=== PATIENT | female | born 1945 | race Caucasian/White ===

== ENCOUNTER 2017-02-08 13:35 | Inpatient (IN) | payer OTHER ==
--- NOTE | 2017-02-08 13:58 | PDOC ---
Attending Attestation - HPI HPI: 02/08/17 16:02 Patient is a 71 year old female with a significant past medical history of Hypothyroidism, Hyperlipidemia, Bipolar disorder, Anxiety disorder and seizure disorder with colostomy who presents to the ED s/p change in mental status that began yesterday. Patient is unable to provide Hx. Patient is able to project to nurses and physicians. Allergies: Chocolate Flavor Social history: No smoking. No alcohol. No illicit drugs. Surgical history PMD: Dr. Beltran - Physicial Exam PE: 02/08/17 16:02 GENERAL: +Pale. +was able to say get away Awake, alert. HEAD: No signs of trauma EYES: PERRLA, EOMI, sclera anicteric, conjunctiva clear ENT: +Dry Mucous membrane, cracked. +tongue dry. Auricles normal inspection, hearing grossly normal, nares patent, oropharynx clear without exudates. NECK: Normal ROM, supple, no lymphadenopathy, JVD, or masses LUNGS: Breath sounds equal, clear to auscultation bilaterally. No wheezes, and no crackles HEART: Regular rate and rhythm, normal S1 and S2, no murmurs, rubs or gallops ABDOMEN: +Colostomy bag with air, no stool . Soft, nontender, normoactive bowel sounds. No guarding, no rebound. No masses EXTREMITIES: Normal range of motion, no edema. No clubbing or cyanosis. No cords, erythema, or tenderness NEUROLOGICAL: Cranial nerves II through XII grossly intact. Normal speech, SKIN: Warm, Dry, normal turgor, no rashes or lesions noted. 02/08/17 16:02 <John Cheung - Last Filed: 02/08/17 16:02> - Resident Resident Name: Thong Street - ED Attending Attestation I have performed the following: I have examined & evaluated the patient, The case was reviewed & discussed with the resident, I agree w/resident's findings & plan, Exceptions are as noted - Medical Decision Making 02/08/17 13:57 I, Dr. Pao Zapien, DO, attest that this document has been prepared under my direction and personally reviewed by me in its entirety. I further attest, that it accurately reflects all work, treatment, procedures and medical decision -making performed by me. 02/08/17 14:49 a/p: 71yo female sent for eval of change in MS -pt very dry on exam with tenting skin -urine very dark and concentrated -labs -ua/cs -ivf hydration -straight cath -cxr -monitor -vbg 02/08/17 16:25 pt with UTI and change in MS, mild acidosis. will need admission for IV ABX 02/08/17 16:35 case discussed with IM who accepts pt to dr. serrano <Pao Zapien - Last Filed: 02/08/17 16:38> Discharge Disposition <John Cheung - Last Filed: 02/08/17 16:02> - Discharge Dispostion Admit: Yes <Pao Zapien - Last Filed: 02/08/17 16:38> - Diagnosis UTI (urinary tract infection), Change in mental status - Discharge Dispostion Condition at time of disposition: Guarded - Referrals Referrals: Sabas Beltran [Primary Care Provider] - Heart Score/ECG Review - ECG Intrepretation Comment:: 02/08/17 16:24 sinus at 98, nl axis, lafb, q waves septally that are age indeterminate, no acute st/t wave findings <Pao Zapien - Last Filed: 02/08/17 16:38> Critical Care Total Critical Care Time (in minutes): 30 Critical Care Statement: The care of this patient involved high complexity decision making to prevent further life threatening deterioration of the patient 's condition and/or to evaluate & treat vital organ system(s) failure or risk of failure. <Pao Zapien - Last Filed: 02/08/17 16:38>
[2017-02-08] MEDS ORDERED: SODIUM CHLORIDE 0.9% 1000 ML INFUS.BAG IV ONE ×2 (14:01→14:54)
--- NOTE | 2017-02-08 14:16 | PDOC ---
History of Present Illness - General Stated Complaint: ALTERED MENTAL STATUS Time Seen by Provider: 02/08/17 13:39 - History of Present Illness Initial Comments: 02/08/17 14:19 Ms. Raymundo is a 71 yo female with a significant past medical history of Hypothyroidism, Hyperlipidemia, Bipolar disorder, Anxiety disorder and seizure disorder with colostomy who presents to the emergency department from [facility] with altered mental status. Unclear duration, per EMS she is normally able to converse and oriented to self but has lately been AOx0. Allergies: chocolate flavor Past History - Past Medical History Allergies/Adverse Reactions: Allergies Allergy/AdvReac Type Severity Reaction Status Date / Time chocolate flavor Allergy Verified 02/08/17 14:47 Home Medications: Ambulatory Orders Amino Acids/Protein Hydrolys [Pro-Stat Awc Liquid] 30 ml PO BID 02/08/17 Cinacalcet HCl [Sensipar] 30 mg PO BID 02/08/17 Divalproex [Depakote -] 750 mg PO BID 02/08/17 Docusate Sodium [Dulcolax Stool Softener] 200 mg PO HS 02/08/17 Edetate Disodium/Peg [Eyescrub Cleansing Pads] 1 each OU DAILY 02/08/17 Flunisolide 1 sprays NS Q12H 02/08/17 Levothyroxine [Synthroid -] 225 mcg PO DAILY 02/08/17 [place] Carbonate [Eskalith -] 150 mg PO DAILY 02/08/17 [place] Carbonate [Eskalith -] 300 mg PO HS 02/08/17 Mag Hydrox/Al Hydrox/Simeth [Mylanta Oral Suspension -] 30 ml PO Q8H PRN Magnesium Hydrox 2400MG/30Ml [Milk of Magnesia -] 30 ml PO DAILY PRN 02/08/17 Multivitamin with Minerals [Icaps Plus] 1 each PO DAILY 02/08/17 Pantoprazole Sodium 40 mg PO DAILY 02/08/17 Polyethylene Glycol 3350 [Miralax (For Daily Use) -] 17 gm PO DAILY 02/08/17 Quetiapine Fumarate [Seroquel -] 300 mg PO BID 02/08/17 Topiramate [Topamax] 100 mg PO Q12H 02/08/17 Review of Systems - Review of Systems Comments:: Unable to perform *Physical Exam - Physical Exam Comments: 02/08/17 14:19 GENERAL: AOx0 HEAD: No signs of trauma, normocephalic, atraumatic EYES: PERRLA, EOMI, sclera anicteric, conjunctiva clear ENT: Auricles normal inspection, hearing grossly normal, nares patent, oropharynx clear without exudates. Moist mucosa NECK: Normal ROM, supple, no lymphadenopathy, JVD, or masses LUNGS: No distress, speaks full sentences, clear to auscultation bilaterally HEART: Regular rate and rhythm, normal S1 and S2, no murmurs, rubs or gallops, peripheral pulses normal and equal bilaterally. ABDOMEN: Soft, nontender, normoactive bowel sounds. No guarding, no rebound. No masses EXTREMITIES: +Abbrasion on right forearm at exam that per EMS was not their when they picked up patient. Patient flailing around; suspect self inflicted during transport. Normal range of motion, no edema. No clubbing or cyanosis. NEUROLOGICAL: Cranial nerves II through XII grossly intact. Normal speech, normal gait, no focal sensorimotor deficits SKIN: +Vaginal rash noted while assisting nursing changing patient. Warm, Dry, normal turgor, no lesions noted. ED Treatment Course - LABORATORY CBC & Chemistry Diagram: 02/08/17 14:30 02/08/17 16:39 Medical Decision Making - Medical Decision Making 02/08/17 16:44 Patient acutely altered with lactate, WBC's, and UA results as shown below. Admitting for UTI treatment with IV ABX. Laboratory Results - last 24 hr 02/08/17 02/08/17 02/08/17 13:58 14:30 14:30 WBC RBC Hgb Hct MCV MCH MCHC RDW Plt Count MPV Total Counted Neutrophils % Neutrophils % (Manual) Band Neuts % (Manual) Lymphocytes % Lymphocytes % (Manual) Monocytes % (Manual) Myelocytes % (Man) Platelet Estimate Platelet Comment Polychromasia Anisocytosis Macrocytosis PT with INR 23.40 H INR 2.10 H PTT (Actin FS) 43.2 H VBG pH POC VBG pCO2 POC VBG pO2 Mixed VBG HCO3 Sodium Cancelled Potassium Cancelled Chloride Cancelled Carbon Dioxide Cancelled Anion Gap Cancelled BUN Cancelled Creatinine Cancelled Creat Clearance w eGFR Cancelled Random Glucose Cancelled Lactic Acid Calcium Cancelled Magnesium Cancelled Total Bilirubin Cancelled AST Cancelled ALT Cancelled Alkaline Phosphatase Cancelled Creatine Kinase Cancelled Troponin I Cancelled B-Natriuretic Peptide Total Protein Cancelled Albumin Cancelled TSH Urine Color Michelle Urine Appearance Turbid Urine pH 5.0 Urine Protein 2+ H Urine Glucose (UA) Negative Urine Ketones Trace H Urine Blood 3+ H Urine Nitrite Positive Urine Bilirubin Negative Urine Urobilinogen Negative Urine RBC 101 Urine WBC 1047 Ur Epithelial Cells Rare Urine Bacteria Few Urine Mucus Few 02/08/17 02/08/17 02/08/17 14:30 14:30 14:30 WBC 18.9 H RBC 3.96 Hgb 14.8 Hct 46.7 H MCV 117.7 H MCH 37.2 H MCHC 31.6 L RDW 17.6 H Plt Count 101 L MPV 11.8 H Total Counted 100 Neutrophils % No Result Required. Neutrophils % (Manual) 57 Band Neuts % (Manual) 17 H Lymphocytes % No Result Required. Lymphocytes % (Manual) 15 Monocytes % (Manual) 10 Myelocytes % (Man) 1 Platelet Estimate Decreased Platelet Comment Few large plts Polychromasia F Anisocytosis 1+ Macrocytosis 2+ PT with INR INR PTT (Actin FS) VBG pH POC VBG pCO2 POC VBG pO2 Mixed VBG HCO3 Sodium Potassium Chloride Carbon Dioxide Anion Gap BUN Creatinine Creat Clearance w eGFR Random Glucose Lactic Acid 2.4 H* Calcium Magnesium Total Bilirubin AST ALT Alkaline Phosphatase Creatine Kinase Troponin I B-Natriuretic Peptide Cancelled Total Protein Albumin TSH Urine Color Urine Appearance Urine pH Urine Protein Urine Glucose (UA) Urine Ketones Urine Blood Urine Nitrite Urine Bilirubin Urine Urobilinogen Urine RBC Urine WBC Ur Epithelial Cells Urine Bacteria Urine Mucus 02/08/17 02/08/17 14:45 15:10 WBC RBC Hgb Hct MCV MCH MCHC RDW Plt Count MPV Total Counted Neutrophils % Neutrophils % (Manual) Band Neuts % (Manual) Lymphocytes % Lymphocytes % (Manual) Monocytes % (Manual) Myelocytes % (Man) Platelet Estimate Platelet Comment Polychromasia Anisocytosis Macrocytosis PT with INR INR PTT (Actin FS) VBG pH 7.32 POC VBG pCO2 56.3 H POC VBG pO2 30.2 Mixed VBG HCO3 28.3 H Sodium Potassium Chloride Carbon Dioxide Anion Gap BUN Creatinine Creat Clearance w eGFR Random Glucose Lactic Acid Calcium Magnesium Total Bilirubin AST ALT Alkaline Phosphatase Creatine Kinase Troponin I B-Natriuretic Peptide Total Protein Albumin TSH Cancelled Urine Color Urine Appearance Urine pH Urine Protein Urine Glucose (UA) Urine Ketones Urine Blood Urine Nitrite Urine Bilirubin Urine Urobilinogen Urine RBC Urine WBC Ur Epithelial Cells Urine Bacteria Urine Mucus 02/08/17 19:01 Patient admitted to hospitalist. Patient then realized to be from [facility], usually covered by Dr. Rose. Dr. Rose consulted and agreed to accept patient under service. *DC/Admit/Observation/Transfer Diagnosis at time of Disposition: UTI (urinary tract infection) Qualifiers: Urinary tract infection type: site unspecified Hematuria presence: with hematuria Qualified Code(s): N39.0 - Urinary tract infection, site not specified Change in mental status Qualifiers: Altered mental status type: delirium Qualified Code(s): R41.0 - Disorientation , unspecified - Discharge Dispostion Condition at time of disposition: Guarded - Referrals
[2017-02-08 14:46] LABS: MCH 37.2 pg (25.7-33.7); MCHC 31.6 g/dl (32.0-36.0); MEAN CELL VOLUME 117.7 fl (80-96); MEAN PLT VOLUME 11.8 fl (7.5-11.1); PLATELET COUNT 101 K/MM3 (134-434); RDW 17.6 % (11.6-15.6); WHITE BLOOD COUNT 18.9 K/mm3 (4.0-10.0)
[2017-02-08 14:47] LABS: URINE APPEARANCE TURBID; URINE BILIRUBIN NEGATIVE (NEGATIVE); URINE BLOOD 3+ (NEGATIVE); URINE COLOR AMBER; URINE GLUCOSE (UA) NEGATIVE (NEGATIVE); URINE KETONE TRACE (NEGATIVE); URINE NITRITE POSITIVE (NEGATIVE); URINE UROBILINOGEN NEGATIVE mg/dL (0.2-1.0)
[2017-02-08 14:50] LABS: URINE LEUK ESTERASE 3+ (NEGATIVE); URINE PROTEIN 2+ (NEGATIVE)
[2017-02-08 14:51] LABS: VENOUS BLOOD GAS HCO3 28.3 meq/L (19-25); VENOUS PH 7.32 (7.32-7.42)
[2017-02-08 14:58] LABS: INR 2.1 (0.82-1.09); PROTHROMBIN TIME (PATIENT) 23.4 SEC (9.98-11.88)
[2017-02-08 15:01] LABS: ACTIVATED PTT 43.2 SECONDS (26.9-34.4)
[2017-02-08 15:08] VITALS: BMI 45.1
[2017-02-08 15:33] LABS: MYELOCYTE 1 % (0-2); PLATELET COMMENT2 FEW LARGE PLTS; PLATELET ESTIMATE DECREASED (NORMAL); POLYCHROMASIA F; TOTAL CELLS COUNTED 100
[2017-02-08 15:34] LABS: ANISOCYTOSIS 1+; MACROCYTOSIS 2+
[2017-02-08 15:51] LABS: URINE BACTERIA FEW /hpf (NONE SEEN); URINE MUCUS FEW; URINE RBC 101 /hpf (0-3); URINE WBC 1047 /hpf (3-5)
[2017-02-08] MEDS ORDERED: cefTRIAXone 1 GM/50 ML BAG (PRE-DOCKED) IVPB ONE (16:00)
[2017-02-08] MEDS ORDERED: CEFTRIAXONE 50 ML ONE (16:53)
[2017-02-08 17:12] LABS: ALBUMIN 2.5 g/dl (3.4-5.0); ANION GAP 5 (8-16); BILIRUBIN,TOTAL 0.7 mg/dL (0.2-1.0); CO2 24 mmol/L (21-32); CREATININE 1.1 mg/dL (0.55-1.02); GLUCOSE,RANDOM 86 mg/dL (74-106); SGPT/ALT 23 U/L (12-78); TOT PROT 6.2 g/dl (6.4-8.2)
[2017-02-08 17:14] LABS: ALK PHOS 99 U/L (45-117)
[2017-02-08 17:16] LABS: MAGNESIUM 1.8 mg/dL (1.8-2.4); SGOT/AST 35 U/L (15-37)
--- NOTE | 2017-02-08 17:27 | PN ---
Teaching Attending Note ATTENDING PHYSICIAN STATEMENT I saw and evaluated the patient. I reviewed the resident's note and discussed the case with the resident. I agree with the resident's findings and plan as documented. SUBJECTIVE: OBJECTIVE: ASSESSMENT AND PLAN:
[2017-02-08] MEDS ORDERED: MAGNESIUM HYDROX 2400MG/30ML ORAL SUSPENSION 30 ML CUP PO PRN (19:37)
[2017-02-08] MEDS ORDERED: MAG HYDROX/AL HYDROX/SIMETH 30 ML UNIT-DOSE CUP PO PRN (19:37)
[2017-02-08] MEDS ORDERED: ACETAMINOPHEN 325 MG TABLET (FP) PO PRN (19:40)
[2017-02-08] MEDS ORDERED: FLUNISOLIDE NS SCH (19:45)
[2017-02-08] MEDS ORDERED: TOPIRAMATE 100 MG TABLET PO SCH (19:45)
--- NOTE | 2017-02-08 20:17 | EKG ---
Test Reason : Blood Pressure : / mmHG Vent. Rate : 098 BPM Atrial Rate : 098 BPM P-R Int : 166 ms QRS Dur : 092 ms QT Int : 362 ms P-R-T Axes : 063 -64 086 degrees QTc Int : 462 ms NORMAL SINUS RHYTHM LEFT ANTERIOR FASCICULAR BLOCK SEPTAL INFARCT , AGE UNDETERMINED NONSPECIFIC T WAVE ABNORMALITY ABNORMAL ECG NO PREVIOUS ECGS AVAILABLE Confirmed by WAGNER NICOLE MD ([id number]) on 02/08/2017 8:16:47 PM Referred By: Confirmed By:WAGNER NICOLE MD
[2017-02-08] MEDS: D5-1/2NS+20 MEQ KCL - 1,000 ML IV SCH (20:38)
[2017-02-08] MEDS: AMINO ACIDS/PROTEIN HYDROLYS 30 ML LIQUID.PKT PO SCH (21:57)
[2017-02-08] MEDS: DOCUSATE SODIUM 100 MG CAPSULE (FP) PO SCH (21:57)
[2017-02-08] MEDS: TOPIRAMATE 100 MG TABLET PO SCH (21:57)
[2017-02-08] MEDS ORDERED: DIVALPROEX SODIUM 125 MG TABLET E.C. (FP) PO SCH (22:00)
[2017-02-08] MEDS ORDERED: QUEtiapine FUMARATE 300 MG TABLET PO SCH (22:00)
[2017-02-08] MEDS: QUEtiapine FUMARATE 100 MG TABLET (FP) PO SCH (23:02)
[2017-02-08] MEDS: DIVALPROEX SODIUM 250 MG TABLET E.C. (FP) PO SCH (23:02)
[2017-02-08] MEDS: LITHIUM CARBONATE 300 MG CAPSULE (FP) PO SCH (23:02)
[2017-02-08] MEDS: CINACALCET HCL 30 MG TAB (FP) PO SCH (23:02)
[2017-02-09] MEDS ORDERED: LEVOTHYROXINE NA 25 MCG TABLET (FP) ONE (06:11)
[2017-02-09] MEDS ORDERED: LEVOTHYROXINE NA 100 MCG TABLET (FP) ONE (06:11)
[2017-02-09] MEDS: LEVOTHYROXINE 200 MCG, LEVOTHYROXINE 25 MCG PO SCH (06:17)
[2017-02-09] MEDS: D5-1/2NS+20 MEQ KCL - 1,000 ML IV SCH ×2 (06:51→23:12)
[2017-02-09 07:19] LABS: BASOPHIL 0.3 % (0-2.0); EOSINOPHIL 1.3 % (0-4.5); MCHC 31.9 g/dl (32.0-36.0); MEAN CELL VOLUME 119.1 fl (80-96); MEAN PLT VOLUME 10.7 fl (7.5-11.1); NEUTROPHILS 66.7 % (42.8-82.8); PLATELET COUNT 65 K/MM3 (134-434); RDW 17.4 % (11.6-15.6); WHITE BLOOD COUNT 10.8 K/mm3 (4.0-10.0)
[2017-02-09 07:32] LABS: INR 2.1 (0.82-1.09); PROTHROMBIN TIME (PATIENT) 23.5 SEC (9.98-11.88)
[2017-02-09 07:43] LABS: ALBUMIN 2.2 g/dl (3.4-5.0); ANION GAP 1 (8-16); BILIRUBIN,TOTAL 0.5 mg/dL (0.2-1.0); CALCIUM 10.6 mg/dL (8.5-10.1); CO2 30 mmol/L (21-32); GLUCOSE,RANDOM 105 mg/dL (74-106); SGOT/AST 21 U/L (15-37); SGPT/ALT 18 U/L (12-78); TOT PROT 5.7 g/dl (6.4-8.2)
[2017-02-09 07:44] LABS: ALK PHOS 90 U/L (45-117)
[2017-02-09] MEDS ORDERED: QUEtiapine FUMARATE 50 MG TABLET ONE (09:31)
[2017-02-09] MEDS ORDERED: cefTRIAXone SODIUM 1 GM VIAL ONE (09:31)
[2017-02-09] MEDS ORDERED: DEXTROSE 5%-WATER 100 ML IVPB ONE (09:32)
[2017-02-09] MEDS: QUEtiapine FUMARATE 100 MG TABLET (FP) PO SCH ×2 (09:35→23:05)
[2017-02-09] MEDS: PANTOPRAZOLE 40 MG TABLET (FP) PO SCH (09:35)
[2017-02-09] MEDS: CEFTRIAXONE 1 GM in DEXTROSE 5%-WATER 100 ML IVPB SCH (09:35)
[2017-02-09] MEDS: MULTIVITAMINS (DAILY MVI) TABLET (FP) PO SCH (09:35)
[2017-02-09] MEDS: AMINO ACIDS/PROTEIN HYDROLYS 30 ML LIQUID.PKT PO SCH ×2 (09:37→23:03)
[2017-02-09] MEDS ORDERED: LEVOTHYROXINE NA 200 MCG TABLET PO SCH (10:00)
[2017-02-09] MEDS ORDERED: [UNRECOGNIZED DRUG - MIXTURE] OU SCH (10:00)
[2017-02-09] MEDS: POLYETHYLENE GLYCOL 3350 119 GM BTL PO SCH (10:00)
--- NOTE | 2017-02-09 10:58 | HP ---
Admitting History and Physical - Primary Care Physician PCP: Alva Rose - Admission Chief Complaint: ams History of Present Illness: Patient is a 71 year old female with a significant past medical history of Hypothyroidism, Hyperlipidemia, Bipolar disorder, Anxiety disorder and seizure disorder with colostomy who presents to the ED s/p change in mental status that began yesterday. Patient is unable to provide Hx. Patient was able to project to nurses and physicians in er. PMD: Dr. Beltran. patient in the emergency room--noted to have dark colored urine/urosepsis Sodium was also evaluated given fluids And antibiotics Admitted to the floor Case was discussed with emergency room physician last night patient seen Today on the floor. Drowsy but arousable Patient is poor historian Patient has breakfast today As per nursing staff she is eating all right Afebrile History Source: Medical Record Limitations to Obtaining History: Clinical Condition, Poor Historian - Advance Directives Advance Directives: Yes: Health Care Proxy - Smoking History Smoking history: Never smoked Aproximately how many cigarettes per day: 0 - Alcohol/Substance Use Hx Alcohol Use: No Home Medications - Allergies Allergies/Adverse Reactions: Allergies Allergy/AdvReac Type Severity Reaction Status Date / Time chocolate flavor Allergy Verified 02/08/17 14:47 - Home Medications Home Medications: Ambulatory Orders Amino Acids/Protein Hydrolys [Pro-Stat Awc Liquid] 30 ml PO BID 02/08/17 Cinacalcet HCl [Sensipar] 30 mg PO BID 02/08/17 Divalproex [Depakote -] 750 mg PO BID 02/08/17 Docusate Sodium [Dulcolax Stool Softener] 200 mg PO HS 02/08/17 Edetate Disodium/Peg [Eyescrub Cleansing Pads] 1 each OU DAILY 02/08/17 Flunisolide 1 sprays NS Q12H 02/08/17 Levothyroxine [Synthroid -] 225 mcg PO DAILY 02/08/17 [place] Carbonate [Eskalith -] 150 mg PO DAILY 02/08/17 [place] Carbonate [Eskalith -] 300 mg PO HS 02/08/17 Mag Hydrox/Al Hydrox/Simeth [Mylanta Oral Suspension -] 30 ml PO Q8H PRN Magnesium Hydrox 2400MG/30Ml [Milk of Magnesia -] 30 ml PO DAILY PRN 02/08/17 Multivitamin with Minerals [Icaps Plus] 1 each PO DAILY 02/08/17 Pantoprazole Sodium 40 mg PO DAILY 02/08/17 Polyethylene Glycol 3350 [Miralax (For Daily Use) -] 17 gm PO DAILY 02/08/17 Quetiapine Fumarate [Seroquel -] 300 mg PO BID 02/08/17 Topiramate [Topamax] 100 mg PO Q12H 02/08/17 Review of Systems Unable to obtain ROS, reason: Clinical condition Physical Examination Vital Signs: Vital Signs Temperature 98 F 02/09/17 05:46 Pulse Rate 76 02/09/17 05:46 Respiratory Rate 18 02/09/17 05:46 Blood Pressure 120/74 02/09/17 05:46 O2 Sat by Pulse Oximetry (%) 100 02/09/17 09:00 Constitutional: Yes: No Distress, Calm, Obese Eyes: Yes: Conjunctiva Clear Neck: Yes: Supple Cardiovascular: Yes: Regular Rate and Rhythm Respiratory: Yes: CTA Bilaterally Gastrointestinal: Yes: Soft Edema: No Labs: CBC, BMP 02/09/17 07:10 02/09/17 07:10 Imaging - Results Chest X-ray: Report Reviewed Cat Scan: Report Reviewed EKG: Report Reviewed Problem List - Problems (1) Change in mental status Code(s): R41.82 - ALTERED MENTAL STATUS, UNSPECIFIED Qualifiers: Altered mental status type: delirium Qualified Code(s): R41.0 - Disorientation, unspecified; R41.0 - Disorientation, unspecified (2) UTI (urinary tract infection) Code(s): N39.0 - URINARY TRACT INFECTION, SITE NOT SPECIFIED Qualifiers: Urinary tract infection type: site unspecified Hematuria presence: with hematuria Qualified Code(s): N39.0 - Urinary tract infection, site not specified; N39.0 - Urinary tract infection, site not specified; R31.9 - Hematuria, unspecified; R31.9 - Hematuria, unspecified (3) Hypernatremia Code(s): E87.0 - HYPEROSMOLALITY AND HYPERNATREMIA Assessment/Plan monitor Check lithium and Depakote level May need to adjust psych medication Neuro exam is nonfocal Question of salivary duct stone--we will get ct neck check ionized calcium IV fluids We'll consult hematology for hypercalcemia Monitor sodium level Patient's INR is also elevated--- repeated and again elevated Patient is not on Coumadin--confirmed with skilled nursing I also spoke with the patient's private PMD Hematology already consulted Will follow. time spend 40 min in examining/ coordating and documenting care.
[2017-02-09] MEDS: DIVALPROEX SODIUM 250 MG TABLET E.C. (FP) PO SCH ×2 (13:48→23:02)
[2017-02-09] MEDS: LITHIUM CARBONATE 150 MG CAPSULE PO SCH (13:48)
[2017-02-09] MEDS: CINACALCET HCL 30 MG TAB (FP) PO SCH ×2 (13:49→23:02)
[2017-02-09] MEDS: TOPIRAMATE 100 MG TABLET PO SCH ×2 (13:49→23:02)
--- NOTE | 2017-02-09 22:18 | CONSULT ---
Consult - text type - Consultation Consultation Note: Ms. Raymundo is a 71 yo female with a significant past medical history of Hypothyroidism, Hyperlipidemia, Bipolar disorder, Anxiety disorder and seizure disorder with colostomy who presents to the emergency department from [facility] with altered mental status. Unclear duration, per EMS she is normally able to converse and oriented to self but has lately been worse. Head CT is negative for acute pathology Noted to have hyper natremia, hypercalcemia, ? UTI Allergies: chocolate flavor Past History - Past Medical History Hyperliidemia Hypothyroidism Seizure disorder Bipolar disorder Allergies/Adverse Reactions: Allergies Allergy/AdvReac Type Severity Reaction Status Date / Time chocolate flavor Allergy Verified 02/08/17 14:47 Home Medications: Ambulatory Orders Amino Acids/Protein Hydrolys [Pro-Stat Awc Liquid] 30 ml PO BID 02/08/17 Cinacalcet HCl [Sensipar] 30 mg PO BID 02/08/17 Divalproex [Depakote -] 750 mg PO BID 02/08/17 Docusate Sodium [Dulcolax Stool Softener] 200 mg PO HS 02/08/17 Edetate Disodium/Peg [Eyescrub Cleansing Pads] 1 each OU DAILY 02/08/17 Flunisolide 1 sprays NS Q12H 02/08/17 Levothyroxine [Synthroid -] 225 mcg PO DAILY 02/08/17 [place] Carbonate [Eskalith -] 150 mg PO DAILY 02/08/17 [place] Carbonate [Eskalith -] 300 mg PO HS 02/08/17 Mag Hydrox/Al Hydrox/Simeth [Mylanta Oral Suspension -] 30 ml PO Q8H PRN Magnesium Hydrox 2400MG/30Ml [Milk of Magnesia -] 30 ml PO DAILY PRN 02/08/17 Multivitamin with Minerals [Icaps Plus] 1 each PO DAILY 02/08/17 Pantoprazole Sodium 40 mg PO DAILY 02/08/17 Polyethylene Glycol 3350 [Miralax (For Daily Use) -] 17 gm PO DAILY 02/08/17 Quetiapine Fumarate [Seroquel -] 300 mg PO BID 02/08/17 Topiramate [Topamax] 100 mg PO Q12H 02/08/17 Active Medications Generic Name Dose Route Start Last Admin Trade Name Freq PRN Reason Stop Dose Admin Acetaminophen 650 mg 02/08/17 19:40 Tylenol - PO Q4H PRN FEVER OR PAIN Al Hydroxide/Mg Hydroxide 30 ml 02/08/17 19:37 Mylanta Oral Suspension - PO Q8H PRN DYSPEPSIA Amino Acids 30 ml 02/08/17 22:00 02/09/17 23:03 Prosource No Carb Liquid Pkt PO 30 ml BID ROLAN Administration Cinacalcet 30 mg 02/08/17 22:00 02/09/17 23:02 Sensipar - PO 30 mg BID ROLAN Administration Divalproex Sodium 750 mg 02/08/17 22:45 02/09/17 23:02 Depakote - PO 750 mg BID ROLAN Administration Docusate Sodium 200 mg 02/08/17 22:00 02/09/17 23:02 Colace - PO 200 mg HS ROLAN Administration Potassium Chloride/Dextrose/Sod Cl 1,000 mls @ 100 mls/hr 02/08/17 19:45 23:12 D5-1/2ns+20 Meq Kcl - IV 100 mls/hr ASDIR ROLAN Administration Ceftriaxone Sodium 1 gm/ 100 mls @ 200 mls/hr 02/09/17 10:00 02/09/17 09:35 Dextrose IVPB 200 mls/hr DAILY ROLAN Administration Levothyroxine Sodium 200 mcg/ 225 mcg 02/09/17 07:00 02/10/17 06:12 Levothyroxine Sodium 25 mcg PO 225 mcg DAILY@0700 ROLAN Administration [place] Carbonate 150 mg 02/09/17 10:00 02/09/17 13:48 Eskalith - PO Not Given DAILY ROLAN [place] Carbonate 300 mg 02/08/17 22:00 02/09/17 23:03 Eskalith - PO 300 mg HS ROLAN Administration Magnesium Hydroxide 30 ml 02/08/17 19:37 Milk Of Magnesia - PO DAILY PRN CONSTIPATION Multivitamins/Minerals/Vitamin C 1 tab 02/09/17 10:00 02/09/17 09:35 Tab-A-Vit - PO 1 tab DAILY ROLAN Administration Pantoprazole Sodium 40 mg 02/09/17 10:00 02/09/17 09:35 Protonix - PO 40 mg DAILY ROLAN Administration Phytonadione 5 mg 02/09/17 20:30 02/09/17 23:04 Aqua Mephyton Injection - SQ 02/12/17 20:29 5 mg DAILY ROLAN Administration Polyethylene Glycol 17 gm 02/09/17 10:00 02/09/17 10:00 Miralax (For Daily Use) - PO Not Given DAILY ROLAN Quetiapine Fumarate 300 mg 02/08/17 22:45 02/09/17 23:05 Seroquel - PO Not Given BID ROLAN Topiramate 100 mg 02/08/17 22:00 02/09/17 23:02 Topamax - PO 100 mg BID ROLAN Administration AFVSS Cor: RSR, No murmurs, No gallops Lungs: Clear to P&A Abd: Soft, Normal bowel sounds, No organomegaly Ext:No significant edema Skin: No rashes, Integument intact Abnormal Lab Results 02/09/17 02/09/17 02/09/17 07:10 07:10 07:10 WBC 10.8 H D RBC 3.11 L D MCV 119.1 H MCH 38.0 H MCHC 31.9 L RDW 17.4 H Plt Count 65 L D PT with INR 23.50 H INR 2.10 H Sodium 160 H Chloride 129 H Anion Gap 1 L BUN 22 H Calcium 10.6 H Total Protein 5.7 L Albumin 2.2 L 02/10/17 06:00 WBC RBC MCV MCH MCHC RDW Plt Count PT with INR 19.90 H INR 1.79 H Sodium Chloride Anion Gap BUN Calcium Total Protein Albumin A/P 71 y/o patient with hyperlipidemia, bipolar disorder,hypothyroid, seizure disorder, comes in with altered mental status Presumed UTI, hypernatremia, hypercalcemia, coagulopathy Coagulopathy due to low grade DIC? sepsis/? infection ? liver disease? occult vit. K deficiency Not on blood thinners per primary team trial of Vit. K continue antibiotics thrombocytopenia--? infection ? liver disease check U/S abdomen check B12/folate hypercalcemia--in ov fluids on densipar corrected ca --< 12--11.4 will get endocrine consult check PTH
[2017-02-09] MEDS ORDERED: PT OWN MED DRAWER 7, Y5N ONE (22:58)
[2017-02-09] MEDS: DOCUSATE SODIUM 100 MG CAPSULE (FP) PO SCH (23:02)
[2017-02-09] MEDS: LITHIUM CARBONATE 300 MG CAPSULE (FP) PO SCH (23:03)
[2017-02-09] MEDS: PHYTONADIONE 10 MG/1 ML AMP SQ SCH (23:04)
[2017-02-10] MEDS ORDERED: LEVOTHYROXINE NA 100 MCG TABLET (FP) ONE ×2 (06:01→06:03)
[2017-02-10] MEDS ORDERED: LEVOTHYROXINE NA 25 MCG TABLET (FP) ONE ×2 (06:01→06:03)
[2017-02-10] MEDS: LEVOTHYROXINE 200 MCG, LEVOTHYROXINE 25 MCG PO SCH (06:12)
[2017-02-10 06:28] LABS: INR 1.79 (0.82-1.09); PROTHROMBIN TIME (PATIENT) 19.9 SEC (9.98-11.88)
[2017-02-10 06:46] LABS: ACTIVATED PTT 34.6 SECONDS (26.9-34.4)
[2017-02-10 06:50] LABS: ALBUMIN 2.2 g/dl (3.4-5.0); ANION GAP 2 (8-16); CALCIUM 10.2 mg/dL (8.5-10.1); CO2 28 mmol/L (21-32); CREATININE 0.8 mg/dL (0.55-1.02); GLUCOSE,RANDOM 99 mg/dL (74-106); LDH 172 U/L (84-246); SGOT/AST 19 U/L (15-37); SGPT/ALT 17 U/L (12-78)
[2017-02-10 07:00] LABS: ALK PHOS 95 U/L (45-117); BILIRUBIN,TOTAL 0.5 mg/dL (0.2-1.0); THYROID STIMULATING HORMONE 0.04 uIU/ml (0.358-3.74); TOT PROT 5.6 g/dl (6.4-8.2)
[2017-02-10 07:50] LABS: MCHC 32.2 g/dl (32.0-36.0); MEAN CELL VOLUME 118.2 fl (80-96); MEAN PLT VOLUME 10.9 fl (7.5-11.1); PLATELET COUNT 66 K/MM3 (134-434); RDW 17.3 % (11.6-15.6); WHITE BLOOD COUNT 8.9 K/mm3 (4.0-10.0)
--- NOTE | 2017-02-10 08:39 | PN ---
Progress Note (short form) - Note Progress Note: Patient seen and examined More awake today Comfortable Poor historian Denies pain Hematology consult noted and appreciated Afebrile Vital Signs Temp 97.3 F L 02/10/17 02:53 Pulse 54 L 02/10/17 02:53 Resp 20 02/10/17 02:53 BP 114/50 02/10/17 02:53 Pulse Ox 95 02/09/17 19:48 Intake & Output 02/09/17 02/09/17 02/10/17 11:59 23:59 11:59 Intake Total 1220 1470 800 Balance 1220 1470 800 Intake: IV 1100 1300 800 D5-1/2Ns+20 Meq KCl - 1, 1100 1300 800 000 ml @ 100 mls/hr IV [facility] Rx#:[id number] IVPB 50 Oral 120 120 Other: Voiding Method Incontinent Incontinent # Unmeasured Voids Straight Cath 2 2 1 Active Medications Acetaminophen (Tylenol -) 650 mg PO Q4H PRN PRN Reason: FEVER OR PAIN Al Hydroxide/Mg Hydroxide (Mylanta Oral Suspension -) 30 ml PO Q8H PRN PRN Reason: DYSPEPSIA Amino Acids (Prosource No Carb Liquid Pkt) 30 ml PO BID [facility] Last Admin: 02/09/17 23:03 Dose: 30 ml Cinacalcet (Sensipar -) 30 mg PO BID [facility] Last Admin: 02/09/17 23:02 Dose: 30 mg Divalproex Sodium (Depakote -) 750 mg PO BID [facility] Last Admin: 02/09/17 23:02 Dose: 750 mg Docusate Sodium (Colace -) 200 mg PO HS [facility] Last Admin: 02/09/17 23:02 Dose: 200 mg Ceftriaxone Sodium 1 gm/ (Dextrose) 100 mls @ 200 mls/hr IVPB DAILY [facility] Last Admin: 02/09/17 09:35 Dose: 200 mls/hr Dextrose/Sodium Chloride (D5-1/3ns+20 Meq Kcl -) 1,000 mls @ 100 mls/hr IV [facility] Levothyroxine Sodium 200 mcg/ (Levothyroxine Sodium 25 mcg) 225 mcg PO DAILY@ 0700 [facility] Last Admin: 02/10/17 06:12 Dose: 225 mcg [place] Carbonate (Eskalith -) 150 mg PO DAILY [facility] Last Admin: 02/09/17 13:48 Dose: Not Given [place] Carbonate (Eskalith -) 300 mg PO HS [facility] Last Admin: 02/09/17 23:03 Dose: 300 mg Magnesium Hydroxide (Milk Of Magnesia -) 30 ml PO DAILY PRN PRN Reason: CONSTIPATION Multivitamins/Minerals/Vitamin C (Tab-A-Vit -) 1 tab PO DAILY [facility] Last Admin: 02/09/17 09:35 Dose: 1 tab Pantoprazole Sodium (Protonix -) 40 mg PO DAILY [facility] Last Admin: 02/09/17 09:35 Dose: 40 mg Phytonadione (Aqua Mephyton Injection -) 5 mg SQ DAILY [facility] Stop: 02/12/17 20:29 Last Admin: 02/09/17 23:04 Dose: 5 mg Polyethylene Glycol (Miralax (For Daily Use) -) 17 gm PO DAILY [facility] Last Admin: 02/09/17 10:00 Dose: Not Given Quetiapine Fumarate (Seroquel -) 300 mg PO BID [facility] Last Admin: 02/09/17 23:05 Dose: Not Given Topiramate (Topamax -) 100 mg PO BID [facility] Last Admin: 02/09/17 23:02 Dose: 100 mg CBC, BMP 02/10/17 06:00 02/10/17 06:00 Microbiology 02/08/17 14:30 Blood Culture - Preliminary Blood - Peripheral Venous NO GROWTH OBTAINED AFTER 24 HOURS, INCUBATION TO CONTINUE FOR 4 DAYS. 02/08/17 14:30 Blood Culture - Preliminary Blood - Peripheral Venous NO GROWTH OBTAINED AFTER 24 HOURS, INCUBATION TO CONTINUE FOR 4 DAYS. 02/08/17 14:30 Urine Culture - Final Urine - Urine - Catheterized Contaminated: Please Repeat Physical Examination Constitutional: Yes: No Distress, Calm, Obese Eyes: Yes: Conjunctiva Clear Neck: Yes: Supple Cardiovascular: Yes: Regular Rate and Rhythm Respiratory: Yes: CTA Bilaterally Gastrointestinal: Yes: Soft Edema: No Assessment and plan clinically better Sodium continue 2 rise change fluids renal consult Continue antibiotics Daily out of bed to chair Psych to follow Will follow Problem List - Problems (1) Change in mental status Code(s): R41.82 - ALTERED MENTAL STATUS, UNSPECIFIED Qualifiers: Altered mental status type: delirium Qualified Code(s): R41.0 - Disorientation, unspecified; R41.0 - Disorientation, unspecified (2) UTI (urinary tract infection) Code(s): N39.0 - URINARY TRACT INFECTION, SITE NOT SPECIFIED Qualifiers: Urinary tract infection type: site unspecified Hematuria presence: with hematuria Qualified Code(s): N39.0 - Urinary tract infection, site not specified; N39.0 - Urinary tract infection, site not specified; R31.9 - Hematuria, unspecified; R31.9 - Hematuria, unspecified (3) Hypernatremia Code(s): E87.0 - HYPEROSMOLALITY AND HYPERNATREMIA
[2017-02-10] MEDS ORDERED: QUEtiapine FUMARATE 50 MG TABLET ONE (08:55)
[2017-02-10] MEDS ORDERED: cefTRIAXone SODIUM 1 GM VIAL ONE (08:56)
[2017-02-10] MEDS ORDERED: DEXTROSE 5%-WATER 100 ML IVPB ONE (08:56)
[2017-02-10] MEDS: PANTOPRAZOLE 40 MG TABLET (FP) PO SCH (09:32)
[2017-02-10] MEDS: PHYTONADIONE 10 MG/1 ML AMP SQ SCH (09:32)
[2017-02-10] MEDS: AMINO ACIDS/PROTEIN HYDROLYS 30 ML LIQUID.PKT PO SCH ×2 (09:32→21:58)
[2017-02-10] MEDS: QUEtiapine FUMARATE 100 MG TABLET (FP) PO SCH (09:32)
[2017-02-10] MEDS: MULTIVITAMINS (DAILY MVI) TABLET (FP) PO SCH (09:32)
[2017-02-10] MEDS: CEFTRIAXONE 1 GM in DEXTROSE 5%-WATER 100 ML IVPB SCH (09:33)
[2017-02-10] MEDS: CINACALCET HCL 30 MG TAB (FP) PO SCH ×2 (09:36→21:58)
[2017-02-10] MEDS: DIVALPROEX SODIUM 250 MG TABLET E.C. (FP) PO SCH ×2 (09:36→21:56)
[2017-02-10] MEDS: POLYETHYLENE GLYCOL 3350 119 GM BTL PO SCH (09:37)
[2017-02-10] MEDS: LITHIUM CARBONATE 150 MG CAPSULE PO SCH (09:37)
[2017-02-10] MEDS: TOPIRAMATE 100 MG TABLET PO SCH ×2 (09:38→21:58)
[2017-02-10] MEDS: POTASSIUM CHLORIDE 10 MEQ in DEXTROSE 5%-1/3 NS - 500 ML IVPB SCH ×3 (09:38→13:30)
[2017-02-10] MEDS ORDERED: PHYTONADIONE 10 MG/1 ML AMP SQ SCH (10:00)
--- NOTE | 2017-02-10 10:33 | CONSULT ---
Consult - text type - Consultation Consultation Note: Neurology History of Present Illness 71 yo female with a significant past medical history of Hypothyroidism, Hyperlipidemia, Bipolar disorder, Anxiety disorder and seizure disorder with colostomy who presents to the emergency department from [facility] with altered mental status. Unclear duration, reportedly is able to converse and oriented to self but has lately been AOx0. Patient found to have hypernatremia and being treated for that, but also with UTI on labs. She did have CT head which did not show acute changes. No evidence of seizure and her medicaiton list includes depakote 750mg twice daily and Topamax 100mg twice daily. Past History - Past Medical History Allergies/Adverse Reactions: Allergies Allergy/AdvReac Type Severity Reaction Status Date / Time chocolate flavor Allergy Verified 02/08/17 14:47 Home Medications: Ambulatory Orders Amino Acids/Protein Hydrolys [Pro-Stat Awc Liquid] 30 ml PO BID 02/08/17 Cinacalcet HCl [Sensipar] 30 mg PO BID 02/08/17 Divalproex [Depakote -] 750 mg PO BID 02/08/17 Docusate Sodium [Dulcolax Stool Softener] 200 mg PO HS 02/08/17 Edetate Disodium/Peg [Eyescrub Cleansing Pads] 1 each OU DAILY 02/08/17 Flunisolide 1 sprays NS Q12H 02/08/17 Levothyroxine [Synthroid -] 225 mcg PO DAILY 02/08/17 [place] Carbonate [Eskalith -] 150 mg PO DAILY 02/08/17 [place] Carbonate [Eskalith -] 300 mg PO HS 02/08/17 Mag Hydrox/Al Hydrox/Simeth [Mylanta Oral Suspension -] 30 ml PO Q8H PRN Magnesium Hydrox 2400MG/30Ml [Milk of Magnesia -] 30 ml PO DAILY PRN 02/08/17 Multivitamin with Minerals [Icaps Plus] 1 each PO DAILY 02/08/17 Pantoprazole Sodium 40 mg PO DAILY 02/08/17 Polyethylene Glycol 3350 [Miralax (For Daily Use) -] 17 gm PO DAILY 02/08/17 Quetiapine Fumarate [Seroquel -] 300 mg PO BID 02/08/17 Topiramate [Topamax] 100 mg PO Q12H 02/08/17 Review of Systems - Review of Systems Comments:: Unable to perform *Physical Exam Vital Signs Temperature 97.3 F L 02/10/17 02:53 Pulse Rate 54 L 02/10/17 02:53 Respiratory Rate 20 02/10/17 02:53 Blood Pressure 114/50 02/10/17 02:53 O2 Sat by Pulse Oximetry (%) 95 02/09/17 19:48 GENERAL: AOx0, not conversing with examiner HEAD: No signs of trauma, normocephalic, atraumatic EYES: PERRLA, EOMI, sclera anicteric, conjunctiva clear ENT: Auricles normal inspection, hearing grossly normal, nares patent, oropharynx clear without exudates. Moist mucosa NECK: Normal ROM, supple, no lymphadenopathy, JVD, or masses LUNGS: No distress, speaks full sentences, clear to auscultation bilaterally HEART: Regular rate and rhythm, normal S1 and S2, no murmurs, rubs or gallops, peripheral pulses normal and equal bilaterally. ABDOMEN: Soft, nontender, normoactive bowel sounds. No guarding, no rebound. No masses EXTREMITIES: +Abbrasion on right forearm at exam that per EMS was not their when they picked up patient. Patient flailing around; suspect self inflicted during transport. Normal range of motion, no edema. No clubbing or cyanosis. NEUROLOGICAL: Cranial nerves II through XII grossly intact. Not following commands, not participating in confrontation testing, intact to tactile stimulation, gait deferred CBCD WBC 8.9 K/mm3 (4.0-10.0) 02/10/17 06:00 RBC 3.01 M/mm3 (3.60-5.2) L 02/10/17 06:00 Hgb 11.5 GM/dL (10.7-15.3) 02/10/17 06:00 Hct 35.6 % (32.4-45.2) 02/10/17 06:00 MCV 118.2 fl (80-96) H 02/10/17 06:00 MCHC 32.2 g/dl (32.0-36.0) 02/10/17 06:00 RDW 17.3 % (11.6-15.6) H 02/10/17 06:00 Plt Count 66 K/MM3 (134-434) L 02/10/17 06:00 MPV 10.9 fl (7.5-11.1) 02/10/17 06:00 CMP Sodium 162 mmol/L (136-145) H* 02/10/17 06:00 Potassium 4.3 mmol/L (3.5-5.1) 02/10/17 06:00 Chloride 132 mmol/L (98-107) H 02/10/17 06:00 Carbon Dioxide 28 mmol/L (21-32) 02/10/17 06:00 Anion Gap 2 (8-16) L 02/10/17 06:00 BUN 14 mg/dL (7-18) D 02/10/17 06:00 Creatinine 0.8 mg/dL (0.55-1.02) 02/10/17 06:00 Creat Clearance w eGFR > 60 (>60) 02/10/17 06:00 Calcium 10.2 mg/dL (8.5-10.1) H 02/10/17 06:00 Total Bilirubin 0.5 mg/dL (0.2-1.0) 02/10/17 06:00 AST 19 U/L (15-37) 02/10/17 06:00 ALT 17 U/L (12-78) 02/10/17 06:00 Alkaline Phosphatase 95 U/L (45-117) 02/10/17 06:00 Total Protein 5.6 g/dl (6.4-8.2) L 02/10/17 06:00 Albumin 2.2 g/dl (3.4-5.0) L 02/10/17 06:00 Plan: 71 yo female with a significant past medical history of Hypothyroidism, Hyperlipidemia, Bipolar disorder, Anxiety disorder and seizure disorder with colostomy who presents to the emergency department from [facility] with altered mental status. Unclear duration, reportedly is able to converse and oriented to self but has lately been AOx0. Patient found to have hypernatremia, continue metabolic optimization UTI on labs as well, continue infectious management, Abx She did have CT head which did not show acute changes. No evidence of seizure can continue depakote 750mg twice daily and Topamax 100mg twice daily. Will not need EEG at this time Also on Seroquel at this More generalized, not focal, but will continue to monitor
--- NOTE | 2017-02-10 10:55 | CON.ID ---
Consult Consult Specialty:: Infectious Disease Reason for Consultation:: Evaluation for urosepsis - History of Present Illness History of Present Illness: 71yo F with significant history of seizure disorder, HLD, and hypothyroidism who initially was BIBEMS from [facility] with AMS to the ED on 02/08/17. Per medical chart, pt converses and is oriented to self for a baseline. She is unable to provide history due to her clinical conditions. She is currently alert and responds to verbal stimulus. Speech is incomprehensible which is normal per chart. Currently WBC is downtrending from 18,900 to now 8,900. In ED she was found to have dark coloured urine with urine WBC of 1047 with nitrite positive. She has received 2 doses of Rocephin 1gm so far and blood cx's reveal no growth at 24hrs. PCP: Dr. 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 Cardio/Vascular: Yes: Hyperlipdemia Gastrointestinal: Yes: Other (Colostomy) Psych: Yes: Anxiety, Bipolar Endocrine: Yes: Hypothyroidism - Alcohol/Substance Use Hx Alcohol Use: No - Smoking History Smoking history: Never smoked Aproximately how many cigarettes per day: 0 - Social History Usual Living Arrangement: Half-Way Home Medications - Allergies Allergies/Adverse Reactions: Allergies Allergy/AdvReac Type Severity Reaction Status Date / Time chocolate flavor Allergy Verified 02/08/17 14:47 - Home Medications Home Medications: Ambulatory Orders Amino Acids/Protein Hydrolys [Pro-Stat Awc Liquid] 30 ml PO BID 02/08/17 Cinacalcet HCl [Sensipar] 30 mg PO BID 02/08/17 Divalproex [Depakote -] 750 mg PO BID 02/08/17 Docusate Sodium [Dulcolax Stool Softener] 200 mg PO HS 02/08/17 Edetate Disodium/Peg [Eyescrub Cleansing Pads] 1 each OU DAILY 02/08/17 Flunisolide 1 sprays NS Q12H 02/08/17 Levothyroxine [Synthroid -] 225 mcg PO DAILY 02/08/17 [place] Carbonate [Eskalith -] 150 mg PO DAILY 02/08/17 [place] Carbonate [Eskalith -] 300 mg PO HS 02/08/17 Mag Hydrox/Al Hydrox/Simeth [Mylanta Oral Suspension -] 30 ml PO Q8H PRN Magnesium Hydrox 2400MG/30Ml [Milk of Magnesia -] 30 ml PO DAILY PRN 02/08/17 Multivitamin with Minerals [Icaps Plus] 1 each PO DAILY 02/08/17 Pantoprazole Sodium 40 mg PO DAILY 02/08/17 Polyethylene Glycol 3350 [Miralax (For Daily Use) -] 17 gm PO DAILY 02/08/17 Quetiapine Fumarate [Seroquel -] 300 mg PO BID 02/08/17 Topiramate [Topamax] 100 mg PO Q12H 02/08/17 Review of Systems Unable to obtain ROS, reason: Clinical condition Physical Exam Vital Signs: Vital Signs Temperature 97.3 F L 02/10/17 02:53 Pulse Rate 54 L 02/10/17 02:53 Respiratory Rate 20 02/10/17 02:53 Blood Pressure 114/50 02/10/17 02:53 O2 Sat by Pulse Oximetry (%) 95 02/09/17 19:48 Constitutional: Yes: No Distress, Calm, Other (Alert to verbal stimulus) Eyes: Yes: Conjunctiva Clear, EOM Intact, PERRL Cardiovascular: Yes: Regular Rate and Rhythm. No: Murmur Respiratory: Yes: Regular, CTA Bilaterally. No: Rales, Rhonchi, Wheezes Gastrointestinal: Yes: Normal Bowel Sounds, Soft, Abdomen, Obese, Other ( Colostomy site LLQ intact). No: Tenderness Edema: No Integumentary: Yes: Other (No rashes, lacerations, or erythematous areas noted.) Neurological: Yes: Alert Psychiatric: Yes: Alert Labs: CBC, BMP 02/10/17 06:00 02/10/17 06:00 Imaging - Results Chest X-ray: Report Reviewed, Image Reviewed Assessment/Plan Lethargy; resolved Leukocytosis Hypernatremia Hypercalcemia Plan: Agree with antibiotic choice for previous days --Continue and switch to Keflex for 7 days PO afterwards Pt seems to be at baseline per chart currently Hypercalcemia and Hypernatremia being managed per primary team
[2017-02-10 12:02] LABS: BASOPHIL (MANUAL) 1 % (0-2.0); MYELOCYTE 1 % (0-2); PROMYELOCYTE 1 % (0-2); TOTAL CELLS COUNTED 100
[2017-02-10 12:04] LABS: ANISOCYTOSIS 1+; HYPOCHROMIA 2+; MACROCYTOSIS 2+; PLATELET ESTIMATE DECREASED (NORMAL)
--- NOTE | 2017-02-10 13:08 | CON.PSY ---
Psychiatry Consult Chief Complaint: Patient with a long history of Bi Polar Disoder admitted with acute AMS Symptoms: reports: Impaired Concentration, Memory Impairment - Previous Psychiatric Treatment Outpatient: Less than 6 mos ago Inpatient: Within the last 12 months - Previous Substance Abuse Treatment Outpatient: None Inpatient: None - Reason for Previous Treatment Reason for Previous Treatment: Biploar Illness - Current Medications Current Medications: Active Medications Acetaminophen (Tylenol -) 650 mg PO Q4H PRN PRN Reason: FEVER OR PAIN Al Hydroxide/Mg Hydroxide (Mylanta Oral Suspension -) 30 ml PO Q8H PRN PRN Reason: DYSPEPSIA Amino Acids (Prosource No Carb Liquid Pkt) 30 ml PO BID [facility] Last Admin: 02/10/17 09:32 Dose: 30 ml Cinacalcet (Sensipar -) 30 mg PO BID [facility] Last Admin: 02/10/17 09:36 Dose: 30 mg Divalproex Sodium (Depakote -) 750 mg PO BID [facility] Last Admin: 02/10/17 09:36 Dose: 750 mg Docusate Sodium (Colace -) 200 mg PO HS [facility] Last Admin: 02/09/17 23:02 Dose: 200 mg Ceftriaxone Sodium 1 gm/ (Dextrose) 100 mls @ 200 mls/hr IVPB DAILY [facility] Last Admin: 02/10/17 09:33 Dose: 200 mls/hr Potassium Chloride 10 meq/ (Dextrose/Sodium Chloride) 505 mls @ 100 mls/hr IVPB Q5H [facility] Last Admin: 02/10/17 12:36 Dose: 100 mls/hr Levothyroxine Sodium 200 mcg/ (Levothyroxine Sodium 25 mcg) 225 mcg PO DAILY@ 0700 [facility] Last Admin: 02/10/17 06:12 Dose: 225 mcg [place] Carbonate (Eskalith -) 150 mg PO DAILY [facility] Last Admin: 02/10/17 09:37 Dose: 150 mg [place] Carbonate (Eskalith -) 300 mg PO HS [facility] Last Admin: 02/09/17 23:03 Dose: 300 mg Magnesium Hydroxide (Milk Of Magnesia -) 30 ml PO DAILY PRN PRN Reason: CONSTIPATION Multivitamins/Minerals/Vitamin C (Tab-A-Vit -) 1 tab PO DAILY [facility] Last Admin: 02/10/17 09:32 Dose: 1 tab Pantoprazole Sodium (Protonix -) 40 mg PO DAILY [facility] Last Admin: 02/10/17 09:32 Dose: 40 mg Phytonadione (Aqua [place]phy[place] Injection -) 5 mg SQ DAILY [facility] Stop: 02/12/17 20:29 Last Admin: 02/10/17 09:32 Dose: 5 mg Polyethylene Glycol (Miralax (For Daily Use) -) 17 gm PO DAILY [facility] Last Admin: 02/10/17 09:37 Dose: Not Given Topiramate (Topamax -) 100 mg PO BID [facility] Last Admin: 02/10/17 09:38 Dose: 100 mg - Allergies Allergies: Allergies Allergy/AdvReac Type Severity Reaction Status Date / Time chocolate flavor Allergy Verified 02/08/17 14:47 - Current Living Status Usual Living Arrangement: Custodial - Current Mental Status Evaluation Appearance: Disheveled Attitude: Guarded - Affect Affect: Constrictive, Flat Appropriateness: Not Appropriate - Mood Mood: Irritable - Speech/Language Expressive: Delayed - Psychomotor Activity Psychomotor Activity: Slowed - Thought Process Thought Process: Circumstantial - Thought Content Hallucinations: Absent Delusions: Absent - Self Perception Self Perception: Depersonalization - Cognition Attention: Diminished Memory, Immediate Recall: Impaired Memory, Short Term: 1/3 Memory, Remote with Promptin/3 - Concentration Serial Sevens Intact: No Simple Calculations Intact: No - Abstraction Proverb Interpretation: Impaired Judgement: Minimally Impaired - Insight Insight: Impaired - Impulse Control Impulse Control: Minimally Impaired - Suicidal Ideation Suicidal Ideation: No - Homicidal Ideation Homicidal Ideation: No Assessment/Plan 1) d/c Seroquel 2) Obtain [place] Levels and Depakote levels.
--- NOTE | 2017-02-10 13:34 | PN ---
Teaching Attending Note Name of Resident: Garth Ferris ATTENDING PHYSICIAN STATEMENT I saw and evaluated the patient. I reviewed the resident's note and discussed the case with the resident. I agree with the resident's findings and plan as documented. SUBJECTIVE: alert and conversant perseverates OBJECTIVE: Vital Signs Period Temp Pulse Resp BP Sys/Messer Pulse Ox Last 24 Hr 97.3 F-97.7 F 54-79 20-20 112-115/43-80 95 cor-rrr lungs clear abd soft,nt ext no edema lacerations healing right forearm CBC, BMP 02/10/17 06:00 02/10/17 06:00 calcium 10.2 imaging reviewed-prior craniotomy! Microbiology 02/08/17 14:30 Blood - Peripheral Venous Blood Culture - Preliminary NO GROWTH OBTAINED AFTER 24 HOURS, INCUBATION TO CONTINUE FOR 4 DAYS. 02/08/17 14:30 Blood - Peripheral Venous Blood Culture - Preliminary NO GROWTH OBTAINED AFTER 24 HOURS, INCUBATION TO CONTINUE FOR 4 DAYS. 02/08/17 14:30 Urine - Urine - Catheterized Urine Culture - Final Contaminated: Please Repeat Current Medications Acetaminophen (Tylenol -) 650 mg PO Q4H PRN PRN Reason: FEVER OR PAIN Al Hydroxide/Mg Hydroxide (Mylanta Oral Suspension -) 30 ml PO Q8H PRN PRN Reason: DYSPEPSIA Amino Acids (Prosource No Carb Liquid Pkt) 30 ml PO BID [facility] Last Admin: 02/10/17 09:32 Dose: 30 ml Cinacalcet (Sensipar -) 30 mg PO BID [facility] Last Admin: 02/10/17 09:36 Dose: 30 mg Divalproex Sodium (Depakote -) 750 mg PO BID [facility] Last Admin: 02/10/17 09:36 Dose: 750 mg Docusate Sodium (Colace -) 200 mg PO HS [facility] Last Admin: 02/09/17 23:02 Dose: 200 mg Ceftriaxone Sodium 1 gm/ (Dextrose) 100 mls @ 200 mls/hr IVPB DAILY [facility] Last Admin: 02/10/17 09:33 Dose: 200 mls/hr Potassium Chloride 10 meq/ (Dextrose/Sodium Chloride) 505 mls @ 100 mls/hr IVPB Q5H [facility] Last Admin: 02/10/17 12:36 Dose: 100 mls/hr Levothyroxine Sodium 200 mcg/ (Levothyroxine Sodium 25 mcg) 225 mcg PO DAILY@ 0700 [facility] Last Admin: 02/10/17 06:12 Dose: 225 mcg [place] Carbonate (Eskalith -) 150 mg PO DAILY [facility] Last Admin: 02/10/17 09:37 Dose: 150 mg [place] Carbonate (Eskalith -) 300 mg PO HS [facility] Last Admin: 02/09/17 23:03 Dose: 300 mg Magnesium Hydroxide (Milk Of Magnesia -) 30 ml PO DAILY PRN PRN Reason: CONSTIPATION Multivitamins/Minerals/Vitamin C (Tab-A-Vit -) 1 tab PO DAILY [facility] Last Admin: 02/10/17 09:32 Dose: 1 tab Pantoprazole Sodium (Protonix -) 40 mg PO DAILY [facility] Last Admin: 02/10/17 09:32 Dose: 40 mg Phytonadione ([place] Injection -) 5 mg SQ DAILY [facility] Stop: 02/12/17 20:29 Last Admin: 02/10/17 09:32 Dose: 5 mg Polyethylene Glycol (Miralax (For Daily Use) -) 17 gm PO DAILY [facility] Last Admin: 02/10/17 09:37 Dose: Not Given Topiramate (Topamax -) 100 mg PO BID [facility] Last Admin: 02/10/17 09:38 Dose: 100 mg ASSESSMENT AND PLAN: lethargy, leukocytosis, hypernatremia, hypercalcemia, pyuria mental status improving suspect UTI although urine culture is contaminated WBC has normalized with IVF and iv rocephin would continue rocephin for now, switch to po keflex and finish 7 days for UTI w/u of hypercalcemia in progress please call back if needed Problem List - Problems (1) Change in mental status Code(s): R41.82 - ALTERED MENTAL STATUS, UNSPECIFIED Qualifiers: Altered mental status type: delirium Qualified Code(s): R41.0 - Disorientation, unspecified; R41.0 - Disorientation, unspecified (2) UTI (urinary tract infection) Code(s): N39.0 - URINARY TRACT INFECTION, SITE NOT SPECIFIED Qualifiers: Urinary tract infection type: site unspecified Hematuria presence: with hematuria Qualified Code(s): N39.0 - Urinary tract infection, site not specified; N39.0 - Urinary tract infection, site not specified; R31.9 - Hematuria, unspecified; R31.9 - Hematuria, unspecified (3) Hypernatremia Code(s): E87.0 - HYPEROSMOLALITY AND HYPERNATREMIA (4) Hypercalcemia Code(s): E83.52 - HYPERCALCEMIA
--- NOTE | 2017-02-10 16:08 | CONSULT ---
Consult Consult Specialty:: Nephrology Reason for Consultation:: hypernatremia - History of Present Illness Chief Complaint: change in mental status History of Present Illness: Pt is a 71 year old female who presents to the ER with a change in mental status. She is unable to give history. She is not responding to questions. She has history of chol, bipolar, anxiety, and hypothyroidism. She was found to be hypernatremic and I was called to evaluate her. She is on hypononic fluid however sodium is not improved. She is not polyuric. 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 Cardio/Vascular: Yes: Hyperlipdemia Gastrointestinal: Yes: Other (Colostomy) Psych: Yes: Anxiety, Bipolar Endocrine: Yes: Hypothyroidism - Alcohol/Substance Use Hx Alcohol Use: No - Smoking History Smoking history: Never smoked Aproximately how many cigarettes per day: 0 - Social History Usual Living Arrangement: Shelter Home Medications - Allergies Allergies/Adverse Reactions: Allergies Allergy/AdvReac Type Severity Reaction Status Date / Time chocolate flavor Allergy Verified 02/08/17 14:47 - Home Medications Home Medications: Ambulatory Orders Amino Acids/Protein Hydrolys [Pro-Stat Awc Liquid] 30 ml PO BID 02/08/17 Cinacalcet HCl [Sensipar] 30 mg PO BID 02/08/17 Divalproex [Depakote -] 750 mg PO BID 02/08/17 Docusate Sodium [Dulcolax Stool Softener] 200 mg PO HS 02/08/17 Edetate Disodium/Peg [Eyescrub Cleansing Pads] 1 each OU DAILY 02/08/17 Flunisolide 1 sprays NS Q12H 02/08/17 Levothyroxine [Synthroid -] 225 mcg PO DAILY 02/08/17 [place] Carbonate [Eskalith -] 150 mg PO DAILY 02/08/17 [place] Carbonate [Eskalith -] 300 mg PO HS 02/08/17 Mag Hydrox/Al Hydrox/Simeth [Mylanta Oral Suspension -] 30 ml PO Q8H PRN Magnesium Hydrox 2400MG/30Ml [Milk of Magnesia -] 30 ml PO DAILY PRN 02/08/17 Multivitamin with Minerals [Icaps Plus] 1 each PO DAILY 02/08/17 Pantoprazole Sodium 40 mg PO DAILY 10/01/17 Polyethylene Glycol 3350 [Miralax (For Daily Use) -] 17 gm PO DAILY 02/08/17 Quetiapine Fumarate [Seroquel -] 300 mg PO BID 02/08/17 Topiramate [Topamax] 100 mg PO Q12H 02/08/17 Family Disease History - Family Disease History Family History: Unable to Obtain Review of Systems Unable to obtain ROS, reason: pt lethargic Physical Exam Vital Signs: Vital Signs Temperature 97.5 F L 02/10/17 14:00 Pulse Rate 70 02/10/17 14:00 Respiratory Rate 20 02/10/17 02:53 Blood Pressure 122/50 02/10/17 14:00 O2 Sat by Pulse Oximetry (%) 95 02/09/17 19:48 Constitutional: Yes: Calm Eyes: Yes: Conjunctiva Clear HENT: Yes: Atraumatic Neck: Yes: Supple Cardiovascular: Yes: S1, S2 Respiratory: Yes: CTA Bilaterally Gastrointestinal: Yes: Soft, Abdomen, Obese, Other (colostomy) Renal/: Yes: Incontinence Musculoskeletal: Yes: Muscle Weakness Edema: Yes Edema: LLE: Trace, RLE: Trace Neurological: Yes: Lethargy Labs: CBC, BMP 02/10/17 06:00 02/10/17 06:00 Laboratory Tests 02/08/17 02/08/17 02/08/17 14:30 14:30 16:39 WBC 18.9 H Sodium 159 H Potassium Chloride Carbon Dioxide Anion Gap BUN Creatinine Urine Protein 2+ H Urine Glucose (UA) Negative Urine Ketones Trace H Urine Blood 3+ H 02/09/17 02/09/17 02/10/17 07:10 07:10 06:00 WBC 10.8 H D 8.9 Sodium 160 H Potassium Chloride Carbon Dioxide Anion Gap BUN Creatinine Urine Protein Urine Glucose (UA) Urine Ketones Urine Blood 02/10/17 06:00 WBC Sodium 162 H* Potassium 4.3 Chloride 132 H Carbon Dioxide 28 Anion Gap 2 L BUN 14 D Creatinine 0.8 Urine Protein Urine Glucose (UA) Urine Ketones Urine Blood Imaging - Results Chest X-ray: Report Reviewed Cat Scan: Report Reviewed Problem List - Problems (1) Change in mental status Code(s): R41.82 - ALTERED MENTAL STATUS, UNSPECIFIED Qualifiers: Altered mental status type: delirium Qualified Code(s): R41.0 - Disorientation, unspecified; R41.0 - Disorientation, unspecified (2) Hypernatremia Code(s): E87.0 - HYPEROSMOLALITY AND HYPERNATREMIA (3) UTI (urinary tract infection) Code(s): N39.0 - URINARY TRACT INFECTION, SITE NOT SPECIFIED Qualifiers: Urinary tract infection type: site unspecified Hematuria presence: with hematuria Qualified Code(s): N39.0 - Urinary tract infection, site not specified; N39.0 - Urinary tract infection, site not specified; R31.9 - Hematuria, unspecified; R31.9 - Hematuria, unspecified Assessment/Plan Current Medications Generic Name Dose Route Start Last Admin Trade Name Freq PRN Reason Stop Dose Admin Acetaminophen 650 mg 02/08/17 19:40 Tylenol - PO Q4H PRN FEVER OR PAIN Al Hydroxide/Mg Hydroxide 30 ml 02/08/17 19:37 Mylanta Oral Suspension - PO Q8H PRN DYSPEPSIA Amino Acids 30 ml 02/08/17 22:00 02/10/17 09:32 Prosource No Carb Liquid Pkt PO 30 ml BID ROLAN Administration Cinacalcet 30 mg 02/08/17 22:00 02/10/17 09:36 Sensipar - PO 30 mg BID ROLAN Administration Divalproex Sodium 750 mg 02/08/17 22:45 02/10/17 09:36 Depakote - PO 750 mg BID ROLAN Administration Docusate Sodium 200 mg 02/08/17 22:00 02/09/17 23:02 Colace - PO 200 mg HS ROLAN Administration Ceftriaxone Sodium 1 gm/ 100 mls @ 200 mls/hr 02/09/17 10:00 02/10/17 09:33 Dextrose IVPB 200 mls/hr DAILY ROLAN Administration Potassium Chloride 10 meq/ 505 mls @ 100 mls/hr 02/10/17 08:30 02/10/17 12:36 Dextrose/Sodium Chloride IVPB 100 mls/hr Q5H ROLAN Administration Levothyroxine Sodium 200 mcg/ 225 mcg 02/09/17 07:00 02/10/17 06:12 Levothyroxine Sodium 25 mcg PO 225 mcg DAILY@0700 ROLAN Administration [place] Carbonate 150 mg 02/09/17 10:00 02/10/17 09:37 Eskalith - PO 150 mg DAILY ROLAN Administration [place] Carbonate 300 mg 02/08/17 22:00 02/09/17 23:03 Eskalith - PO 300 mg HS ROLAN Administration Magnesium Hydroxide 30 ml 02/08/17 19:37 Milk Of Magnesia - PO DAILY PRN CONSTIPATION Multivitamins/Minerals/Vitamin C 1 tab 02/09/17 10:00 02/10/17 09:32 Tab-A-Vit - PO 1 tab DAILY ROLAN Administration Pantoprazole Sodium 40 mg 02/09/17 10:00 02/10/17 09:32 Protonix - PO 40 mg DAILY ROLAN Administration Phytonadione 5 mg 02/09/17 20:30 02/10/17 09:32 Aqua Mephyton Injection - SQ 02/12/17 20:29 5 mg DAILY ROLAN Administration Polyethylene Glycol 17 gm 02/09/17 10:00 02/10/17 09:37 Miralax (For Daily Use) - PO Not Given DAILY ROLAN Topiramate 100 mg 02/08/17 22:00 02/10/17 09:38 Topamax - PO 100 mg BID ROLAN Administration Laboratory Tests 02/08/17 02/09/17 02/10/17 16:39 07:10 06:00 Calcium 11.0 H 10.6 H 10.2 H Impression 1. hypernatremia 2. hypercalcemia 3. change in mental status 4. anxiety 5. bipolar 6. UTI 7. hypothyroid 8. hyperlipidemia Plan - pt has a total free water deficit of about 8.9 liters - she will need about 3.7 liters to get her to a sodium of 152 - change fluids to d5w - check lithium level - place gonzalez and monitor urine output to confirm that she does not have polyuria - check pth - monitor calcium - will follow Dr Martinez
[2017-02-10] MEDS ORDERED: DEXTROSE 5%-WATER - 1,000 ML IV SCH ×2 (16:15)
--- NOTE | 2017-02-10 19:01 | CONSULT ---
Consult Consult Specialty:: Endocrinology Referred by:: Dr Rose Reason for Consultation:: HYpercalcemia - History of Present Illness Chief Complaint: AMS History of Present Illness: This is a 71 y/o F with history of Hypothyroidism, Hyperlipidemia, Bipolar disorder on [place], Anxiety disorder and seizure disorder with colostomy who presented to the emergency department from [facility] with altered mental status. Pt reportedly is able to converse and oriented to self but has lately been AOx0. Patient found to have hypernatremia and UTI on labs. CT head did not show any acute changes. Pt also found to be hypercalcemic and currently on Sensipar. Pt currently awake. Says repeatedly " I want to go" but can't say where she wants to go. 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 Cardio/Vascular: Yes: Hyperlipdemia Gastrointestinal: Yes: Other (Colostomy) Psych: Yes: Anxiety, Bipolar Endocrine: Yes: Hypothyroidism - Alcohol/Substance Use Hx Alcohol Use: No - Smoking History Smoking history: Never smoked Aproximately how many cigarettes per day: 0 - Social History Usual Living Arrangement: Intermediate Home Medications - Allergies Allergies/Adverse Reactions: Allergies Allergy/AdvReac Type Severity Reaction Status Date / Time chocolate flavor Allergy Verified 02/08/17 14:47 - Home Medications Home Medications: Ambulatory Orders Amino Acids/Protein Hydrolys [Pro-Stat Awc Liquid] 30 ml PO BID 02/08/17 Cinacalcet HCl [Sensipar] 30 mg PO BID 02/08/17 Divalproex [Depakote -] 750 mg PO BID 02/08/17 Docusate Sodium [Dulcolax Stool Softener] 200 mg PO HS 02/08/17 Edetate Disodium/Peg [Eyescrub Cleansing Pads] 1 each OU DAILY 02/08/17 Flunisolide 1 sprays NS Q12H 02/08/17 Levothyroxine [Synthroid -] 225 mcg PO DAILY 02/08/17 [place] Carbonate [Eskalith -] 150 mg PO DAILY 02/08/17 [place] Carbonate [Eskalith -] 300 mg PO HS 02/08/17 Mag Hydrox/Al Hydrox/Simeth [Mylanta Oral Suspension -] 30 ml PO Q8H PRN Magnesium Hydrox 2400MG/30Ml [Milk of Magnesia -] 30 ml PO DAILY PRN 02/08/17 Multivitamin with Minerals [Icaps Plus] 1 each PO DAILY 02/08/17 Pantoprazole Sodium 40 mg PO DAILY 02/08/17 Polyethylene Glycol 3350 [Miralax (For Daily Use) -] 17 gm PO DAILY 02/08/17 Quetiapine Fumarate [Seroquel -] 300 mg PO BID 02/08/17 Topiramate [Topamax] 100 mg PO Q12H 02/08/17 Review of Systems Unable to obtain ROS, reason: unable to answer Physical Exam Vital Signs: Vital Signs Temperature 97.5 F L 02/10/17 14:00 Pulse Rate 70 02/10/17 14:00 Respiratory Rate 20 02/10/17 02:53 Blood Pressure 122/50 02/10/17 14:00 O2 Sat by Pulse Oximetry (%) 95 02/09/17 19:48 Constitutional: Yes: Anxious Eyes: Yes: WNL HENT: Yes: WNL Neck: Yes: WNL Cardiovascular: Yes: Regular Rate and Rhythm Respiratory: Yes: Regular, CTA Bilaterally Gastrointestinal: Yes: Normal Bowel Sounds, Soft Extremities: Yes: WNL Edema: No Neurological: Yes: Other (Awake, Moves both upper extremities) Labs: CBC, BMP 02/10/17 06:00 02/10/17 06:00 Problem List - Problems (1) Change in mental status Code(s): R41.82 - ALTERED MENTAL STATUS, UNSPECIFIED Qualifiers: Altered mental status type: delirium Qualified Code(s): R41.0 - Disorientation, unspecified; R41.0 - Disorientation, unspecified (2) Hypercalcemia Code(s): E83.52 - HYPERCALCEMIA (3) Hypernatremia Code(s): E87.0 - HYPEROSMOLALITY AND HYPERNATREMIA (4) UTI (urinary tract infection) Code(s): N39.0 - URINARY TRACT INFECTION, SITE NOT SPECIFIED Qualifiers: Urinary tract infection type: site unspecified Hematuria presence: with hematuria Qualified Code(s): N39.0 - Urinary tract infection, site not specified; N39.0 - Urinary tract infection, site not specified; R31.9 - Hematuria, unspecified; R31.9 - Hematuria, unspecified Assessment/Plan AP: AMS Hypothyrodism HYpercalcemia Bipolar disorder Hypernatremia Unclear if pt is non Sensipar for primary hyperparathyroidism. [place] could cause hypercalcemia with high PTH too. PTH Pending Will f/u
--- NOTE | 2017-02-10 21:23 | PN ---
Progress Note (short form) - Note Progress Note: Patient seen and examined. Not much hx provided GeneraL;Drowsy NCAT Abd: colostomy LE: No swelling Temp Pulse Resp BP Pulse Ox 97.6 F 76 18 144/80 95 02/10/17 20:40 02/10/17 20:40 02/10/17 20:40 02/10/17 20:40 02/10/17 20:40 CBC, BMP 02/10/17 06:00 02/10/17 06:00 Current Medications Generic Name Dose Route Start Last Admin Trade Name Freq PRN Reason Stop Dose Admin Acetaminophen 650 mg 02/08/17 19:40 Tylenol - PO Q4H PRN FEVER OR PAIN Al Hydroxide/Mg Hydroxide 30 ml 02/08/17 19:37 Mylanta Oral Suspension - PO Q8H PRN DYSPEPSIA Amino Acids 30 ml 02/08/17 22:00 02/10/17 09:32 Prosource No Carb Liquid Pkt PO 30 ml BID ROLAN Administration Cinacalcet 30 mg 02/08/17 22:00 02/10/17 09:36 Sensipar - PO 30 mg BID ROLAN Administration Divalproex Sodium 750 mg 02/08/17 22:45 02/10/17 09:36 Depakote - PO 750 mg BID ROLAN Administration Docusate Sodium 200 mg 02/08/17 22:00 02/09/17 23:02 Colace - PO 200 mg HS ROLAN Administration Ceftriaxone Sodium 1 gm/ 100 mls @ 200 mls/hr 02/09/17 10:00 02/10/17 09:33 Dextrose IVPB 200 mls/hr DAILY ROLAN Administration Dextrose 1,000 mls @ 110 mls/hr 02/10/17 16:15 02/10/17 17:22 D5w - IV 110 mls/hr .Q10H ROLAN Administration Levothyroxine Sodium 200 mcg/ 225 mcg 02/09/17 07:00 02/10/17 06:12 Levothyroxine Sodium 25 mcg PO 225 mcg DAILY@0700 ROLAN Administration [place] Carbonate 150 mg 02/09/17 10:00 02/10/17 09:37 Eskalith - PO 150 mg DAILY ROLAN Administration [place] Carbonate 300 mg 02/08/17 22:00 02/09/17 23:03 Eskalith - PO 300 mg HS ROLAN Administration Magnesium Hydroxide 30 ml 02/08/17 19:37 Milk Of Magnesia - PO DAILY PRN CONSTIPATION Multivitamins/Minerals/Vitamin C 1 tab 02/09/17 10:00 02/10/17 09:32 Tab-A-Vit - PO 1 tab DAILY ROLAN Administration Pantoprazole Sodium 40 mg 02/09/17 10:00 02/10/17 09:32 Protonix - PO 40 mg DAILY ROLAN Administration Phytonadione 5 mg 02/09/17 20:30 02/10/17 09:32 Aqua Mephy[place] Injection - SQ 02/12/17 20:29 5 mg DAILY ROLAN Administration Polyethylene Glycol 17 gm 02/09/17 10:00 02/10/17 09:37 Miralax (For Daily Use) - PO Not Given DAILY ROLAN Topiramate 100 mg 02/08/17 22:00 02/10/17 09:38 Topamax - PO 100 mg BID ROLAN Administration 71 y/o patient with hyperlipidemia, bipolar disorder,hypothyroid, seizure disorder, comes in with altered mental status Presumed UTI, hypernatremia, hypercalcemia, coagulopathy Coagulopathy due to low grade DIC? sepsis/? infection trial of Vit. K continue antibiotics per ID US reviewed: diffuse fatty liver. which could also play a role supportive care thrombocytopenia--? infection ? liver disease f/u b12 folate hypercalcemia--in ov fluids on sensipar ?lithium causing. TSH 0.04: f/u free T4. ?sick euthyroid vs lithium induced Endo f.u hyperNa as per renal.
[2017-02-10] MEDS: DOCUSATE SODIUM 100 MG CAPSULE (FP) PO SCH (21:56)
[2017-02-10] MEDS: LITHIUM CARBONATE 300 MG CAPSULE (FP) PO SCH (21:57)
[2017-02-11] MEDS ORDERED: LEVOTHYROXINE NA 25 MCG TABLET (FP) ONE (06:14)
[2017-02-11] MEDS ORDERED: LEVOTHYROXINE NA 100 MCG TABLET (FP) ONE (06:14)
[2017-02-11] MEDS: LEVOTHYROXINE 200 MCG, LEVOTHYROXINE 25 MCG PO SCH (06:19)
[2017-02-11 07:19] LABS: MCH 37.3 pg (25.7-33.7); MCHC 31.5 g/dl (32.0-36.0); MEAN CELL VOLUME 118.4 fl (80-96); MEAN PLT VOLUME 11.3 fl (7.5-11.1); PLATELET COUNT 68 K/MM3 (134-434); RDW 17.6 % (11.6-15.6); WHITE BLOOD COUNT 6.4 K/mm3 (4.0-10.0)
[2017-02-11 08:19] LABS: INR 1.11 (0.82-1.09); PROTHROMBIN TIME (PATIENT) 12.2 SEC (9.98-11.88)
[2017-02-11 08:22] LABS: ACTIVATED PTT 21.3 SECONDS (26.9-34.4)
[2017-02-11 08:30] LABS: ALBUMIN 2.4 g/dl (3.4-5.0); ANION GAP 4 (8-16); BILIRUBIN,TOTAL 0.5 mg/dL (0.2-1.0); CALCIUM 10.1 mg/dL (8.5-10.1); CO2 27 mmol/L (21-32); CREATININE 0.8 mg/dL (0.55-1.02); GLUCOSE,RANDOM 80 mg/dL (74-106); SGOT/AST 18 U/L (15-37); SGPT/ALT 20 U/L (12-78); TOT PROT 6.4 g/dl (6.4-8.2)
[2017-02-11 08:31] LABS: ALK PHOS 116 U/L (45-117); FREE T4 1.23 ng/dl (0.76-1.46)
[2017-02-11] MEDS ORDERED: DEXTROSE 5%-WATER 100 ML IVPB ONE (08:52)
[2017-02-11] MEDS ORDERED: cefTRIAXone SODIUM 1 GM VIAL ONE (08:52)
[2017-02-11 08:56] LABS: METAMYELOCYTE 2 % (0-2); NUCLEATED RED BLOOD CELL 3 % (0-0); PLATELET ESTIMATE DECREASED (NORMAL); TOTAL CELLS COUNTED 100
[2017-02-11] MEDS: AMINO ACIDS/PROTEIN HYDROLYS 30 ML LIQUID.PKT PO SCH ×2 (09:38→23:51)
[2017-02-11] MEDS: CINACALCET HCL 30 MG TAB (FP) PO SCH ×2 (09:38→23:51)
[2017-02-11] MEDS: MULTIVITAMINS (DAILY MVI) TABLET (FP) PO SCH (09:38)
[2017-02-11] MEDS: CEFTRIAXONE 1 GM in DEXTROSE 5%-WATER 100 ML IVPB SCH (09:38)
[2017-02-11] MEDS: PHYTONADIONE 10 MG/1 ML AMP SQ SCH (09:39)
[2017-02-11] MEDS: PANTOPRAZOLE 40 MG TABLET (FP) PO SCH (09:39)
[2017-02-11] MEDS: TOPIRAMATE 100 MG TABLET PO SCH ×2 (09:40→23:52)
[2017-02-11] MEDS: DIVALPROEX SODIUM 250 MG TABLET E.C. (FP) PO SCH (09:43)
[2017-02-11] MEDS: LITHIUM CARBONATE 150 MG CAPSULE PO SCH (09:43)
[2017-02-11] MEDS: POLYETHYLENE GLYCOL 3350 119 GM BTL PO SCH (09:44)
--- NOTE | 2017-02-11 10:27 | PN ---
Progress Note (short form) - Note Progress Note: Neurology History of Present Illness 71 yo female with a significant past medical history of Hypothyroidism, Hyperlipidemia, Bipolar disorder, Anxiety disorder and seizure disorder with colostomy who presented to the emergency department from [facility] with altered mental status. Unclear duration, reportedly she is able to converse and oriented to self but was not and therefore sent to hospital for further evaluation and management. Patient found to have hypernatremia and being treated for that, renal consulted, recommended D5W, monitoring Na levels closely. Of note, also with UTI on labs and being treated with Ceftriaxone. She did have CT head which did not show acute changes. No evidence of seizure and her medication list includes depakote 750mg twice daily and Topamax 100mg twice daily. Still minimally responsive and not following commands. Awake but not cooperative with examiner. Not verbally communicating. Active Medications Acetaminophen (Tylenol -) 650 mg PO Q4H PRN PRN Reason: FEVER OR PAIN Al Hydroxide/Mg Hydroxide (Mylanta Oral Suspension -) 30 ml PO Q8H PRN PRN Reason: DYSPEPSIA Amino Acids (Prosource No Carb Liquid Pkt) 30 ml PO BID [facility] Last Admin: 02/11/17 09:38 Dose: 30 ml Cinacalcet (Sensipar -) 30 mg PO BID [facility] Last Admin: 02/11/17 09:38 Dose: 30 mg Divalproex Sodium (Depakote -) 750 mg PO BID [facility] Last Admin: 02/11/17 09:43 Dose: 750 mg Docusate Sodium (Colace -) 200 mg PO HS [facility] Last Admin: 02/10/17 21:56 Dose: 200 mg Ceftriaxone Sodium 1 gm/ (Dextrose) 100 mls @ 200 mls/hr IVPB DAILY [facility] Last Admin: 02/11/17 09:38 Dose: 200 mls/hr Dextrose (D5w -) 1,000 mls @ 110 mls/hr IV .Q10H [facility] Last Admin: 02/10/17 17:22 Dose: 110 mls/hr Levothyroxine Sodium 200 mcg/ (Levothyroxine Sodium 25 mcg) 225 mcg PO DAILY@ 0700 [facility] Last Admin: 02/11/17 06:19 Dose: 225 mcg [place] Carbonate (Eskalith -) 150 mg PO DAILY [facility] Last Admin: 02/11/17 09:43 Dose: 150 mg [place] Carbonate (Eskalith -) 300 mg PO HS [facility] Last Admin: 02/10/17 21:57 Dose: 300 mg Magnesium Hydroxide (Milk Of Magnesia -) 30 ml PO DAILY PRN PRN Reason: CONSTIPATION Multivitamins/Minerals/Vitamin C (Tab-A-Vit -) 1 tab PO DAILY [facility] Last Admin: 02/11/17 09:38 Dose: 1 tab Pantoprazole Sodium (Protonix -) 40 mg PO DAILY [facility] Last Admin: 02/11/17 09:39 Dose: 40 mg Phytonadione ([place]phy[place] Injection -) 5 mg SQ DAILY [facility] Stop: 02/12/17 20:29 Last Admin: 02/11/17 09:39 Dose: 5 mg Polyethylene Glycol (Miralax (For Daily Use) -) 17 gm PO DAILY [facility] Last Admin: 02/11/17 09:44 Dose: Not Given Topiramate (Topamax -) 100 mg PO BID [facility] Last Admin: 02/11/17 09:40 Dose: 100 mg *Physical Exam Vital Signs Period Temp Pulse Resp BP Sys/Messer Pulse Ox Last 24 Hr 97.0 F-97.8 F 62-76 18-18 122-144/50-80 95 GENERAL: AOx0, not conversing with examiner HEAD: No signs of trauma, normocephalic, atraumatic EYES: PERRLA, EOMI, sclera anicteric, conjunctiva clear ENT: Auricles normal inspection, hearing grossly normal, nares patent, oropharynx clear without exudates. Moist mucosa NECK: Normal ROM, supple, no lymphadenopathy, JVD, or masses LUNGS: No distress, speaks full sentences, clear to auscultation bilaterally HEART: Regular rate and rhythm, normal S1 and S2, no murmurs, rubs or gallops, peripheral pulses normal and equal bilaterally. ABDOMEN: Soft, nontender, normoactive bowel sounds. No guarding, no rebound. No masses EXTREMITIES: +Abbrasion on right forearm at exam that per EMS was not their when they picked up patient. Patient flailing around; suspect self inflicted during transport. Normal range of motion, no edema. No clubbing or cyanosis. NEUROLOGICAL: Cranial nerves II through XII grossly intact. Not following commands, not participating in confrontation testing, intact to tactile stimulation, gait deferred CBCD WBC 6.4 K/mm3 (4.0-10.0) 02/11/17 05:10 RBC 3.59 M/mm3 (3.60-5.2) L 02/11/17 05:10 Hgb 13.4 GM/dL (10.7-15.3) D 02/11/17 05:10 Hct 42.5 % (32.4-45.2) D 02/11/17 05:10 MCV 118.4 fl (80-96) H 02/11/17 05:10 MCHC 31.5 g/dl (32.0-36.0) L 02/11/17 05:10 RDW 17.6 % (11.6-15.6) H 02/11/17 05:10 Plt Count 68 K/MM3 (134-434) L 02/11/17 05:10 MPV 11.3 fl (7.5-11.1) H 02/11/17 05:10 CMP Sodium 160 mmol/L (136-145) H 02/11/17 05:10 Potassium 4.4 mmol/L (3.5-5.1) 02/11/17 05:10 Chloride 129 mmol/L (98-107) H 02/11/17 05:10 Carbon Dioxide 27 mmol/L (21-32) 02/11/17 05:10 Anion Gap 4 (8-16) L 02/11/17 05:10 BUN 14 mg/dL (7-18) 02/11/17 05:10 Creatinine 0.8 mg/dL (0.55-1.02) 02/11/17 05:10 Creat Clearance w eGFR > 60 (>60) 02/11/17 05:10 Calcium 10.1 mg/dL (8.5-10.1) 02/11/17 05:10 Total Bilirubin 0.5 mg/dL (0.2-1.0) 02/11/17 05:10 AST 18 U/L (15-37) 02/11/17 05:10 ALT 20 U/L (12-78) 02/11/17 05:10 Alkaline Phosphatase 116 U/L (45-117) D 02/11/17 05:10 Total Protein 6.4 g/dl (6.4-8.2) 02/11/17 05:10 Albumin 2.4 g/dl (3.4-5.0) L 02/11/17 05:10 Plan: 71 yo female with a significant past medical history of Hypothyroidism, Hyperlipidemia, Bipolar disorder, Anxiety disorder and seizure disorder with colostomy who presents to the emergency department from [facility] with altered mental status. Unclear duration, reportedly is able to converse and oriented to self but has lately been AOx0. Patient found to have hypernatremia, continue metabolic optimization UTI on labs as well, continue infectious management, Abx She did have CT head which did not show acute changes. Will check MRI brain to rule out CVA No evidence of seizure can continue depakote 750mg twice daily and Topamax 100mg twice daily More generalized, not focal, but will continue to monitor
--- NOTE | 2017-02-11 10:44 | PN ---
Physical Exam: RENAL CONSULT FOR HYPERNATREMIA SUBJECTIVE: Patient seen and examined at bed side this morning. Poor historian. She noded to every questions asked so further history couldn't be obtained. As per RN, no acute overnight events. OBJECTIVE: Vital Signs Period Temp Pulse Resp BP Sys/Messer Pulse Ox Last 24 Hr 97.0 F-97.8 F 62-76 18-18 122-144/50-80 95 GENERAL: Elderly female, lying comfortably in bed, is awake, alert, in no acute distress. HEAD: Normal with no signs of trauma. EYES: EOM intact, no pallor or icterus. ENT: Ears normal, moist mucous membranes, drooling +. NECK: Trachea midline, full range of motion, supple. LUNGS: Breath sounds equal, clear to auscultation bilaterally, no wheezes, no crackles, no accessory muscle use. HEART: Regular rate and rhythm, S1, S2 with soft systolic murmur. ABDOMEN: colostomy bag in LLQ in place, Soft, nontender, nondistended, normoactive bowel sounds, no guarding, no rebound, no hepatosplenomegaly, no masses. EXTREMITIES: 2+ pulses, warm, well-perfused, no edema. NEUROLOGICAL: No facial droop, EOM intact, Speech unclear, gait not observed, rest of the neuro unable to perform. PSYCH: Uncooperative. SKIN: Warm, dry, normal turgor. Laboratory Results - last 24 hr 02/09/17 02/10/17 02/11/17 12:00 06:00 05:10 WBC 8.9 RBC 3.01 L Hgb 11.5 Hct 35.6 MCV 118.2 H MCH 38.0 H MCHC 32.2 RDW 17.3 H Plt Count 66 L MPV 10.9 Total Counted 100 Neutrophils % Neutrophils % (Manual) 56 Band Neuts % (Manual) 1 D Lymphocytes % Lymphocytes % (Manual) 29 D Monocytes % (Manual) 10 Eosinophils % (Manual) 1 Basophils % (Manual) 1 Myelocytes % (Man) 1 Promyelocytes % (Man) 1 Nucleated RBC % Hypochromia 2+ Platelet Estimate Decreased Anisocytosis 1+ Macrocytosis 2+ PT with INR INR PTT (Actin FS) Fibrinogen Sodium Potassium Chloride Carbon Dioxide Anion Gap BUN Creatinine Creat Clearance w eGFR Random Glucose Calcium Ionized Calcium 7.1 H Total Bilirubin AST ALT Alkaline Phosphatase Total Protein Albumin Vitamin B12 1751 H Free T4 02/11/17 02/11/17 02/11/17 05:10 05:10 05:10 WBC 6.4 RBC 3.59 L Hgb 13.4 D Hct 42.5 D MCV 118.4 H MCH 37.3 H MCHC 31.5 L RDW 17.6 H Plt Count 68 L MPV 11.3 H Total Counted 100 Neutrophils % No Result Required. Neutrophils % (Manual) 53 Band Neuts % (Manual) Lymphocytes % No Result Required. Lymphocytes % (Manual) 34 Monocytes % (Manual) 9 Eosinophils % (Manual) 2 D Basophils % (Manual) Myelocytes % (Man) Promyelocytes % (Man) Nucleated RBC % 3 H Hypochromia Platelet Estimate Decreased Anisocytosis Macrocytosis PT with INR 12.20 H INR 1.11 D PTT (Actin FS) 21.3 L D Fibrinogen 448.0 D Sodium 160 H Potassium 4.4 Chloride 129 H Carbon Dioxide 27 Anion Gap 4 L BUN 14 Creatinine 0.8 Creat Clearance w eGFR > 60 Random Glucose 80 Calcium 10.1 Ionized Calcium Total Bilirubin 0.5 AST 18 ALT 20 Alkaline Phosphatase 116 D Total Protein 6.4 Albumin 2.4 L Vitamin B12 Free T4 1.23 Active Medications Generic Name Dose Route Start Last Admin Trade Name Freq PRN Reason Stop Dose Admin Acetaminophen 650 mg 02/08/17 19:40 Tylenol - PO Q4H PRN FEVER OR PAIN Al Hydroxide/Mg Hydroxide 30 ml 02/08/17 19:37 Mylanta Oral Suspension - PO Q8H PRN DYSPEPSIA Amino Acids 30 ml 02/08/17 22:00 02/11/17 09:38 Prosource No Carb Liquid Pkt PO 30 ml BID ROLAN Administration Cinacalcet 30 mg 02/08/17 22:00 02/11/17 09:38 Sensipar - PO 30 mg BID ROLAN Administration Divalproex Sodium 750 mg 02/08/17 22:45 02/11/17 09:43 Depakote - PO 750 mg BID ROLAN Administration Docusate Sodium 200 mg 02/08/17 22:00 02/10/17 21:56 Colace - PO 200 mg HS ROLAN Administration Ceftriaxone Sodium 1 gm/ 100 mls @ 200 mls/hr 02/09/17 10:00 02/11/17 09:38 Dextrose IVPB 200 mls/hr DAILY ROLAN Administration Dextrose 1,000 mls @ 110 mls/hr 02/10/17 16:15 02/10/17 17:22 D5w - IV 110 mls/hr .Q10H ROLAN Administration Levothyroxine Sodium 200 mcg/ 225 mcg 02/09/17 07:00 02/11/17 06:19 Levothyroxine Sodium 25 mcg PO 225 mcg DAILY@0700 ROLAN Administration Celada Carbonate 150 mg 02/09/17 10:00 02/11/17 09:43 Eskalith - PO 150 mg DAILY ROLAN Administration Celada Carbonate 300 mg 02/08/17 22:00 02/10/17 21:57 Eskalith - PO 300 mg HS ROLAN Administration Magnesium Hydroxide 30 ml 02/08/17 19:37 Milk Of Magnesia - PO DAILY PRN CONSTIPATION Multivitamins/Minerals/Vitamin C 1 tab 02/09/17 10:00 02/11/17 09:38 Tab-A-Vit - PO 1 tab DAILY ROLAN Administration Pantoprazole Sodium 40 mg 02/09/17 10:00 02/11/17 09:39 Protonix - PO 40 mg DAILY ROLAN Administration Phytonadione 5 mg 02/09/17 20:30 02/11/17 09:39 Aqua Mephyton Injection - SQ 02/12/17 20:29 5 mg DAILY ROLAN Administration Polyethylene Glycol 17 gm 02/09/17 10:00 02/11/17 09:44 Miralax (For Daily Use) - PO Not Given DAILY ROLAN Topiramate 100 mg 02/08/17 22:00 02/11/17 09:40 Topamax - PO 100 mg BID ROLAN Administration Patient is a 71 year old female with a significant past medical history of Hypothyroidism, Hyperlipidemia, Bipolar disorder, Anxiety disorder, seizure disorder, has a colostomy done who was sent from [facility] with altered mental status. Assessment/Plan: 1. Altered mental status likely due to Urinary tract infection 2. Hypernatremia 3. Hypercalcemia 4. Thrombocytopenia 5. Coagulopathy 6. Hypothyroidism 7. Anxiety 8. Seizure Disorder 9. Bipolar Disorder Hypernatremia Sodium on presentation 159-->162 ---->160 today. Free water defecit is 8.2 L still. Was 8.9 L yesterday. Cause of hypernatremia could be dehydration, lithium intake however lithium level is normal Continue IV D5W @ 110 mls/hr Gonzalez catheter hasn't been placed yet as patient didn't allow. Try to place gonzalez today and monitor output. Repeat BMP tomorrow Hypercalcemia Calcium 11---->10.1 today Cause could be due to Dehydration, Celada use, Hyperparathyroidism Seems like patient was diagnosed to have Hyperparathyroidism as patient is already taking Cinacalcet 30mg PO BID at the [place] Continue IV Hydration Repeat Calcium Altered Mental Status likely due to UTI UA showed Positive nitrite, WBC 1047, RBC 101 Continue IV Hydration Continue IV Ceftriaxone, change per urine culture report, as per ID Rest as per primary. Case discussed with Dr. Martinez. Thank you for the consultative opportunity. Visit type - Emergency Visit Emergency Visit: Yes ED Registration Date: 02/08/17 Care time: The patient presented to the Emergency Department on the above date and was hospitalized for further evaluation of their emergent condition. - New Patient This patient is new to me today: Yes Date on this admission: 02/11/17 - Critical Care Critical Care patient: No - Discharge Referral Referred to [facility] Med P.C.: No
--- NOTE | 2017-02-11 11:01 | PN ---
Progress Note (short form) - Note Progress Note: Pt is awake but drowsy Vital Signs Period Temp Pulse Resp BP Sys/Messer Pulse Ox Last 24 Hr 97.0 F-97.8 F 62-76 18-18 129-144/66-80 95-96 PE: Awake, drowsy HEENT: EOMI Neck: supple Lungs: CTA Abd: Benign Ext: No edema Neuro: Unable to access CMP Sodium 160 mmol/L (136-145) H 02/11/17 05:10 Potassium 4.4 mmol/L (3.5-5.1) 02/11/17 05:10 Chloride 129 mmol/L (98-107) H 02/11/17 05:10 Carbon Dioxide 27 mmol/L (21-32) 02/11/17 05:10 Anion Gap 4 (8-16) L 02/11/17 05:10 BUN 14 mg/dL (7-18) 02/11/17 05:10 Creatinine 0.8 mg/dL (0.55-1.02) 02/11/17 05:10 Creat Clearance w eGFR > 60 (>60) 02/11/17 05:10 Random Glucose 80 mg/dL (74-106) 02/11/17 05:10 Lactic Acid 1.1 mmol/L (0.4-2.0) 02/09/17 12:40 Calcium 10.1 mg/dL (8.5-10.1) 02/11/17 05:10 Ionized Calcium 7.1 mg/dL (4.5-5.6) H 02/09/17 12:00 Magnesium 1.8 mg/dL (1.8-2.4) 02/08/17 16:39 Total Bilirubin 0.5 mg/dL (0.2-1.0) 02/11/17 05:10 AST 18 U/L (15-37) 02/11/17 05:10 ALT 20 U/L (12-78) 02/11/17 05:10 Alkaline Phosphatase 116 U/L (45-117) D 02/11/17 05:10 Ammonia 55.11 umol/L (11-32) H 02/10/17 06:00 LD Total 172 U/L (84-246) 02/10/17 06:00 Creatine Kinase Cancelled 02/08/17 14:30 Troponin I Cancelled 02/08/17 14:30 B-Natriuretic Peptide 507.31 pg/ml (5-125) H 02/08/17 16:39 Total Protein 6.4 g/dl (6.4-8.2) 02/11/17 05:10 Albumin 2.4 g/dl (3.4-5.0) L 02/11/17 05:10 Vitamin B12 1751 pg/ml (180-914) H 02/11/17 05:10 TSH 0.04 uIU/ml (0.358-3.74) L 02/10/17 06:00 Free T4 1.23 ng/dl (0.76-1.46) 02/11/17 05:10 PTH Intact 274 pg/mL (15-65) H 02/10/17 06:00 Current Medications Generic Name Dose Route Start Last Admin Trade Name Freq PRN Reason Stop Dose Admin Acetaminophen 650 mg 02/08/17 19:40 Tylenol - PO Q4H PRN FEVER OR PAIN Al Hydroxide/Mg Hydroxide 30 ml 02/08/17 19:37 Mylanta Oral Suspension - PO Q8H PRN DYSPEPSIA Amino Acids 30 ml 02/08/17 22:00 02/11/17 09:38 Prosource No Carb Liquid Pkt PO 30 ml BID ROLAN Administration Cinacalcet 30 mg 02/08/17 22:00 02/11/17 09:38 Sensipar - PO 30 mg BID ROLAN Administration Divalproex Sodium 750 mg 02/08/17 22:45 02/11/17 09:43 Depakote - PO 750 mg BID ROLAN Administration Docusate Sodium 200 mg 02/08/17 22:00 02/10/17 21:56 Colace - PO 200 mg HS ROLAN Administration Ceftriaxone Sodium 1 gm/ 100 mls @ 200 mls/hr 02/09/17 10:00 02/11/17 09:38 Dextrose IVPB 200 mls/hr DAILY ROLAN Administration Dextrose 1,000 mls @ 110 mls/hr 02/10/17 16:15 02/10/17 17:22 D5w - IV 110 mls/hr .Q10H ROLAN Administration Levothyroxine Sodium 200 mcg/ 225 mcg 02/09/17 07:00 02/11/17 06:19 Levothyroxine Sodium 25 mcg PO 225 mcg DAILY@0700 ROLAN Administration [place] Carbonate 150 mg 02/09/17 10:00 02/11/17 09:43 Eskalith - PO 150 mg DAILY ROLAN Administration [place] Carbonate 300 mg 02/08/17 22:00 02/10/17 21:57 Eskalith - PO 300 mg HS ROLAN Administration Magnesium Hydroxide 30 ml 02/08/17 19:37 Milk Of Magnesia - PO DAILY PRN CONSTIPATION Multivitamins/Minerals/Vitamin C 1 tab 02/09/17 10:00 02/11/17 09:38 Tab-A-Vit - PO 1 tab DAILY ROLAN Administration Pantoprazole Sodium 40 mg 02/09/17 10:00 02/11/17 09:39 Protonix - PO 40 mg DAILY ROLAN Administration Phytonadione 5 mg 02/09/17 20:30 02/11/17 09:39 Aqua Mephyton Injection - SQ 02/12/17 20:29 5 mg DAILY ROLAN Administration Polyethylene Glycol 17 gm 02/09/17 10:00 02/11/17 09:44 Miralax (For Daily Use) - PO Not Given DAILY ROLAN Topiramate 100 mg 02/08/17 22:00 02/11/17 09:40 Topamax - PO 100 mg BID ROLAN Administration AP: AMS Hypothyrodism HYpercalcemia Hyperparathyroidism: Primary vs [place] associated Hyperparathyroidism Bipolar disorder Hypernatremia . PTH 274 Continue Sensipar for control of hypercalcemia. Increase it to 60mg BID if calcium remains high. At this point not sure when it was started. Usually increase dose if inadequate response in 2 to 4 weeks. Will f/u Problem List - Problems (1) Change in mental status Code(s): R41.82 - ALTERED MENTAL STATUS, UNSPECIFIED Qualifiers: Altered mental status type: delirium Qualified Code(s): R41.0 - Disorientation, unspecified; R41.0 - Disorientation, unspecified (2) Hypercalcemia Code(s): E83.52 - HYPERCALCEMIA (3) Hypernatremia Code(s): E87.0 - HYPEROSMOLALITY AND HYPERNATREMIA (4) UTI (urinary tract infection) Code(s): N39.0 - URINARY TRACT INFECTION, SITE NOT SPECIFIED Qualifiers: Urinary tract infection type: site unspecified Hematuria presence: with hematuria Qualified Code(s): N39.0 - Urinary tract infection, site not specified; N39.0 - Urinary tract infection, site not specified; R31.9 - Hematuria, unspecified; R31.9 - Hematuria, unspecified
--- NOTE | 2017-02-11 11:56 | CONSULT ---
Admitting History and Physical - Primary Care Physician PCP: Chantell Saucedo - Admission History of Present Illness: Patient is a 71 year old female with a significant past medical history of Hypothyroidism, Hyperlipidemia, Bipolar disorder, Anxiety disorder, seizure disorder, colostomy, sent from [facility] with altered mental status. (+) UA. Nursing has observed difficulty swallowing. Intermittent lethargy, reported to be noted after am medication. Selected Entries 02/10/17 02/10/17 02/10/17 02:53 10:00 14:00 Breakfast Lunch 25% Supper Temperature 97.3 F L 98 F 97.5 F L 02/10/17 02/10/17 02/11/17 18:00 22:00 02:00 Breakfast Lunch 25% Supper 75% Temperature 97.8 F 97.6 F 97.0 F L 02/11/17 02/11/17 06:00 10:16 Breakfast 50% Lunch Supper Temperature 97.6 F Laboratory Tests 02/08/17 02/09/17 02/10/17 14:30 07:10 06:00 WBC 18.9 H 10.8 H D 8.9 02/11/17 05:10 WBC 6.4 Pt was on a reg diet/thin liquid at [place]. 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: Seizure Cardiovascular: Yes: Hyperlipdemia Gastrointestinal: Yes: Other (Colostomy) Psych: Yes: Anxiety, Bipolar Endocrine: Yes: Hypothyroidism - Advance Directives Advance Directives: Yes: Health Care Proxy - Smoking History Smoking history: Never smoked Aproximately how many cigarettes per day: 0 - Alcohol/Substance Use Hx Alcohol Use: No History - Admission Reason For Visit: UTI, CHANGE IN MENTAL STATUS - Diagnostics X-ray: Report Reviewed - General Mental Status: Awake and Alert, Confused Attention: Distractible, Moderate Impairment Ability to Follow Directions: Poor Head/Neck Control: Needs Assist - Hearing Hearing: Functional Speech Evaluation - Communication Primary Language: ALBAN[place] Communication: Yes: Aphasia (Language of confusion) - Speech Production Able to Make Needs Known: Yes: Severely Impaired Intelligibility: Yes: Moderately Impaired - Speech Characteristics Voice Loudness: Normal Voice Pitch: Yes: Normal Voice Phonatory-based Quality: Yes: Normal Speech Pattern: Impaired Speech Clarity: < 25% Nasal Resonance: Normal Articulation: Yes: Imprecise - Language/Auditory Comprehension Observation: Able to respond to yes/no queries: No, Comprehends Conversational Speech: No (does not appear to) - Language/Verbal Expression Able to Respond to Simple Queries: Yes: Severely Impaired Able to Communicate Wants and Needs: Yes: Severely Impaired Functional Communication Status: Yes: Severely Impaired - Memory/Perception brim stretcher Memory: Yes: Severely Impaired Short Term Memory: Yes: Severely Impaired - Swallow Evaluation/Bedside Assessment Current Nutritional Intake: Dysphagia Pureed, Honey Textured Liquids Oral Secretions: Yes: WFL Facial Symmetry at Rest: Symmetrical Laryngeal Movement: Able to Palpate, Labored,delay initiation Rate of Intake: Slow/Holding Bolus Size: Large Labial Seal: WFL Oral Prep Time: Increased A-P Transit: Impaired Timing of Swallow: Delayed Coughing/Throat Clear: Yes (thin liq) Recommendations - Speech Evaluation, Impression/Plan Impression: Aspiration on thin liquid. Verbal with perseverative responses eg your georgina. no, oh yea, yea. Imprecise artic. Does not follow commands. Can elevate both UE. Suspect sp/lang at baseline? Unable to tolerate [place] diet of reg/ thin liquid at this time. - Disposition [facility]charge to: [facility] - Dysphagia Impressions/Plan Swallowing Skills: Impaired Dysphagia Impressions: Mild Impairment, Moderate Impairment, Ongoing Evaluation , Suspect Aspiration Dysphagia Treatment Plan: Gregoryn Lex, Facilitative Feeding, 1/2 tsp. at a time, Elevate HOB during feed, Other (feed slowly, wait for reflex, alternate purtee with liquid.) Recommendations: Modified Barium Swallow (appropriate but pt is morbidly obese and will not fit into fluoro equip.) - Recommendations Diet Consistency: Dysphagia Pureed Medication Administration: Crushed with applesauce Liquids: [place] Thick
--- NOTE | 2017-02-11 13:57 | PN ---
Progress Note (short form) - Note Progress Note: Patient seen and examined. Not much hx provided GeneraL;Drowsy NCAT Abd: colostomy LE: No swelling Temp Pulse Resp BP Pulse Ox 97.6 F 76 18 144/80 95 02/10/17 20:40 02/10/17 20:40 02/10/17 20:40 02/10/17 20:40 02/10/17 20:40 CBC, BMP 02/10/17 06:00 02/10/17 06:00 Current Medications Generic Name Dose Route Start Last Admin Trade Name Freq PRN Reason Stop Dose Admin Acetaminophen 650 mg 02/08/17 19:40 Tylenol - PO Q4H PRN FEVER OR PAIN Al Hydroxide/Mg Hydroxide 30 ml 02/08/17 19:37 Mylanta Oral Suspension - PO Q8H PRN DYSPEPSIA Amino Acids 30 ml 02/08/17 22:00 02/10/17 09:32 Prosource No Carb Liquid Pkt PO 30 ml BID ROLAN Administration Cinacalcet 30 mg 02/08/17 22:00 02/10/17 09:36 Sensipar - PO 30 mg BID ROLAN Administration Divalproex Sodium 750 mg 02/08/17 22:45 02/10/17 09:36 Depakote - PO 750 mg BID ROLAN Administration Docusate Sodium 200 mg 02/08/17 22:00 02/09/17 23:02 Colace - PO 200 mg HS ROLAN Administration Ceftriaxone Sodium 1 gm/ 100 mls @ 200 mls/hr 02/09/17 10:00 02/10/17 09:33 Dextrose IVPB 200 mls/hr DAILY ROLAN Administration Dextrose 1,000 mls @ 110 mls/hr 02/10/17 16:15 02/10/17 17:22 D5w - IV 110 mls/hr .Q10H ROLAN Administration Levothyroxine Sodium 200 mcg/ 225 mcg 02/09/17 07:00 02/10/17 06:12 Levothyroxine Sodium 25 mcg PO 225 mcg DAILY@0700 ROLAN Administration Caroleen Carbonate 150 mg 02/09/17 10:00 02/10/17 09:37 Eskalith - PO 150 mg DAILY ROLAN Administration Caroleen Carbonate 300 mg 02/08/17 22:00 02/09/17 23:03 Eskalith - PO 300 mg HS ROLAN Administration Magnesium Hydroxide 30 ml 02/08/17 19:37 Milk Of Magnesia - PO DAILY PRN CONSTIPATION Multivitamins/Minerals/Vitamin C 1 tab 02/09/17 10:00 02/10/17 09:32 Tab-A-Vit - PO 1 tab DAILY ROLAN Administration Pantoprazole Sodium 40 mg 02/09/17 10:00 02/10/17 09:32 Protonix - PO 40 mg DAILY ROLAN Administration Phytonadione 5 mg 02/09/17 20:30 02/10/17 09:32 Aqua Mephyton Injection - SQ 02/12/17 20:29 5 mg DAILY ROLAN Administration Polyethylene Glycol 17 gm 02/09/17 10:00 02/10/17 09:37 Miralax (For Daily Use) - PO Not Given DAILY ROLAN Topiramate 100 mg 02/08/17 22:00 02/10/17 09:38 Topamax - PO 100 mg BID ROLAN Administration 71 y/o patient with hyperlipidemia, bipolar disorder,hypothyroid, seizure disorder, comes in with altered mental status Presumed UTI, hypernatremia, hypercalcemia, coagulopathy Resolving coagulaothy. slowly improving platelet counts, fatty liver , diffuse, may cause Low platelet counts , will send off flow today/FISH for MDS Her AMS remains, likely metabolic, a combination of medication/HyperNa./UTI , being seen by Neuro/ID/Endo/renal/Psych. will follow. d/w
--- NOTE | 2017-02-11 14:58 | PN ---
Progress Note, Physician Chief Complaint: Events noted pt very lethargic after administration of meds-- as per nurse, this AM, she was wide awake for breakfast but later woke up and was speaking to speech therapist while being evaluated by her.Slow and slurred speech - Current Medication List Current Medications: Active Medications Acetaminophen (Tylenol -) 650 mg PO Q4H PRN PRN Reason: FEVER OR PAIN Al Hydroxide/Mg Hydroxide (Mylanta Oral Suspension -) 30 ml PO Q8H PRN PRN Reason: DYSPEPSIA Amino Acids (Prosource No Carb Liquid Pkt) 30 ml PO BID [facility] Last Admin: 02/11/17 09:38 Dose: 30 ml Cinacalcet (Sensipar -) 30 mg PO BID [facility] Last Admin: 02/11/17 09:38 Dose: 30 mg Divalproex Sodium (Depakote -) 750 mg PO BID [facility] Last Admin: 02/11/17 09:43 Dose: 750 mg Docusate Sodium (Colace -) 200 mg PO HS [facility] Last Admin: 02/10/17 21:56 Dose: 200 mg Ceftriaxone Sodium 1 gm/ (Dextrose) 100 mls @ 200 mls/hr IVPB DAILY [facility] Last Admin: 02/11/17 09:38 Dose: 200 mls/hr Dextrose (D5w -) 1,000 mls @ 110 mls/hr IV .Q10H [facility] Last Admin: 02/10/17 17:22 Dose: 110 mls/hr Levothyroxine Sodium 200 mcg/ (Levothyroxine Sodium 25 mcg) 225 mcg PO DAILY@ 0700 [facility] Last Admin: 02/11/17 06:19 Dose: 225 mcg [place] Carbonate (Eskalith -) 150 mg PO DAILY [facility] Last Admin: 02/11/17 09:43 Dose: 150 mg [place] Carbonate (Eskalith -) 300 mg PO HS [facility] Last Admin: 02/10/17 21:57 Dose: 300 mg Magnesium Hydroxide (Milk Of Magnesia -) 30 ml PO DAILY PRN PRN Reason: CONSTIPATION Multivitamins/Minerals/Vitamin C (Tab-A-Vit -) 1 tab PO DAILY [facility] Last Admin: 02/11/17 09:38 Dose: 1 tab Pantoprazole Sodium (Protonix -) 40 mg PO DAILY [facility] Last Admin: 02/11/17 09:39 Dose: 40 mg Phytonadione (Aqua Mephyton Injection -) 5 mg SQ DAILY [facility] Stop: 02/12/17 20:29 Last Admin: 02/11/17 09:39 Dose: 5 mg Polyethylene Glycol (Miralax (For Daily Use) -) 17 gm PO DAILY [facility] Last Admin: 02/11/17 09:44 Dose: Not Given Topiramate (Topamax -) 100 mg PO BID [facility] Last Admin: 02/11/17 09:40 Dose: 100 mg - Objective Vital Signs: Vital Signs Temperature 97.6 F 02/11/17 06:00 Pulse Rate 62 02/11/17 06:00 Respiratory Rate 18 02/11/17 09:00 Blood Pressure 129/66 02/11/17 06:00 O2 Sat by Pulse Oximetry (%) 96 02/11/17 09:00 Constitutional: Yes: No Distress Cardiovascular: Yes: Regular Rate and Rhythm Respiratory: Yes: Diminished. No: Rales, Rhonchi Gastrointestinal: Yes: Normal Bowel Sounds, Soft, Abdomen, Obese. No: Distention, Tenderness Edema: Yes Edema: LLE: Trace, RLE: Trace Labs: CBC, BMP 02/11/17 05:10 02/11/17 05:10 INR, PTT INR 1.11 (0.82-1.09) D 02/11/17 05:10 Fibrinogen 448.0 mg/dL (238-498) D 02/11/17 05:10 Problem List - Problems (1) Change in mental status Code(s): R41.82 - ALTERED MENTAL STATUS, UNSPECIFIED Qualifiers: Altered mental status type: delirium Qualified Code(s): R41.0 - Disorientation, unspecified; R41.0 - Disorientation, unspecified (2) Hypercalcemia Code(s): E83.52 - HYPERCALCEMIA (3) Hypernatremia Code(s): E87.0 - HYPEROSMOLALITY AND HYPERNATREMIA (4) UTI (urinary tract infection) Code(s): N39.0 - URINARY TRACT INFECTION, SITE NOT SPECIFIED Qualifiers: Urinary tract infection type: site unspecified Hematuria presence: with hematuria Qualified Code(s): N39.0 - Urinary tract infection, site not specified; N39.0 - Urinary tract infection, site not specified; R31.9 - Hematuria, unspecified; R31.9 - Hematuria, unspecified (5) Sepsis Code(s): A41.9 - SEPSIS, UNSPECIFIED ORGANISM (6) Thrombocytopenia Code(s): D69.6 - THROMBOCYTOPENIA, UNSPECIFIED (7) Metabolic encephalopathy Code(s): G93.41 - METABOLIC ENCEPHALOPATHY Assessment/Plan PLAN spoke with both Hematology and Endocrinology pt on iv antibiotics for UTI iv fluids Na-slight improvement with iv fluids psych meds may be contributing to pt's altered mental state-- will call for Psych follow up Seroquel discontinued but pt still sleepy
--- NOTE | 2017-02-11 15:29 | PN ---
Teaching Attending Note Name of Resident: Alisa Hand (Nephrology) ATTENDING PHYSICIAN STATEMENT I saw and evaluated the patient. I reviewed the resident's note and discussed the case with the resident. I agree with the resident's findings and plan as documented. Renal Follow Up Pt seen and examined at bedside. She is more awake and alert today than she was yesterday. Current Medications Generic Name Dose Route Start Last Admin Trade Name Freq PRN Reason Stop Dose Admin Acetaminophen 650 mg 02/08/17 19:40 Tylenol - PO Q4H PRN FEVER OR PAIN Al Hydroxide/Mg Hydroxide 30 ml 02/08/17 19:37 Mylanta Oral Suspension - PO Q8H PRN DYSPEPSIA Amino Acids 30 ml 02/08/17 22:00 02/11/17 09:38 Prosource No Carb Liquid Pkt PO 30 ml BID ROLAN Administration Cinacalcet 30 mg 02/08/17 22:00 02/11/17 09:38 Sensipar - PO 30 mg BID ROLAN Administration Divalproex Sodium 750 mg 02/08/17 22:45 02/11/17 09:43 Depakote - PO 750 mg BID ROLAN Administration Docusate Sodium 200 mg 02/08/17 22:00 02/10/17 21:56 Colace - PO 200 mg HS ROLAN Administration Ceftriaxone Sodium 1 gm/ 100 mls @ 200 mls/hr 02/09/17 10:00 02/11/17 09:38 Dextrose IVPB 200 mls/hr DAILY ROLAN Administration Dextrose 1,000 mls @ 110 mls/hr 02/10/17 16:15 02/10/17 17:22 D5w - IV 110 mls/hr .Q10H ROLAN Administration Levothyroxine Sodium 200 mcg/ 225 mcg 02/09/17 07:00 02/11/17 06:19 Levothyroxine Sodium 25 mcg PO 225 mcg DAILY@0700 ROLAN Administration [place] Carbonate 150 mg 02/09/17 10:00 02/11/17 09:43 Eskalith - PO 150 mg DAILY ROLAN Administration [place] Carbonate 300 mg 02/08/17 22:00 02/10/17 21:57 Eskalith - PO 300 mg HS ROLAN Administration Magnesium Hydroxide 30 ml 02/08/17 19:37 Milk Of Magnesia - PO DAILY PRN CONSTIPATION Multivitamins/Minerals/Vitamin C 1 tab 02/09/17 10:00 02/11/17 09:38 Tab-A-Vit - PO 1 tab DAILY ROLAN Administration Pantoprazole Sodium 40 mg 02/09/17 10:00 02/11/17 09:39 Protonix - PO 40 mg DAILY ROLAN Administration Phytonadione 5 mg 02/09/17 20:30 02/11/17 09:39 Aqua Mephy[place] Injection - SQ 02/12/17 20:29 5 mg DAILY ROLAN Administration Polyethylene Glycol 17 gm 02/09/17 10:00 02/11/17 09:44 Miralax (For Daily Use) - PO Not Given DAILY ROLAN Topiramate 100 mg 02/08/17 22:00 02/11/17 09:40 Topamax - PO 100 mg BID ROLAN Administration Laboratory Tests 02/09/17 02/11/17 12:00 05:10 Sodium 160 H [place] 1.1 Last Vital Signs Temp Pulse Resp BP Pulse Ox 97.6 F 67 18 119/70 96 02/11/17 14:00 02/11/17 14:00 02/11/17 09:00 02/11/17 14:00 02/11/17 09:00 cardio s1s2 pulm clear, on nc o2 GI soft, colostomy incontinant ext neg edema neuro awake Impression 1. hypernatremia 2. hypercalcemia 3. change in mental status 4. anxiety 5. bipolar 6. UTI 7. hypothyroid 8. hyperlipidemia Plan - cont with d5w, sodium is starting to improve - encourage free water intake - send urine osm - place gonzalez cath - cont d5w - check pth - monitor calcium - will follow Problem List - Problems (1) Change in mental status Code(s): R41.82 - ALTERED MENTAL STATUS, UNSPECIFIED Qualifiers: Qualified Code(s): R41.0 - Disorientation, unspecified; R41.0 - Disorientation, unspecified (2) Hypernatremia Code(s): E87.0 - HYPEROSMOLALITY AND HYPERNATREMIA (3) UTI (urinary tract infection) Code(s): N39.0 - URINARY TRACT INFECTION, SITE NOT SPECIFIED Qualifiers: Qualified Code(s): N39.0 - Urinary tract infection, site not specified; N39.0 - Urinary tract infection, site not specified; R31.9 - Hematuria, unspecified; R31.9 - Hematuria, unspecified
--- NOTE | 2017-02-11 16:52 | PN ---
Progress Note (short form) - Note Progress Note: Patient appears very sedated, not responding to verbal stimulus. PLan: D/c DEpakote. lithium as well.
[2017-02-11] MEDS ORDERED: PT OWN MED DRAWER 7, Y5N ONE (23:50)
[2017-02-11] MEDS: DEXTROSE 5%-WATER - 1,000 ML IV SCH (23:52)
[2017-02-12 07:27] LABS: MCH 37.6 pg (25.7-33.7); MCHC 32.2 g/dl (32.0-36.0); MEAN CELL VOLUME 116.7 fl (80-96); MEAN PLT VOLUME 11.5 fl (7.5-11.1); PLATELET COUNT 71 K/MM3 (134-434); RDW 16.5 % (11.6-15.6); WHITE BLOOD COUNT 9.1 K/mm3 (4.0-10.0)
[2017-02-12 08:00] LABS: ANION GAP 7 (8-16); CALCIUM 10.6 mg/dL (8.5-10.1); CO2 24 mmol/L (21-32); GLUCOSE,RANDOM 79 mg/dL (74-106)
[2017-02-12 08:01] LABS: CREATININE 0.8 mg/dL (0.55-1.02)
--- NOTE | 2017-02-12 10:03 | PN ---
Progress Note (short form) - Note Progress Note: Neurology History of Present Illness 71 yo female with a significant past medical history of Hypothyroidism, Hyperlipidemia, Bipolar disorder, Anxiety disorder and seizure disorder with colostomy who presented to the emergency department from [facility] with altered mental status. Unclear duration, reportedly she is able to converse and oriented to self but was not and therefore sent to hospital for further evaluation and management. Patient found to have hypernatremia and being treated for that, renal consulted, recommended D5W, monitoring Na levels closely. Of note, also with UTI on labs and being treated with Ceftriaxone. She did have CT head which did not show acute changes. No evidence of seizure and her medication list includes depakote 750mg twice daily and Topamax 100mg twice daily. Patient was more awake and conversive with me this morning. Was not answering questions fully but seemed more cognitizant of enviornment. Active Medications Acetaminophen (Tylenol -) 650 mg PO Q4H PRN PRN Reason: FEVER OR PAIN Al Hydroxide/Mg Hydroxide (Mylanta Oral Suspension -) 30 ml PO Q8H PRN PRN Reason: DYSPEPSIA Amino Acids (Prosource No Carb Liquid Pkt) 30 ml PO BID [facility] Last Admin: 02/11/17 23:51 Dose: 30 ml Cinacalcet (Sensipar -) 30 mg PO BID [facility] Last Admin: 02/11/17 23:51 Dose: 30 mg Ceftriaxone Sodium 1 gm/ (Dextrose) 100 mls @ 200 mls/hr IVPB DAILY [facility] Last Admin: 02/11/17 09:38 Dose: 200 mls/hr Dextrose (D5w -) 1,000 mls @ 125 mls/hr IV ASDIR [facility] Last Admin: 02/11/17 23:52 Dose: 125 mls/hr Levothyroxine Sodium 200 mcg/ (Levothyroxine Sodium 25 mcg) 225 mcg PO DAILY@ 0700 [facility] Last Admin: 02/11/17 06:19 Dose: 225 mcg [place] Carbonate (Eskalith -) 150 mg PO DAILY [facility] Last Admin: 02/11/17 09:43 Dose: 150 mg Magnesium Hydroxide (Milk Of Magnesia -) 30 ml PO DAILY PRN PRN Reason: CONSTIPATION Multivitamins/Minerals/Vitamin C (Tab-A-Vit -) 1 tab PO DAILY [facility] Last Admin: 02/11/17 09:38 Dose: 1 tab Pantoprazole Sodium (Protonix -) 40 mg PO DAILY [facility] Last Admin: 02/11/17 09:39 Dose: 40 mg Phytonadione (Aqua [place]phy[place] Injection -) 5 mg SQ DAILY [facility] Stop: 02/12/17 20:29 Last Admin: 02/11/17 09:39 Dose: 5 mg Polyethylene Glycol (Miralax (For Daily Use) -) 17 gm PO DAILY [facility] Last Admin: 02/11/17 09:44 Dose: Not Given Topiramate (Topamax -) 100 mg PO BID [facility] Last Admin: 02/11/17 23:52 Dose: 100 mg *Physical Exam Vital Signs Temperature 96.8 F L 02/12/17 06:00 Pulse Rate 85 02/12/17 06:00 Respiratory Rate 20 02/12/17 06:00 Blood Pressure 132/55 02/12/17 06:00 O2 Sat by Pulse Oximetry (%) 93 L 02/11/17 22:00 GENERAL: Awake, alert, responsive to examiner but not verbal HEAD: No signs of trauma, normocephalic, atraumatic EYES: PERRLA, EOMI, sclera anicteric, conjunctiva clear ENT: Auricles normal inspection, hearing grossly normal, nares patent, oropharynx clear without exudates. Moist mucosa NECK: Normal ROM, supple, no lymphadenopathy, JVD, or masses LUNGS: No distress, speaks full sentences, clear to auscultation bilaterally HEART: Regular rate and rhythm, normal S1 and S2, no murmurs, rubs or gallops, peripheral pulses normal and equal bilaterally. ABDOMEN: Soft, nontender, normoactive bowel sounds. No guarding, no rebound. No masses EXTREMITIES: +Abbrasion on right forearm at exam that per EMS was not their when they picked up patient. Patient flailing around; suspect self inflicted during transport. Normal range of motion, no edema. No clubbing or cyanosis. NEUROLOGICAL: Cranial nerves II through XII grossly intact. Not following commands, not participating in confrontation testing, intact to tactile stimulation, gait deferred CBCD WBC 9.1 K/mm3 (4.0-10.0) D 02/12/17 05:15 RBC 3.68 M/mm3 (3.60-5.2) 02/12/17 05:15 Hgb 13.8 GM/dL (10.7-15.3) 02/12/17 05:15 Hct 43.0 % (32.4-45.2) 02/12/17 05:15 MCV 116.7 fl (80-96) H 02/12/17 05:15 MCHC 32.2 g/dl (32.0-36.0) 02/12/17 05:15 RDW 16.5 % (11.6-15.6) H 02/12/17 05:15 Plt Count 71 K/MM3 (134-434) L 02/12/17 05:15 MPV 11.5 fl (7.5-11.1) H 02/12/17 05:15 CMP Sodium 155 mmol/L (136-145) H 02/12/17 05:15 Potassium 4.1 mmol/L (3.5-5.1) 02/12/17 05:15 Chloride 124 mmol/L (98-107) H 02/12/17 05:15 Carbon Dioxide 24 mmol/L (21-32) 02/12/17 05:15 Anion Gap 7 (8-16) L 02/12/17 05:15 BUN 15 mg/dL (7-18) 02/12/17 05:15 Creatinine 0.8 mg/dL (0.55-1.02) 02/12/17 05:15 Creat Clearance w eGFR > 60 (>60) 02/11/17 05:10 Calcium 10.6 mg/dL (8.5-10.1) H 02/12/17 05:15 Total Bilirubin 0.5 mg/dL (0.2-1.0) 02/11/17 05:10 AST 18 U/L (15-37) 02/11/17 05:10 ALT 20 U/L (12-78) 02/11/17 05:10 Alkaline Phosphatase 116 U/L (45-117) D 02/11/17 05:10 Total Protein 6.4 g/dl (6.4-8.2) 02/11/17 05:10 Albumin 2.4 g/dl (3.4-5.0) L 02/11/17 05:10 Plan: 71 yo female with a significant past medical history of Hypothyroidism, Hyperlipidemia, Bipolar disorder, Anxiety disorder and seizure disorder with colostomy who presents to the emergency department from [facility] with altered mental status. Patient more awake and alert, slowly improving. Patient found to have hypernatremia, improving, Na decreased to 155 today UTI on labs as well, continue infectious management, Abx She did have CT head which did not show acute changes. Will check MRI brain to rule out CVA, ordered No evidence of seizure can continue depakote 750mg twice daily and Topamax 100mg twice daily More generalized, not focal, but will continue to monitor
--- NOTE | 2017-02-12 10:07 | PN ---
Physical Exam: RENAL CONSULT FOR HYPERNATREMIA SUBJECTIVE: Patient seen and examined at bed side this morning. Much alert and awake than yesterday. Today, she said "Yeah" to every questions asked. ROS couldn't be obtained. As per RN, no acute overnight events. This morning RN adjusted the gonzalez and noticed that she has bright red colored urine. Asked her to monitor it closely. OBJECTIVE: Vital Signs Period Temp Pulse Resp BP Sys/Messer Pulse Ox Last 24 Hr 96.8 F-98.0 F 67-98 20-20 98-134/54-80 93-97 GENERAL: Elderly female, lying comfortably in bed, is awake, alert, in no acute distress, gonzalez in place. HEAD: Normal with no signs of trauma. EYES: EOM intact, no pallor or icterus. ENT: Ears normal, moist mucous membranes. NECK: Trachea midline, full range of motion, supple. LUNGS: Breath sounds equal, clear to auscultation bilaterally, no wheezes, no crackles, no accessory muscle use. HEART: Regular rate and rhythm, S1, S2 with soft systolic murmur. ABDOMEN: colostomy bag in LLQ in place, Soft, nontender, nondistended, normoactive bowel sounds, no guarding, no rebound, no hepatosplenomegaly, no masses. EXTREMITIES: 2+ pulses, warm, well-perfused, no edema. NEUROLOGICAL: No facial droop, EOM intact, Speech unclear, gait not observed, rest of the neuro unable to perform. PSYCH: Uncooperative. SKIN: Warm, dry, normal turgor. Laboratory Results - last 24 hr 02/10/17 02/11/17 02/12/17 06:00 14:54 05:15 WBC RBC Hgb Hct MCV MCH MCHC RDW Plt Count MPV Neutrophils % Lymphocytes % Sodium 155 H Potassium 4.1 Chloride 124 H Carbon Dioxide 24 Anion Gap 7 L BUN 15 Creatinine 0.8 Random Glucose 79 Serum Osmolality Calcium 10.6 H PTH Intact 274 H Urine Osmolality 205 L 02/12/17 02/12/17 05:15 05:15 WBC 9.1 D RBC 3.68 Hgb 13.8 Hct 43.0 MCV 116.7 H MCH 37.6 H MCHC 32.2 RDW 16.5 H Plt Count 71 L MPV 11.5 H Neutrophils % No Result Required. Lymphocytes % No Result Required. Sodium Potassium Chloride Carbon Dioxide Anion Gap BUN Creatinine Random Glucose Serum Osmolality 322 H Calcium PTH Intact Urine Osmolality Active Medications Generic Name Dose Route Start Last Admin Trade Name Yobani PRN Reason Stop Dose Admin Acetaminophen 650 mg 02/08/17 19:40 Tylenol - PO Q4H PRN FEVER OR PAIN Al Hydroxide/Mg Hydroxide 30 ml 02/08/17 19:37 Mylanta Oral Suspension - PO Q8H PRN DYSPEPSIA Amino Acids 30 ml 02/08/17 22:00 02/11/17 23:51 Prosource No Carb Liquid Pkt PO 30 ml BID ROLAN Administration Cinacalcet 30 mg 02/08/17 22:00 02/11/17 23:51 Sensipar - PO 30 mg BID ROLAN Administration Dextrose 1,000 mls @ 125 mls/hr 02/11/17 15:30 02/11/17 23:52 D5w - IV 125 mls/hr ASDIR ROLAN Administration Levothyroxine Sodium 200 mcg/ 225 mcg 02/09/17 07:00 02/11/17 06:19 Levothyroxine Sodium 25 mcg PO 225 mcg DAILY@0700 ROLAN Administration [place] Carbonate 150 mg 02/09/17 10:00 02/11/17 09:43 Eskalith - PO 150 mg DAILY ROLAN Administration Magnesium Hydroxide 30 ml 02/08/17 19:37 Milk Of Magnesia - PO DAILY PRN CONSTIPATION Multivitamins/Minerals/Vitamin C 1 tab 02/09/17 10:00 02/11/17 09:38 Tab-A-Vit - PO 1 tab DAILY ROLAN Administration Pantoprazole Sodium 40 mg 02/09/17 10:00 02/11/17 09:39 Protonix - PO 40 mg DAILY ROLAN Administration Phytonadione 5 mg 02/09/17 20:30 02/11/17 09:39 Aqua Mephy[place] Injection - SQ 02/12/17 20:29 5 mg DAILY ROLAN Administration Polyethylene Glycol 17 gm 02/09/17 10:00 02/11/17 09:44 Miralax (For Daily Use) - PO Not Given DAILY ROLAN Topiramate 100 mg 02/08/17 22:00 02/11/17 23:52 Topamax - PO 100 mg BID ROLAN Administration ASSESSMENT/PLAN: Patient is a 71 year old female with a significant past medical history of Hypothyroidism, Hyperlipidemia, Bipolar disorder, Anxiety disorder, seizure disorder, has a colostomy done who was sent from [facility] with altered mental status. Assessment/Plan: 1. Altered mental status likely due to Urinary tract infection 2. Hypernatremia 3. Hypercalcemia 4. Thrombocytopenia 5. Coagulopathy 6. Hypothyroidism 7. Anxiety 8. Seizure Disorder 9. Bipolar Disorder Hypernatremia Sodium on presentation 159-->162 ---->160--->155 today. Free water defecit is 6.1 L. Was 8.2 L yesterday. Cause of hypernatremia could be dehydration, lithium intake however lithium level is normal Increased IV D5W to 125 mls/hr Gonzalez catheter placed, has hematuria today. Will closely monitor and evaluate. Hematuria could be due to trauma while playing gonzalez. Monitor output. Repeat BMP tomorrow urine Osm 205 and Serum osm 322 Hypercalcemia most likely could be due to Hyperparathyroidism PTH 274 Calcium 11---->10.1---> 10.6 today. To calculate corrected calcium, albumin pending. Other than hyperparathyroidism, Cause could be due to Dehydration, [place] use, Nephrogenic DI Seems like patient was diagnosed to have Hyperparathyroidism as patient is already taking Cinacalcet 30mg PO BID at the IN. Increased Cinacalcet to 60mg BID as per endocrinology. Continue IV Hydration Repeat Calcium Altered Mental Status likely due to UTI UA showed Positive nitrite, WBC 1047, RBC 101 Continue IV Hydration Continue IV Ceftriaxone, change per urine culture report, as per ID Rest as per primary. Case discussed with Dr. Martinez. Thank you for the consultative opportunity. Visit type - Emergency Visit Emergency Visit: Yes ED Registration Date: 02/08/17 Care time: The patient presented to the Emergency Department on the above date and was hospitalized for further evaluation of their emergent condition. - New Patient This patient is new to me today: No - Critical Care Critical Care patient: No - Discharge Referral Referred to [facility] Med P.C.: No
[2017-02-12] MEDS ORDERED: LEVOTHYROXINE NA 100 MCG TABLET (FP) ONE (10:27)
[2017-02-12] MEDS ORDERED: LEVOTHYROXINE NA 25 MCG TABLET (FP) ONE (10:27)
[2017-02-12] MEDS: PHYTONADIONE 10 MG/1 ML AMP SQ SCH (10:28)
[2017-02-12] MEDS: LEVOTHYROXINE 200 MCG, LEVOTHYROXINE 25 MCG PO SCH (10:28)
[2017-02-12] MEDS: PANTOPRAZOLE 40 MG TABLET (FP) PO SCH (10:29)
[2017-02-12] MEDS: MULTIVITAMINS (DAILY MVI) TABLET (FP) PO SCH (10:29)
[2017-02-12] MEDS: AMINO ACIDS/PROTEIN HYDROLYS 30 ML LIQUID.PKT PO SCH ×2 (10:29→22:24)
[2017-02-12] MEDS: TOPIRAMATE 100 MG TABLET PO SCH ×2 (10:30→22:25)
[2017-02-12] MEDS: CINACALCET HCL 30 MG TAB (FP) PO SCH ×2 (10:31→22:25)
[2017-02-12] MEDS: LITHIUM CARBONATE 150 MG CAPSULE PO SCH (10:31)
[2017-02-12] MEDS: POLYETHYLENE GLYCOL 3350 119 GM BTL PO SCH (10:34)
[2017-02-12 11:07] LABS: MACROCYTOSIS 3+; METAMYELOCYTE 3 % (0-2); MYELOCYTE 3 % (0-2); PLATELET ESTIMATE DECREASED (NORMAL); TOTAL CELLS COUNTED 100
--- NOTE | 2017-02-12 11:40 | PN ---
Progress Note, [employer] - Note Progress Note: Selected Entries 02/09/17 02/09/17 02/10/17 15:28 19:14 02:53 Breakfast Lunch 0 Supper 25% Temperature 97.3 F L 02/10/17 02/10/17 02/10/17 10:00 11:39 14:00 Breakfast NPO Lunch 25% Supper Temperature 98 F 97.5 F L 02/10/17 02/10/17 02/11/17 18:00 22:00 02:00 Breakfast Lunch 25% Supper 75% Temperature 97.8 F 97.6 F 97.0 F L 02/11/17 02/11/17 02/11/17 06:00 10:16 14:00 Breakfast 50% Lunch 25% Supper Temperature 97.6 F 97.6 F 02/11/17 02/11/17 02/12/17 18:00 22:00 03:30 Breakfast Lunch Supper 25% Temperature 98.0 F 96.8 F L 97.4 F L 02/12/17 06:00 Breakfast Lunch Supper Temperature 96.8 F L Laboratory Tests 02/08/17 02/09/17 02/10/17 14:30 07:10 06:00 WBC 18.9 H 10.8 H D 8.9 02/11/17 02/12/17 05:10 05:15 WBC 6.4 9.1 D Pt is on dys puree/honey thick liquid. Pt with limited PO acceptance for staff. Readily accepted small sips of honey thick liquid, with delayed but fairly brisk swallow. After the swallow she gagged, opened eyes wide, and then satarted coughing with gurgly vocal quality. Nursing reports she has been coughing and sounds congested. Suspect aspiration? Retrograde? Consider CXR, hold PO except for meds until pulm status improves.
--- NOTE | 2017-02-12 12:25 | PN ---
Progress Note, Physician Chief Complaint: pt awake congested coughing - Current Medication List Current Medications: Active Medications Acetaminophen (Tylenol -) 650 mg PO Q4H PRN PRN Reason: FEVER OR PAIN Al Hydroxide/Mg Hydroxide (Mylanta Oral Suspension -) 30 ml PO Q8H PRN PRN Reason: DYSPEPSIA Amino Acids (Prosource No Carb Liquid Pkt) 30 ml PO BID [facility] Last Admin: 02/12/17 10:29 Dose: 30 ml Cinacalcet (Sensipar -) 30 mg PO BID [facility] Last Admin: 02/12/17 10:31 Dose: 30 mg Dextrose (D5w -) 1,000 mls @ 125 mls/hr IV ASDIR [facility] Last Admin: 02/11/17 23:52 Dose: 125 mls/hr Levothyroxine Sodium 200 mcg/ (Levothyroxine Sodium 25 mcg) 225 mcg PO DAILY@ 0700 [facility] Last Admin: 02/12/17 10:28 Dose: 225 mcg [place] Carbonate (Eskalith -) 150 mg PO DAILY [facility] Last Admin: 02/12/17 10:31 Dose: 150 mg Magnesium Hydroxide (Milk Of Magnesia -) 30 ml PO DAILY PRN PRN Reason: CONSTIPATION Multivitamins/Minerals/Vitamin C (Tab-A-Vit -) 1 tab PO DAILY [facility] Last Admin: 02/12/17 10:29 Dose: 1 tab Pantoprazole Sodium (Protonix -) 40 mg PO DAILY [facility] Last Admin: 02/12/17 10:29 Dose: 40 mg Phytonadione (Aqua Mephyton Injection -) 5 mg SQ DAILY [facility] Stop: 02/12/17 20:29 Last Admin: 02/12/17 10:28 Dose: 5 mg Polyethylene Glycol (Miralax (For Daily Use) -) 17 gm PO DAILY [facility] Last Admin: 02/12/17 10:34 Dose: 17 gm Topiramate (Topamax -) 100 mg PO BID [facility] Last Admin: 02/12/17 10:30 Dose: 100 mg - Objective Vital Signs: Vital Signs Temperature 96.8 F L 02/12/17 06:00 Pulse Rate 85 02/12/17 06:00 Respiratory Rate 20 02/12/17 06:00 Blood Pressure 132/55 02/12/17 06:00 O2 Sat by Pulse Oximetry (%) 93 L 02/11/17 22:00 Constitutional: Yes: Calm Cardiovascular: Yes: Regular Rate and Rhythm Respiratory: Yes: Diminished, Rales Gastrointestinal: Yes: Normal Bowel Sounds, Soft, Abdomen, Obese. No: Distention, Tenderness Edema: Yes Edema: LLE: Trace, RLE: Trace Psychiatric: Yes: Alert Labs: CBC, BMP 02/12/17 05:15 02/12/17 05:15 INR, PTT INR 1.11 (0.82-1.09) D 02/11/17 05:10 Fibrinogen 448.0 mg/dL (238-498) D 02/11/17 05:10 Problem List - Problems (1) Change in mental status Code(s): R41.82 - ALTERED MENTAL STATUS, UNSPECIFIED Qualifiers: Altered mental status type: delirium Qualified Code(s): R41.0 - Disorientation, unspecified; R41.0 - Disorientation, unspecified (2) Hypercalcemia Code(s): E83.52 - HYPERCALCEMIA (3) Hypernatremia Code(s): E87.0 - HYPEROSMOLALITY AND HYPERNATREMIA (4) UTI (urinary tract infection) Code(s): N39.0 - URINARY TRACT INFECTION, SITE NOT SPECIFIED Qualifiers: Urinary tract infection type: site unspecified Hematuria presence: with hematuria Qualified Code(s): N39.0 - Urinary tract infection, site not specified; N39.0 - Urinary tract infection, site not specified; R31.9 - Hematuria, unspecified; R31.9 - Hematuria, unspecified (5) Sepsis Code(s): A41.9 - SEPSIS, UNSPECIFIED ORGANISM (6) Thrombocytopenia Code(s): D69.6 - THROMBOCYTOPENIA, UNSPECIFIED (7) Metabolic encephalopathy Code(s): G93.41 - METABOLIC ENCEPHALOPATHY Assessment/Plan PLAN keep NPO for now as she is possibly choking check CXR pt on iv antibiotics for UTI iv fluids Na-slight improvement with iv fluids Psych follow up-- dc [place] and Depakote will hold off MRI as pt will not be able to cooperate-- repeat CT head-- spoke with Neurology
[2017-02-12 12:31] LABS: ALBUMIN 2.6 g/dl (3.4-5.0)
--- NOTE | 2017-02-12 12:55 | PN ---
Progress Note (short form) - Note Progress Note: Pt is awake alert Vital Signs Period Temp Pulse Resp BP Sys/Messer Pulse Ox Last 24 Hr 96.8 F-98.0 F 67-98 20-20 98-134/54-80 93-97 PE: Awake, alert, confused HEENT: EOMI Neck: supple Lungs: CTA Abd: Benign Ext: No edema Neuro: Unable to access CMP Sodium 155 mmol/L (136-145) H 02/12/17 05:15 Potassium 4.1 mmol/L (3.5-5.1) 02/12/17 05:15 Chloride 124 mmol/L (98-107) H 02/12/17 05:15 Carbon Dioxide 24 mmol/L (21-32) 02/12/17 05:15 Anion Gap 7 (8-16) L 02/12/17 05:15 BUN 15 mg/dL (7-18) 02/12/17 05:15 Creatinine 0.8 mg/dL (0.55-1.02) 02/12/17 05:15 Creat Clearance w eGFR > 60 (>60) 02/11/17 05:10 Random Glucose 79 mg/dL (74-106) 02/12/17 05:15 Serum Osmolality 322 mosm/kg (278-305) H 02/12/17 05:15 Lactic Acid 1.1 mmol/L (0.4-2.0) 02/09/17 12:40 Calcium 10.6 mg/dL (8.5-10.1) H 02/12/17 05:15 Ionized Calcium 7.1 mg/dL (4.5-5.6) H 02/09/17 12:00 Magnesium 1.8 mg/dL (1.8-2.4) 02/08/17 16:39 Total Bilirubin 0.5 mg/dL (0.2-1.0) 02/11/17 05:10 AST 18 U/L (15-37) 02/11/17 05:10 ALT 20 U/L (12-78) 02/11/17 05:10 Alkaline Phosphatase 116 U/L (45-117) D 02/11/17 05:10 Ammonia 55.11 umol/L (11-32) H 02/10/17 06:00 LD Total 172 U/L (84-246) 02/10/17 06:00 Creatine Kinase Cancelled 02/08/17 14:30 Troponin I Cancelled 02/08/17 14:30 B-Natriuretic Peptide 507.31 pg/ml (5-125) H 02/08/17 16:39 Total Protein 6.4 g/dl (6.4-8.2) 02/11/17 05:10 Albumin 2.6 g/dl (3.4-5.0) L 02/12/17 05:15 Vitamin B12 1751 pg/ml (180-914) H 02/11/17 05:10 TSH 0.04 uIU/ml (0.358-3.74) L 02/10/17 06:00 Free T4 1.23 ng/dl (0.76-1.46) 02/11/17 05:10 PTH Intact 274 pg/mL (15-65) H 02/10/17 06:00 Current Medications Generic Name Dose Route Start Last Admin Trade Name Freq PRN Reason Stop Dose Admin Acetaminophen 650 mg 02/08/17 19:40 Tylenol - PO Q4H PRN FEVER OR PAIN Al Hydroxide/Mg Hydroxide 30 ml 02/08/17 19:37 Mylanta Oral Suspension - PO Q8H PRN DYSPEPSIA Amino Acids 30 ml 02/08/17 22:00 02/12/17 10:29 Prosource No Carb Liquid Pkt PO 30 ml BID ROLAN Administration Cinacalcet 30 mg 02/08/17 22:00 02/12/17 10:31 Sensipar - PO 30 mg BID ROLAN Administration Dextrose 1,000 mls @ 125 mls/hr 02/11/17 15:30 02/11/17 23:52 D5w - IV 125 mls/hr ASDIR ROLAN Administration Levothyroxine Sodium 200 mcg/ 225 mcg 02/09/17 07:00 02/12/17 10:28 Levothyroxine Sodium 25 mcg PO 225 mcg DAILY@0700 ROLAN Administration [place] Carbonate 150 mg 02/09/17 10:00 02/12/17 10:31 Eskalith - PO 150 mg DAILY ROLAN Administration Magnesium Hydroxide 30 ml 02/08/17 19:37 Milk Of Magnesia - PO DAILY PRN CONSTIPATION Multivitamins/Minerals/Vitamin C 1 tab 02/09/17 10:00 02/12/17 10:29 Tab-A-Vit - PO 1 tab DAILY ROLAN Administration Pantoprazole Sodium 40 mg 02/09/17 10:00 02/12/17 10:29 Protonix - PO 40 mg DAILY ORLAN Administration Phytonadione 5 mg 02/09/17 20:30 02/12/17 10:28 Aqua Mephyton Injection - SQ 02/12/17 20:29 5 mg DAILY ROLAN Administration Polyethylene Glycol 17 gm 02/09/17 10:00 02/12/17 10:34 Miralax (For Daily Use) - PO 17 gm DAILY ROLAN Administration Topiramate 100 mg 02/08/17 22:00 02/12/17 10:30 Topamax - PO 100 mg BID ROLAN Administration AP: AMS Hypothyrodism HYpercalcemia Hyperparathyroidism: Primary vs [place] associated Hyperparathyroidism Bipolar disorder Hypernatremia: Improving . PTH 274 Increase Sensipar to 60 mg BID for control of hypercalcemia. Review of correction chart shows she has been on it at least from 5.3.17. Monitor calcium and adjust dose as necessary depending on the calcium level Will f/u Problem List - Problems (1) Change in mental status Code(s): R41.82 - ALTERED MENTAL STATUS, UNSPECIFIED Qualifiers: Altered mental status type: delirium Qualified Code(s): R41.0 - Disorientation, unspecified; R41.0 - Disorientation, unspecified (2) Hypercalcemia Code(s): E83.52 - HYPERCALCEMIA (3) Hypernatremia Code(s): E87.0 - HYPEROSMOLALITY AND HYPERNATREMIA (4) UTI (urinary tract infection) Code(s): N39.0 - URINARY TRACT INFECTION, SITE NOT SPECIFIED Qualifiers: Urinary tract infection type: site unspecified Hematuria presence: with hematuria Qualified Code(s): N39.0 - Urinary tract infection, site not specified; N39.0 - Urinary tract infection, site not specified; R31.9 - Hematuria, unspecified; R31.9 - Hematuria, unspecified
[2017-02-12] MEDS ORDERED: cefTRIAXone SODIUM 1 GM VIAL ONE (13:30)
[2017-02-12] MEDS ORDERED: DEXTROSE 5%-WATER - 50 ML IVPB ONE (13:30)
[2017-02-12] MEDS: CEFTRIAXONE 1 GM in DEXTROSE 5%-WATER - 50 ML IVPB SCH (13:38)
--- NOTE | 2017-02-12 16:28 | PN ---
Teaching Attending Note Name of Resident: Alisa Hand (Nephrology) ATTENDING PHYSICIAN STATEMENT I saw and evaluated the patient. I reviewed the resident's note and discussed the case with the resident. I agree with the resident's findings and plan as documented. Renal Follow Up Pt seen and examined at bedside. She remains confused. Current Medications Generic Name Dose Route Start Last Admin Trade Name Freq PRN Reason Stop Dose Admin Acetaminophen 650 mg 02/08/17 19:40 Tylenol - PO Q4H PRN FEVER OR PAIN Al Hydroxide/Mg Hydroxide 30 ml 02/08/17 19:37 Mylanta Oral Suspension - PO Q8H PRN DYSPEPSIA Amino Acids 30 ml 02/08/17 22:00 02/12/17 10:29 Prosource No Carb Liquid Pkt PO 30 ml BID ROLAN Administration Cinacalcet 60 mg 02/12/17 22:00 Sensipar - PO BID ROLAN Dextrose 1,000 mls @ 125 mls/hr 02/11/17 15:30 02/11/17 23:52 D5w - IV 125 mls/hr ASDIR ROLAN Administration Ceftriaxone Sodium 1 gm/ 50 mls @ 100 mls/hr 02/12/17 13:30 02/12/17 13:38 Dextrose IVPB 100 mls/hr DAILY ROLAN Administration Levothyroxine Sodium 200 mcg/ 225 mcg 02/09/17 07:00 02/12/17 10:28 Levothyroxine Sodium 25 mcg PO 225 mcg DAILY@0700 ROLAN Administration Magnesium Hydroxide 30 ml 02/08/17 19:37 Milk Of Magnesia - PO DAILY PRN CONSTIPATION Multivitamins/Minerals/Vitamin C 1 tab 02/09/17 10:00 02/12/17 10:29 Tab-A-Vit - PO 1 tab DAILY ROLAN Administration Pantoprazole Sodium 40 mg 02/09/17 10:00 02/12/17 10:29 Protonix - PO 40 mg DAILY ROLAN Administration Phytonadione 5 mg 02/09/17 20:30 02/12/17 10:28 Aqua Mephyton Injection - SQ 02/12/17 20:29 5 mg DAILY ROLAN Administration Polyethylene Glycol 17 gm 02/09/17 10:00 02/12/17 10:34 Miralax (For Daily Use) - PO 17 gm DAILY ROLAN Administration Topiramate 100 mg 02/08/17 22:00 02/12/17 10:30 Topamax - PO 100 mg BID ROLAN Administration Last Vital Signs Temp Pulse Resp BP Pulse Ox 97.8 F 68 20 116/64 96 02/12/17 09:00 02/12/17 09:00 02/12/17 09:00 02/12/17 09:00 02/12/17 09:00 cardio s1s2 pulm clear, on nc o2 GI soft, colostomy incontinant ext neg edema neuro awake Impression 1. hypernatremia 2. hypercalcemia 3. change in mental status 4. anxiety 5. bipolar 6. UTI 7. hypothyroid 8. hyperlipidemia Plan - sodium is improving - monitor urine output - gonzalez is in place - endocrine input appreicated - sensipar dose increased - monitor calcium - will follow Problem List - Problems (1) Change in mental status Code(s): R41.82 - ALTERED MENTAL STATUS, UNSPECIFIED Qualifiers: Altered mental status type: delirium Qualified Code(s): R41.0 - Disorientation, unspecified; R41.0 - Disorientation, unspecified (2) Hypernatremia Code(s): E87.0 - HYPEROSMOLALITY AND HYPERNATREMIA (3) UTI (urinary tract infection) Code(s): N39.0 - URINARY TRACT INFECTION, SITE NOT SPECIFIED Qualifiers: Urinary tract infection type: site unspecified Hematuria presence: with hematuria Qualified Code(s): N39.0 - Urinary tract infection, site not specified; N39.0 - Urinary tract infection, site not specified; R31.9 - Hematuria, unspecified; R31.9 - Hematuria, unspecified
[2017-02-12] MEDS: CEFTRIAXONE 1 GM in DEXTROSE 5%-WATER 100 ML IVPB SCH (18:17)
[2017-02-12] MEDS ORDERED: MAGNESIUM HYDROX 2400MG/30ML ORAL SUSPENSION 30 ML CUP PO PRN (19:25)
[2017-02-12] MEDS ORDERED: DEXTROSE 5%-WATER - 1,000 ML IV SCH (19:25)
[2017-02-12] MEDS ORDERED: MAG HYDROX/AL HYDROX/SIMETH 30 ML UNIT-DOSE CUP PO PRN (19:25)
[2017-02-12] MEDS ORDERED: ACETAMINOPHEN 325 MG TABLET (FP) PO PRN (19:25)
--- NOTE | 2017-02-12 21:10 | PN ---
Progress Note (short form) - Note Progress Note: Patient seen and examined feels better Last Vital Signs Temp Pulse Resp BP Pulse Ox 97.3 F L 70 20 114/48 96 02/12/17 16:30 02/12/17 16:30 02/12/17 16:30 02/12/17 16:30 02/12/17 09:00 Cor: RSR, No murmurs, No gallops Lungs: Clear to P&A Abd: Soft, Normal bowel sounds, No organomegaly Ext:No significant edema Skin: No rashes, Integument intact Abnormal Lab Results 02/12/17 02/12/17 02/12/17 05:15 05:15 05:15 MCV 116.7 H MCH 37.6 H RDW 16.5 H Plt Count 71 L MPV 11.5 H Neutrophils % (Manual) 38 L D Lymphocytes % (Manual) 41 H D Myelocytes % (Man) 3 H D Sodium 155 H Chloride 124 H Anion Gap 7 L Serum Osmolality 322 H Calcium 10.6 H Albumin 2.6 L Active Medications Acetaminophen (Tylenol -) 650 mg PO Q4H PRN PRN Reason: FEVER OR PAIN Al Hydroxide/Mg Hydroxide (Mylanta Oral Suspension -) 30 ml PO Q8H PRN PRN Reason: DYSPEPSIA Amino Acids (Prosource No Carb Liquid Pkt) 30 ml PO BID [facility] Cinacalcet (Sensipar -) 60 mg PO BID [facility] Ceftriaxone Sodium 1 gm/ (Dextrose) 50 mls @ 100 mls/hr IVPB DAILY [facility] Last Admin: 02/12/17 13:38 Dose: 100 mls/hr Dextrose (D5w -) 1,000 mls @ 125 mls/hr IV ASDIR ROLAN Levothyroxine Sodium 200 mcg/ (Levothyroxine Sodium 25 mcg) 225 mcg PO DAILY@ 0700 ROLAN Magnesium Hydroxide (Milk Of Magnesia -) 30 ml PO DAILY PRN PRN Reason: CONSTIPATION Multivitamins/Minerals/Vitamin C (Tab-A-Vit -) 1 tab PO DAILY [facility] Pantoprazole Sodium (Protonix -) 40 mg PO DAILY [facility] Phytonadione (Aqua Mephyton Injection -) 5 mg SQ DAILY [facility] Stop: 02/16/17 09:59 Polyethylene Glycol (Miralax (For Daily Use) -) 17 gm PO DAILY ROLAN Topiramate (Topamax -) 100 mg PO BID ROLAN a/p 71 y/o patient with hyperlipidemia, bipolar disorder,hypothyroid, seizure disorder, comes in with altered mental status Presumed UTI, hypernatremia, hypercalcemia, coagulopathy coagulopathy improved with vit. K/antibiotics thrombocytopenia---improving fatty liver hypercalcemia due to hyperparathyroidism
[2017-02-13 06:08] LABS: HEMATOCRIT 40.6 % (34.0-46.6)
[2017-02-13] MEDS ORDERED: LEVOTHYROXINE NA 100 MCG TABLET (FP) ONE ×2 (06:23→06:33)
[2017-02-13] MEDS ORDERED: LEVOTHYROXINE NA 125 MCG TABLET (FP) ONE (06:34)
[2017-02-13] MEDS: LEVOTHYROXINE 100 MCG, LEVOTHYROXINE 125 MCG PO SCH (06:38)
[2017-02-13] MEDS ORDERED: LEVOTHYROXINE 200 MCG, LEVOTHYROXINE 25 MCG PO SCH (07:00)
[2017-02-13 07:33] LABS: MCH 37.7 pg (25.7-33.7); MCHC 32.7 g/dl (32.0-36.0); MEAN CELL VOLUME 115.2 fl (80-96); MEAN PLT VOLUME 10.9 fl (7.5-11.1); PLATELET COUNT 65 K/MM3 (134-434); RDW 16.5 % (11.6-15.6)
[2017-02-13] MEDS: DEXTROSE 5%-WATER - 1,000 ML IV SCH ×3 (07:34→17:20)
[2017-02-13 08:03] LABS: ALBUMIN 2.2 g/dl (3.4-5.0); ALK PHOS 115 U/L (45-117); ANION GAP 9 (8-16); BILIRUBIN,TOTAL 0.6 mg/dL (0.2-1.0); CALCIUM 9.3 mg/dL (8.5-10.1); CO2 22 mmol/L (21-32); CREATININE 0.8 mg/dL (0.55-1.02); GLUCOSE,RANDOM 115 mg/dL (74-106); SGOT/AST 21 U/L (15-37); SGPT/ALT 19 U/L (12-78); TOT PROT 5.6 g/dl (6.4-8.2)
--- NOTE | 2017-02-13 09:29 | PN ---
Progress Note (short form) - Note Progress Note: Neurology History of Present Illness 71 yo female with a significant past medical history of Hypothyroidism, Hyperlipidemia, Bipolar disorder, Anxiety disorder and seizure disorder with colostomy who presented to the emergency department from [facility] with altered mental status. Unclear duration, reportedly she is able to converse and oriented to self but was not and therefore sent to hospital for further evaluation and management. Patient found to have hypernatremia and being treated for that, renal consulted, recommended D5W, monitoring Na levels closely. Of note, also with UTI on labs and being treated with Ceftriaxone. She did have CT head which did not show acute changes. No evidence of seizure and her medication list includes depakote 750mg twice daily and Topamax 100mg twice daily. Today again, patient was more awake and conversive. Only seems to say "Yea" but was arosuable and maintains alertness. CT head completed and reviewed and did not show acute changes. Active Medications Acetaminophen (Tylenol -) 650 mg PO Q4H PRN PRN Reason: FEVER OR PAIN Al Hydroxide/Mg Hydroxide (Mylanta Oral Suspension -) 30 ml PO Q8H PRN PRN Reason: DYSPEPSIA Amino Acids (Prosource No Carb Liquid Pkt) 30 ml PO BID [facility] Last Admin: 02/12/17 22:24 Dose: Not Given Cinacalcet (Sensipar -) 60 mg PO BID [facility] Last Admin: 02/12/17 22:25 Dose: Not Given Ceftriaxone Sodium 1 gm/ (Dextrose) 50 mls @ 100 mls/hr IVPB DAILY [facility] Last Admin: 02/12/17 13:38 Dose: 100 mls/hr Dextrose (D5w -) 1,000 mls @ 125 mls/hr IV ASDIR [facility] Last Admin: 02/12/17 22:24 Dose: Not Given Levothyroxine Sodium 100 mcg/ (Levothyroxine Sodium 125 mcg) 225 mcg PO DAILY@ 0700 [facility] Last Admin: 02/13/17 06:38 Dose: Not Given Magnesium Hydroxide (Milk Of Magnesia -) 30 ml PO DAILY PRN PRN Reason: CONSTIPATION Multivitamins/Minerals/Vitamin C (Tab-A-Vit -) 1 tab PO DAILY [facility] Pantoprazole Sodium (Protonix -) 40 mg PO DAILY [facility] Polyethylene Glycol (Miralax (For Daily Use) -) 17 gm PO DAILY [facility] Topiramate (Topamax -) 100 mg PO BID ROLAN Last Admin: 02/12/17 22:25 Dose: Not Given *Physical Exam Vital Signs Temperature 98.1 F 02/13/17 06:52 Pulse Rate 95 H 02/13/17 06:52 Respiratory Rate 20 02/13/17 06:52 Blood Pressure 113/75 02/13/17 06:52 O2 Sat by Pulse Oximetry (%) 95 02/12/17 21:00 GENERAL: Awake, alert, responsive to examiner but not verbal HEAD: No signs of trauma, normocephalic, atraumatic EYES: PERRLA, EOMI, sclera anicteric, conjunctiva clear ENT: Auricles normal inspection, hearing grossly normal, nares patent, oropharynx clear without exudates. Moist mucosa NECK: Normal ROM, supple, no lymphadenopathy, JVD, or masses LUNGS: No distress, speaks full sentences, clear to auscultation bilaterally HEART: Regular rate and rhythm, normal S1 and S2, no murmurs, rubs or gallops, peripheral pulses normal and equal bilaterally. ABDOMEN: Soft, nontender, normoactive bowel sounds. No guarding, no rebound. No masses EXTREMITIES: +Abbrasion on right forearm at exam that per EMS was not their when they picked up patient. Patient flailing around; suspect self inflicted during transport. Normal range of motion, no edema. No clubbing or cyanosis. NEUROLOGICAL: Cranial nerves II through XII grossly intact. Not following commands, not participating in confrontation testing, intact to tactile stimulation, gait deferred CBCD WBC 9.0 K/mm3 (4.0-10.0) 02/13/17 07:00 RBC 3.10 M/mm3 (3.60-5.2) L 02/13/17 07:00 Hgb 11.7 GM/dL (10.7-15.3) D 02/13/17 07:00 Hct 35.7 % (32.4-45.2) D 02/13/17 07:00 MCV 115.2 fl (80-96) H 02/13/17 07:00 MCHC 32.7 g/dl (32.0-36.0) 02/13/17 07:00 RDW 16.5 % (11.6-15.6) H 02/13/17 07:00 Plt Count 65 K/MM3 (134-434) L 02/13/17 07:00 MPV 10.9 fl (7.5-11.1) 02/13/17 07:00 CMP Sodium 147 mmol/L (136-145) H 02/13/17 07:00 Potassium 3.6 mmol/L (3.5-5.1) 02/13/17 07:00 Chloride 116 mmol/L (98-107) H 02/13/17 07:00 Carbon Dioxide 22 mmol/L (21-32) 02/13/17 07:00 Anion Gap 9 (8-16) 02/13/17 07:00 BUN 13 mg/dL (7-18) 02/13/17 07:00 Creatinine 0.8 mg/dL (0.55-1.02) 02/13/17 07:00 Creat Clearance w eGFR > 60 (>60) 02/13/17 07:00 Calcium 9.3 mg/dL (8.5-10.1) 02/13/17 07:00 Total Bilirubin 0.6 mg/dL (0.2-1.0) 02/13/17 07:00 AST 21 U/L (15-37) 02/13/17 07:00 ALT 19 U/L (12-78) 02/13/17 07:00 Alkaline Phosphatase 115 U/L (45-117) 02/13/17 07:00 Total Protein 5.6 g/dl (6.4-8.2) L 02/13/17 07:00 Albumin 2.2 g/dl (3.4-5.0) L 02/13/17 07:00 CT head repeated: motion artifact, no acute changes Plan: 71 yo female with a significant past medical history of Hypothyroidism, Hyperlipidemia, Bipolar disorder, Anxiety disorder and seizure disorder with colostomy who presents to the emergency department from [facility] with altered mental status. Patient more awake and alert, slowly improving. Patient found to have hypernatremia, improving, Na decreased to 147 today UTI on labs as well, continue infectious management, Abx She did have CT head which did not show acute changes. MRI ordered but would not be able to tolerate therefore repeat CT completed No acute changes, limited by motion artifact Clinically improving No evidence of seizure can continue depakote 750mg twice daily and Topamax 100mg twice daily Neurologically stable at this time
[2017-02-13] MEDS ORDERED: PHYTONADIONE 10 MG/1 ML AMP SQ SCH (10:00)
[2017-02-13] MEDS ORDERED: DEXTROSE 5%-WATER - 50 ML IVPB ONE (10:08)
[2017-02-13] MEDS ORDERED: cefTRIAXone SODIUM 1 GM VIAL ONE (10:08)
[2017-02-13] MEDS ORDERED: PT OWN MED DRAWER 7, Y5N ONE ×2 (10:08→22:45)
[2017-02-13] MEDS: PANTOPRAZOLE 40 MG TABLET (FP) PO SCH ×2 (10:19→10:45)
[2017-02-13] MEDS: POLYETHYLENE GLYCOL 3350 119 GM BTL PO SCH ×2 (10:19→10:45)
[2017-02-13] MEDS: TOPIRAMATE 100 MG TABLET PO SCH ×3 (10:19→22:51)
[2017-02-13] MEDS: CEFTRIAXONE 1 GM in DEXTROSE 5%-WATER - 50 ML IVPB SCH (10:19)
[2017-02-13] MEDS: MULTIVITAMINS (DAILY MVI) TABLET (FP) PO SCH ×2 (10:19→10:45)
[2017-02-13] MEDS: AMINO ACIDS/PROTEIN HYDROLYS 30 ML LIQUID.PKT PO SCH ×3 (10:19→22:49)
[2017-02-13] MEDS: CINACALCET HCL 30 MG TAB (FP) PO SCH ×3 (10:20→22:50)
--- NOTE | 2017-02-13 11:47 | PN ---
Progress Note, Physician Chief Complaint: awake, not able to give history-- confused at baseline - Current Medication List Current Medications: Active Medications Acetaminophen (Tylenol -) 650 mg PO Q4H PRN PRN Reason: FEVER OR PAIN Al Hydroxide/Mg Hydroxide (Mylanta Oral Suspension -) 30 ml PO Q8H PRN PRN Reason: DYSPEPSIA Amino Acids (Prosource No Carb Liquid Pkt) 30 ml PO BID [facility] Last Admin: 02/13/17 10:45 Dose: Not Given Cinacalcet (Sensipar -) 60 mg PO BID [facility] Last Admin: 02/13/17 10:45 Dose: Not Given Ceftriaxone Sodium 1 gm/ (Dextrose) 50 mls @ 100 mls/hr IVPB DAILY [facility] Last Admin: 02/13/17 10:19 Dose: 100 mls/hr Dextrose (D5w -) 1,000 mls @ 125 mls/hr IV ASDIR [facility] Last Admin: 02/12/17 22:24 Dose: Not Given Levothyroxine Sodium 100 mcg/ (Levothyroxine Sodium 125 mcg) 225 mcg PO DAILY@ 0700 [facility] Last Admin: 02/13/17 06:38 Dose: Not Given Magnesium Hydroxide (Milk Of Magnesia -) 30 ml PO DAILY PRN PRN Reason: CONSTIPATION Multivitamins/Minerals/Vitamin C (Tab-A-Vit -) 1 tab PO DAILY [facility] Last Admin: 02/13/17 10:45 Dose: Not Given Pantoprazole Sodium (Protonix -) 40 mg PO DAILY [facility] Last Admin: 02/13/17 10:45 Dose: Not Given Polyethylene Glycol (Miralax (For Daily Use) -) 17 gm PO DAILY [facility] Last Admin: 02/13/17 10:45 Dose: Not Given Topiramate (Topamax -) 100 mg PO BID [facility] Last Admin: 02/13/17 10:46 Dose: Not Given - Objective Vital Signs: Vital Signs Temperature 98.1 F 02/13/17 06:52 Pulse Rate 95 H 02/13/17 06:52 Respiratory Rate 20 02/13/17 06:52 Blood Pressure 113/75 02/13/17 06:52 O2 Sat by Pulse Oximetry (%) 95 02/12/17 21:00 Constitutional: Yes: No Distress, Calm Cardiovascular: Yes: Regular Rate and Rhythm Respiratory: Yes: Diminished Gastrointestinal: Yes: Normal Bowel Sounds, Soft, Abdomen, Obese. No: Distention, Tenderness Edema: No Labs: CBC, BMP 02/13/17 07:00 02/13/17 07:00 INR, PTT INR 1.11 (0.82-1.09) D 02/11/17 05:10 Fibrinogen 448.0 mg/dL (238-498) D 02/11/17 05:10 Problem List - Problems (1) Change in mental status Code(s): R41.82 - ALTERED MENTAL STATUS, UNSPECIFIED Qualifiers: Altered mental status type: delirium Qualified Code(s): R41.0 - Disorientation, unspecified; R41.0 - Disorientation, unspecified (2) Hypercalcemia Code(s): E83.52 - HYPERCALCEMIA (3) Hypernatremia Code(s): E87.0 - HYPEROSMOLALITY AND HYPERNATREMIA (4) UTI (urinary tract infection) Code(s): N39.0 - URINARY TRACT INFECTION, SITE NOT SPECIFIED Qualifiers: Urinary tract infection type: site unspecified Hematuria presence: with hematuria Qualified Code(s): N39.0 - Urinary tract infection, site not specified; N39.0 - Urinary tract infection, site not specified; R31.9 - Hematuria, unspecified; R31.9 - Hematuria, unspecified (5) Sepsis Code(s): A41.9 - SEPSIS, UNSPECIFIED ORGANISM (6) Thrombocytopenia Code(s): D69.6 - THROMBOCYTOPENIA, UNSPECIFIED (7) Metabolic encephalopathy Code(s): G93.41 - METABOLIC ENCEPHALOPATHY Assessment/Plan PLAN CXR noted-- no congestion puree diet-- aspiration precautions pt fully awake and alert-- feed only when she is awake pt on iv antibiotics for UTI iv fluids-- decrease Na- improvement with iv fluids mental status has improved Psych follow up-- dc Tanaina and Depakote repeat CT head-- negative calcium better
[2017-02-13 12:21] LABS: METAMYELOCYTE 1 % (0-2); MYELOCYTE 5 % (0-2); PLATELET ESTIMATE DECREASED (NORMAL); REACTIVE LYMPHOCYTES 1 % (0-80); TOTAL CELLS COUNTED 100
[2017-02-13 12:22] LABS: MACROCYTOSIS 3+
--- NOTE | 2017-02-13 13:32 | PATH ---
Surgical Pathology Report Patient Name: JEANIE BOLTON [facility]. Rec. #: [id number] /Age/Gender: 1945 (Age: 71) / F Account: [id number] Location: [facility] MED/SURG Taken: 02/12/2017 Received: 02/12/2017 Reported: 02/13/2017 Physicians: Shahrzad Nolasco M.D. Specimen(s) Received PERIPHERAL BLOOD Clinical History New thrombocytopenia, macrocytic anemia Final Diagnosis PERIPHERAL BLOOD: FLOW CYTOMETRY performed and interpreted at [facility], [place], [place] ([id number]) shows the following: INTERPRETATION: LOW LEVEL LIGHT CHAIN-RESTRICTED B0CELL POPULATION (SEE COMMENT) Comment: The presence of a low-level light-chain restricted B-cell population may represent indolent monoclonal B-cell lymphocytosis or possibly minimal involvement by a systemic B-cell lymphoproliferative disorder. Correlate with clinical history and other laboratory testing for further evaluation. Phenotype: A minor population of CD20+ (dim) B cells detected that coexpress dim lambda light chain, partial CD5, and CD23, and is negative for CD10, comprising 21% of lymphocytes and 5% of all analyzed white blood cells. Other lymphocytes include polyclonal B cells, NK cells and immunophenotypically normal T cells with an increased CD4:CD8. Granulocytes are immunophenotypically mature. This case was discussed with Dr. Nolasco on 02/13/2017. FISH tests for MDS are pending, and a report will follow. Electronically Signed Luke Monson M.D. Addendum Reported: 02/16/2017 Addendum Diagnosis Hematologic FISH Report performed and interpreted at [facility] in [place], [place] ([id number]) shows the following. INTERPRETATION: Deletion 13q14 is present. No evidence of deletion 5q or monosomy 5 is present. No evidence of deletion 7q or monosomy 7 is present. No evidence of trisomy 8 (+8) is present. No evidence of a rearrangement of 11q23. No evidence of a deletion of the p53 (17p13) locus. No evidence of deletion 20q12 is present. Comments: The chromosome 13q deletion is relatively common finding in chronic myeloproliferative disorders and lymphoid neoplasias, including B-cell chronic lymphocytic leukemia (CLL), non-Hodgkin's lymphoma (NHL) and multiple myeloma (MM). See [facility] report for additional details. Luke Monson M.D. Gross Description Received are 2 green top tubes and 2 lavender top tubes of peripheral blood which are sent to [facility]. 02/12/201702/12/2017
--- NOTE | 2017-02-13 14:32 | PN ---
Progress Note, Physician History of Present Illness: Pt seen and examined at bedside. She is awake. She is unable to give history. - Current Medication List Current Medications: Active Medications Acetaminophen (Tylenol -) 650 mg PO Q4H PRN PRN Reason: FEVER OR PAIN Al Hydroxide/Mg Hydroxide (Mylanta Oral Suspension -) 30 ml PO Q8H PRN PRN Reason: DYSPEPSIA Amino Acids (Prosource No Carb Liquid Pkt) 30 ml PO BID [facility] Last Admin: 02/13/17 10:45 Dose: Not Given Cinacalcet (Sensipar -) 60 mg PO BID [facility] Last Admin: 02/13/17 10:45 Dose: Not Given Ceftriaxone Sodium 1 gm/ (Dextrose) 50 mls @ 100 mls/hr IVPB DAILY [facility] Last Admin: 02/13/17 10:19 Dose: 100 mls/hr Dextrose (D5w -) 1,000 mls @ 125 mls/hr IV ASDIR [facility] Last Admin: 02/12/17 22:24 Dose: Not Given Levothyroxine Sodium 100 mcg/ (Levothyroxine Sodium 125 mcg) 225 mcg PO DAILY@ 0700 [facility] Last Admin: 02/13/17 06:38 Dose: Not Given Magnesium Hydroxide (Milk Of Magnesia -) 30 ml PO DAILY PRN PRN Reason: CONSTIPATION Multivitamins/Minerals/Vitamin C (Tab-A-Vit -) 1 tab PO DAILY [facility] Last Admin: 02/13/17 10:45 Dose: Not Given Pantoprazole Sodium (Protonix -) 40 mg PO DAILY [facility] Last Admin: 02/13/17 10:45 Dose: Not Given Polyethylene Glycol (Miralax (For Daily Use) -) 17 gm PO DAILY [facility] Last Admin: 02/13/17 10:45 Dose: Not Given Topiramate (Topamax -) 100 mg PO BID [facility] Last Admin: 02/13/17 10:46 Dose: Not Given - Objective Vital Signs: Vital Signs Temperature 98.1 F 02/13/17 06:52 Pulse Rate 95 H 02/13/17 06:52 Respiratory Rate 20 02/13/17 06:52 Blood Pressure 113/75 02/13/17 06:52 O2 Sat by Pulse Oximetry (%) 95 02/12/17 21:00 Constitutional: Yes: Calm Eyes: Yes: Conjunctiva Clear HENT: Yes: Atraumatic Neck: Yes: Supple Cardiovascular: Yes: S1, S2 Respiratory: Yes: On Nasal O2 Gastrointestinal: Yes: Soft, Abdomen, Obese Genitourinary: Yes: Ge[place] Present Musculoskeletal: Yes: WNL Edema: No Neurological: Yes: Pre-Existing Deficit Labs: CBC, BMP 02/13/17 07:00 02/13/17 07:00 INR, PTT INR 1.11 (0.82-1.09) D 02/11/17 05:10 Fibrinogen 448.0 mg/dL (238-498) D 02/11/17 05:10 - ....Imaging Cat Scan: Report Reviewed Problem List - Problems (1) Change in mental status Code(s): R41.82 - ALTERED MENTAL STATUS, UNSPECIFIED Qualifiers: Altered mental status type: delirium Qualified Code(s): R41.0 - Disorientation, unspecified; R41.0 - Disorientation, unspecified (2) Hypernatremia Code(s): E87.0 - HYPEROSMOLALITY AND HYPERNATREMIA (3) UTI (urinary tract infection) Code(s): N39.0 - URINARY TRACT INFECTION, SITE NOT SPECIFIED Qualifiers: Urinary tract infection type: site unspecified Hematuria presence: with hematuria Qualified Code(s): N39.0 - Urinary tract infection, site not specified; N39.0 - Urinary tract infection, site not specified; R31.9 - Hematuria, unspecified; R31.9 - Hematuria, unspecified Assessment/Plan Current Medications Generic Name Dose Route Start Last Admin Trade Name Freq PRN Reason Stop Dose Admin Acetaminophen 650 mg 02/12/17 19:25 Tylenol - PO Q4H PRN FEVER OR PAIN Al Hydroxide/Mg Hydroxide 30 ml 02/12/17 19:25 Mylanta Oral Suspension - PO Q8H PRN DYSPEPSIA Amino Acids 30 ml 02/12/17 22:00 02/13/17 10:45 Prosource No Carb Liquid Pkt PO Not Given BID [facility] Cinacalcet 60 mg 02/12/17 22:00 02/13/17 10:45 Sensipar - PO Not Given BID [facility] Ceftriaxone Sodium 1 gm/ 50 mls @ 100 mls/hr 02/12/17 13:30 02/13/17 10:19 Dextrose IVPB 100 mls/hr DAILY [facility] Administration Dextrose 1,000 mls @ 125 mls/hr 02/12/17 19:25 02/12/17 22:24 D5w - IV Not Given ASDIR [facility] Levothyroxine Sodium 100 mcg/ 225 mcg 02/13/17 07:00 02/13/17 06:38 Levothyroxine Sodium 125 mcg PO Not Given DAILY@0700 [facility] Magnesium Hydroxide 30 ml 02/12/17 19:25 Milk Of Magnesia - PO DAILY PRN CONSTIPATION Multivitamins/Minerals/Vitamin C 1 tab 02/13/17 10:00 02/13/17 10:45 Tab-A-Vit - PO Not Given DAILY [facility] Pantoprazole Sodium 40 mg 02/13/17 10:00 02/13/17 10:45 Protonix - PO Not Given DAILY [facility] Polyethylene Glycol 17 gm 02/13/17 10:00 02/13/17 10:45 Miralax (For Daily Use) - PO Not Given DAILY [facility] Topiramate 100 mg 02/12/17 22:00 02/13/17 10:46 Topamax - PO Not Given BID [facility] Impression 1. hypernatremia 2. hypercalcemia 3. change in mental status 4. anxiety 5. bipolar 6. UTI 7. hypothyroid 8. hyperlipidemia Plan - sodium continues to improve - will decrease rate of fluids - repeat labs in am - monitor urine ouput - endocrine input appreicated - monitor calcium - will follow
--- NOTE | 2017-02-13 16:11 | PN ---
Progress Note (short form) - Note Progress Note: Pt is awake alert unable give history Didn't take Sensipar Vital Signs Period Temp Pulse Resp BP Sys/Messer Pulse Ox Last 24 Hr 97 F-98.2 F 66-95 18-20 113-138/48-85 95-96 PE: Awake, alert, confused HEENT: EOMI Neck: supple Lungs: CTA Abd: Benign Ext: No edema Neuro: Unable to access CMP Sodium 147 mmol/L (136-145) H 02/13/17 07:00 Potassium 3.6 mmol/L (3.5-5.1) 02/13/17 07:00 Chloride 116 mmol/L (98-107) H 02/13/17 07:00 Carbon Dioxide 22 mmol/L (21-32) 02/13/17 07:00 Anion Gap 9 (8-16) 02/13/17 07:00 BUN 13 mg/dL (7-18) 02/13/17 07:00 Creatinine 0.8 mg/dL (0.55-1.02) 02/13/17 07:00 Creat Clearance w eGFR > 60 (>60) 02/13/17 07:00 Random Glucose 115 mg/dL (74-106) H D 02/13/17 07:00 Serum Osmolality 322 mosm/kg (278-305) H 02/12/17 05:15 Lactic Acid 1.1 mmol/L (0.4-2.0) 02/09/17 12:40 Calcium 9.3 mg/dL (8.5-10.1) 02/13/17 07:00 Ionized Calcium 7.1 mg/dL (4.5-5.6) H 02/09/17 12:00 Magnesium 1.8 mg/dL (1.8-2.4) 02/08/17 16:39 Total Bilirubin 0.6 mg/dL (0.2-1.0) 02/13/17 07:00 AST 21 U/L (15-37) 02/13/17 07:00 ALT 19 U/L (12-78) 02/13/17 07:00 Alkaline Phosphatase 115 U/L (45-117) 02/13/17 07:00 Ammonia 55.11 umol/L (11-32) H 02/10/17 06:00 LD Total 172 U/L (84-246) 02/10/17 06:00 Creatine Kinase Cancelled 02/08/17 14:30 Troponin I Cancelled 02/08/17 14:30 B-Natriuretic Peptide 507.31 pg/ml (5-125) H 02/08/17 16:39 Total Protein 5.6 g/dl (6.4-8.2) L 02/13/17 07:00 Albumin 2.2 g/dl (3.4-5.0) L 02/13/17 07:00 Aldosterone 2.6 NG/DL (0.0-30.0) 02/10/17 06:00 Vitamin B12 1751 pg/ml (180-914) H 02/11/17 05:10 Folate 1074 ng/mL (>498) 02/11/17 05:10 Folate Hemolysate 435.9 ng/mL (Not Estab.) 02/11/17 05:10 TSH 0.04 uIU/ml (0.358-3.74) L 02/10/17 06:00 Free T4 1.23 ng/dl (0.76-1.46) 02/11/17 05:10 PTH Intact 274 pg/mL (15-65) H 02/10/17 06:00 Current Medications Generic Name Dose Route Start Last Admin Trade Name Yobani PRN Reason Stop Dose Admin Acetaminophen 650 mg 02/12/17 19:25 Tylenol - PO Q4H PRN FEVER OR PAIN Al Hydroxide/Mg Hydroxide 30 ml 02/12/17 19:25 Mylanta Oral Suspension - PO Q8H PRN DYSPEPSIA Amino Acids 30 ml 02/12/17 22:00 02/13/17 10:45 Prosource No Carb Liquid Pkt PO Not Given BID [facility] Cinacalcet 60 mg 02/12/17 22:00 02/13/17 10:45 Sensipar - PO Not Given BID [facility] Ceftriaxone Sodium 1 gm/ 50 mls @ 100 mls/hr 02/12/17 13:30 02/13/17 10:19 Dextrose IVPB 100 mls/hr DAILY [facility] Administration Dextrose 1,000 mls @ 75 mls/hr 02/13/17 14:34 02/13/17 15:00 D5w - IV 75 mls/hr ASDIR [facility] Administration Levothyroxine Sodium 100 mcg/ 225 mcg 02/13/17 07:00 02/13/17 06:38 Levothyroxine Sodium 125 mcg PO Not Given DAILY@0700 [facility] Magnesium Hydroxide 30 ml 02/12/17 19:25 Milk Of Magnesia - PO DAILY PRN CONSTIPATION Multivitamins/Minerals/Vitamin C 1 tab 02/13/17 10:00 02/13/17 10:45 Tab-A-Vit - PO Not Given DAILY [facility] Pantoprazole Sodium 40 mg 02/13/17 10:00 02/13/17 10:45 Protonix - PO Not Given DAILY [facility] Polyethylene Glycol 17 gm 02/13/17 10:00 02/13/17 10:45 Miralax (For Daily Use) - PO Not Given DAILY [facility] Topiramate 100 mg 02/12/17 22:00 02/13/17 10:46 Topamax - PO Not Given BID [facility] AP: AMS Hypothyrodism HYpercalcemia Hyperparathyroidism: Primary vs [place] associated Hyperparathyroidism Bipolar disorder Hypernatremia: Improving . PTH 274 Sensipar to 60 mg BID for control of hypercalcemia. Review of [facility] chart shows she has been on it at least from 5.3.. Monitor calcium and adjust dose as necessary depending on the calcium level Didn't take last two doses of Sensipar. Will need to convince pt to take it as far as possible. Will f/u Problem List - Problems (1) Change in mental status Code(s): R41.82 - ALTERED MENTAL STATUS, UNSPECIFIED Qualifiers: Altered mental status type: delirium Qualified Code(s): R41.0 - Disorientation, unspecified; R41.0 - Disorientation, unspecified (2) Hypercalcemia Code(s): E83.52 - HYPERCALCEMIA (3) Hypernatremia Code(s): E87.0 - HYPEROSMOLALITY AND HYPERNATREMIA (4) UTI (urinary tract infection) Code(s): N39.0 - URINARY TRACT INFECTION, SITE NOT SPECIFIED Qualifiers: Urinary tract infection type: site unspecified Hematuria presence: with hematuria Qualified Code(s): N39.0 - Urinary tract infection, site not specified; N39.0 - Urinary tract infection, site not specified; R31.9 - Hematuria, unspecified; R31.9 - Hematuria, unspecified
[2017-02-13] MEDS ORDERED: LORazepam 2 MG/ML SDV VIAL IVPUSH ONE (21:30)
[2017-02-13] MEDS ORDERED: QUEtiapine FUMARATE 100 MG TABLET (FP) PO SCH (22:00)
[2017-02-13] MEDS: QUEtiapine FUMARATE 100 MG TABLET (FP) PO SCH (22:50)
--- NOTE | 2017-02-13 23:42 | PN ---
Progress Note (short form) - Note Progress Note: Patient seen and examined feels better AFVSS Cor: RSR, No murmurs, No gallops Lungs: Clear to P&A Abd: Soft, Normal bowel sounds, No organomegaly Ext:No significant edema Skin: No rashes, Integument intact Labs/Meds reviewed a/p 71 y/o patient with hyperlipidemia, bipolar disorder,hypothyroid, seizure disorder, comes in with altered mental status Presumed UTI, hypernatremia, hypercalcemia, coagulopathy coagulopathy improved with vit. K/antibiotics thrombocytopenia---stable fatty liver low level monoclonal B lymphocytosis hypercalcemia due to hyperparathyroidism
[2017-02-14] MEDS ORDERED: LEVOTHYROXINE NA 100 MCG TABLET (FP) ONE (05:45)
[2017-02-14] MEDS ORDERED: LEVOTHYROXINE NA 125 MCG TABLET (FP) ONE (05:45)
[2017-02-14] MEDS: LEVOTHYROXINE 100 MCG, LEVOTHYROXINE 125 MCG PO SCH (06:07)
[2017-02-14 08:40] LABS: ANION GAP 9 (8-16); CALCIUM 8.8 mg/dL (8.5-10.1); CO2 22 mmol/L (21-32); CREATININE 0.7 mg/dL (0.55-1.02); GLUCOSE,RANDOM 107 mg/dL (74-106)
[2017-02-14 09:29] LABS: MCH 37.7 pg (25.7-33.7); MCHC 32.7 g/dl (32.0-36.0); MEAN CELL VOLUME 115.3 fl (80-96); MEAN PLT VOLUME 11.1 fl (7.5-11.1); PLATELET COUNT 71 K/MM3 (134-434); RDW 15.7 % (11.6-15.6); WHITE BLOOD COUNT 7.6 K/mm3 (4.0-10.0)
[2017-02-14] MEDS: DEXTROSE 5%-WATER - 1,000 ML IV SCH ×2 (10:24→19:38)
[2017-02-14] MEDS ORDERED: cefTRIAXone SODIUM 1 GM VIAL ONE (11:07)
[2017-02-14] MEDS ORDERED: DEXTROSE 5%-WATER - 50 ML IVPB ONE (11:08)
[2017-02-14] MEDS: QUEtiapine FUMARATE 100 MG TABLET (FP) PO SCH ×2 (11:10→21:54)
[2017-02-14] MEDS: PANTOPRAZOLE 40 MG TABLET (FP) PO SCH (11:10)
[2017-02-14] MEDS: MULTIVITAMINS (DAILY MVI) TABLET (FP) PO SCH (11:10)
[2017-02-14] MEDS: CINACALCET HCL 30 MG TAB (FP) PO SCH ×2 (11:11→21:54)
[2017-02-14] MEDS: CEFTRIAXONE 1 GM in DEXTROSE 5%-WATER - 50 ML IVPB SCH (11:12)
[2017-02-14] MEDS: TOPIRAMATE 100 MG TABLET PO SCH ×2 (11:12→21:55)
[2017-02-14] MEDS: AMINO ACIDS/PROTEIN HYDROLYS 30 ML LIQUID.PKT PO SCH ×2 (11:13→21:54)
[2017-02-14] MEDS: POLYETHYLENE GLYCOL 3350 119 GM BTL PO SCH (11:23)
--- NOTE | 2017-02-14 12:52 | DS ---
Physical Examination Vital Signs: Vital Signs Temperature 98.6 F 02/14/17 10:00 Pulse Rate 68 02/14/17 10:00 Respiratory Rate 20 02/14/17 10:00 Blood Pressure 124/57 02/14/17 10:00 O2 Sat by Pulse Oximetry (%) 95 02/13/17 21:00 Constitutional: Yes: No Distress, Calm Cardiovascular: Yes: Regular Rate and Rhythm Respiratory: Yes: Diminished Gastrointestinal: Yes: Normal Bowel Sounds, Soft, Abdomen, Obese, Other ( colostomy- functioning). No: Tenderness Edema: No Psychiatric: Yes: Alert, Other (talking today) Labs: CBC, BMP 02/14/17 06:00 02/14/17 06:00 Discharge Summary Reason For Visit: UTI, CHANGE IN MENTAL STATUS Current Active Problems Change in mental status (Acute) Hypercalcemia (Acute) Hypernatremia (Acute) Metabolic encephalopathy (Acute) Sepsis (Acute) Thrombocytopenia (Acute) UTI (urinary tract infection) (Acute) Hospital Course: Admitted for severe hypernatremia, hypercalcemia, UTI, toxic metabolic encephalopathy . Very sedated--Evaluated by Neurology and Psychiatry her psych meds were initially discontinued.Seen by ID-- on Ceftriaxone and advsied to complete 7 days of antibiotics Not febrile Her mental status improved as her sodium improved on fluids. Restarted her back on Topamax and Seroquel-- today she is more awake and talkative, eating food and taking her meds. Sodium normal now Seen also by hematology for thrombocytopenia-- due to sepssi from UTI and depakote She remains off Depakote and [place] She was also evaluated by Endocrinology for hypercalcemia-- thought to be due to primary vs [place] induced-- advised to continue Sensipar 60mg BID. Pt at baseline CT head x 2-- negative for any acute changes Stable for dc to [place] Encourage fluids, pt will need to be followed by Psych, avoid overly sedating drugs -- check BMP often Condition: Improved - Instructions Referrals: Sabas Beltran [Primary Care Provider] - Disposition: INTERMEDIATE FACILITY - Home Medications Comprehensive Discharge Medication List: Ambulatory Orders Amino Acids/Protein Hydrolys [Pro-Stat Awc Liquid] 30 ml PO BID 02/08/17 Docusate Sodium [Dulcolax Stool Softener] 200 mg PO HS 02/08/17 Levothyroxine [Synthroid -] 225 mcg PO DAILY 02/08/17 Mag Hydrox/Al Hydrox/Simeth [Mylanta Oral Suspension -] 30 ml PO Q8H PRN Magnesium Hydrox 2400MG/30Ml [Milk of Magnesia -] 30 ml PO DAILY PRN 02/08/17 Multivitamin with Minerals [Icaps Plus] 1 each PO DAILY 02/08/17 Pantoprazole Sodium 40 mg PO DAILY 02/08/17 Polyethylene Glycol 3350 [Miralax 119 gm Btl -] 17 gm PO DAILY 02/08/17 Quetiapine Fumarate [Seroquel -] 300 mg PO BID 02/08/17 Topiramate [Topamax] 100 mg PO Q12H 02/08/17 Cephalexin Monohydrate [Keflex -] 500 mg PO Q8H #9 capsule 02/14/17 Cinacalcet HCl [Sensipar -] 60 mg PO BID #60 tab 02/14/17
[2017-02-14] MEDS: NYSTATIN/TRIAMCINOLONE TOPICAL CREAM 15 GM TUBE TP SCH ×2 (14:26→21:55)
--- NOTE | 2017-02-14 17:18 | PN ---
Progress Note (short form) - Note Progress Note: Pt is awake alert In NAD Unable to give history Got Sensipar today after missing 3 doses Vital Signs Period Temp Pulse Resp BP Sys/Messer Pulse Ox Last 24 Hr 97.4 F-98.6 F 68-93 18-20 122-157/57-110 95-96 PE: Awake, alert, confused HEENT: EOMI Neck: supple Lungs: CTA Abd: Benign Ext: No edema Neuro: Unable to access CMP Sodium 145 mmol/L (136-145) 02/14/17 06:00 Potassium 3.6 mmol/L (3.5-5.1) 02/14/17 06:00 Chloride 114 mmol/L (98-107) H 02/14/17 06:00 Carbon Dioxide 22 mmol/L (21-32) 02/14/17 06:00 Anion Gap 9 (8-16) 02/14/17 06:00 BUN 10 mg/dL (7-18) D 02/14/17 06:00 Creatinine 0.7 mg/dL (0.55-1.02) 02/14/17 06:00 Creat Clearance w eGFR > 60 (>60) 02/13/17 07:00 Random Glucose 107 mg/dL (74-106) H 02/14/17 06:00 Serum Osmolality 322 mosm/kg (278-305) H 02/12/17 05:15 Lactic Acid 1.1 mmol/L (0.4-2.0) 02/09/17 12:40 Calcium 8.8 mg/dL (8.5-10.1) 02/14/17 06:00 Ionized Calcium 7.1 mg/dL (4.5-5.6) H 02/09/17 12:00 Magnesium 1.8 mg/dL (1.8-2.4) 02/08/17 16:39 Total Bilirubin 0.6 mg/dL (0.2-1.0) 02/13/17 07:00 AST 21 U/L (15-37) 02/13/17 07:00 ALT 19 U/L (12-78) 02/13/17 07:00 Alkaline Phosphatase 115 U/L (45-117) 02/13/17 07:00 Ammonia 55.11 umol/L (11-32) H 02/10/17 06:00 LD Total 172 U/L (84-246) 02/10/17 06:00 Creatine Kinase Cancelled 02/08/17 14:30 Troponin I Cancelled 02/08/17 14:30 B-Natriuretic Peptide 507.31 pg/ml (5-125) H 02/08/17 16:39 Total Protein 5.6 g/dl (6.4-8.2) L 02/13/17 07:00 Albumin 2.2 g/dl (3.4-5.0) L 02/13/17 07:00 Aldosterone 2.6 NG/DL (0.0-30.0) 02/10/17 06:00 Vitamin B12 1751 pg/ml (180-914) H 02/11/17 05:10 Folate 1074 ng/mL (>498) 02/11/17 05:10 Folate Hemolysate 435.9 ng/mL (Not Estab.) 02/11/17 05:10 TSH 0.04 uIU/ml (0.358-3.74) L 02/10/17 06:00 Free T4 1.23 ng/dl (0.76-1.46) 02/11/17 05:10 PTH Intact 274 pg/mL (15-65) H 02/10/17 06:00 Current Medications Generic Name Dose Route Start Last Admin Trade Name Freq PRN Reason Stop Dose Admin Acetaminophen 650 mg 02/12/17 19:25 Tylenol - PO Q4H PRN FEVER OR PAIN Al Hydroxide/Mg Hydroxide 30 ml 02/12/17 19:25 Mylanta Oral Suspension - PO Q8H PRN DYSPEPSIA Amino Acids 30 ml 02/12/17 22:00 02/14/17 11:13 Prosource No Carb Liquid Pkt PO 30 ml BID [facility] Administration Cinacalcet 60 mg 02/12/17 22:00 02/14/17 11:11 Sensipar - PO 60 mg BID [facility] Administration Ceftriaxone Sodium 1 gm/ 50 mls @ 100 mls/hr 02/12/17 13:30 02/14/17 11:12 Dextrose IVPB 100 mls/hr DAILY [facility] Administration Dextrose 1,000 mls @ 75 mls/hr 02/13/17 14:34 02/14/17 10:24 D5w - IV 75 mls/hr ASDIR [facility] Administration Levothyroxine Sodium 100 mcg/ 225 mcg 02/13/17 07:00 02/14/17 06:07 Levothyroxine Sodium 125 mcg PO Not Given DAILY@0700 [facility] Magnesium Hydroxide 30 ml 02/12/17 19:25 Milk Of Magnesia - PO DAILY PRN CONSTIPATION Multivitamins/Minerals/Vitamin C 1 tab 02/13/17 10:00 02/14/17 11:10 Tab-A-Vit - PO 1 tab DAILY [facility] Administration Nystatin/Triamcinolone Acetonide 1 applic 02/14/17 13:30 02/14/17 14:26 Mycolog Ii Cream - TP 1 appful BID [facility] Administration Pantoprazole Sodium 40 mg 02/13/17 10:00 02/14/17 11:10 Protonix - PO 40 mg DAILY [facility] Administration Polyethylene Glycol 17 gm 02/13/17 10:00 02/14/17 11:23 Miralax (For Daily Use) - PO Not Given DAILY [facility] Quetiapine Fumarate 300 mg 02/13/17 22:00 02/14/17 11:10 Seroquel - PO 300 mg BID [facility] Administration Topiramate 100 mg 02/12/17 22:00 02/14/17 11:12 Topamax - PO 100 mg BID [facility] Administration AP: AMS Hypothyrodism: TSH 0.04 withFT4 of 1.27. Pt has been refusing to take levothyroxine. Will need to check TFT once pt is on it continuously for at least 4 weeks and adjust dose as necessary. Continue LT$ 225 for now HYpercalcemia Hyperparathyroidism: Primary vs [place] associated Hyperparathyroidism Bipolar disorder Hypernatremia: Improving . PTH 274 Calcium 8.8 today, corrected around 10.3 Decrease Sensipar to 30 mg BID as calcium level trending down even though she refused to take 3 doses out last 4. Improving calcium probably secondary to improving hydration with Sodium level now down to 145 from 160. Dose maybe adjusted in the [place] as necessary Will f/u Problem List - Problems (1) Change in mental status Code(s): R41.82 - ALTERED MENTAL STATUS, UNSPECIFIED Qualifiers: Altered mental status type: delirium Qualified Code(s): R41.0 - Disorientation, unspecified; R41.0 - Disorientation, unspecified (2) Hypercalcemia Code(s): E83.52 - HYPERCALCEMIA (3) Hypernatremia Code(s): E87.0 - HYPEROSMOLALITY AND HYPERNATREMIA (4) UTI (urinary tract infection) Code(s): N39.0 - URINARY TRACT INFECTION, SITE NOT SPECIFIED Qualifiers: Urinary tract infection type: site unspecified Hematuria presence: with hematuria Qualified Code(s): N39.0 - Urinary tract infection, site not specified; N39.0 - Urinary tract infection, site not specified; R31.9 - Hematuria, unspecified; R31.9 - Hematuria, unspecified
--- NOTE | 2017-02-14 20:59 | PN ---
Progress Note (short form) - Note Progress Note: Current Medications Acetaminophen (Tylenol -) 650 mg PO Q4H PRN PRN Reason: FEVER OR PAIN Al Hydroxide/Mg Hydroxide (Mylanta Oral Suspension -) 30 ml PO Q8H PRN PRN Reason: DYSPEPSIA Amino Acids (Prosource No Carb Liquid Pkt) 30 ml PO BID [facility] Last Admin: 02/14/17 11:13 Dose: 30 ml Cinacalcet (Sensipar -) 30 mg PO BID [facility] Ceftriaxone Sodium 1 gm/ (Dextrose) 50 mls @ 100 mls/hr IVPB DAILY [facility] Last Admin: 02/14/17 11:12 Dose: 100 mls/hr Dextrose (D5w -) 1,000 mls @ 75 mls/hr IV ASDIR [facility] Last Admin: 02/14/17 19:38 Dose: Not Given Levothyroxine Sodium 100 mcg/ (Levothyroxine Sodium 125 mcg) 225 mcg PO DAILY@ 0700 [facility] Last Admin: 02/14/17 06:07 Dose: Not Given Magnesium Hydroxide (Milk Of Magnesia -) 30 ml PO DAILY PRN PRN Reason: CONSTIPATION Multivitamins/Minerals/Vitamin C (Tab-A-Vit -) 1 tab PO DAILY [facility] Last Admin: 02/14/17 11:10 Dose: 1 tab Nystatin/Triamcinolone Acetonide (Mycolog Ii Cream -) 1 applic TP BID [facility] Last Admin: 02/14/17 14:26 Dose: 1 appful Pantoprazole Sodium (Protonix -) 40 mg PO DAILY [facility] Last Admin: 02/14/17 11:10 Dose: 40 mg Polyethylene Glycol (Miralax (For Daily Use) -) 17 gm PO DAILY [facility] Last Admin: 02/14/17 11:23 Dose: Not Given Quetiapine Fumarate (Seroquel -) 300 mg PO BID [facility] Last Admin: 02/14/17 11:10 Dose: 300 mg Topiramate (Topamax -) 100 mg PO BID [facility] Last Admin: 02/14/17 11:12 Dose: 100 mg Last Vital Signs Temp Pulse Resp BP Pulse Ox 98.0 F 89 20 109/68 96 02/14/17 18:00 02/14/17 18:00 02/14/17 18:00 02/14/17 18:00 02/14/17 09:00 alert in nad lungs clear heart reg abd soft nontender ext no edema CBC, BMP 02/14/17 06:00 02/14/17 06:00 IMP- Hypernatremia dementia Plan- continue IVF one more day f/u cmp in am
[2017-02-14] MEDS ORDERED: PT OWN MED DRAWER 7, Y5N ONE (21:48)
[2017-02-15] MEDS ORDERED: LEVOTHYROXINE NA 125 MCG TABLET (FP) ONE (05:52)
[2017-02-15] MEDS ORDERED: LEVOTHYROXINE NA 100 MCG TABLET (FP) ONE (05:52)
[2017-02-15] MEDS: LEVOTHYROXINE 100 MCG, LEVOTHYROXINE 125 MCG PO SCH ×2 (06:32→07:20)
[2017-02-15] MEDS: DEXTROSE 5%-WATER - 1,000 ML IV SCH ×2 (08:38→15:42)
[2017-02-15 08:47] LABS: MCH 37.3 pg (25.7-33.7); MCHC 32.9 g/dl (32.0-36.0); MEAN CELL VOLUME 113.6 fl (80-96); MEAN PLT VOLUME 11.1 fl (7.5-11.1); PLATELET COUNT 77 K/MM3 (134-434); RDW 15.5 % (11.6-15.6); WHITE BLOOD COUNT 7.3 K/mm3 (4.0-10.0)
--- NOTE | 2017-02-15 08:51 | PN ---
Progress Note (short form) - Note Progress Note: was not discharged yesterday as authorization not done Vital Signs - 24 hr 02/14/17 02/15/17 02/15/17 21:00 06:00 08:43 Temperature 98.1 F 98.8 F Pulse Rate 70 88 Respiratory 20 20 20 Rate Blood Pressure 124/62 114/56 O2 Sat by Pulse 96 Oximetry (%) 02/15/17 02/15/17 09:00 15:53 Temperature 98.2 F Pulse Rate 83 Respiratory 20 Rate Blood Pressure 142/97 O2 Sat by Pulse 94 L Oximetry (%) Current Medications Generic Name Dose Route Start Last Admin Trade Name Freq PRN Reason Stop Dose Admin Acetaminophen 650 mg 02/12/17 19:25 Tylenol - PO Q4H PRN FEVER OR PAIN Al Hydroxide/Mg Hydroxide 30 ml 02/12/17 19:25 Mylanta Oral Suspension - PO Q8H PRN DYSPEPSIA Amino Acids 30 ml 02/12/17 22:00 02/15/17 09:54 Prosource No Carb Liquid Pkt PO 30 ml BID [facility] Administration Cinacalcet 30 mg 02/14/17 22:00 02/15/17 09:55 Sensipar - PO 30 mg BID [facility] Administration Ceftriaxone Sodium 1 gm/ 50 mls @ 100 mls/hr 02/12/17 13:30 02/15/17 09:54 Dextrose IVPB 100 mls/hr DAILY [facility] Administration Dextrose 1,000 mls @ 75 mls/hr 02/13/17 14:34 02/15/17 15:42 D5w - IV Not Given ASDIR [facility] Levothyroxine Sodium 100 mcg/ 225 mcg 02/13/17 07:00 02/15/17 07:20 Levothyroxine Sodium 125 mcg PO 225 mcg DAILY@0700 [facility] Administration Magnesium Hydroxide 30 ml 02/12/17 19:25 Milk Of Magnesia - PO DAILY PRN CONSTIPATION Multivitamins/Minerals/Vitamin C 1 tab 02/13/17 10:00 02/15/17 09:56 Tab-A-Vit - PO 1 tab DAILY [facility] Administration Nystatin/Triamcinolone Acetonide 1 applic 02/14/17 13:30 02/15/17 09:53 Mycolog Ii Cream - TP 1 appful BID [facility] Administration Pantoprazole Sodium 40 mg 02/13/17 10:00 02/15/17 09:54 Protonix - PO 40 mg DAILY [facility] Administration Polyethylene Glycol 17 gm 02/13/17 10:00 02/15/17 09:48 Miralax (For Daily Use) - PO Not Given DAILY [facility] Quetiapine Fumarate 300 mg 02/13/17 22:00 02/15/17 09:56 Seroquel - PO 300 mg BID [facility] Administration Topiramate 100 mg 02/12/17 22:00 02/15/17 09:57 Topamax - PO 100 mg BID [facility] Administration Laboratory Results - last 24 hr 02/15/17 02/15/17 06:45 06:45 WBC 7.3 RBC 2.92 L Hgb 10.9 D Hct 33.1 MCV 113.6 H MCH 37.3 H MCHC 32.9 RDW 15.5 Plt Count 77 L MPV 11.1 Sodium 144 Potassium 3.3 L Chloride 112 H Carbon Dioxide 21 Anion Gap 11 BUN 8 Creatinine 0.7 Creat Clearance w eGFR > 60 Random Glucose 105 Calcium 7.8 L Total Bilirubin 0.8 D AST 22 ALT 18 Alkaline Phosphatase 120 H Total Protein 5.4 L Albumin 2.2 L S1 S2 RRR Lungs clear Abd- soft,NT No edema PLAN -- awaiting authorization from [facility] -- replace potassium -- antibiotics Problem List - Problems (1) Change in mental status Code(s): R41.82 - ALTERED MENTAL STATUS, UNSPECIFIED Qualifiers: Altered mental status type: delirium Qualified Code(s): R41.0 - Disorientation, unspecified; R41.0 - Disorientation, unspecified (2) Hypercalcemia Code(s): E83.52 - HYPERCALCEMIA (3) Hypernatremia Code(s): E87.0 - HYPEROSMOLALITY AND HYPERNATREMIA (4) UTI (urinary tract infection) Code(s): N39.0 - URINARY TRACT INFECTION, SITE NOT SPECIFIED Qualifiers: Urinary tract infection type: site unspecified Hematuria presence: with hematuria Qualified Code(s): N39.0 - Urinary tract infection, site not specified; N39.0 - Urinary tract infection, site not specified; R31.9 - Hematuria, unspecified; R31.9 - Hematuria, unspecified (5) Sepsis Code(s): A41.9 - SEPSIS, UNSPECIFIED ORGANISM (6) Thrombocytopenia Code(s): D69.6 - THROMBOCYTOPENIA, UNSPECIFIED (7) Metabolic encephalopathy Code(s): G93.41 - METABOLIC ENCEPHALOPATHY
[2017-02-15 09:03] LABS: ALBUMIN 2.2 g/dl (3.4-5.0); ANION GAP 11 (8-16); CALCIUM 7.8 mg/dL (8.5-10.1); CO2 21 mmol/L (21-32); CREATININE 0.7 mg/dL (0.55-1.02); GLUCOSE,RANDOM 105 mg/dL (74-106); SGOT/AST 22 U/L (15-37); SGPT/ALT 18 U/L (12-78)
[2017-02-15 09:05] LABS: ALK PHOS 120 U/L (45-117); BILIRUBIN,TOTAL 0.8 mg/dL (0.2-1.0); TOT PROT 5.4 g/dl (6.4-8.2)
[2017-02-15] MEDS ORDERED: POTASSIUM CHLORIDE ORAL LIQUID 20 MEQ/15 ML PO ONE (09:45)
[2017-02-15] MEDS: POLYETHYLENE GLYCOL 3350 119 GM BTL PO SCH (09:48)
[2017-02-15] MEDS ORDERED: cefTRIAXone SODIUM 1 GM VIAL ONE (09:50)
[2017-02-15] MEDS ORDERED: DEXTROSE 5%-WATER - 50 ML IVPB ONE (09:51)
[2017-02-15] MEDS: NYSTATIN/TRIAMCINOLONE TOPICAL CREAM 15 GM TUBE TP SCH ×2 (09:53→22:42)
[2017-02-15] MEDS: CEFTRIAXONE 1 GM in DEXTROSE 5%-WATER - 50 ML IVPB SCH (09:54)
[2017-02-15] MEDS: PANTOPRAZOLE 40 MG TABLET (FP) PO SCH (09:54)
[2017-02-15] MEDS: AMINO ACIDS/PROTEIN HYDROLYS 30 ML LIQUID.PKT PO SCH ×2 (09:54→22:42)
[2017-02-15] MEDS: CINACALCET HCL 30 MG TAB (FP) PO SCH ×2 (09:55→22:42)
[2017-02-15] MEDS: QUEtiapine FUMARATE 100 MG TABLET (FP) PO SCH ×2 (09:56→22:42)
[2017-02-15] MEDS: MULTIVITAMINS (DAILY MVI) TABLET (FP) PO SCH (09:56)
[2017-02-15] MEDS: TOPIRAMATE 100 MG TABLET PO SCH ×2 (09:57→22:42)
--- NOTE | 2017-02-15 16:55 | PN ---
Progress Note (short form) - Note Progress Note: Pt is awake alert In NAD Unable to give history Dropping Calcium ? because Hartline was stopped Vital Signs Period Temp Pulse Resp BP Sys/Messer Pulse Ox Last 24 Hr 98.0 F-98.8 F 70-89 20-20 109-142/56-97 94-96 PE: Awake, alert, confused HEENT: EOMI Neck: supple Lungs: CTA Abd: Benign Ext: No edema Neuro: Unable to access CMP Sodium 144 mmol/L (136-145) 02/15/17 06:45 Potassium 3.3 mmol/L (3.5-5.1) L 02/15/17 06:45 Chloride 112 mmol/L (98-107) H 02/15/17 06:45 Carbon Dioxide 21 mmol/L (21-32) 02/15/17 06:45 Anion Gap 11 (8-16) 02/15/17 06:45 BUN 8 mg/dL (7-18) 02/15/17 06:45 Creatinine 0.7 mg/dL (0.55-1.02) 02/15/17 06:45 Creat Clearance w eGFR > 60 (>60) 02/15/17 06:45 Random Glucose 105 mg/dL (74-106) 02/15/17 06:45 Serum Osmolality 322 mosm/kg (278-305) H 02/12/17 05:15 Lactic Acid 1.1 mmol/L (0.4-2.0) 02/09/17 12:40 Calcium 7.8 mg/dL (8.5-10.1) L 02/15/17 06:45 Ionized Calcium 7.1 mg/dL (4.5-5.6) H 02/09/17 12:00 Magnesium 1.8 mg/dL (1.8-2.4) 02/08/17 16:39 Total Bilirubin 0.8 mg/dL (0.2-1.0) D 02/15/17 06:45 AST 22 U/L (15-37) 02/15/17 06:45 ALT 18 U/L (12-78) 02/15/17 06:45 Alkaline Phosphatase 120 U/L (45-117) H 02/15/17 06:45 Ammonia 55.11 umol/L (11-32) H 02/10/17 06:00 LD Total 172 U/L (84-246) 02/10/17 06:00 Creatine Kinase Cancelled 02/08/17 14:30 Troponin I Cancelled 02/08/17 14:30 B-Natriuretic Peptide 507.31 pg/ml (5-125) H 02/08/17 16:39 Total Protein 5.4 g/dl (6.4-8.2) L 02/15/17 06:45 Albumin 2.2 g/dl (3.4-5.0) L 02/15/17 06:45 Aldosterone 2.6 NG/DL (0.0-30.0) 02/10/17 06:00 Vitamin B12 1751 pg/ml (180-914) H 02/11/17 05:10 Folate 1074 ng/mL (>498) 02/11/17 05:10 Folate Hemolysate 435.9 ng/mL (Not Estab.) 02/11/17 05:10 TSH 0.04 uIU/ml (0.358-3.74) L 02/10/17 06:00 Free T4 1.23 ng/dl (0.76-1.46) 02/11/17 05:10 PTH Intact 274 pg/mL (15-65) H 02/10/17 06:00 Current Medications Generic Name Dose Route Start Last Admin Trade Name Freq PRN Reason Stop Dose Admin Acetaminophen 650 mg 02/12/17 19:25 Tylenol - PO Q4H PRN FEVER OR PAIN Al Hydroxide/Mg Hydroxide 30 ml 02/12/17 19:25 Mylanta Oral Suspension - PO Q8H PRN DYSPEPSIA Amino Acids 30 ml 02/12/17 22:00 02/15/17 09:54 Prosource No Carb Liquid Pkt PO 30 ml BID ROLAN Administration Cinacalcet 30 mg 02/14/17 22:00 02/15/17 09:55 Sensipar - PO 30 mg BID ROLAN Administration Ceftriaxone Sodium 1 gm/ 50 mls @ 100 mls/hr 02/12/17 13:30 02/15/17 09:54 Dextrose IVPB 100 mls/hr DAILY ROLAN Administration Dextrose 1,000 mls @ 75 mls/hr 02/13/17 14:34 02/15/17 15:42 D5w - IV Not Given ASDIR ROLAN Levothyroxine Sodium 100 mcg/ 225 mcg 02/13/17 07:00 02/15/17 07:20 Levothyroxine Sodium 125 mcg PO 225 mcg DAILY@0700 ROLAN Administration Magnesium Hydroxide 30 ml 02/12/17 19:25 Milk Of Magnesia - PO DAILY PRN CONSTIPATION Multivitamins/Minerals/Vitamin C 1 tab 02/13/17 10:00 02/15/17 09:56 Tab-A-Vit - PO 1 tab DAILY ROLAN Administration Nystatin/Triamcinolone Acetonide 1 applic 02/14/17 13:30 02/15/17 09:53 Mycolog Ii Cream - TP 1 appful BID ROLAN Administration Pantoprazole Sodium 40 mg 02/13/17 10:00 02/15/17 09:54 Protonix - PO 40 mg DAILY ROLAN Administration Polyethylene Glycol 17 gm 02/13/17 10:00 02/15/17 09:48 Miralax (For Daily Use) - PO Not Given DAILY ROLAN Quetiapine Fumarate 300 mg 02/13/17 22:00 02/15/17 09:56 Seroquel - PO 300 mg BID ROLAN Administration Topiramate 100 mg 02/12/17 22:00 02/15/17 09:57 Topamax - PO 100 mg BID ROLAN Administration AP: AMS Hypothyrodism: TSH 0.04 withFT4 of 1.27. Pt has been refusing to take levothyroxine. Will need to check TFT once pt is on it continuously for at least 4 weeks and adjust dose as necessary. Continue LT$ 225 for now Hypercalcemia Hyperparathyroidism: Primary vs Hartline associated Hyperparathyroidism Bipolar disorder Hypernatremia: resolved . PTH 274 Calcium 7.8 today, corrected around 9.3 On Sensipar to 30 mg BID as calcium level trending down even though she refused to take 3 doses in last 3 days. Improving calcium probably secondary to improving hydration with Sodium level now down to 144 from 160 and because Hartline was stopped. Calcium level continues to drop tomorrow, will discontinue Sensipar Will f/u Problem List - Problems (1) Change in mental status Code(s): R41.82 - ALTERED MENTAL STATUS, UNSPECIFIED Qualifiers: Altered mental status type: delirium Qualified Code(s): R41.0 - Disorientation, unspecified; R41.0 - Disorientation, unspecified (2) Hypercalcemia Code(s): E83.52 - HYPERCALCEMIA (3) Hypernatremia Code(s): E87.0 - HYPEROSMOLALITY AND HYPERNATREMIA (4) UTI (urinary tract infection) Code(s): N39.0 - URINARY TRACT INFECTION, SITE NOT SPECIFIED Qualifiers: Urinary tract infection type: site unspecified Hematuria presence: with hematuria Qualified Code(s): N39.0 - Urinary tract infection, site not specified; N39.0 - Urinary tract infection, site not specified; R31.9 - Hematuria, unspecified; R31.9 - Hematuria, unspecified
--- NOTE | 2017-02-15 20:33 | PN ---
Progress Note (short form) - Note Progress Note: s/p hypernatremia prerenal azotemia Current Medications Acetaminophen (Tylenol -) 650 mg PO Q4H PRN PRN Reason: FEVER OR PAIN Al Hydroxide/Mg Hydroxide (Mylanta Oral Suspension -) 30 ml PO Q8H PRN PRN Reason: DYSPEPSIA Amino Acids (Prosource No Carb Liquid Pkt) 30 ml PO BID [facility] Last Admin: 02/15/17 09:54 Dose: 30 ml Cinacalcet (Sensipar -) 30 mg PO BID [facility] Last Admin: 02/15/17 09:55 Dose: 30 mg Ceftriaxone Sodium 1 gm/ (Dextrose) 50 mls @ 100 mls/hr IVPB DAILY [facility] Last Admin: 02/15/17 09:54 Dose: 100 mls/hr Dextrose (D5w -) 1,000 mls @ 75 mls/hr IV ASDIR [facility] Last Admin: 02/15/17 15:42 Dose: Not Given Levothyroxine Sodium 100 mcg/ (Levothyroxine Sodium 125 mcg) 225 mcg PO DAILY@ 0700 [facility] Last Admin: 02/15/17 07:20 Dose: 225 mcg Magnesium Hydroxide (Milk Of Magnesia -) 30 ml PO DAILY PRN PRN Reason: CONSTIPATION Multivitamins/Minerals/Vitamin C (Tab-A-Vit -) 1 tab PO DAILY [facility] Last Admin: 02/15/17 09:56 Dose: 1 tab Nystatin/Triamcinolone Acetonide (Mycolog Ii Cream -) 1 applic TP BID [facility] Last Admin: 02/15/17 09:53 Dose: 1 appful Pantoprazole Sodium (Protonix -) 40 mg PO DAILY [facility] Last Admin: 02/15/17 09:54 Dose: 40 mg Polyethylene Glycol (Miralax (For Daily Use) -) 17 gm PO DAILY [facility] Last Admin: 02/15/17 09:48 Dose: Not Given Quetiapine Fumarate (Seroquel -) 300 mg PO BID [facility] Last Admin: 02/15/17 09:56 Dose: 300 mg Topiramate (Topamax -) 100 mg PO BID [facility] Last Admin: 02/15/17 09:57 Dose: 100 mg Last Vital Signs Temp Pulse Resp BP Pulse Ox 98.2 F 92 H 20 111/72 94 L 02/15/17 18:00 02/15/17 18:00 02/15/17 18:00 02/15/17 18:00 02/15/17 09:00 alert in nad lungs clear heart reg abd soft nontender ext no edema CBC, BMP 02/15/17 06:45 02/15/17 06:45 IMP- Hypernatremia resolved Hypokalemia dementia Plan- september d/c IVF if oral intake is adequate f/u cmp in am
[2017-02-15] MEDS ORDERED: PT OWN MED DRAWER 7, Y5N ONE (20:55)
[2017-02-16] MEDS: DEXTROSE 5%-WATER - 1,000 ML IV SCH (00:43)
[2017-02-16] MEDS ORDERED: LEVOTHYROXINE NA 125 MCG TABLET (FP) ONE (06:04)
[2017-02-16] MEDS ORDERED: LEVOTHYROXINE NA 100 MCG TABLET (FP) ONE (06:04)
[2017-02-16] MEDS: LEVOTHYROXINE 100 MCG, LEVOTHYROXINE 125 MCG PO SCH (06:30)
--- NOTE | 2017-02-16 10:08 | PN ---
Progress Note, Physician History of Present Illness: Pt seen and examined at bedside. She is awake and appears comfortable. She denies shortness of breath. - Current Medication List Current Medications: Active Medications Acetaminophen (Tylenol -) 650 mg PO Q4H PRN PRN Reason: FEVER OR PAIN Al Hydroxide/Mg Hydroxide (Mylanta Oral Suspension -) 30 ml PO Q8H PRN PRN Reason: DYSPEPSIA Amino Acids (Prosource No Carb Liquid Pkt) 30 ml PO BID [facility] Last Admin: 02/15/17 22:42 Dose: 30 ml Cinacalcet (Sensipar -) 30 mg PO BID [facility] Last Admin: 02/15/17 22:42 Dose: 30 mg Ceftriaxone Sodium 1 gm/ (Dextrose) 50 mls @ 100 mls/hr IVPB DAILY [facility] Last Admin: 02/15/17 09:54 Dose: 100 mls/hr Dextrose (D5w -) 1,000 mls @ 75 mls/hr IV ASDIR [facility] Last Admin: 02/16/17 00:43 Dose: 75 mls/hr Levothyroxine Sodium 100 mcg/ (Levothyroxine Sodium 125 mcg) 225 mcg PO DAILY@ 0700 [facility] Last Admin: 02/16/17 06:30 Dose: 225 mcg Magnesium Hydroxide (Milk Of Magnesia -) 30 ml PO DAILY PRN PRN Reason: CONSTIPATION Multivitamins/Minerals/Vitamin C (Tab-A-Vit -) 1 tab PO DAILY [facility] Last Admin: 02/15/17 09:56 Dose: 1 tab Nystatin/Triamcinolone Acetonide (Mycolog Ii Cream -) 1 applic TP BID [facility] Last Admin: 02/15/17 22:42 Dose: 1 appful Pantoprazole Sodium (Protonix -) 40 mg PO DAILY [facility] Last Admin: 02/15/17 09:54 Dose: 40 mg Polyethylene Glycol (Miralax (For Daily Use) -) 17 gm PO DAILY [facility] Last Admin: 02/15/17 09:48 Dose: Not Given Quetiapine Fumarate (Seroquel -) 300 mg PO BID [facility] Last Admin: 02/15/17 22:42 Dose: 300 mg Topiramate (Topamax -) 100 mg PO BID [facility] Last Admin: 02/15/17 22:42 Dose: 100 mg - Objective Vital Signs: Vital Signs Temperature 97.9 F 02/16/17 06:00 Pulse Rate 86 02/16/17 06:00 Respiratory Rate 20 02/16/17 06:00 Blood Pressure 127/69 02/16/17 06:00 O2 Sat by Pulse Oximetry (%) 94 L 02/15/17 21:00 Constitutional: Yes: Calm Eyes: Yes: Conjunctiva Clear HENT: Yes: Atraumatic Neck: Yes: Supple Cardiovascular: Yes: S1, S2 Respiratory: Yes: CTA Bilaterally Gastrointestinal: Yes: Soft, Other (colostomy) Genitourinary: Yes: Gonzalez Present Musculoskeletal: Yes: WNL Edema: No Neurological: Yes: Confusion Labs: CBC, BMP 02/15/17 06:45 02/15/17 06:45 INR, PTT INR 1.11 (0.82-1.09) D 02/11/17 05:10 Fibrinogen 448.0 mg/dL (238-498) D 02/11/17 05:10 Problem List - Problems (1) Change in mental status Code(s): R41.82 - ALTERED MENTAL STATUS, UNSPECIFIED Qualifiers: Altered mental status type: delirium Qualified Code(s): R41.0 - Disorientation, unspecified; R41.0 - Disorientation, unspecified (2) Hypernatremia Code(s): E87.0 - HYPEROSMOLALITY AND HYPERNATREMIA (3) UTI (urinary tract infection) Code(s): N39.0 - URINARY TRACT INFECTION, SITE NOT SPECIFIED Qualifiers: Urinary tract infection type: site unspecified Hematuria presence: with hematuria Qualified Code(s): N39.0 - Urinary tract infection, site not specified; N39.0 - Urinary tract infection, site not specified; R31.9 - Hematuria, unspecified; R31.9 - Hematuria, unspecified Assessment/Plan Current Medications Generic Name Dose Route Start Last Admin Trade Name Freq PRN Reason Stop Dose Admin Acetaminophen 650 mg 02/12/17 19:25 Tylenol - PO Q4H PRN FEVER OR PAIN Al Hydroxide/Mg Hydroxide 30 ml 02/12/17 19:25 Mylanta Oral Suspension - PO Q8H PRN DYSPEPSIA Amino Acids 30 ml 02/12/17 22:00 02/15/17 22:42 Prosource No Carb Liquid Pkt PO 30 ml BID ROLAN Administration Cinacalcet 30 mg 02/14/17 22:00 02/15/17 22:42 Sensipar - PO 30 mg BID ROLAN Administration Ceftriaxone Sodium 1 gm/ 50 mls @ 100 mls/hr 02/12/17 13:30 02/15/17 09:54 Dextrose IVPB 100 mls/hr DAILY ROLAN Administration Dextrose 1,000 mls @ 75 mls/hr 02/13/17 14:34 02/16/17 00:43 D5w - IV 75 mls/hr ASDIR ROLAN Administration Levothyroxine Sodium 100 mcg/ 225 mcg 02/13/17 07:00 02/16/17 06:30 Levothyroxine Sodium 125 mcg PO 225 mcg DAILY@0700 ROLAN Administration Magnesium Hydroxide 30 ml 02/12/17 19:25 Milk Of Magnesia - PO DAILY PRN CONSTIPATION Multivitamins/Minerals/Vitamin C 1 tab 02/13/17 10:00 02/15/17 09:56 Tab-A-Vit - PO 1 tab DAILY ROLAN Administration Nystatin/Triamcinolone Acetonide 1 applic 02/14/17 13:30 02/15/17 22:42 Mycolog Ii Cream - TP 1 appful BID ROLAN Administration Pantoprazole Sodium 40 mg 02/13/17 10:00 02/15/17 09:54 Protonix - PO 40 mg DAILY ROLAN Administration Polyethylene Glycol 17 gm 02/13/17 10:00 02/15/17 09:48 Miralax (For Daily Use) - PO Not Given DAILY ROLAN Quetiapine Fumarate 300 mg 02/13/17 22:00 02/15/17 22:42 Seroquel - PO 300 mg BID ROLAN Administration Topiramate 100 mg 02/12/17 22:00 02/15/17 22:42 Topamax - PO 100 mg BID ROLAN Administration Impression 1. hypernatremia 2. hypercalcemia 3. change in mental status 4. anxiety 5. bipolar 6. UTI 7. hypothyroid 8. hyperlipidemia 9. hypokalemia Plan - sodium stable - pt does not have polyuria - can d/c gonzalez - replace potassium - can stop fluids - will need outpt follow up after discharge - will follow
--- NOTE | 2017-02-16 10:14 | PN ---
Progress Note (short form) - Note Progress Note: Neurology History of Present Illness 71 yo female with a significant past medical history of Hypothyroidism, Hyperlipidemia, Bipolar disorder, Anxiety disorder and seizure disorder with colostomy who presented to the emergency department from [facility] with altered mental status. Unclear duration, reportedly she is able to converse and oriented to self but was not and therefore sent to hospital for further evaluation and management. Patient found to have hypernatremia and being treated for that, renal consulted, recommended D5W, monitoring Na levels closely. Of note, also with UTI on labs and being treated with Ceftriaxone. She did have CT head which did not show acute changes. No evidence of seizure and her medication list includes depakote 750mg twice daily and Topamax 100mg twice daily. Patient more awake and reponsive today. Was able to say hospital when asked location which is more than my prior visits. Is able to say her name when asked. Still also says "yea" frequently, like this is her baseline. Active Medications Acetaminophen (Tylenol -) 650 mg PO Q4H PRN PRN Reason: FEVER OR PAIN Al Hydroxide/Mg Hydroxide (Mylanta Oral Suspension -) 30 ml PO Q8H PRN PRN Reason: DYSPEPSIA Amino Acids (Prosource No Carb Liquid Pkt) 30 ml PO BID [facility] Last Admin: 02/12/17 22:24 Dose: Not Given Cinacalcet (Sensipar -) 60 mg PO BID [facility] Last Admin: 02/12/17 22:25 Dose: Not Given Ceftriaxone Sodium 1 gm/ (Dextrose) 50 mls @ 100 mls/hr IVPB DAILY [facility] Last Admin: 02/12/17 13:38 Dose: 100 mls/hr Dextrose (D5w -) 1,000 mls @ 125 mls/hr IV ASDIR [facility] Last Admin: 02/12/17 22:24 Dose: Not Given Levothyroxine Sodium 100 mcg/ (Levothyroxine Sodium 125 mcg) 225 mcg PO DAILY@ 0700 [facility] Last Admin: 02/13/17 06:38 Dose: Not Given Magnesium Hydroxide (Milk Of Magnesia -) 30 ml PO DAILY PRN PRN Reason: CONSTIPATION Multivitamins/Minerals/Vitamin C (Tab-A-Vit -) 1 tab PO DAILY [facility] Pantoprazole Sodium (Protonix -) 40 mg PO DAILY [facility] Polyethylene Glycol (Miralax (For Daily Use) -) 17 gm PO DAILY [facility]OLAN Topiramate (Topamax -) 100 mg PO BID [facility] Last Admin: 02/12/17 22:25 Dose: Not Given *Physical Exam Vital Signs 02/16/17 06:00 Temperature 97.9 F Pulse Rate 86 Respiratory 20 Rate Blood Pressure 127/69 GENERAL: Awake, alert, responsive to examiner but not verbal HEAD: No signs of trauma, normocephalic, atraumatic EYES: PERRLA, EOMI, sclera anicteric, conjunctiva clear ENT: Auricles normal inspection, hearing grossly normal, nares patent, oropharynx clear without exudates. Moist mucosa NECK: Normal ROM, supple, no lymphadenopathy, JVD, or masses LUNGS: No distress, speaks full sentences, clear to auscultation bilaterally HEART: Regular rate and rhythm, normal S1 and S2, no murmurs, rubs or gallops, peripheral pulses normal and equal bilaterally. ABDOMEN: Soft, nontender, normoactive bowel sounds. No guarding, no rebound. No masses EXTREMITIES: +Abbrasion on right forearm at exam that per EMS was not their when they picked up patient. Patient flailing around; suspect self inflicted during transport. Normal range of motion, no edema. No clubbing or cyanosis. NEUROLOGICAL: Cranial nerves II through XII grossly intact. Not following commands, not participating in confrontation testing, intact to tactile stimulation, gait deferred CBCD WBC 7.3 K/mm3 (4.0-10.0) 02/15/17 06:45 RBC 2.92 M/mm3 (3.60-5.2) L 02/15/17 06:45 Hgb 10.9 GM/dL (10.7-15.3) D 02/15/17 06:45 Hct 33.1 % (32.4-45.2) 02/15/17 06:45 MCV 113.6 fl (80-96) H 02/15/17 06:45 MCHC 32.9 g/dl (32.0-36.0) 02/15/17 06:45 RDW 15.5 % (11.6-15.6) 02/15/17 06:45 Plt Count 77 K/MM3 (134-434) L 02/15/17 06:45 MPV 11.1 fl (7.5-11.1) 02/15/17 06:45 CMP Sodium 144 mmol/L (136-145) 02/15/17 06:45 Potassium 3.3 mmol/L (3.5-5.1) L 02/15/17 06:45 Chloride 112 mmol/L (98-107) H 02/15/17 06:45 Carbon Dioxide 21 mmol/L (21-32) 02/15/17 06:45 Anion Gap 11 (8-16) 02/15/17 06:45 BUN 8 mg/dL (7-18) 02/15/17 06:45 Creatinine 0.7 mg/dL (0.55-1.02) 02/15/17 06:45 Creat Clearance w eGFR > 60 (>60) 02/15/17 06:45 Calcium 7.8 mg/dL (8.5-10.1) L 02/15/17 06:45 Total Bilirubin 0.8 mg/dL (0.2-1.0) D 02/15/17 06:45 AST 22 U/L (15-37) 02/15/17 06:45 ALT 18 U/L (12-78) 02/15/17 06:45 Alkaline Phosphatase 120 U/L (45-117) H 02/15/17 06:45 Total Protein 5.4 g/dl (6.4-8.2) L 02/15/17 06:45 Albumin 2.2 g/dl (3.4-5.0) L 02/15/17 06:45 CT head repeated: motion artifact, no acute changes Plan: 71 yo female with a significant past medical history of Hypothyroidism, Hyperlipidemia, Bipolar disorder, Anxiety disorder and seizure disorder with colostomy who presents to the emergency department from [facility] with altered mental status. Patient more awake and alert, slowly improving. Patient found to have hypernatremia, improving, Na decreased to 147 today UTI on labs as well, continue infectious management, Abx She did have CT head X2 which did not show acute changes No acute changes, limited by motion artifact Clinically improved No evidence of seizure can continue depakote 750mg twice daily and Topamax 100mg twice daily Neurologically stable at this time
[2017-02-16] MEDS ORDERED: PT OWN MED DRAWER 7, Y5N ONE (10:18)
[2017-02-16] MEDS ORDERED: cefTRIAXone SODIUM 1 GM VIAL ONE (10:18)
[2017-02-16] MEDS ORDERED: DEXTROSE 5%-WATER - 50 ML IVPB ONE (10:18)
[2017-02-16] MEDS ORDERED: POTASSIUM CHLORIDE TABS 20 MEQ TABLET.ER (FP) PO ONE (10:30)
[2017-02-16] MEDS: QUEtiapine FUMARATE 100 MG TABLET (FP) PO SCH (10:42)
[2017-02-16] MEDS: AMINO ACIDS/PROTEIN HYDROLYS 30 ML LIQUID.PKT PO SCH (10:42)
[2017-02-16] MEDS: CEFTRIAXONE 1 GM in DEXTROSE 5%-WATER - 50 ML IVPB SCH (10:42)
[2017-02-16] MEDS: CINACALCET HCL 30 MG TAB (FP) PO SCH (10:43)
[2017-02-16] MEDS: MULTIVITAMINS (DAILY MVI) TABLET (FP) PO SCH (10:43)
[2017-02-16] MEDS: TOPIRAMATE 100 MG TABLET PO SCH (10:43)
[2017-02-16] MEDS: PANTOPRAZOLE 40 MG TABLET (FP) PO SCH (10:43)
[2017-02-16] MEDS: POLYETHYLENE GLYCOL 3350 119 GM BTL PO SCH (10:44)
[2017-02-16] MEDS: NYSTATIN/TRIAMCINOLONE TOPICAL CREAM 15 GM TUBE TP SCH (10:44)
--- NOTE | 2017-02-16 13:44 | PN ---
Progress Note (short form) - Note Progress Note: Pt is awake alert In NAD Unable to give history Vital Signs Period Temp Pulse Resp BP Sys/Messer Pulse Ox Last 24 Hr 97.7 F-99.0 F 71-92 20-20 107-142/61-97 94 PE: Awake, alert, confused HEENT: EOMI Neck: supple Lungs: CTA Abd: Benign Ext: No edema Neuro: Unable to access CMP Sodium 144 mmol/L (136-145) 02/15/17 06:45 Potassium 3.3 mmol/L (3.5-5.1) L 02/15/17 06:45 Chloride 112 mmol/L (98-107) H 02/15/17 06:45 Carbon Dioxide 21 mmol/L (21-32) 02/15/17 06:45 Anion Gap 11 (8-16) 02/15/17 06:45 BUN 8 mg/dL (7-18) 02/15/17 06:45 Creatinine 0.7 mg/dL (0.55-1.02) 02/15/17 06:45 Creat Clearance w eGFR > 60 (>60) 02/15/17 06:45 Random Glucose 105 mg/dL (74-106) 02/15/17 06:45 Serum Osmolality 322 mosm/kg (278-305) H 02/12/17 05:15 Lactic Acid 1.1 mmol/L (0.4-2.0) 02/09/17 12:40 Calcium 7.8 mg/dL (8.5-10.1) L 02/15/17 06:45 Ionized Calcium 7.1 mg/dL (4.5-5.6) H 02/09/17 12:00 Magnesium 1.8 mg/dL (1.8-2.4) 02/08/17 16:39 Total Bilirubin 0.8 mg/dL (0.2-1.0) D 02/15/17 06:45 AST 22 U/L (15-37) 02/15/17 06:45 ALT 18 U/L (12-78) 02/15/17 06:45 Alkaline Phosphatase 120 U/L (45-117) H 02/15/17 06:45 Ammonia 55.11 umol/L (11-32) H 02/10/17 06:00 LD Total 172 U/L (84-246) 02/10/17 06:00 Creatine Kinase Cancelled 02/08/17 14:30 Troponin I Cancelled 02/08/17 14:30 B-Natriuretic Peptide 507.31 pg/ml (5-125) H 02/08/17 16:39 Total Protein 5.4 g/dl (6.4-8.2) L 02/15/17 06:45 Albumin 2.2 g/dl (3.4-5.0) L 02/15/17 06:45 Aldosterone 2.6 NG/DL (0.0-30.0) 02/10/17 06:00 Vitamin B12 1751 pg/ml (180-914) H 02/11/17 05:10 Folate 1074 ng/mL (>498) 02/11/17 05:10 Folate Hemolysate 435.9 ng/mL (Not Estab.) 02/11/17 05:10 TSH 0.04 uIU/ml (0.358-3.74) L 02/10/17 06:00 Free T4 1.23 ng/dl (0.76-1.46) 02/11/17 05:10 PTH Intact 274 pg/mL (15-65) H 02/10/17 06:00 Current Medications Generic Name Dose Route Start Last Admin Trade Name Freq PRN Reason Stop Dose Admin Acetaminophen 650 mg 02/12/17 19:25 Tylenol - PO Q4H PRN FEVER OR PAIN Al Hydroxide/Mg Hydroxide 30 ml 02/12/17 19:25 Mylanta Oral Suspension - PO Q8H PRN DYSPEPSIA Amino Acids 30 ml 02/12/17 22:00 02/16/17 10:42 Prosource No Carb Liquid Pkt PO 30 ml BID ROLAN Administration Cinacalcet 30 mg 02/14/17 22:00 02/16/17 10:43 Sensipar - PO 30 mg BID ROLAN Administration Ceftriaxone Sodium 1 gm/ 50 mls @ 100 mls/hr 02/12/17 13:30 02/16/17 10:42 Dextrose IVPB 100 mls/hr DAILY ROLAN Administration Levothyroxine Sodium 100 mcg/ 225 mcg 02/13/17 07:00 02/16/17 06:30 Levothyroxine Sodium 125 mcg PO 225 mcg DAILY@0700 ROLAN Administration Magnesium Hydroxide 30 ml 02/12/17 19:25 Milk Of Magnesia - PO DAILY PRN CONSTIPATION Multivitamins/Minerals/Vitamin C 1 tab 02/13/17 10:00 02/16/17 10:43 Tab-A-Vit - PO 1 tab DAILY ROLAN Administration Nystatin/Triamcinolone Acetonide 1 applic 02/14/17 13:30 02/16/17 10:44 Mycolog Ii Cream - TP 1 applic BID ROLAN Administration Pantoprazole Sodium 40 mg 02/13/17 10:00 02/16/17 10:43 Protonix - PO 40 mg DAILY ROLAN Administration Polyethylene Glycol 17 gm 02/13/17 10:00 02/16/17 10:44 Miralax (For Daily Use) - PO Not Given DAILY ROLAN Quetiapine Fumarate 300 mg 02/13/17 22:00 02/16/17 10:42 Seroquel - PO 300 mg BID ROLAN Administration Topiramate 100 mg 02/12/17 22:00 02/16/17 10:43 Topamax - PO 100 mg BID ROLAN Administration AP: AMS Hypothyrodism: TSH 0.04 withFT4 of 1.27. Pt has been refusing to take levothyroxine. Will need to check TFT once pt is on it continuously for at least 4 weeks and adjust dose as necessary. Continue LT$ 225 for now Hypercalcemia Hyperparathyroidism: Primary vs Ixonia associated Hyperparathyroidism Bipolar disorder Hypernatremia: resolved . PTH 274 Calcium 7.8 yesterday, corrected around 9.3 On Sensipar to 30 mg BID as calcium level trending down even though she refused to take 3 doses in last 3 days. Improving calcium probably secondary to improving hydration with Sodium level now down to 144 from 160 and because Ixonia was stopped. D/C Sensipar for now Repeat Calcium in the [place] in the next few days. . If Ixonia is restarted, she will need to be restarted on Sensipar. If she it not, monitor Calcium in a few days and restart Sensipar if the calcium starts rising Will f/u Problem List - Problems (1) Change in mental status Code(s): R41.82 - ALTERED MENTAL STATUS, UNSPECIFIED Qualifiers: Altered mental status type: delirium Qualified Code(s): R41.0 - Disorientation, unspecified; R41.0 - Disorientation, unspecified (2) Hypercalcemia Code(s): E83.52 - HYPERCALCEMIA (3) Hypernatremia Code(s): E87.0 - HYPEROSMOLALITY AND HYPERNATREMIA (4) UTI (urinary tract infection) Code(s): N39.0 - URINARY TRACT INFECTION, SITE NOT SPECIFIED Qualifiers: Urinary tract infection type: site unspecified Hematuria presence: with hematuria Qualified Code(s): N39.0 - Urinary tract infection, site not specified; N39.0 - Urinary tract infection, site not specified; R31.9 - Hematuria, unspecified; R31.9 - Hematuria, unspecified
--- NOTE | 2017-02-16 13:46 | PN ---
Progress Note (short form) - Note Progress Note: Awaiting discharge Spoke with Endocrinology Vital Signs - 24 hr 02/15/17 02/15/17 02/15/17 15:53 18:00 21:00 Temperature 98.2 F 98.2 F Pulse Rate 83 92 H Respiratory 20 20 Rate Blood Pressure 142/97 111/72 O2 Sat by Pulse 94 L Oximetry (%) 02/15/17 02/16/17 02/16/17 22:00 02:00 06:00 Temperature 99.0 F 97.7 F 97.9 F Pulse Rate 71 87 86 Respiratory 20 20 20 Rate Blood Pressure 107/61 129/66 127/69 O2 Sat by Pulse Oximetry (%) Current Medications Generic Name Dose Route Start Last Admin Trade Name Freq PRN Reason Stop Dose Admin Acetaminophen 650 mg 02/12/17 19:25 Tylenol - PO Q4H PRN FEVER OR PAIN Al Hydroxide/Mg Hydroxide 30 ml 02/12/17 19:25 Mylanta Oral Suspension - PO Q8H PRN DYSPEPSIA Amino Acids 30 ml 02/12/17 22:00 02/16/17 10:42 Prosource No Carb Liquid Pkt PO 30 ml BID ROLAN Administration Cinacalcet 30 mg 02/14/17 22:00 02/16/17 10:43 Sensipar - PO 30 mg BID ROLAN Administration Ceftriaxone Sodium 1 gm/ 50 mls @ 100 mls/hr 02/12/17 13:30 02/16/17 10:42 Dextrose IVPB 100 mls/hr DAILY ROLAN Administration Levothyroxine Sodium 100 mcg/ 225 mcg 02/13/17 07:00 02/16/17 06:30 Levothyroxine Sodium 125 mcg PO 225 mcg DAILY@0700 ROLAN Administration Magnesium Hydroxide 30 ml 02/12/17 19:25 Milk Of Magnesia - PO DAILY PRN CONSTIPATION Multivitamins/Minerals/Vitamin C 1 tab 02/13/17 10:00 02/16/17 10:43 Tab-A-Vit - PO 1 tab DAILY ROLAN Administration Nystatin/Triamcinolone Acetonide 1 applic 02/14/17 13:30 02/16/17 10:44 Mycolog Ii Cream - TP 1 applic BID ROLAN Administration Pantoprazole Sodium 40 mg 02/13/17 10:00 02/16/17 10:43 Protonix - PO 40 mg DAILY ROLAN Administration Polyethylene Glycol 17 gm 02/13/17 10:00 02/16/17 10:44 Miralax (For Daily Use) - PO Not Given DAILY ROLAN Quetiapine Fumarate 300 mg 02/13/17 22:00 02/16/17 10:42 Seroquel - PO 300 mg BID ROLAN Administration Topiramate 100 mg 02/12/17 22:00 02/16/17 10:43 Topamax - PO 100 mg BID ROLAN Administration S1 S2 RRR Lungs decreased Abd- soft, obese No edema PLAN DC Sensipar as calcium levels have decreased-- likely elevated due to [place] Since [place] is discontinued-- pt more awake and alert Calcium levels better Sodium better DC to NH when bed available Problem List - Problems (1) Change in mental status Code(s): R41.82 - ALTERED MENTAL STATUS, UNSPECIFIED Qualifiers: Altered mental status type: delirium Qualified Code(s): R41.0 - Disorientation, unspecified; R41.0 - Disorientation, unspecified (2) Hypercalcemia Code(s): E83.52 - HYPERCALCEMIA (3) Hypernatremia Code(s): E87.0 - HYPEROSMOLALITY AND HYPERNATREMIA (4) UTI (urinary tract infection) Code(s): N39.0 - URINARY TRACT INFECTION, SITE NOT SPECIFIED Qualifiers: Urinary tract infection type: site unspecified Hematuria presence: with hematuria Qualified Code(s): N39.0 - Urinary tract infection, site not specified; N39.0 - Urinary tract infection, site not specified; R31.9 - Hematuria, unspecified; R31.9 - Hematuria, unspecified (5) Sepsis Code(s): A41.9 - SEPSIS, UNSPECIFIED ORGANISM (6) Thrombocytopenia Code(s): D69.6 - THROMBOCYTOPENIA, UNSPECIFIED (7) Metabolic encephalopathy Code(s): G93.41 - METABOLIC ENCEPHALOPATHY
[2017-02-16 15:15] VITALS: BP 103/58; PULSE 66; TEMP 98.2
== END 2017-02-16 13:45 | DRG 640 ==
LOC: JER 13:35 → JERBED 16:49 → J4W 18:32 → J8W 02-12 15:31
PROVIDERS: ADMIT Internal Medicine; ATTEND Internal Medicine
DX: E87.0 Hyperosmolality and hypernatremia (principal); G92 Toxic encephalopathy; N39.0 Urinary tract infection, site not specified; D68.9 Coagulation defect, unspecified; R41.82 Altered mental status, unspecified; E83.52 Hypercalcemia; D69.6 Thrombocytopenia, unspecified; E03.9 Hypothyroidism, unspecified; F31.9 Bipolar disorder, unspecified; E87.6 Hypokalemia; K76.0 Fatty (change of) liver, not elsewhere classified; E78.5 Hyperlipidemia, unspecified; F41.9 Anxiety disorder, unspecified; D72.829 Elevated white blood cell count, unspecified
CPT/HCPCS: 36415; 70450-TC; 71010-TC; 76700-TC; 80048; 80053; 80164; 80178; 81003; 81015; 82040; 82088; 82140; 82330; 82607; 82747; 82803; 83605; 83615; 83735; 83880; 83930; 83935; 83970; 84439; 84443; 85014; 85025; 85027; 85384; 85610; 85730; 87040; 87086; 88300-TC; 93005; 93010; 97161-GP; 99285-25

== ENCOUNTER 2017-04-28 13:32 | Inpatient (IN) | payer OTHER ==
[2017-04-28] MEDS ORDERED: ACETAMINOPHEN INJECTION 100 ML IVPB ONE (13:48)
[2017-04-28 14:10] LABS: HEMATOCRIT 35.5 % (32.4-45.2); HEMOGLOBIN 11.2 GM/dL (10.7-15.3); MCH 37.5 pg (25.7-33.7); MCHC 31.4 g/dl (32.0-36.0); MEAN CELL VOLUME 119.4 fl (80-96); RBC 2.97 M/mm3 (3.60-5.2); RDW 15.1 % (11.6-15.6); WHITE BLOOD COUNT 21.6 K/mm3 (4.0-10.0)
[2017-04-28 14:31] LABS: URINE APPEARANCE CLOUDY; URINE BILIRUBIN NEGATIVE (NEGATIVE); URINE BLOOD 1+ (NEGATIVE); URINE COLOR AMBER; URINE GLUCOSE (UA) NEGATIVE (NEGATIVE); URINE KETONE NEGATIVE (NEGATIVE); URINE NITRITE NEGATIVE (NEGATIVE); URINE UROBILINOGEN NEGATIVE mg/dL (0.2-1.0)
[2017-04-28 14:35] LABS: URINE LEUK ESTERASE 3+ (NEGATIVE); URINE PROTEIN 2+ (NEGATIVE)
[2017-04-28 14:45] LABS: VENOUS PH 7.4 (7.32-7.42)
[2017-04-28 14:46] LABS: ALBUMIN 2.1 g/dl (3.4-5.0); ANION GAP 18 (8-16); BLOOD UREA NITROGEN 29 mg/dL (7-18); CALCIUM 8.3 mg/dL (8.5-10.1); CHLORIDE 112 mmol/L (98-107); CO2 15 mmol/L (21-32); CREATININE 2.5 mg/dL (0.55-1.02); GLUCOSE,RANDOM 75 mg/dL (74-106); SGOT/AST 60 U/L (15-37); SGPT/ALT 23 U/L (12-78); SODIUM 145 mmol/L (136-145)
[2017-04-28 14:46] LABS: CALCIUM OXALATE CRYSTALS RARE /hpf (NONE SEEN); EPI CELLS RARE /HPF (FEW); URINE BACTERIA MODERATE /hpf (NONE SEEN); URINE MUCUS RARE
[2017-04-28 14:48] LABS: ALK PHOS 109 U/L (45-117); BILIRUBIN,TOTAL 0.4 mg/dL (0.2-1.0); TOT PROT 5.8 g/dl (6.4-8.2)
[2017-04-28] MEDS ORDERED: SODIUM CHLORIDE 3,000 ML IV STA (15:33)
--- NOTE | 2017-04-28 15:33 | PDOC ---
Attending Attestation - Resident Resident Name: Darren Baeza - ED Attending Attestation I have performed the following: I have examined & evaluated the patient, The case was reviewed & discussed with the resident, I agree w/resident's findings & plan, Exceptions are as noted - HPI HPI: 71 yo F history hypothyroid, hyperlipidemia, bipolar, anxiety, seizure disorders presents with AMS. As per EMS, [facility] She complained of difficulty breathing earlier in the day, otherwise unable to obtain any further history due to AMS. - Physicial Exam PE: GENERAL: Lethargic, limited verbal responses. Responds to noxious stimuli. HEAD: No signs of trauma EYES: PERRLA, EOMI, sclera anicteric, conjunctiva clear ENT: Auricles normal inspection, hearing grossly normal, nares patent, oropharynx clear without exudates. Dry mucosa. +Gag reflex. NECK: Normal ROM, supple, no lymphadenopathy, JVD, or masses LUNGS: Breath sounds equal, clear to auscultation bilaterally. No wheezes, and no crackles HEART: Regular rate and rhythm, normal S1 and S2, no murmurs, rubs or gallops ABDOMEN: Soft, nontender, normoactive bowel sounds. No guarding, no rebound. No masses EXTREMITIES: Normal range of motion, no edema. No clubbing or cyanosis. No cords, erythema, or tenderness NEUROLOGICAL: Limited by altered mental status. Moving all extremities. SKIN: Warm, Dry, normal turgor, no rashes or lesions noted. - Medical Decision Making Pt presents altered, lethargic. Found to have fever, hypotension, lactic acidosis, and UTI. Will admit to ICU for sepsis.
[2017-04-28] MEDS ORDERED: PIPERACILLIN/TAZOB 3.375 GM 50 ML IVPB ONE (15:34)
[2017-04-28] MEDS ORDERED: VANCOMYCIN 1 GRAM (PRE-DOCKED) 1,000 MG/250 ML BAG IVPB ONE (15:38)
[2017-04-28] MEDS ORDERED: PIPERACILLIN/TAZOB 3.375 GM 3.375 GM/50 ML BAG IVPB ONE (15:38)
--- NOTE | 2017-04-28 16:10 | PDOC ---
History of Present Illness - General History Source: EMS, Retirement Records Exam Limitations: Clinical Condition - History of Present Illness Initial Comments: 04/28/17 16:16 The patient is a 71F with a PMH of hypothyroidism, hyperlipidemia, bipolar disorder, anxiety disorder and seizure disorder with colostomy who presented to the ED via EMS after being found unresponsive at her nursing facility. The history is provided by EMS and her longterm records. Around 1225 today she was having difficulty breathing at her longterm while eating. They took her to her room and gave her O2 therapy and called EMS. When EMS arrived, she was unresponsive and brought to our ED. <Darren Baeza - Last Filed: 04/28/17 17:05> <Brigette Kaiser - Last Filed: 05/04/17 12:22> - General Chief Complaint: SIRS, Suspected/Possible Stated Complaint: UNRESPONSIVE Time Seen by Provider: 04/28/17 13:40 Past History - Past Medical History COPD: No Psychiatric Problems: Yes (bipolar anxiety) Seizures: Yes Thyroid Disease: Yes (HYPOTHYRODISM,) - Surgical History Abdominal Surgery: Yes (COLOSTOMY) GI Surgery: (colostomy) Neurologic Surgery: Yes - Immunization History Immunization Up to Date: No - Suicide/Smoking/Psychosocial Hx Smoking History: Never smoked Number of Cigarettes Smoked Daily: 0 Hx Alcohol Use: No Drug/Substance Use Hx: No Substance Use Type: None <Darren Baeza - Last Filed: 04/28/17 17:05> <Brigette Kaiser - Last Filed: 05/04/17 12:22> - Past Medical History Allergies/Adverse Reactions: Allergies Allergy/AdvReac Type Severity Reaction Status Date / Time chocolate flavor Allergy Verified 02/08/17 14:47 Home Medications: Ambulatory Orders Amino Acids/Protein Hydrolys [Pro-Stat Awc Liquid] 30 ml PO BID 02/08/17 Docusate Sodium [Dulcolax Stool Softener] 200 mg PO HS 02/08/17 Levothyroxine [Synthroid -] 225 mcg PO DAILY 02/08/17 Mag Hydrox/Al Hydrox/Simeth [Mylanta Oral Suspension -] 30 ml PO Q8H PRN Magnesium Hydrox 2400MG/30Ml [Milk of Magnesia -] 30 ml PO DAILY PRN 02/08/17 Multivitamin with Minerals [Icaps Plus] 1 each PO DAILY 02/08/17 Pantoprazole Sodium 40 mg PO DAILY 02/08/17 Polyethylene Glycol 3350 [Miralax 119 gm Btl -] 17 gm PO DAILY 02/08/17 Quetiapine Fumarate [Seroquel -] 300 mg PO BID 02/08/17 Topiramate [Topamax] 100 mg PO Q12H 02/08/17 Nystatin/Triamcinolone Top Cr [Mycolog II Cream -] 1 applic TP BID #0 applic 11/24 Cinacalcet HCl [Sensipar] 30 mg PO BID 04/28/17 Divalproex Sprinkle [Depakote Sprinkle Caps -] 125 mg PO BID 04/28/17 Leonidas Carbonate [Eskalith -] 300 mg PO HS 04/28/17 Bisacodyl Suppository [Dulcolax Suppository -] 1 supp WA DAILY PRN 04/29/17 Mupirocin Cream [Bactroban 2% Cream -] 1 applic TP HS 04/29/17 Review of Systems - Review of Systems Able to Perform ROS?: No (Clinical condition) <Darren Baeza - Last Filed: 04/28/17 17:05> *Physical Exam - Vital Signs Last Vital Signs Temp Pulse Resp BP Pulse Ox 103.1 F H 111 H 38 H 80/54 99 04/28/17 13:40 04/28/17 15:00 04/28/17 15:00 04/28/17 15:00 04/28/17 15:00 - Physical Exam Comments: 04/28/17 16:52 GENERAL: Obese, lethargic. Mildly responsive. HEENT: Normocephalic, atraumatic. Hearing grossly normal. NECK: Supple. Full ROM. No JVD. CARDIOVASCULAR: Regular rate and rhythm. No murmurs, rubs, or gallops. Distal pulses are 2+ and symmetric. PULMONARY: B/l rhonchi in all lung boyce. ABDOMINAL: Soft. Non-tender. Non-distended. No rebound or guarding. Colostomy pouch present. MUSCULOSKELETAL: Normal range of motion at all joints. No bony deformities or tenderness. EXTREMITIES: No cyanosis. No clubbing. No edema. No calf tenderness. SKIN: Warm and dry. Normal capillary refill. No rashes. No jaundice. NEUROLOGICAL: Lethargic, mildly responsive, moving all 4 extremities equally. PSYCHIATRIC: Not cooperative. <MigelalbertoRossy caseyDarren - Last Filed: 04/28/17 17:05> - Vital Signs Last Vital Signs Temp Pulse Resp BP Pulse Ox 97.4 F L 84 20 122/71 98 05/04/17 10:00 05/04/17 10:50 05/04/17 10:00 05/04/17 10:00 05/04/17 10:50 <Brigette Kaiser - Last Filed: 05/04/17 12:22> Procedures - Central Line Central Line Lumen: triple Central Line Position: internal jugular (L) Anesthesia: 1% Lidocaine Complications: none Post Central Line Insertion: sutured, good blood return, position confirmed w/ CXR <Darren Baeza - Last Filed: 04/28/17 17:05> Heart Score/ECG Review #1 ECG reviewed & interpreted by me at: 16:55 General ECG Interpretation: Sinus Rhythm, Normal Rate, Normal Intervals, No acute ischemic changes Compared to previous ECG there are: No significant change <Darren Baeza - Last Filed: 04/28/17 17:05> ED Treatment Course - LABORATORY CBC & Chemistry Diagram: 04/28/17 13:55 04/28/17 13:55 - ADDITIONAL ORDERS Additional order review: Laboratory Results 04/28/17 04/28/17 04/28/17 15:11 14:35 14:13 PT with INR INR PTT (Actin FS) VBG pH 7.40 POC VBG pCO2 25.0 L D POC VBG pO2 133.0 H D Mixed VBG HCO3 15.1 L Sodium Potassium Chloride Carbon Dioxide Anion Gap BUN Creatinine Creat Clearance w eGFR Random Glucose Lactic Acid Calcium Total Bilirubin AST ALT Alkaline Phosphatase Creatine Kinase Creatine Kinase Index CK-MB (CK-2) Troponin I Total Protein Albumin Urine Color Michelle Urine Appearance Cloudy Urine pH 5.0 Ur Specific Eckley 1.014 Urine Protein 2+ H Urine Glucose (UA) Negative Urine Ketones Negative Urine Blood 1+ H Urine Nitrite Negative Urine Bilirubin Negative Urine Urobilinogen Negative Urine WBC (Auto) 241 Urine RBC (Auto) 4 Ur Epithelial Cells Rare Calcium Oxalate Crystal Rare Urine Bacteria Moderate Urine Mucus Rare Blood Type O POSITIVE Antibody Screen Negative 04/28/17 04/28/17 04/28/17 13:55 13:55 13:55 PT with INR Cancelled INR Cancelled PTT (Actin FS) Cancelled VBG pH POC VBG pCO2 POC VBG pO2 Mixed VBG HCO3 Sodium 145 Potassium 4.0 D Chloride 112 H Carbon Dioxide 15 L D Anion Gap 18 H BUN 29 H D Creatinine 2.5 H D Creat Clearance w eGFR 18.93 Random Glucose 75 D Lactic Acid 7.2 H* Calcium 8.3 L Total Bilirubin 0.4 D AST 60 H D ALT 23 D Alkaline Phosphatase 109 Creatine Kinase 1206 H Creatine Kinase Index 1.0 CK-MB (CK-2) 13.257 H Troponin I 0.04 Total Protein 5.8 L Albumin 2.1 L Urine Color Urine Appearance Urine pH Ur Specific Eckley Urine Protein Urine Glucose (UA) Urine Ketones Urine Blood Urine Nitrite Urine Bilirubin Urine Urobilinogen Urine WBC (Auto) Urine RBC (Auto) Ur Epithelial Cells Calcium Oxalate Crystal Urine Bacteria Urine Mucus Blood Type Antibody Screen 04/28/17 13:55 RBC 2.97 L MCV 119.4 H MCHC 31.4 L RDW 15.1 MPV 10.0 Neutrophils % No Result Required. Lymphocytes % No Result Required. <Darren Baeza - Last Filed: 04/28/17 17:05> - LABORATORY CBC & Chemistry Diagram: 05/04/17 10:31 05/04/17 10:31 - ADDITIONAL ORDERS Additional order review: 04/28/17 15:11 Urine Culture - Final Urine - Urine Geiger Escherichia Coli Vr Ec Faecalis 04/28/17 13:41 Blood Culture - Final Blood - Peripheral Venous Escherichia Coli 04/28/17 13:41 Blood Culture - Final Blood - Peripheral Venous Escherichia Coli 04/28/17 13:55 RBC 2.97 L MCV 119.4 H MCHC 31.4 L RDW 15.1 MPV 10.0 Neutrophils % No Result Required. Lymphocytes % No Result Required. - Medications Given in the ED: ED Medications Discontinued Medications Generic Name Dose Route Start Last Admin Trade Name Freq PRN Reason Stop Dose Admin Amino Acids 30 ml 04/29/17 17:30 05/02/17 18:45 Prosource No Carb Liquid Pkt PO 30 ml BIDWM ROLAN Administration Chlorhexidine Gluconate 1 applic 04/28/17 22:00 12/23/17 21:59 Hibiclens For Decolonization - TP Not Given HS ROLAN Cinacalcet 30 mg 04/29/17 22:00 05/02/17 21:54 Sensipar - PO 30 mg BID ROLAN Administration Divalproex Sodium 125 mg 04/29/17 22:00 05/02/17 21:32 Depakote Sprinkle Caps - PO 125 mg BID ROLAN Administration Docusate Sodium 200 mg 04/29/17 22:00 04/29/17 22:32 Colace - PO 200 mg HS ROLAN Administration Docusate Sodium 200 mg 04/29/17 22:45 05/02/17 21:54 Colace Liquid - PO 200 mg HS ROLAN Administration Heparin Sodium (Porcine) 5,000 unit 04/28/17 22:00 04/30/17 05:59 Heparin - SQ 5,000 unit TID ROLAN Administration Hydrocortisone Sodium Succinate 50 mg 04/29/17 03:00 04/30/17 09:23 Solu-Cortef - IVPB 50 mg Q6H-IV ROLAN Administration Hydrocortisone Sodium Succinate 50 mg 04/30/17 22:00 05/01/17 21:37 Solu-Cortef - IVPB 50 mg BID ROLAN Administration Hydrocortisone Sodium Succinate 25 mg 05/02/17 11:00 05/02/17 23:00 Solu-Cortef - IVPB 05/03/17 22:01 25 mg BID ROLAN Administration Hydrocortisone Sodium Succinate 25 mg 05/03/17 10:00 05/03/17 22:03 Solu-Cortef - IVPUSH 05/03/17 22:01 25 mg BID ROLAN Administration Sodium Chloride 3,000 mls @ 1,000 mls/hr 04/28/17 15:33 04/28/17 13:50 Normal Saline - IV 04/28/17 18:32 1,000 mls/hr ASDIR STA Administration Piperacillin/Tazobactam/Dextrose 50 mls @ 100 mls/hr 04/28/17 15:34 04/28/17 15:40 Zosyn 3.375gm Ivpb (Premix) IVPB 04/28/17 16:03 100 mls/hr ONCE ONE Administration Protocol Vancomycin HCl 1,000 mg/ 250 mls @ 250 mls/hr 04/28/17 16:23 04/28/17 16:47 Dextrose IVPB 250 mls/hr BID ROLAN Administration Protocol Norepinephrine Bitartrate 8, 500 mls @ 18.75 mls/hr 04/28/17 17:15 05/01/17 21:35 000 mcg/ Dextrose IV Not Given TITR ROLAN Protocol 5 MCG/MIN Sodium Chloride 1,000 mls @ 100 mls/hr 04/28/17 17:45 04/30/17 18:14 Normal Saline - IV 100 mls/hr ASDIR ROLAN Administration Vancomycin HCl 1,500 mg/ 500 mls @ 250 mls/hr 04/29/17 16:30 04/29/17 17:25 Dextrose IVPB 04/29/17 18:29 250 mls/hr ONCE ONE Administration Protocol Piperacillin/Tazobactam/Dextrose 2.25 gm in 50 mls @ 100 mls/hr 04/28/17 20: 00 04/29/17 06:50 Zosyn 2.25gm Ivpb (Premix) IVPB 04/29/17 04:29 100 mls/hr Q8H ROLAN Administration Vasopressin 50 units/ Sodium 100 mls @ 4.8 mls/hr 04/28/17 23:30 05/02/17 03: 43 Chloride IVPB Not Given ASDIR ROLAN Protocol 2.4 UNITS/HR Piperacillin Sod/Tazobactam 100 mls @ 200 mls/hr 04/29/17 12:15 05/01/17 10: 29 Sod 3.375 gm/ Dextrose IVPB 200 mls/hr Q8H-IV ROLAN Administration Protocol Potassium Chloride 30 meq/ 300 mls @ 100 mls/hr 04/30/17 09:00 04/30/17 08:49 Sodium Chloride IVPB 04/30/17 11:59 100 mls/hr ONCE ONE Administration Potassium Chloride 10 meq in 100 mls @ 100 mls/hr 05/01/17 10:15 05/01/17 11: 35 Potassium Chloride 10 Meq Premix Ivpb - IVPB 05/01/17 13:14 100 mls/hr Q60M ROLAN Administration Ceftriaxone Sodium 2 gm/ 100 mls @ 200 mls/hr 05/01/17 14:15 05/02/17 10:50 Dextrose IVPB 200 mls/hr DAILY ROLAN Administration Vancomycin HCl 1,500 mg/ 500 mls @ 250 mls/hr 05/02/17 09:10 05/02/17 10:35 Dextrose IVPB 05/02/17 11:09 250 mls/hr ONCE ONE Administration Protocol Dextrose 1,000 mls @ 100 mls/hr 05/02/17 11:34 05/03/17 12:30 D5w - IV Not Given ASDIR ROLAN Dextrose 1,000 mls @ 75 mls/hr 05/03/17 11:57 05/03/17 16:40 D5w - IV 75 mls/hr ASDIR ROLAN Administration Levothyroxine Sodium 225 mcg 04/29/17 10:00 05/02/17 10:49 Synthroid - PO 225 mcg DAILY ROLAN Administration Leonidas Carbonate 300 mg 04/29/17 22:00 04/30/17 22:38 Eskalith - PO 300 mg HS ROLAN Administration Magnesium Sulfate 2 gm 04/29/17 15:45 04/29/17 15:49 Magnesium Sulfate IVPB 04/29/17 15:46 2 gm ONCE ONE Administration Magnesium Sulfate 2 gm 05/01/17 10:01 05/01/17 11:21 Magnesium Sulfate IVPB 05/01/17 10:02 2 gm ONCE ONE Administration Mupirocin 1 applic 04/28/17 22:00 05/02/17 21:59 Bactroban Ointment (For Decolonization) - NS 05/03/17 21:59 Not Given BID ROLAN Pantoprazole Sodium 40 mg 04/30/17 10:00 05/02/17 10:49 Protonix - PO 40 mg DAILY ROLAN Administration Polyethylene Glycol 17 gm 04/30/17 10:00 05/02/17 11:04 Miralax (For Daily Use) - PO 17 gm DAILY ROLAN Administration Potassium Chloride 40 meq 05/01/17 10:00 05/01/17 10:57 K-Dur - PO 05/01/17 10:01 40 meq ONCE ONE Administration Quetiapine Fumarate 300 mg 04/29/17 22:00 04/29/17 23:06 Seroquel - PO 300 mg BID ROLAN Administration Topiramate 100 mg 04/29/17 22:00 05/02/17 10:50 Topamax - PO 100 mg BID ROLAN Administration <Brigette Kaiser - Last Filed: 05/04/17 12:22> Medical Decision Making - Medical Decision Making 04/28/17 16:42 The patient is a 71F with an extensive PMH who presented unresponsive and lethargic with a systolic BP in the 60's. She was resuscitated and found to have a temp of 103. Sepsis protocol is being followed. I placed a central line in her L IJ and CXR confirmed placement. 3 L's of fluid have been given. 3 more have been ordered. UA significant for UTI. Will start pressors if 3 more liters do not improve BP and AMS. 04/28/17 16:44 WBC 21.6 Lactate of 7.2. Hospitalist microblogged. 04/28/17 16:55 Hospitalist has seen patient, agrees with ICU admission. ICU attending microblogged. 04/28/17 17:[address] Zamora who accepts admission. Dr. Anderson is hospitalist who accepts admission. Orders for ICU placed. Patient not responding to 4-5th liters. Will place order for levophed. <Darren Baeza - Last Filed: 04/28/17 17:05> - Critical Care Time Total Critical Care Time (minutes): 45 Critical Care Statement: The care of this patient involved high complexity decision making to prevent further life threatening deterioration of the patient 's condition and/or to evaluate & treat vital organ system(s) failure or risk of failure. <Brigette Kaiser - Last Filed: 05/04/17 12:22> *DC/Admit/Observation/Transfer - Discharge Dispostion Admit: Yes <Darren Baeza - Last Filed: 04/28/17 17:05> <Brigette Kaiser - Last Filed: 05/04/17 12:22> Diagnosis at time of Disposition: Septic shock - Discharge Dispostion Condition at time of disposition: Stable
[2017-04-28] MEDS ORDERED: VANCOMYCIN 1,000 MG in DEXTROSE 5%-WATER - 250 ML IVPB SCH ×2 (16:23→22:00)
[2017-04-28] MEDS: NOREPINEPHRINE BITARTRATE 8,000 MCG in DEXTROSE 5%-WATER - 492 ML IV SCH (17:23)
--- NOTE | 2017-04-28 17:40 | HP ---
CHIEF COMPLAINT: Unresponsive PCP: Dr. Beltran HISTORY OF PRESENT ILLNESS: Unable to obtain information from patient due to medical condition. All information obtained from ED staff and Records. Patient is a 71 year old female from [facility] with a PMHx of Hypothyroidism, seizure disorder, Bipolar disorder, anxiety, Frequent UTI's and colostomy bag placement who was BIBEMS after being found unresponsive at the nursing facility. According to EMS around 12:25 this afternoon patient was having difficulty breathing while trying to eat her lunch. They took her into the bedroom, gave her oxygen and called EMS. Upon arrival, EMS found patient lethargic and unresponsive, however she was still able to maintain her respiratory drive. ER course was notable for: (1) Patient found to have septic shock with elevated leukocytosis, tachy, fevers , hypotension and lactic acidosis (2) IJ placed for possible pressors anf fluid resuscitation (3) Chest X-ray revealing possible consolidation Recent Travel: Unable to obtain due to patients medical condition PAST MEDICAL HISTORY: Unable to obtain due to patients medical condition PAST SURGICAL HISTORY:Unable to obtain due to patients medical condition Social History: Unable to obtain due to patients medical condition Family History: Unable to obtain due to patients medical condition Allergies: chocolate flavor Allergy (Verified 02/08/17 14:47) HOME MEDICATIONS: Home Medications Medication Instructions Recorded Amino Acids/Protein Hydrolys 30 ml PO BID 02/08/17 [Pro-Stat Awc Liquid] Docusate Sodium [Dulcolax Stool 200 mg PO HS 02/08/17 Softener] Levothyroxine [Synthroid -] 225 mcg PO DAILY 02/08/17 Mag Hydrox/Al Hydrox/Simeth 30 ml PO Q8H PRN 02/08/17 [Mylanta Oral Suspension -] Magnesium Hydrox 2400MG/30Ml [Milk 30 ml PO DAILY PRN 02/08/17 of Magnesia -] Multivitamin with Minerals [Icaps 1 each PO DAILY 02/08/17 Plus] Pantoprazole Sodium 40 mg PO DAILY 02/08/17 Polyethylene Glycol 3350 [Miralax 17 gm PO DAILY 02/08/17 119 gm Btl -] Quetiapine Fumarate [Seroquel -] 300 mg PO BID 02/08/17 Topiramate [Topamax] 100 mg PO Q12H 02/08/17 Cephalexin Monohydrate [Keflex -] 500 mg PO Q8H #9 capsule 02/14/17 Nystatin/Triamcinolone Top Cr 1 applic TP BID #0 applic 02/14/17 [Mycolog II Cream -] REVIEW OF SYSTEMS Unable to obtain due to patients medical condition PHYSICAL EXAMINATION Vital Signs - 24 hr 04/28/17 04/28/17 04/28/17 13:40 13:50 14:05 Temperature 103.1 F H Pulse Rate 119 H Pulse Rate [ 112 H 109 H Apical] Respiratory 40 H 38 H 44 H Rate Blood Pressure 71/56 Blood Pressure 85/57 83/58 [Left Arm] Blood Pressure [Right Calf] O2 Sat by Pulse 88 L 97 94 L Oximetry (%) 04/28/17 04/28/17 04/28/17 14:15 14:30 15:00 Temperature Pulse Rate Pulse Rate [ 106 H 106 H 111 H Apical] Respiratory 38 H 34 H 38 H Rate Blood Pressure Blood Pressure 71/57 70/50 [Left Arm] Blood Pressure 80/54 [Right Calf] O2 Sat by Pulse 98 99 99 Oximetry (%) 04/28/17 04/28/17 04/28/17 15:35 15:45 16:00 Temperature Pulse Rate Pulse Rate [ 102 H 93 H 94 H Apical] Respiratory 26 H 24 22 Rate Blood Pressure Blood Pressure 65/34 [Left Arm] Blood Pressure 92/47 58/48 [Right Calf] O2 Sat by Pulse 95 94 L 93 L Oximetry (%) 04/28/17 04/28/17 04/28/17 16:10 16:20 17:23 Temperature Pulse Rate 90 Pulse Rate [ 91 H 96 H Apical] Respiratory 20 24 Rate Blood Pressure 75/39 Blood Pressure 67/44 71/37 [Left Arm] Blood Pressure [Right Calf] O2 Sat by Pulse 97 96 Oximetry (%) GENERAL: Lethargic, responsive to painful stimuli from sternal rub HEAD: Normal with no signs of trauma. EYES: Pupils equal, round and reactive to light, extraocular movements intact, sclera anicteric, conjunctiva clear. No lid lag. EARS, NOSE, THROAT: Moist mucous membranes. NECK: (-) JVD LUNGS: Decreased breath sounds and bilateral rhochi's throughout lung bases bilaterally. Coughing throughout physical examination. On HEART: Tachycardic with regular rhythm, normal S1 and S2 without murmur, rub or gallop. ABDOMEN: Soft, Obese, nontender, not distended, normoactive bowel sounds, colostomy bag in place with no erythema surrounding the area and no guarding, no rebound, no masses. MUSCULOSKELETAL: No CVA tenderness. UPPER EXTREMITIES: No peripheral edema. LOWER EXTREMITIES: No peripheral edema. NEUROLOGICAL: Unable to assess due to patient being lethargic. 2+ dp and radial pulses bilaterally. 2+ knee reflexes bilaterally PSYCHIATRIC: lethargic and unresponsive . SKIN: Warm, dry, normal turgor, no rashes or lesions noted, normal capillary refill. Laboratory Results - last 24 hr 04/28/17 04/28/17 04/28/17 13:55 13:55 13:55 WBC 21.6 H D RBC 2.97 L Hgb 11.2 Hct 35.5 MCV 119.4 H MCH 37.5 H MCHC 31.4 L RDW 15.1 MPV 10.0 Neutrophils % No Result Required. Lymphocytes % No Result Required. PT with INR Cancelled INR Cancelled PTT (Actin FS) Cancelled VBG pH POC VBG pCO2 POC VBG pO2 Mixed VBG HCO3 Sodium 145 Potassium 4.0 D Chloride 112 H Carbon Dioxide 15 L D Anion Gap 18 H BUN 29 H D Creatinine 2.5 H D Creat Clearance w eGFR 18.93 Random Glucose 75 D Lactic Acid Calcium 8.3 L Total Bilirubin 0.4 D AST 60 H D ALT 23 D Alkaline Phosphatase 109 Creatine Kinase 1206 H Creatine Kinase Index 1.0 CK-MB (CK-2) 13.257 H Troponin I 0.04 Total Protein 5.8 L Albumin 2.1 L Urine Color Urine Appearance Urine pH Ur Specific [place] Urine Protein Urine Glucose (UA) Urine Ketones Urine Blood Urine Nitrite Urine Bilirubin Urine Urobilinogen Urine WBC (Auto) Urine RBC (Auto) Ur Epithelial Cells Calcium Oxalate Crystal Urine Bacteria Urine Mucus Blood Type Antibody Screen 04/28/17 04/28/17 04/28/17 13:55 14:13 14:35 WBC RBC Hgb Hct MCV MCH MCHC RDW MPV Neutrophils % Lymphocytes % PT with INR INR PTT (Actin FS) VBG pH 7.40 POC VBG pCO2 25.0 L D POC VBG pO2 133.0 H D Mixed VBG HCO3 15.1 L Sodium Potassium Chloride Carbon Dioxide Anion Gap BUN Creatinine Creat Clearance w eGFR Random Glucose Lactic Acid 7.2 H* Calcium Total Bilirubin AST ALT Alkaline Phosphatase Creatine Kinase Creatine Kinase Index CK-MB (CK-2) Troponin I Total Protein Albumin Urine Color Michelle Urine Appearance Cloudy Urine pH 5.0 Ur Specific [place] 1.014 Urine Protein 2+ H Urine Glucose (UA) Negative Urine Ketones Negative Urine Blood 1+ H Urine Nitrite Negative Urine Bilirubin Negative Urine Urobilinogen Negative Urine WBC (Auto) 241 Urine RBC (Auto) 4 Ur Epithelial Cells Rare Calcium Oxalate Crystal Rare Urine Bacteria Moderate Urine Mucus Rare Blood Type Antibody Screen 04/28/17 04/28/17 15:11 16:25 WBC RBC Hgb Hct MCV MCH MCHC RDW MPV Neutrophils % Lymphocytes % PT with INR Cancelled INR Cancelled PTT (Actin FS) VBG pH POC VBG pCO2 POC VBG pO2 Mixed VBG HCO3 Sodium Potassium Chloride Carbon Dioxide Anion Gap BUN Creatinine Creat Clearance w eGFR Random Glucose Lactic Acid Calcium Total Bilirubin AST ALT Alkaline Phosphatase Creatine Kinase Creatine Kinase Index CK-MB (CK-2) Troponin I Total Protein Albumin Urine Color Urine Appearance Urine pH Ur Specific [place] Urine Protein Urine Glucose (UA) Urine Ketones Urine Blood Urine Nitrite Urine Bilirubin Urine Urobilinogen Urine WBC (Auto) Urine RBC (Auto) Ur Epithelial Cells Calcium Oxalate Crystal Urine Bacteria Urine Mucus Blood Type O POSITIVE Antibody Screen Negative IMAGES Chest X-Ray (04/28/17): Small pleural effusions & Bibasilar atelectasis or consolidation. ASSESSMENT/PLAN: Patient is a 71 year old female who was BIBEMS after being found unresponsive. Patient was found to have Septic Shock and admitted for further monitoring and management. Septic Shock Secondary to UTI -Rule out Aspiration PNA/HCAP -Patient found to have Tachycardia >90, Rectal temperature of >103, Leukocytosis >20, Lactic acidosis >7, Hypotension unresponsive to fluid resuscitation of 4 liters. U/A revealed moderate bacteria and WBC >200 and 3+ leukocyte esterase -Renally dosed IV Antibiotics with Zosyn 2.25mg Q8H and Vancomycin 1500mg Q24H with random vanco in the morning. Patient was admitted within 90 day period and lives in senior care. Abx coverage for UTI/PNA includes anaerobic and staph coverage -IV NS @100mls/hr -Urine legionella, mycoplasma pneumonia IgM, and sputum cultures ordered -HOB -ABG ordered -Repeat Lactic ordered -Blood and urine cultures pending -Levophed started due to patient remaining hypotensive after fluid resuscitation -Repeat CXR in the AM -Monitor in ICU Elevated Anion Gap -Likely secondary to Lactic acidosis -Continue IV fluids with NS @100mls/hr -Continue to monitor ORAL -Likely secondary to hypoperfusion/hypovolemia from Sepsis -Creatinine 2.5. Last creatinine 0.7 on 02/2017 -Urine electrolytes ordered -Kidney U/S ordered -Continue to trend -Avoid nephrotoxic medications and renally dose medications Hypothyroidism -TSH ordered -Continue Synthroid 225mcg every morning Seizure Disorder -Continue Topomax 100mcg Q12H Bipolar Disorder/Anxiety -Will hold medications due to patient being unresponsive F/E/N -IV NS @100mls/hr -Elevtrolytes wnl -NPO Prophylaxis -Heparin 5000 units SQ Q8H -No GI required Disposition -Full code -Admit to ICU. Will remain inpatient Visit type - Emergency Visit Emergency Visit: Yes ED Registration Date: 04/28/17 Care time: The patient presented to the Emergency Department on the above date and was hospitalized for further evaluation of their emergent condition. - New Patient This patient is new to me today: Yes Date on this admission: 04/28/17 - Critical Care Critical Care patient: Yes Total Critical Care Time (in minutes): 45 Critical Care Statement: The care of this patient involved high complexity decision making to prevent further life threatening deterioration of the patient 's condition and/or to evaluate & treat vital organ system(s) failure or risk of failure.
[2017-04-28] MEDS: SODIUM CHLORIDE 1,000 ML IV SCH (17:49)
[2017-04-28] MEDS ORDERED: PIPERACILLIN/TAZOB 2.25 GM/50 ML PREMIX BAG IVPB SCH ×2 (18:00→20:00)
[2017-04-28 19:57] LABS: ANISOCYTOSIS 1+; MACROCYTOSIS 3+; PLATELET ESTIMATE SLT DECREASE
--- NOTE | 2017-04-28 20:54 | EKG ---
Test Reason : Blood Pressure : / mmHG Vent. Rate : 112 BPM Atrial Rate : 112 BPM P-R Int : 146 ms QRS Dur : 078 ms QT Int : 328 ms P-R-T Axes : 047 -51 070 degrees QTc Int : 447 ms SINUS TACHYCARDIA LEFT ANTERIOR FASCICULAR BLOCK ABNORMAL ECG WHEN COMPARED WITH ECG OF 08-FEB-2017 14:53, CRITERIA FOR SEPTAL INFARCT ARE NO LONGER PRESENT Confirmed by MD JERO, DOMONIQUE ([id number]) on 04/28/2017 8:54:16 PM Referred By: Confirmed By:DOMONIQUE NOGUEIRA MD
[2017-04-28 21:14] LABS: INR 1.29 (0.82-1.09); PROTHROMBIN TIME (PATIENT) 14.6 SEC (9.98-11.88)
[2017-04-28] MEDS: PIPERACILLIN/TAZOB 2.25 GM 2.25 GM/50 ML BAG IVPB SCH (21:30)
--- NOTE | 2017-04-28 22:33 | CONSULT ---
Consult Consult Specialty:: Pulm/CCM Reason for Consultation:: Septic Shock - History of Present Illness History of Present Illness: 71 helen [facility] resident with PMHx of Hypothyroidism, seizure disorder, Bipolar disorder, anxiety,regular UTI's, bowel obstruction s/p colostomy placement who was BIBEMS after being found unresponsive. According to EMS around 12:25 called for SOB during po intake. EMS found patient lethargic and unresponsive, however she was still able to maintain her respiratory drive. In ED T 103.1, HR 119, RR 40, BP 71/56, O2 sat 88%. Labs notable WBC 21.6, 50% neuts 21% Bands, lact 7.2, BUN/Creat 29/2.5. CK 1206, Trop 0.04. 6L Fluid bolus given. Lt IJ TLC placed, Levo drip started to 15mcg/min. Chest X-ray notable for possible BLL consolidation. Urine WBC 241. Started on Zosyn and vanco and transferred to ICU for further management. - History Source History Provided By: Medical Record Limitations to Obtaining History: Unresponsive - Past Medical History ORDER SELECTOR: Yes: Seizure Cardio/Vascular: Yes: Hyperlipdemia Gastrointestinal: Yes: Other (Colostomy) Psych: Yes: Anxiety, Bipolar Endocrine: Yes: Hypothyroidism - Alcohol/Substance Use Hx Alcohol Use: No - Smoking History Smoking history: Never smoked Aproximately how many cigarettes per day: 0 - Social History Usual Living Arrangement: Care Home Home Medications - Allergies Allergies/Adverse Reactions: Allergies Allergy/AdvReac Type Severity Reaction Status Date / Time chocolate flavor Allergy Verified 02/08/17 14:47 - Home Medications Home Medications: Ambulatory Orders Amino Acids/Protein Hydrolys [Pro-Stat Awc Liquid] 30 ml PO BID 02/08/17 Docusate Sodium [Dulcolax Stool Softener] 200 mg PO HS 02/08/17 Levothyroxine [Synthroid -] 225 mcg PO DAILY 02/08/17 Mag Hydrox/Al Hydrox/Simeth [Mylanta Oral Suspension -] 30 ml PO Q8H PRN Magnesium Hydrox 2400MG/30Ml [Milk of Magnesia -] 30 ml PO DAILY PRN 02/08/17 Multivitamin with Minerals [Icaps Plus] 1 each PO DAILY 02/08/17 Pantoprazole Sodium 40 mg PO DAILY 02/08/17 Polyethylene Glycol 3350 [Miralax 119 gm Btl -] 17 gm PO DAILY 02/08/17 Quetiapine Fumarate [Seroquel -] 300 mg PO BID 02/08/17 Topiramate [Topamax] 100 mg PO Q12H 02/08/17 Nystatin/Triamcinolone Top Cr [Mycolog II Cream -] 1 applic TP BID #0 applic 11/24 Cinacalcet HCl [Sensipar] 30 mg PO BID 04/28/17 Divalproex Sprinkle [Depakote Sprinkle Caps -] 125 mg PO BID 04/28/17 [place] Carbonate [Eskalith -] 300 mg PO HS 04/28/17 Family Disease History - Family Disease History Family History: Unable to Obtain Review of Systems Unable to obtain ROS, reason: Unresponsive Physical Exam Vital Signs: Vital Signs Temperature 99.2 F 04/28/17 21:15 Pulse Rate 102 H 04/28/17 21:15 Respiratory Rate 20 04/28/17 21:15 Blood Pressure 104/43 04/28/17 21:15 O2 Sat by Pulse Oximetry (%) 98 04/28/17 21:15 Constitutional: Yes: No Distress, Obese Eyes: Yes: Conjunctiva Clear HENT: Yes: Atraumatic, Normocephalic Neck: Yes: Trachea Midline Cardiovascular: Yes: Regular Rate and Rhythm, S1, S2 Respiratory: Yes: Diminished (Diminished BLL) Gastrointestinal: Yes: Soft, Abdomen, Obese Renal/: Yes: Geiger Present Extremities: Yes: WNL Edema: No Peripheral Pulses WNL: Yes Integumentary: Yes: WNL, Other (incontinence dermatitis) Neurological: Yes: Unresponsive (Opens eyes to voice, not following commands) Labs: CBC, BMP 04/28/17 13:55 04/28/17 13:55 CBC,CMP WBC 21.6 K/mm3 (4.0-10.0) H D 04/28/17 13:55 RBC 2.97 M/mm3 (3.60-5.2) L 04/28/17 13:55 Hgb 11.2 GM/dL (10.7-15.3) 04/28/17 13:55 Hct 35.5 % (32.4-45.2) 04/28/17 13:55 MCV 119.4 fl (80-96) H 04/28/17 13:55 MCH 37.5 pg (25.7-33.7) H 04/28/17 13:55 MCHC 31.4 g/dl (32.0-36.0) L 04/28/17 13:55 RDW 15.1 % (11.6-15.6) 04/28/17 13:55 Plt Count No Result Required. 04/28/17 13:55 MPV 10.0 fl (7.5-11.1) 04/28/17 13:55 Total Counted 100 04/28/17 13:55 Neutrophils % No Result Required. 04/28/17 13:55 Neutrophils % (Manual) 50.0 % (42.8-82.8) 04/28/17 13:55 Band Neutrophils % 21.0 % 04/28/17 13:55 Lymphocytes % No Result Required. 04/28/17 13:55 Lymphocytes % (Manual) 5.0 % (8-40) L D 04/28/17 13:55 Monocytes % (Manual) 11 % (3.8-10.2) H 04/28/17 13:55 Myelocytes % (Man) 9 % (0-2) H D 04/28/17 13:55 Nucleated RBC % 1 % (0-0) H 04/28/17 13:55 Metamyelocytes 4 % (0-2) H D 04/28/17 13:55 Differential Comment Man diff performed 04/28/17 13:55 Platelet Estimate Slt decrease 04/28/17 13:55 Platelet Comment 04/28/17 13:55 Polychromasia 1+ 04/28/17 13:55 Anisocytosis 1+ 04/28/17 13:55 Macrocytosis 3+ 04/28/17 13:55 Sodium 145 mmol/L (136-145) 04/28/17 13:55 Potassium 4.0 mmol/L (3.5-5.1) D 04/28/17 13:55 Chloride 112 mmol/L (98-107) H 04/28/17 13:55 Carbon Dioxide 15 mmol/L (21-32) L D 04/28/17 13:55 Anion Gap 18 (8-16) H 04/28/17 13:55 BUN 29 mg/dL (7-18) H D 04/28/17 13:55 Creatinine 2.5 mg/dL (0.55-1.02) H D 04/28/17 13:55 Creat Clearance w eGFR 18.93 (>60) 04/28/17 13:55 Random Glucose 75 mg/dL (74-106) D 04/28/17 13:55 Lactic Acid 2.0 mmol/L (0.4-2.0) 04/28/17 19:15 Calcium 8.3 mg/dL (8.5-10.1) L 04/28/17 13:55 Total Bilirubin 0.4 mg/dL (0.2-1.0) D 04/28/17 13:55 AST 60 U/L (15-37) H D 04/28/17 13:55 ALT 23 U/L (12-78) D 04/28/17 13:55 Alkaline Phosphatase 109 U/L (45-117) 04/28/17 13:55 Creatine Kinase 1206 IU/L (26-192) H 04/28/17 13:55 Creatine Kinase Index 1.0 % (0.0-5.0) 04/28/17 13:55 CK-MB (CK-2) 13.257 ng/mL (0.5-3.6) H 04/28/17 13:55 Troponin I 0.04 ng/ml (0.00-0.05) 04/28/17 13:55 Total Protein 5.8 g/dl (6.4-8.2) L 04/28/17 13:55 Albumin 2.1 g/dl (3.4-5.0) L 04/28/17 13:55 TSH 0.07 uIU/ml (0.358-3.74) L D 04/28/17 19:15 Free T4 0.81 ng/dl (0.76-1.46) D 04/28/17 19:15 Current Medications Chlorhexidine Gluconate (Hibiclens For Decolonization -) 1 applic TP HS ROLAN Heparin Sodium (Porcine) (Heparin -) 5,000 unit SQ TID ROLAN Norepinephrine Bitartrate 8, (000 mcg/ Dextrose) 500 mls @ 18.75 mls/hr IV TITR ROLAN; 5 MCG/MIN PRN Reason: Protocol Last Titration: 04/28/17 20:09 Dose: 15 mcg/min, 56.25 mls/hr Sodium Chloride (Normal Saline -) 1,000 mls @ 100 mls/hr IV ASDIR ROLAN Last Admin: 04/28/17 17:49 Dose: 100 mls/hr Vancomycin HCl 1,500 mg/ (Dextrose) 500 mls @ 250 mls/hr IVPB ONCE ONE PRN Reason: Protocol Stop: 04/29/17 18:29 Piperacillin/Tazobactam/Dextrose (Zosyn 2.25gm Ivpb (Premix)) 2.25 gm in 50 mls @ 100 mls/hr IVPB Q8H ROLAN Stop: 04/29/17 04:29 Vancomycin HCl 1,000 mg/ (Dextrose) 250 mls @ 250 mls/hr IVPB BID ROLAN PRN Reason: Protocol Mupirocin (Bactroban Ointment (For Decolonization) -) 1 applic NS BID ROLAN Stop: 05/03/17 21:59 Piperacillin/Tazobactam/Dextrose (Zosyn 2.25gm Ivpb (Premix)) 2.25 gm IVPB Q8H- IV ROLAN INR, PTT INR 1.29 (0.82-1.09) H 04/28/17 19:15 Vital Signs Period Temp Pulse Resp BP Sys/Messer Pulse Ox Last 24 Hr 98.5 F-103.1 F 81-119 17-44 58-106/34-58 88-100 Imaging - Results Chest X-ray: Report Reviewed (Bilat effusions; BL atelectasisvs consolidation) Problem List - Problems (1) Septic shock Code(s): A41.9 - SEPSIS, UNSPECIFIED ORGANISM; R65.21 - SEVERE SEPSIS WITH SEPTIC SHOCK (2) Change in mental status Code(s): R41.82 - ALTERED MENTAL STATUS, UNSPECIFIED Qualifiers: Altered mental status type: delirium Qualified Code(s): R41.0 - Disorientation, unspecified (3) Hypercalcemia Code(s): E83.52 - HYPERCALCEMIA (4) Metabolic encephalopathy Code(s): G93.41 - METABOLIC ENCEPHALOPATHY (5) Sepsis Code(s): A41.9 - SEPSIS, UNSPECIFIED ORGANISM (6) UTI (urinary tract infection) Code(s): N39.0 - URINARY TRACT INFECTION, SITE NOT SPECIFIED Qualifiers: Urinary tract infection type: site unspecified Hematuria presence: with hematuria Qualified Code(s): N39.0 - Urinary tract infection, site not specified Assessment/Plan 71 helen PMHx of HLD, hypothyroidism, seizure disorder, Bipolar disorder, anxiety ,regular UTI's, bowel obstruction s/p colostomy who was BIBEMS after being found unresponsive. IN ED pt hypotensive and hypoxic rec'd 6L fluid bolus, started on vasopressors and placed on HiFlo NC O2. Transferred to ICU with septic shock 2/2 UTI +/- aspiration+/- aspiration PNA Plan: Resp:Hypoxic respiratory dysfunction requiring HiFlo 60%, 56L; ? fluid overload with fluid bouses -HiFlo NCo2 for O2 sat >92% -ABG -Pulm toilet -Aspiration precautions CV: Septic shock -Cont Levophed -Add Vasopressin 2.4 u/h -Sepsis dose steroids hydrocort 50 q6 -IVF -Trend Lactate -Hold antihypertensives -TTE ID:sepsis 2/2 UTI +/- HCAP vs aspiration PNA -trend WBC and temps -F/u cxls -ID consult -Con empiric Zosyn and vanco Renal:ORAL in setting of sepsis -Monitor BMP and UOP -Adequate hydration -Renal dose meds proph: Hep SQ PPI Silvestre Hayden, ACNP CC Time 35mins
[2017-04-28 23:20] VITALS: BMI 34.9
[2017-04-28] MEDS ORDERED: HYDROCORTISONE SOD SUCCINATE 2 ML ONE (23:27)
[2017-04-28] MEDS ORDERED: VASOPRESSIN 20 UNITS/ML VIAL IV ONE (23:27)
[2017-04-28] MEDS ORDERED: HYDROCORTISONE SOD SUCCINATE 100 MG/2 ML VIAL IVPB SCH (23:30)
[2017-04-28] MEDS: MUPIROCIN 2% TOPICAL OINTMENT FOR DECOLONIZATION NS SCH (23:37)
[2017-04-28] MEDS: HEPARIN NA (PORCINE) 5,000 UNITS/ML 1ML VIAL SQ SCH (23:37)
[2017-04-28] MEDS: CHLORHEXIDINE GLUCONATE 4% CLEANSER FOR DECOLONIZATION TP SCH (23:38)
[2017-04-28] MEDS: VASOPRESSIN 50 UNITS in SODIUM CHLORIDE 97.5 ML IVPB SCH (23:38)
[2017-04-28] MEDS: HYDROCORTISONE SOD SUCCINATE 100 MG/2 ML VIAL IVPB SCH (23:39)
[2017-04-29] MEDS ORDERED: NOREPINEPHRINE BITARTRATE 4 MG/4 ML ML IV ONE ×2 (03:00→14:23)
[2017-04-29 06:35] LABS: HEMOGLOBIN 9.8 GM/dL (10.7-15.3); MCH 38.4 pg (25.7-33.7); MCHC 31.5 g/dl (32.0-36.0); MEAN CELL VOLUME 121.6 fl (80-96); MEAN PLT VOLUME 10.2 fl (7.5-11.1); PLATELET COUNT 81 K/MM3 (134-434); RBC 2.55 M/mm3 (3.60-5.2); RDW 15.6 % (11.6-15.6); WHITE BLOOD COUNT 20.2 K/mm3 (4.0-10.0)
[2017-04-29 06:42] LABS: ADD RBC MORPHOLOGY YES
[2017-04-29 06:50] LABS: INR 1.38 (0.82-1.09); PROTHROMBIN TIME (PATIENT) 15.6 SEC (9.98-11.88)
[2017-04-29] MEDS: PIPERACILLIN/TAZOB 2.25 GM 2.25 GM/50 ML BAG IVPB SCH (06:50)
[2017-04-29] MEDS: HEPARIN NA (PORCINE) 5,000 UNITS/ML 1ML VIAL SQ SCH ×3 (06:52→22:32)
[2017-04-29] MEDS: HYDROCORTISONE SOD SUCCINATE 100 MG/2 ML VIAL IVPB SCH ×4 (06:52→22:31)
[2017-04-29 06:53] LABS: ACTIVATED PTT 28.3 SECONDS (26.9-34.4)
[2017-04-29 07:03] LABS: ALBUMIN 1.7 g/dl (3.4-5.0); ANION GAP 14 (8-16); BLOOD UREA NITROGEN 31 mg/dL (7-18); CALCIUM 7.4 mg/dL (8.5-10.1); CHLORIDE 115 mmol/L (98-107); CO2 16 mmol/L (21-32); GLUCOSE,RANDOM 155 mg/dL (74-106); MAGNESIUM 1.2 mg/dL (1.8-2.4); SODIUM 145 mmol/L (136-145)
[2017-04-29 07:06] LABS: ALK PHOS 83 U/L (45-117); BILIRUBIN,TOTAL 0.3 mg/dL (0.2-1.0); PHOSPHOROUS 4.6 mg/dL (2.5-4.9); SGOT/AST 119 U/L (15-37); SGPT/ALT 42 U/L (12-78)
[2017-04-29 07:30] LABS: ARTERIAL BLD GAS O2 SATURATION 98.1 % (90-98.9); ARTERIAL BLOOD GAS BASE EXCESS -9.8 meq/l (-2-2); ARTERIAL BLOOD GAS PCO2 33.6 mmHg (35-45); ARTERIAL BLOOD GAS pH 7.29 (7.35-7.45)
[2017-04-29 07:36] LABS: ALLENS TEST POSITIVE
[2017-04-29] MEDS: MUPIROCIN 2% TOPICAL OINTMENT FOR DECOLONIZATION NS SCH ×2 (09:09→22:32)
[2017-04-29] MEDS: LEVOTHYROXINE NA 75 MCG TABLET (FP) PO SCH (10:36)
--- NOTE | 2017-04-29 11:32 | PN ---
Physical Exam: SUBJECTIVE: Patient seen and examined, slightly more arouseable than yesterday as per nurse. No fever over night. wbc count still in 20s; sating 100%on NC. OBJECTIVE: Vital Signs Period Temp Pulse Resp BP Sys/Messer Pulse Ox Last 24 Hr 97.2 F-103.1 F 74-119 15-44 58-140/34-81 88-100 GENERAL: The patient is lethargic LUNGS: decreased Breath sounds equal, clear to auscultation bilaterally, no wheezes, no crackles, no accessory muscle use. HEART: Regular rate and rhythm, S1, S2 without murmur, rub or gallop. ABDOMEN: Soft, nontender, nondistended, normoactive bowel sounds, no guarding, no rebound, no hepatosplenomegaly, no masses. EXTREMITIES: 2+ pulses, warm, well-perfused, no edema. Laboratory Results - last 24 hr 04/28/17 04/28/17 04/28/17 13:55 13:55 13:55 WBC 21.6 H D RBC 2.97 L Hgb 11.2 Hct 35.5 MCV 119.4 H MCH 37.5 H MCHC 31.4 L RDW 15.1 Plt Count No Result Required. MPV 10.0 Total Counted 100 Neutrophils % No Result Required. Neutrophils % (Manual) 50.0 Band Neutrophils % 21.0 Lymphocytes % No Result Required. Lymphocytes % (Manual) 5.0 L D Monocytes % (Manual) 11 H Myelocytes % (Man) 9 H D Nucleated RBC % 1 H Metamyelocytes 4 H D Differential Comment Man diff performed Platelet Estimate Slt decrease Platelet Comment Polychromasia 1+ Anisocytosis 1+ Macrocytosis 3+ PT with INR Cancelled INR Cancelled PTT (Actin FS) Cancelled Anticoagulation Therapy Puncture Site Patient Temperature ABG pH ABG pCO2 at Pt Temp ABG pO2 at Pt Temp ABG HCO3 ABG O2 Sat (Measured) ABG O2 Content ABG Base Excess Gilberto Test VBG pH POC VBG pCO2 POC VBG pO2 Mixed VBG HCO3 O2 Delivery Device Oxygen Flow Rate Vent Mode Vent Rate Mechanical Rate Pressure Support Vent Sodium 145 Potassium 4.0 D Chloride 112 H Carbon Dioxide 15 L D Anion Gap 18 H BUN 29 H D Creatinine 2.5 H D Creat Clearance w eGFR 18.93 Random Glucose 75 D Lactic Acid Calcium 8.3 L Phosphorus Magnesium Total Bilirubin 0.4 D AST 60 H D ALT 23 D Alkaline Phosphatase 109 Creatine Kinase 1206 H Creatine Kinase Index 1.0 CK-MB (CK-2) 13.257 H Troponin I 0.04 Total Protein 5.8 L Albumin 2.1 L TSH Free T4 Urine Color Urine Appearance Urine pH Ur Specific Francis Urine Protein Urine Glucose (UA) Urine Ketones Urine Blood Urine Nitrite Urine Bilirubin Urine Urobilinogen Ur Leukocyte Esterase Urine WBC (Auto) Urine RBC (Auto) Ur Epithelial Cells Calcium Oxalate Crystal Urine Bacteria Urine Mucus Random Vancomycin Blood Type Antibody Screen 04/28/17 04/28/17 04/28/17 13:55 14:13 14:35 WBC RBC Hgb Hct MCV MCH MCHC RDW Plt Count MPV Total Counted Neutrophils % Neutrophils % (Manual) Band Neutrophils % Lymphocytes % Lymphocytes % (Manual) Monocytes % (Manual) Myelocytes % (Man) Nucleated RBC % Metamyelocytes Differential Comment Platelet Estimate Platelet Comment Polychromasia Anisocytosis Macrocytosis PT with INR INR PTT (Actin FS) Anticoagulation Therapy Puncture Site Patient Temperature ABG pH ABG pCO2 at Pt Temp ABG pO2 at Pt Temp ABG HCO3 ABG O2 Sat (Measured) ABG O2 Content ABG Base Excess Gilberto Test VBG pH 7.40 POC VBG pCO2 25.0 L D POC VBG pO2 133.0 H D Mixed VBG HCO3 15.1 L O2 Delivery Device Oxygen Flow Rate Vent Mode Vent Rate Mechanical Rate Pressure Support Vent Sodium Potassium Chloride Carbon Dioxide Anion Gap BUN Creatinine Creat Clearance w eGFR Random Glucose Lactic Acid 7.2 H* Calcium Phosphorus Magnesium Total Bilirubin AST ALT Alkaline Phosphatase Creatine Kinase Creatine Kinase Index CK-MB (CK-2) Troponin I Total Protein Albumin TSH Free T4 Urine Color Michelle Urine Appearance Cloudy Urine pH 5.0 Ur Specific Francis 1.014 Urine Protein 2+ H Urine Glucose (UA) Negative Urine Ketones Negative Urine Blood 1+ H Urine Nitrite Negative Urine Bilirubin Negative Urine Urobilinogen Negative Ur Leukocyte Esterase 3+ H Urine WBC (Auto) 241 Urine RBC (Auto) 4 Ur Epithelial Cells Rare Calcium Oxalate Crystal Rare Urine Bacteria Moderate Urine Mucus Rare Random Vancomycin Blood Type Antibody Screen 04/28/17 04/28/17 04/28/17 15:11 16:25 16:30 WBC RBC Hgb Hct MCV MCH MCHC RDW Plt Count MPV Total Counted Neutrophils % Neutrophils % (Manual) Band Neutrophils % Lymphocytes % Lymphocytes % (Manual) Monocytes % (Manual) Myelocytes % (Man) Nucleated RBC % Metamyelocytes Differential Comment Platelet Estimate Platelet Comment Polychromasia Anisocytosis Macrocytosis PT with INR Cancelled INR Cancelled PTT (Actin FS) Anticoagulation Therapy Puncture Site Patient Temperature ABG pH ABG pCO2 at Pt Temp ABG pO2 at Pt Temp ABG HCO3 ABG O2 Sat (Measured) ABG O2 Content ABG Base Excess Gilberto Test VBG pH POC VBG pCO2 POC VBG pO2 Mixed VBG HCO3 O2 Delivery Device Oxygen Flow Rate Vent Mode Vent Rate Mechanical Rate Pressure Support Vent Sodium Potassium Chloride Carbon Dioxide Anion Gap BUN Creatinine Creat Clearance w eGFR Random Glucose Lactic Acid 2.9 H* Calcium Phosphorus Magnesium Total Bilirubin AST ALT Alkaline Phosphatase Creatine Kinase Creatine Kinase Index CK-MB (CK-2) Troponin I Total Protein Albumin TSH Free T4 Urine Color Urine Appearance Urine pH Ur Specific Francis Urine Protein Urine Glucose (UA) Urine Ketones Urine Blood Urine Nitrite Urine Bilirubin Urine Urobilinogen Ur Leukocyte Esterase Urine WBC (Auto) Urine RBC (Auto) Ur Epithelial Cells Calcium Oxalate Crystal Urine Bacteria Urine Mucus Random Vancomycin Blood Type O POSITIVE Antibody Screen Negative 04/28/17 04/28/17 04/28/17 19:15 19:15 19:15 WBC RBC Hgb Hct MCV MCH MCHC RDW Plt Count MPV Total Counted Neutrophils % Neutrophils % (Manual) Band Neutrophils % Lymphocytes % Lymphocytes % (Manual) Monocytes % (Manual) Myelocytes % (Man) Nucleated RBC % Metamyelocytes Differential Comment Platelet Estimate Platelet Comment Polychromasia Anisocytosis Macrocytosis PT with INR 14.60 H INR 1.29 H PTT (Actin FS) Anticoagulation Therapy Puncture Site Patient Temperature ABG pH ABG pCO2 at Pt Temp ABG pO2 at Pt Temp ABG HCO3 ABG O2 Sat (Measured) ABG O2 Content ABG Base Excess Gilberto Test VBG pH POC VBG pCO2 POC VBG pO2 Mixed VBG HCO3 O2 Delivery Device Oxygen Flow Rate Vent Mode Vent Rate Mechanical Rate Pressure Support Vent Sodium Potassium Chloride Carbon Dioxide Anion Gap BUN Creatinine Creat Clearance w eGFR Random Glucose Lactic Acid 2.0 Calcium Phosphorus Magnesium Total Bilirubin AST ALT Alkaline Phosphatase Creatine Kinase Creatine Kinase Index CK-MB (CK-2) Troponin I Total Protein Albumin TSH 0.07 L D Free T4 0.81 D Urine Color Urine Appearance Urine pH Ur Specific Francis Urine Protein Urine Glucose (UA) Urine Ketones Urine Blood Urine Nitrite Urine Bilirubin Urine Urobilinogen Ur Leukocyte Esterase Urine WBC (Auto) Urine RBC (Auto) Ur Epithelial Cells Calcium Oxalate Crystal Urine Bacteria Urine Mucus Random Vancomycin Blood Type Antibody Screen 04/29/17 04/29/17 04/29/17 06:20 06:20 06:20 WBC 20.2 H RBC 2.55 L Hgb 9.8 L D Hct 31.0 L MCV 121.6 H MCH 38.4 H MCHC 31.5 L RDW 15.6 Plt Count 81 L MPV 10.2 Total Counted Neutrophils % No Result Required. Neutrophils % (Manual) Band Neutrophils % Lymphocytes % No Result Required. Lymphocytes % (Manual) Monocytes % (Manual) Myelocytes % (Man) Nucleated RBC % Metamyelocytes Differential Comment Platelet Estimate Platelet Comment Polychromasia Anisocytosis Macrocytosis PT with INR 15.60 H INR 1.38 H PTT (Actin FS) 28.3 D Anticoagulation Therapy Puncture Site Patient Temperature ABG pH ABG pCO2 at Pt Temp ABG pO2 at Pt Temp ABG HCO3 ABG O2 Sat (Measured) ABG O2 Content ABG Base Excess Gilberto Test VBG pH POC VBG pCO2 POC VBG pO2 Mixed VBG HCO3 O2 Delivery Device Oxygen Flow Rate Vent Mode Vent Rate Mechanical Rate Pressure Support Vent Sodium Potassium Chloride Carbon Dioxide Anion Gap BUN Creatinine Creat Clearance w eGFR Random Glucose Lactic Acid Calcium Phosphorus Magnesium Total Bilirubin AST ALT Alkaline Phosphatase Creatine Kinase Creatine Kinase Index CK-MB (CK-2) Troponin I Total Protein Albumin TSH Free T4 Urine Color Urine Appearance Urine pH Ur Specific Francis Urine Protein Urine Glucose (UA) Urine Ketones Urine Blood Urine Nitrite Urine Bilirubin Urine Urobilinogen Ur Leukocyte Esterase Urine WBC (Auto) Urine RBC (Auto) Ur Epithelial Cells Calcium Oxalate Crystal Urine Bacteria Urine Mucus Random Vancomycin 12.049 Blood Type Antibody Screen 04/29/17 04/29/17 06:20 07:19 WBC RBC Hgb Hct MCV MCH MCHC RDW Plt Count MPV Total Counted Neutrophils % Neutrophils % (Manual) Band Neutrophils % Lymphocytes % Lymphocytes % (Manual) Monocytes % (Manual) Myelocytes % (Man) Nucleated RBC % Metamyelocytes Differential Comment Platelet Estimate Platelet Comment Polychromasia Anisocytosis Macrocytosis PT with INR INR PTT (Actin FS) Anticoagulation Therapy Y Puncture Site Right radial Patient Temperature 37 ABG pH 7.29 L ABG pCO2 at Pt Temp 33.6 L ABG pO2 at Pt Temp 112.0 H ABG HCO3 15.5 L ABG O2 Sat (Measured) 98.1 ABG O2 Content 13.7 L ABG Base Excess -9.8 L Gilberto Test Positive VBG pH POC VBG pCO2 POC VBG pO2 Mixed VBG HCO3 O2 Delivery Device High flow 60 Oxygen Flow Rate 53% Vent Mode Y Vent Rate Y Mechanical Rate Y Pressure Support Vent Y Sodium 145 Potassium 4.0 Chloride 115 H Carbon Dioxide 16 L Anion Gap 14 BUN 31 H Creatinine 2.0 H Creat Clearance w eGFR 24.49 Random Glucose 155 H D Lactic Acid Calcium 7.4 L Phosphorus 4.6 Magnesium 1.2 L D Total Bilirubin 0.3 D AST 119 H D ALT 42 D Alkaline Phosphatase 83 D Creatine Kinase Creatine Kinase Index CK-MB (CK-2) Troponin I Total Protein 5.0 L Albumin 1.7 L TSH Free T4 Urine Color Urine Appearance Urine pH Ur Specific Francis Urine Protein Urine Glucose (UA) Urine Ketones Urine Blood Urine Nitrite Urine Bilirubin Urine Urobilinogen Ur Leukocyte Esterase Urine WBC (Auto) Urine RBC (Auto) Ur Epithelial Cells Calcium Oxalate Crystal Urine Bacteria Urine Mucus Random Vancomycin Blood Type Antibody Screen Active Medications Generic Name Dose Route Start Last Admin Trade Name Freq PRN Reason Stop Dose Admin Chlorhexidine Gluconate 1 applic 04/28/17 22:00 04/28/17 23:38 Hibiclens For Decolonization - TP 1 applic HS ROLAN Administration Heparin Sodium (Porcine) 5,000 unit 04/28/17 22:00 04/29/17 06:52 Heparin - SQ 5,000 unit TID ROLAN Administration Hydrocortisone Sodium Succinate 50 mg 04/29/17 03:00 04/29/17 09:03 Solu-Cortef - IVPB 50 mg Q6H-IV ROLAN Administration Norepinephrine Bitartrate 8, 500 mls @ 18.75 mls/hr 04/28/17 17:15 04/28/17 20:09 000 mcg/ Dextrose IV 15 mcg/min TITR ROLAN 56.25 mls/hr Protocol Titration 5 MCG/MIN Sodium Chloride 1,000 mls @ 100 mls/hr 04/28/17 17:45 04/28/17 17:49 Normal Saline - IV 100 mls/hr ASDIR ROLAN Administration Vancomycin HCl 1,500 mg/ 500 mls @ 250 mls/hr 04/29/17 16:30 Dextrose IVPB 04/29/17 18:29 ONCE ONE Protocol Vancomycin HCl 1,000 mg/ 250 mls @ 250 mls/hr 04/28/17 22:00 Dextrose IVPB BID ROLAN Protocol Vasopressin 50 units/ Sodium 100 mls @ 4.8 mls/hr 04/28/17 23:30 04/28/17 23: 38 Chloride IVPB 2.4 units/hr ASDIR ROLAN 4.8 mls/hr Protocol Administration 2.4 UNITS/HR Levothyroxine Sodium 225 mcg 04/29/17 10:00 04/29/17 10:36 Synthroid - PO 225 mcg DAILY ROLAN Administration Mupirocin 1 applic 04/28/17 22:00 04/29/17 09:09 Bactroban Ointment (For Decolonization) - NS 05/03/17 21:59 1 applic BID ROLAN Administration Piperacillin/Tazobactam/Dextrose 2.25 gm 04/28/17 20:00 Zosyn 2.25gm Ivpb (Premix) IVPB Q8H-IV ROLAN ASSESSMENT/PLAN: This is a 71 year old female with a history of hypothyroid, bipolar, seizure, who was found unresponsive at snf. Admitted for septic shock requiring pressers and stress steroids. #septic shock secondary gram negative bacteremia: -trend cbc, vitals, I/Os -CXR -f/u blood and urine cultures -cab d/v vanco due to gram neg source -keep zosyn until final culture -cont pressers maintain MAP >65 -IVF keep CV 10-12 -cont stress steroids # ORAL -most likely secondary to sepsis; improving -i/o, cr # hypothyroidism -continue Synthroid # seizure -continue Sensipar, Depakote, Topamax # bipolar -continue [place] and Seroquel # hypomagnesemia -repleted with Mg Sulfate IVPB 2g # FEN - Fluids: NS @ 100 ml/hr -npo DVT : heparin sub q Disposition: cont ICU monitoring Problem List - Problems (1) Bacteremia Code(s): R78.81 - BACTEREMIA (2) Septic shock Code(s): A41.9 - SEPSIS, UNSPECIFIED ORGANISM; R65.21 - SEVERE SEPSIS WITH SEPTIC SHOCK (3) Change in mental status Code(s): R41.82 - ALTERED MENTAL STATUS, UNSPECIFIED Qualifiers: Altered mental status type: delirium Qualified Code(s): R41.0 - Disorientation, unspecified (4) Metabolic encephalopathy Code(s): G93.41 - METABOLIC ENCEPHALOPATHY (5) Sepsis Code(s): A41.9 - SEPSIS, UNSPECIFIED ORGANISM (6) UTI (urinary tract infection) Code(s): N39.0 - URINARY TRACT INFECTION, SITE NOT SPECIFIED Qualifiers: Urinary tract infection type: site unspecified Hematuria presence: with hematuria Qualified Code(s): N39.0 - Urinary tract infection, site not specified Visit type - Emergency Visit Emergency Visit: Yes ED Registration Date: 04/28/17 Care time: The patient presented to the Emergency Department on the above date and was hospitalized for further evaluation of their emergent condition. - New Patient This patient is new to me today: Yes Date on this admission: 04/29/17 - Critical Care Critical Care patient: Yes Total Critical Care Time (in minutes): 35 Critical Care Statement: The care of this patient involved high complexity decision making to prevent further life threatening deterioration of the patient 's condition and/or to evaluate & treat vital organ system(s) failure or risk of failure.
--- NOTE | 2017-04-29 11:37 | PN ---
Teaching Attending Note Name of Resident: Zulma Peace ATTENDING PHYSICIAN STATEMENT I saw and evaluated the patient. I reviewed the resident's note and discussed the case with the resident. I agree with the resident's findings and plan as documented. SUBJECTIVE: Pt seen and examined in the ICU. Remains on levophed, vasopressin gtts. On high flow O2 with 60L/min and 50% FiO2. No further fevers from admission. Blood cultures growing gram negative bacilli. OBJECTIVE: Last Vital Signs Temp Pulse Resp BP Pulse Ox 98.5 F 74 18 108/55 98 04/29/17 10:00 04/29/17 10:00 04/29/17 10:00 04/29/17 10:00 04/29/17 07:35 Intake & Output 04/26/17 04/27/17 04/28/17 04/29/17 23:59 23:59 23:59 23:59 Intake Total 153 1196 Output Total 20 300 Balance 133 896 Weight 222 lb 10.67 oz 225 lb 1.6 oz Gen: lethargic but arousable Heart: RRR Lung: decreased breath sounds at the bases Abd: softly distended, nontender Ext: + edema CBC, BMP 04/29/17 06:20 04/29/17 06:20 Active Medications Chlorhexidine Gluconate (Hibiclens For Decolonization -) 1 applic TP HS ROLAN Last Admin: 04/28/17 23:38 Dose: 1 applic Heparin Sodium (Porcine) (Heparin -) 5,000 unit SQ TID ROLAN Last Admin: 04/29/17 06:52 Dose: 5,000 unit Hydrocortisone Sodium Succinate (Solu-Cortef -) 50 mg IVPB Q6H-IV ROLAN Last Admin: 04/29/17 09:03 Dose: 50 mg Norepinephrine Bitartrate 8, (000 mcg/ Dextrose) 500 mls @ 18.75 mls/hr IV TITR ROLAN; 5 MCG/MIN PRN Reason: Protocol Last Titration: 04/28/17 20:09 Dose: 15 mcg/min, 56.25 mls/hr Sodium Chloride (Normal Saline -) 1,000 mls @ 100 mls/hr IV ASDIR ROLAN Last Admin: 04/28/17 17:49 Dose: 100 mls/hr Vancomycin HCl 1,500 mg/ (Dextrose) 500 mls @ 250 mls/hr IVPB ONCE ONE PRN Reason: Protocol Stop: 04/29/17 18:29 Vancomycin HCl 1,000 mg/ (Dextrose) 250 mls @ 250 mls/hr IVPB BID ROLAN PRN Reason: Protocol Vasopressin 50 units/ Sodium (Chloride) 100 mls @ 4.8 mls/hr IVPB ASDIR ROLAN; 2.4 UNITS/HR PRN Reason: Protocol Last Admin: 04/28/17 23:38 Dose: 2.4 units/hr, 4.8 mls/hr Levothyroxine Sodium (Synthroid -) 225 mcg PO DAILY ROLAN Last Admin: 04/29/17 10:36 Dose: 225 mcg Mupirocin (Bactroban Ointment (For Decolonization) -) 1 applic NS BID ROLAN Stop: 05/03/17 21:59 Last Admin: 04/29/17 09:09 Dose: 1 applic Piperacillin/Tazobactam/Dextrose (Zosyn 2.25gm Ivpb (Premix)) 2.25 gm IVPB Q8H- IV ROLAN ASSESSMENT AND PLAN: Acute Hypoxic Respiratory Failure UTI Gram Negative Bacteremia Septic Shock Acute Kidney Injury Lactic Acidosis resolving Seizure Disorder Hypothyroidism Hyperlipidemia s/p colostomy - continue antibiotics - f/u cultures - titrate pressors to maintain MAP >65 - IVF to keep CVP 8-12 - continue stress dose steroids - monitor urine output, creatinine - taper flow rate, FiO2 to keep SpO2 >90% - aspiration precautions - trend cardiac enzymes - DVT prophylaxis - continue ICU monitoring critical care time spent in reviewing chart, evaluating patient and formulating plan 35 min
--- NOTE | 2017-04-29 12:09 | PN ---
Progress Note (short form) - Note Progress Note: ID Consult dictated Gram negative bacteremia/ sepsis/ Septic shock UTI/ Sepsis secondary to UTI Renal failure Thrombocytopenia Pending c/s empiric zosyn Hemodynamic support ICU monitoring
[2017-04-29 12:29] LABS: ANISOCYTOSIS 2+; MACROCYTOSIS 1+; PLATELET ESTIMATE DECREASED
[2017-04-29] MEDS: PIPERACILLIN/TAZOB 3.375 GM 3.375 GM in DEXTROSE 5%-WATER - 100 ML IVPB SCH ×2 (13:18→17:31)
[2017-04-29] MEDS ORDERED: VASOPRESSIN 20 UNITS/ML VIAL IV ONE ×2 (14:24→14:25)
[2017-04-29] MEDS ORDERED: BISACODYL 10 MG SUPP.RECT RC PRN (15:19)
[2017-04-29] MEDS ORDERED: MAG HYDROX/AL HYDROX/SIMETH 30 ML UNIT-DOSE CUP PO PRN (15:19)
[2017-04-29] MEDS ORDERED: MAGNESIUM HYDROX 2400MG/30ML ORAL SUSPENSION 30 ML CUP PO PRN (15:19)
[2017-04-29] MEDS ORDERED: MAGNESIUM SULF 50% (8.12 MEQ/2 ML-1 GM VIAL) IVPB ONE (15:45)
[2017-04-29] MEDS ORDERED: VANCOMYCIN 1,500 MG in DEXTROSE 5%-WATER - 500 ML IVPB ONE (16:30)
[2017-04-29] MEDS: NOREPINEPHRINE BITARTRATE 8,000 MCG in DEXTROSE 5%-WATER - 492 ML IV SCH (17:25)
[2017-04-29] MEDS: SODIUM CHLORIDE 1,000 ML IV SCH (17:26)
[2017-04-29] MEDS: AMINO ACIDS/PROTEIN HYDROLYS 30 ML LIQUID.PKT PO SCH (17:26)
--- NOTE | 2017-04-29 19:29 | PN ---
Teaching Attending Note Name of Resident: Gifty Healy ATTENDING PHYSICIAN STATEMENT Time of evaluation: 9:10 AM I saw and evaluated the patient. I reviewed the resident's note and discussed the case with the resident. I agree with the resident's findings and plan as documented. SUBJECTIVE: Patient seen and examined, responds to name, agitated, denies any pain, unable to assess further ROS. OBJECTIVE: Vital Signs Period Temp Pulse Resp BP Sys/Messer Pulse Ox Last 24 Hr 97.2 F-99.9 F 64-102 15-26 86-140/43-81 96-99 Intake & Output 04/26/17 04/27/17 04/28/17 04/29/17 23:59 23:59 23:59 23:59 Intake Total 153 2650 Output Total 20 500 Balance 133 2150 Weight 222 lb 10.67 oz 225 lb 1.6 oz General: agitated, awake but unco=operative in bed CVs:S1S2 regular Chest: limited exam, unable to appreciate rales or wheezing anteriorly Abdomen: soft, NT, colostomy, no voluntary or involuntary guarding or rigidity Extremities: no edema Home Medication List Medication Instructions Recorded Confirmed Type Amino Acids/Protein Hydrolys 30 ml PO BID 02/08/17 04/28/17 History [Pro-Stat Awc Liquid] Docusate Sodium [Dulcolax Stool 200 mg PO HS 02/08/17 04/28/17 History Softener] Levothyroxine [Synthroid -] 225 mcg PO DAILY 02/08/17 04/28/17 History Mag Hydrox/Al Hydrox/Simeth 30 ml PO Q8H PRN 02/08/17 04/28/17 History [Mylanta Oral Suspension -] Magnesium Hydrox 2400MG/30Ml [Milk 30 ml PO DAILY PRN 02/08/17 04/28/17 History of Magnesia -] Multivitamin with Minerals [Icaps 1 each PO DAILY 02/08/17 04/28/17 History Plus] Pantoprazole Sodium 40 mg PO DAILY 02/08/17 04/28/17 History Polyethylene Glycol 3350 [Miralax 17 gm PO DAILY 02/08/17 04/28/17 History 119 gm Btl -] Quetiapine Fumarate [Seroquel -] 300 mg PO BID 02/08/17 04/28/17 History Topiramate [Topamax] 100 mg PO Q12H 02/08/17 04/28/17 History Cinacalcet HCl [Sensipar] 30 mg PO BID 04/28/17 04/28/17 History Divalproex Sprinkle [Depakote 125 mg PO BID 04/28/17 04/28/17 History Sprinkle Caps -] [place] Carbonate [Eskalith -] 300 mg PO HS 04/28/17 04/28/17 History Bisacodyl Suppository [Dulcolax 1 supp ND DAILY PRN 04/29/17 04/29/17 History Suppository -] Mupirocin Cream [Bactroban 2% 1 applic TP HS 04/29/17 04/29/17 History Cream -] Active Medications Generic Name Dose Route Start Last Admin Trade Name Freq PRN Reason Stop Dose Admin Al Hydroxide/Mg Hydroxide 30 ml 04/29/17 15:19 Mylanta Oral Suspension - PO Q8H PRN DYSPEPSIA Amino Acids 30 ml 04/29/17 17:30 04/29/17 17:26 Prosource No Carb Liquid Pkt PO Not Given BIDWM ROLAN Bisacodyl 10 mg 04/29/17 15:19 Dulcolax Suppository - RC DAILY PRN CONSTIPATION Chlorhexidine Gluconate 1 applic 04/28/17 22:00 04/28/17 23:38 Hibiclens For Decolonization - TP 1 applic HS ROLNA Administration Cinacalcet 30 mg 04/29/17 22:00 Sensipar - PO BID ROLAN Divalproex Sodium 125 mg 04/29/17 22:00 Depakote Sprinkle Caps - PO BID ROLAN Docusate Sodium 200 mg 04/29/17 22:00 Colace - PO HS ROLAN Heparin Sodium (Porcine) 5,000 unit 04/28/17 22:00 04/29/17 15:50 Heparin - SQ 5,000 unit TID ROLAN Administration Hydrocortisone Sodium Succinate 50 mg 04/29/17 03:00 04/29/17 15:50 Solu-Cortef - IVPB 50 mg Q6H-IV ROLAN Administration Norepinephrine Bitartrate 8, 500 mls @ 18.75 mls/hr 04/28/17 17:15 04/29/17 17:25 000 mcg/ Dextrose IV 3.01 mcg/min TITR ROLAN 11.3 mls/hr Protocol Administration 5 MCG/MIN Sodium Chloride 1,000 mls @ 100 mls/hr 04/28/17 17:45 04/29/17 17:26 Normal Saline - IV 100 mls/hr ASDIR ROALN Administration Vasopressin 50 units/ Sodium 100 mls @ 4.8 mls/hr 04/28/17 23:30 04/28/17 23: 38 Chloride IVPB 2.4 units/hr ASDIR ROLAN 4.8 mls/hr Protocol Administration 2.4 UNITS/HR Piperacillin Sod/Tazobactam 100 mls @ 200 mls/hr 04/29/17 12:15 04/29/17 17: 31 Sod 3.375 gm/ Dextrose IVPB 200 mls/hr Q8H-IV ROLAN Administration Protocol Levothyroxine Sodium 225 mcg 04/29/17 10:00 04/29/17 10:36 Synthroid - PO 225 mcg DAILY ROLAN Administration [place] Carbonate 300 mg 04/29/17 22:00 Eskalith - PO HS ROLAN Mupirocin 1 applic 04/28/17 22:00 04/29/17 09:09 Bactroban Ointment (For Decolonization) - NS 05/03/17 21:59 1 applic BID ROLAN Administration Pantoprazole Sodium 40 mg 04/30/17 10:00 Protonix - PO DAILY ROLAN Polyethylene Glycol 17 gm 04/30/17 10:00 Miralax (For Daily Use) - PO DAILY ROLAN Quetiapine Fumarate 300 mg 04/29/17 22:00 Seroquel - PO BID ROLAN Topiramate 100 mg 04/29/17 22:00 Topamax - PO BID ROLAN Laboratory Results - last 24 hr 04/28/17 04/28/17 04/28/17 13:55 14:13 19:15 WBC RBC Hgb Hct MCV MCH MCHC RDW Plt Count No Result Required. MPV Total Counted 100 Neutrophils % Neutrophils % (Manual) 50.0 Band Neutrophils % 21.0 Lymphocytes % Lymphocytes % (Manual) 5.0 L D Monocytes % (Manual) 11 H Eosinophils % (Manual) Basophils % (Manual) Myelocytes % (Man) 9 H D Nucleated RBC % 1 H Metamyelocytes 4 H D Differential Comment Man diff performed Hypochromia Platelet Estimate Slt decrease Platelet Comment Polychromasia 1+ Poikilocytosis Anisocytosis 1+ Microcytosis Macrocytosis 3+ PT with INR INR PTT (Actin FS) Anticoagulation Therapy Puncture Site Patient Temperature ABG pH ABG pCO2 at Pt Temp ABG pO2 at Pt Temp ABG HCO3 ABG O2 Sat (Measured) ABG O2 Content ABG Base Excess Gilberto Test O2 Delivery Device Oxygen Flow Rate Vent Mode Vent Rate Mechanical Rate Pressure Support Vent Sodium Potassium Chloride Carbon Dioxide Anion Gap BUN Creatinine Creat Clearance w eGFR Random Glucose Lactic Acid Calcium Phosphorus Magnesium Total Bilirubin AST ALT Alkaline Phosphatase Creatine Kinase Creatine Kinase Index CK-MB (CK-2) Troponin I Total Protein Albumin TSH 0.07 L D Free T4 0.81 D Ur Leukocyte Esterase 3+ H Random Vancomycin 04/28/17 04/28/17 04/29/17 19:15 19:15 06:20 WBC RBC Hgb Hct MCV MCH MCHC RDW Plt Count MPV Total Counted Neutrophils % Neutrophils % (Manual) Band Neutrophils % Lymphocytes % Lymphocytes % (Manual) Monocytes % (Manual) Eosinophils % (Manual) Basophils % (Manual) Myelocytes % (Man) Nucleated RBC % Metamyelocytes Differential Comment Hypochromia Platelet Estimate Platelet Comment Polychromasia Poikilocytosis Anisocytosis Microcytosis Macrocytosis PT with INR 14.60 H INR 1.29 H PTT (Actin FS) Anticoagulation Therapy Puncture Site Patient Temperature ABG pH ABG pCO2 at Pt Temp ABG pO2 at Pt Temp ABG HCO3 ABG O2 Sat (Measured) ABG O2 Content ABG Base Excess Gilberto Test O2 Delivery Device Oxygen Flow Rate Vent Mode Vent Rate Mechanical Rate Pressure Support Vent Sodium Potassium Chloride Carbon Dioxide Anion Gap BUN Creatinine Creat Clearance w eGFR Random Glucose Lactic Acid 2.0 Calcium Phosphorus Magnesium Total Bilirubin AST ALT Alkaline Phosphatase Creatine Kinase Creatine Kinase Index CK-MB (CK-2) Troponin I Total Protein Albumin TSH Free T4 Ur Leukocyte Esterase Random Vancomycin 12.049 04/29/17 04/29/17 04/29/17 06:20 06:20 06:20 WBC 20.2 H RBC 2.55 L Hgb 9.8 L D Hct 31.0 L MCV 121.6 H MCH 38.4 H MCHC 31.5 L RDW 15.6 Plt Count 81 L MPV 10.2 Total Counted Neutrophils % No Result Required. Neutrophils % (Manual) 49.5 Band Neutrophils % 17.2 Lymphocytes % No Result Required. Lymphocytes % (Manual) 4.0 L Monocytes % (Manual) 7 Eosinophils % (Manual) 0.0 D Basophils % (Manual) 0.0 Myelocytes % (Man) 2 D Nucleated RBC % Metamyelocytes 20 H D Differential Comment Hypochromia 0 Platelet Estimate Decreased Platelet Comment Polychromasia 0 Poikilocytosis 0 Anisocytosis 2+ Microcytosis 0 Macrocytosis 1+ PT with INR 15.60 H INR 1.38 H PTT (Actin FS) 28.3 D Anticoagulation Therapy Puncture Site Patient Temperature ABG pH ABG pCO2 at Pt Temp ABG pO2 at Pt Temp ABG HCO3 ABG O2 Sat (Measured) ABG O2 Content ABG Base Excess Gilberto Test O2 Delivery Device Oxygen Flow Rate Vent Mode Vent Rate Mechanical Rate Pressure Support Vent Sodium 145 Potassium 4.0 Chloride 115 H Carbon Dioxide 16 L Anion Gap 14 BUN 31 H Creatinine 2.0 H Creat Clearance w eGFR 24.49 Random Glucose 155 H D Lactic Acid Calcium 7.4 L Phosphorus 4.6 Magnesium 1.2 L D Total Bilirubin 0.3 D AST 119 H D ALT 42 D Alkaline Phosphatase 83 D Creatine Kinase Creatine Kinase Index CK-MB (CK-2) Troponin I Total Protein 5.0 L Albumin 1.7 L TSH Free T4 Ur Leukocyte Esterase Random Vancomycin 04/29/17 04/29/17 06:20 07:19 WBC RBC Hgb Hct MCV MCH MCHC RDW Plt Count MPV Total Counted Neutrophils % Neutrophils % (Manual) Band Neutrophils % Lymphocytes % Lymphocytes % (Manual) Monocytes % (Manual) Eosinophils % (Manual) Basophils % (Manual) Myelocytes % (Man) Nucleated RBC % Metamyelocytes Differential Comment Hypochromia Platelet Estimate Platelet Comment Polychromasia Poikilocytosis Anisocytosis Microcytosis Macrocytosis PT with INR INR PTT (Actin FS) Anticoagulation Therapy Y Puncture Site Right radial Patient Temperature 37 ABG pH 7.29 L ABG pCO2 at Pt Temp 33.6 L ABG pO2 at Pt Temp 112.0 H ABG HCO3 15.5 L ABG O2 Sat (Measured) 98.1 ABG O2 Content 13.7 L ABG Base Excess -9.8 L Gilberto Test Positive O2 Delivery Device High flow 60 Oxygen Flow Rate 53% Vent Mode Y Vent Rate Y Mechanical Rate Y Pressure Support Vent Y Sodium Potassium Chloride Carbon Dioxide Anion Gap BUN Creatinine Creat Clearance w eGFR Random Glucose Lactic Acid Calcium Phosphorus Magnesium Total Bilirubin AST ALT Alkaline Phosphatase Creatine Kinase 3288 H Creatine Kinase Index 2.3 CK-MB (CK-2) 76.459 H Troponin I 0.20 H Total Protein Albumin TSH Free T4 Ur Leukocyte Esterase Random Vancomycin Microbiology 04/28/17 13:41 Blood - Peripheral Venous Blood Culture - Preliminary Pending Organism 04/28/17 13:41 Blood - Peripheral Venous Blood Culture - Preliminary Pending Organism ASSESSMENT AND PLAN: Acute Hypoxic Respiratory Failure UTI Gram Negative Bacteremia Septic Shock Acute Kidney Injury Lactic Acidosis resolving elevated troponin, ?[place]and type 2 NSTEMI from septic shock Seizure Disorder Hypothyroidism Hyperlipidemia s/p colostomy - continue antibiotics - f/u cultures - titrate pressors to maintain MAP >65 - IVF to keep CVP 8-12 - continue stress dose steroids - monitor urine output, creatinine - taper flow rate, FiO2 to keep SpO2 >90% - aspiration precautions - trend cardiac enzymes, check 2D echo - DVT prophylaxis - continue ICU monitoring -Critical care provided in ICU 35 min.
--- NOTE | 2017-04-29 20:32 | PN ---
Physical Exam: SUBJECTIVE: Patient seen and examined. Pt does not answer questions, but is arousable. No fever, chills. No events overnight. OBJECTIVE: Vital Signs Period Temp Pulse Resp BP Sys/Messer Pulse Ox Last 24 Hr 97.2 F-99.9 F 64-102 15-26 86-140/43-81 96-99 GENERAL: The patient is awake but uncooperative, in no acute distress. LUNGS: Breath sounds equal, clear to anterior auscultation bilaterally, no wheezes, no crackles, no accessory muscle use. HEART: Regular rate and rhythm, S1, S2 without murmur, rub or gallop. ABDOMEN: Soft, nontender, nondistended, hypoactive bowel sounds, no guarding. EXTREMITIES: 2+ pulses patricia, warm, well-perfused, 1+ pitting edema patricia. SKIN: Warm, dry, normal turgor, no rashes or lesions noted Laboratory Results - last 24 hr 04/28/17 04/28/17 04/28/17 13:55 14:13 19:15 WBC RBC Hgb Hct MCV MCH MCHC RDW Plt Count No Result Required. MPV Total Counted 100 Neutrophils % Neutrophils % (Manual) 50.0 Band Neutrophils % 21.0 Lymphocytes % Lymphocytes % (Manual) 5.0 L D Monocytes % (Manual) 11 H Eosinophils % (Manual) Basophils % (Manual) Myelocytes % (Man) 9 H D Nucleated RBC % 1 H Metamyelocytes 4 H D Differential Comment Man diff performed Hypochromia Platelet Estimate Slt decrease Platelet Comment Polychromasia 1+ Poikilocytosis Anisocytosis 1+ Microcytosis Macrocytosis 3+ PT with INR INR PTT (Actin FS) Anticoagulation Therapy Puncture Site Patient Temperature ABG pH ABG pCO2 at Pt Temp ABG pO2 at Pt Temp ABG HCO3 ABG O2 Sat (Measured) ABG O2 Content ABG Base Excess Gilberto Test O2 Delivery Device Oxygen Flow Rate Vent Mode Vent Rate Mechanical Rate Pressure Support Vent Sodium Potassium Chloride Carbon Dioxide Anion Gap BUN Creatinine Creat Clearance w eGFR Random Glucose Lactic Acid Calcium Phosphorus Magnesium Total Bilirubin AST ALT Alkaline Phosphatase Creatine Kinase Creatine Kinase Index CK-MB (CK-2) Troponin I Total Protein Albumin TSH 0.07 L D Free T4 0.81 D Ur Leukocyte Esterase 3+ H Random Vancomycin 04/28/17 04/28/17 04/29/17 19:15 19:15 06:20 WBC RBC Hgb Hct MCV MCH MCHC RDW Plt Count MPV Total Counted Neutrophils % Neutrophils % (Manual) Band Neutrophils % Lymphocytes % Lymphocytes % (Manual) Monocytes % (Manual) Eosinophils % (Manual) Basophils % (Manual) Myelocytes % (Man) Nucleated RBC % Metamyelocytes Differential Comment Hypochromia Platelet Estimate Platelet Comment Polychromasia Poikilocytosis Anisocytosis Microcytosis Macrocytosis PT with INR 14.60 H INR 1.29 H PTT (Actin FS) Anticoagulation Therapy Puncture Site Patient Temperature ABG pH ABG pCO2 at Pt Temp ABG pO2 at Pt Temp ABG HCO3 ABG O2 Sat (Measured) ABG O2 Content ABG Base Excess Gilberto Test O2 Delivery Device Oxygen Flow Rate Vent Mode Vent Rate Mechanical Rate Pressure Support Vent Sodium Potassium Chloride Carbon Dioxide Anion Gap BUN Creatinine Creat Clearance w eGFR Random Glucose Lactic Acid 2.0 Calcium Phosphorus Magnesium Total Bilirubin AST ALT Alkaline Phosphatase Creatine Kinase Creatine Kinase Index CK-MB (CK-2) Troponin I Total Protein Albumin TSH Free T4 Ur Leukocyte Esterase Random Vancomycin 12.049 04/29/17 04/29/17 04/29/17 06:20 06:20 06:20 WBC 20.2 H RBC 2.55 L Hgb 9.8 L D Hct 31.0 L MCV 121.6 H MCH 38.4 H MCHC 31.5 L RDW 15.6 Plt Count 81 L MPV 10.2 Total Counted Neutrophils % No Result Required. Neutrophils % (Manual) 49.5 Band Neutrophils % 17.2 Lymphocytes % No Result Required. Lymphocytes % (Manual) 4.0 L Monocytes % (Manual) 7 Eosinophils % (Manual) 0.0 D Basophils % (Manual) 0.0 Myelocytes % (Man) 2 D Nucleated RBC % Metamyelocytes 20 H D Differential Comment Hypochromia 0 Platelet Estimate Decreased Platelet Comment Polychromasia 0 Poikilocytosis 0 Anisocytosis 2+ Microcytosis 0 Macrocytosis 1+ PT with INR 15.60 H INR 1.38 H PTT (Actin FS) 28.3 D Anticoagulation Therapy Puncture Site Patient Temperature ABG pH ABG pCO2 at Pt Temp ABG pO2 at Pt Temp ABG HCO3 ABG O2 Sat (Measured) ABG O2 Content ABG Base Excess Gilberto Test O2 Delivery Device Oxygen Flow Rate Vent Mode Vent Rate Mechanical Rate Pressure Support Vent Sodium 145 Potassium 4.0 Chloride 115 H Carbon Dioxide 16 L Anion Gap 14 BUN 31 H Creatinine 2.0 H Creat Clearance w eGFR 24.49 Random Glucose 155 H D Lactic Acid Calcium 7.4 L Phosphorus 4.6 Magnesium 1.2 L D Total Bilirubin 0.3 D AST 119 H D ALT 42 D Alkaline Phosphatase 83 D Creatine Kinase Creatine Kinase Index CK-MB (CK-2) Troponin I Total Protein 5.0 L Albumin 1.7 L TSH Free T4 Ur Leukocyte Esterase Random Vancomycin 04/29/17 04/29/17 06:20 07:19 WBC RBC Hgb Hct MCV MCH MCHC RDW Plt Count MPV Total Counted Neutrophils % Neutrophils % (Manual) Band Neutrophils % Lymphocytes % Lymphocytes % (Manual) Monocytes % (Manual) Eosinophils % (Manual) Basophils % (Manual) Myelocytes % (Man) Nucleated RBC % Metamyelocytes Differential Comment Hypochromia Platelet Estimate Platelet Comment Polychromasia Poikilocytosis Anisocytosis Microcytosis Macrocytosis PT with INR INR PTT (Actin FS) Anticoagulation Therapy Y Puncture Site Right radial Patient Temperature 37 ABG pH 7.29 L ABG pCO2 at Pt Temp 33.6 L ABG pO2 at Pt Temp 112.0 H ABG HCO3 15.5 L ABG O2 Sat (Measured) 98.1 ABG O2 Content 13.7 L ABG Base Excess -9.8 L Gilberto Test Positive O2 Delivery Device High flow 60 Oxygen Flow Rate 53% Vent Mode Y Vent Rate Y Mechanical Rate Y Pressure Support Vent Y Sodium Potassium Chloride Carbon Dioxide Anion Gap BUN Creatinine Creat Clearance w eGFR Random Glucose Lactic Acid Calcium Phosphorus Magnesium Total Bilirubin AST ALT Alkaline Phosphatase Creatine Kinase 3288 H Creatine Kinase Index 2.3 CK-MB (CK-2) 76.459 H Troponin I 0.20 H Total Protein Albumin TSH Free T4 Ur Leukocyte Esterase Random Vancomycin Active Medications Generic Name Dose Route Start Last Admin Trade Name Freq PRN Reason Stop Dose Admin Al Hydroxide/Mg Hydroxide 30 ml 04/29/17 15:19 Mylanta Oral Suspension - PO Q8H PRN DYSPEPSIA Amino Acids 30 ml 04/29/17 17:30 04/29/17 17:26 Prosource No Carb Liquid Pkt PO Not Given BIDWM ROLAN Bisacodyl 10 mg 04/29/17 15:19 Dulcolax Suppository - RC DAILY PRN CONSTIPATION Chlorhexidine Gluconate 1 applic 04/28/17 22:00 04/28/17 23:38 Hibiclens For Decolonization - TP 1 applic HS ROLAN Administration Cinacalcet 30 mg 04/29/17 22:00 Sensipar - PO BID ROLAN Divalproex Sodium 125 mg 04/29/17 22:00 Depakote Sprinkle Caps - PO BID ROLAN Docusate Sodium 200 mg 04/29/17 22:00 Colace - PO HS ROLAN Heparin Sodium (Porcine) 5,000 unit 04/28/17 22:00 04/29/17 15:50 Heparin - SQ 5,000 unit TID ROLAN Administration Hydrocortisone Sodium Succinate 50 mg 04/29/17 03:00 04/29/17 15:50 Solu-Cortef - IVPB 50 mg Q6H-IV ROLAN Administration Norepinephrine Bitartrate 8, 500 mls @ 18.75 mls/hr 04/28/17 17:15 04/29/17 17:25 000 mcg/ Dextrose IV 3.01 mcg/min TITR ROLAN 11.3 mls/hr Protocol Administration 5 MCG/MIN Sodium Chloride 1,000 mls @ 100 mls/hr 04/28/17 17:45 04/29/17 17:26 Normal Saline - IV 100 mls/hr ASDIR ROLAN Administration Vasopressin 50 units/ Sodium 100 mls @ 4.8 mls/hr 04/28/17 23:30 04/28/17 23: 38 Chloride IVPB 2.4 units/hr ASDIR ROLAN 4.8 mls/hr Protocol Administration 2.4 UNITS/HR Piperacillin Sod/Tazobactam 100 mls @ 200 mls/hr 04/29/17 12:15 04/29/17 17: 31 Sod 3.375 gm/ Dextrose IVPB 200 mls/hr Q8H-IV ROLAN Administration Protocol Levothyroxine Sodium 225 mcg 04/29/17 10:00 04/29/17 10:36 Synthroid - PO 225 mcg DAILY ROLAN Administration [place] Carbonate 300 mg 04/29/17 22:00 Eskalith - PO HS ROLAN Mupirocin 1 applic 04/28/17 22:00 04/29/17 09:09 Bactroban Ointment (For Decolonization) - NS 05/03/17 21:59 1 applic BID ROLAN Administration Pantoprazole Sodium 40 mg 04/30/17 10:00 Protonix - PO DAILY ROLAN Polyethylene Glycol 17 gm 04/30/17 10:00 Miralax (For Daily Use) - PO DAILY ROLAN Quetiapine Fumarate 300 mg 04/29/17 22:00 Seroquel - PO BID ROLAN Topiramate 100 mg 04/29/17 22:00 Topamax - PO BID ROLAN IMAGIN04/29/17 CXR -> no PTX. Patricia atelectatic changes with no evidence of vascular congestive changes. 04/29/17 Echo -> Left ventricle normal in size, function, thickness, and EF. Mild MR. ASSESSMENT/PLAN: 71yo F with PMH of hld, hypothroid, bipolar, anxiety, seizure, presents after being found unresponsive in halfway, admitted to the ICU for septic shock. # septic shock 2/2 UTI - febrile, tachycardia, tachypneic, leukocytosis, +UTI - IVFs - ID (Dr. Couch) recs appreciated: IV Zosyn Day 1 - f/u cultures - on pressors - titrate to maintain MAP > 65 - continue stress dose steroids # ORAL - likely 2/2 hypoperfusion/hypovolemia 2/2 sepsis - slightly improved today, continue to monitor with hydration - monitor UOP # hypothyroidism - continue Synthroid # seizure - continue Sensipar, Depakote, Topamax # bipolar - continue [place] and Seroquel # hypomagnesemia - repleted with Mg Sulfate IVPB 2g # FEN - Fluids: NS @ 100 ml/hr - Electrolytes: continue to monitor - Nutrition: npo # Prophylaxis - DVT ppx with Heparin - GI ppx not needed at this time Visit type - Emergency Visit Emergency Visit: Yes ED Registration Date: 04/28/17 Care time: The patient presented to the Emergency Department on the above date and was hospitalized for further evaluation of their emergent condition. - New Patient This patient is new to me today: Yes Date on this admission: 04/29/17 - Critical Care Critical Care patient: Yes Total Critical Care Time (in minutes): 45 Critical Care Statement: The care of this patient involved high complexity decision making to prevent further life threatening deterioration of the patient 's condition and/or to evaluate & treat vital organ system(s) failure or risk of failure.
[2017-04-29] MEDS ORDERED: DOCUSATE SODIUM 100 MG CAPSULE (FP) PO SCH (22:00)
[2017-04-29] MEDS ORDERED: QUEtiapine FUMARATE 100 MG TABLET (FP) PO SCH (22:00)
[2017-04-29] MEDS ORDERED: PT OWN MED DRAWER 7, Y5N ONE (22:15)
[2017-04-29] MEDS: CHLORHEXIDINE GLUCONATE 4% CLEANSER FOR DECOLONIZATION TP SCH (22:32)
[2017-04-29] MEDS: TOPIRAMATE 100 MG TABLET PO SCH (22:33)
[2017-04-29] MEDS: CINACALCET HCL 30 MG TAB (FP) PO SCH (22:33)
[2017-04-29] MEDS: DOCUSATE NA 100 MG/10 ML UNIT-DOSE CUPS PO SCH (23:06)
[2017-04-29] MEDS: DIVALPROEX SODIUM 125 MG SPRINKLE CAPS (FP) PO SCH (23:10)
[2017-04-29] MEDS: LITHIUM CARBONATE 300 MG CAPSULE (FP) PO SCH (23:10)
[2017-04-30] MEDS: PIPERACILLIN/TAZOB 3.375 GM 3.375 GM in DEXTROSE 5%-WATER - 100 ML IVPB SCH ×3 (02:25→18:09)
[2017-04-30] MEDS: VASOPRESSIN 50 UNITS in SODIUM CHLORIDE 97.5 ML IVPB SCH (02:25)
[2017-04-30] MEDS: HYDROCORTISONE SOD SUCCINATE 100 MG/2 ML VIAL IVPB SCH ×3 (02:26→22:36)
[2017-04-30] MEDS: HEPARIN NA (PORCINE) 5,000 UNITS/ML 1ML VIAL SQ SCH (05:59)
[2017-04-30 06:29] LABS: BASO % 0.2 % (0-2.0); HEMATOCRIT 28.2 % (32.4-45.2); HEMOGLOBIN 9.2 GM/dL (10.7-15.3); LYMPH % 7.5 % (8-40); MCH 38.2 pg (25.7-33.7); MCHC 32.7 g/dl (32.0-36.0); MEAN CELL VOLUME 116.6 fl (80-96); MEAN PLT VOLUME 10.6 fl (7.5-11.1); MONO % 7.3 % (3.8-10.2); PLATELET COUNT 74 K/MM3 (134-434); RBC 2.42 M/mm3 (3.60-5.2); RDW 14.9 % (11.6-15.6); WHITE BLOOD COUNT 16.6 K/mm3 (4.0-10.0)
[2017-04-30 06:43] LABS: ALBUMIN 1.5 g/dl (3.4-5.0); ANION GAP 9 (8-16); BILIRUBIN,TOTAL 0.3 mg/dL (0.2-1.0); BLOOD UREA NITROGEN 39 mg/dL (7-18); CALCIUM 7.5 mg/dL (8.5-10.1); CHLORIDE 117 mmol/L (98-107); CO2 19 mmol/L (21-32); CREATININE 1.6 mg/dL (0.55-1.02); GLUCOSE,RANDOM 111 mg/dL (74-106); PHOSPHOROUS 3.6 mg/dL (2.5-4.9); POTASSIUM 3.3 mmol/L (3.5-5.1); SGOT/AST 73 U/L (15-37); SGPT/ALT 48 U/L (12-78); SODIUM 145 mmol/L (136-145); TOT PROT 4.7 g/dl (6.4-8.2)
[2017-04-30 06:44] LABS: ALK PHOS 70 U/L (45-117)
[2017-04-30] MEDS ORDERED: POTASSIUM CHLORIDE 30 MEQ in SODIUM CHLORIDE 285 ML IVPB ONE (09:00)
[2017-04-30] MEDS: CINACALCET HCL 30 MG TAB (FP) PO SCH (09:24)
[2017-04-30] MEDS: LEVOTHYROXINE NA 75 MCG TABLET (FP) PO SCH (09:24)
[2017-04-30] MEDS: TOPIRAMATE 100 MG TABLET PO SCH ×2 (09:24→22:36)
[2017-04-30] MEDS: PANTOPRAZOLE 40 MG TABLET (FP) PO SCH (09:24)
[2017-04-30] MEDS: AMINO ACIDS/PROTEIN HYDROLYS 30 ML LIQUID.PKT PO SCH ×3 (09:24→18:09)
[2017-04-30] MEDS: MUPIROCIN 2% TOPICAL OINTMENT FOR DECOLONIZATION NS SCH (09:25)
--- NOTE | 2017-04-30 10:23 | CONS ---
DATE OF CONSULTATION: DATE OF DICTATION: 04/29/2017 INFECTIOUS DISEASE CONSULTATION HISTORY OF PRESENT ILLNESS: The patient is a 71-year-old female who was evaluated for gram-negative sepsis. History was obtained from the chart, as she cannot give a history secondary to her mental status. The patient was admitted to the hospital on April 28, 2017, from the senior care, with shortness of breath. Upon arrival, EMS found her unresponsive. She was evaluated in the emergency room, where she was noted to be febrile, tachycardic and with a markedly elevated white blood cell count and lactic acid level. Her course was complicated by hypotension. She was given IV fluids and started on pressors. She was transferred to the intensive care unit. Blood cultures are now positive for gram-negative rods. The patient's temperature was recorded at 103.1. At the present time she is awake but lethargic. She offers no complaints. No reports of shaking chills, cough, sputum production, vomiting, diarrhea or grossly purulent urine. PAST MEDICAL HISTORY: Positive for bipolar disorder, seizure disorder, hyperlipidemia, hypothyroidism. PAST SURGICAL HISTORY: Status post colostomy. Additional details are not available. ALLERGIES: No known allergies. MEDICATIONS: Dulcolax, Synthroid, Protonix, Seroquel, Topamax. SOCIAL HISTORY: Resides in a snf facility. Dependent in activities of daily living. No active tobacco or alcohol use. REVIEW OF SYSTEMS: Neurologic: No loss of consciousness, seizure activity, focal weakness. Cardiac: Negative for chest pain or palpitations. Respiratory: Negative for cough or sputum production. Gastrointestinal: Negative for vomiting or diarrhea. Genitourinary: Negative for urinary tract infection. LABORATORY DATA: White count 20.2 with a left shift, hematocrit 31.0; platelet count 81,000. BUN 31, creatinine 2.0, bicarbonate 16, lactic acid 7.2. Urinalysis: 241 white cells. Total bilirubin 0.3, alkaline phosphatase 83, AST 119. RADIOLOGY: Chest x-ray negative for acute infiltrate. PHYSICAL EXAMINATION: General: The patient is awake, not conversant. Vital Signs: Temperature 98.5, maximum temperature 103.1, blood pressure 108/55, pulse 74 and regular, respirations 18 per minute. HEENT: Sclerae anicteric. Cardiac: Heart sounds tachycardic, S1, S2. Lungs: Poor inspiratory effort. Abdomen: Soft. Obese. No tenderness elicited. Positive colostomy. Extremities: Positive for edema. IMPRESSION: 1. Gram-negative bacteremia/sepsis/septic shock. 2. Urinary tract infection/sepsis secondary to urinary tract infection. 3. Renal failure. 4. Thrombocytopenia. 5. Lactic acidosis. PLAN: Await identification of blood isolate. Empiric antibiotic coverage with Zosyn, pending culture results. Continue fluid hydration and pressors. ICU monitoring. PROGNOSIS: Guarded. Will follow. Thank you for the kind referral. BENITA JAY M.D. [id number]
--- NOTE | 2017-04-30 10:46 | CONSULT ---
Admitting History and Physical - Primary Care Physician PCP: Lance Cherry - Admission History of Present Illness: Per EMR: Patient is a 71 year old female from [facility] with a PMHx of Hypothyroidism, seizure disorder, Bipolar disorder, anxiety, Frequent UTI's and colostomy bag placement who was BIBEMS after being found unresponsive at the nursing facility. According to EMS around 12:25 this afternoon patient was having difficulty breathing while trying to eat her lunch. They took her into the bedroom, gave her oxygen and called EMS. Upon arrival, EMS found patient lethargic and unresponsive, however she was still able to maintain her respiratory drive. ID Consult : Gram negative bacteremia/ sepsis/ Septic shock UTI/ Sepsis secondary to UTI Renal failure Thrombocytopenia On hi anirudh o2. Arousable and verbal. Confused. Highly distractible, repeatedly falling asleep. When seen by me in February 2017: Pt is on dys puree/honey thick liquid. Pt with limited PO acceptance for staff. Readily accepted small sips of honey thick liquid, with delayed but fairly brisk swallow. After the swallow she gagged, opened eyes wide, and then started coughing with gurgly vocal quality. Nursing reports she has been coughing and sounds congested. Suspect aspiration? Retrograde? Diet order at [facility] was puree and nectar thick liquid. History Source: Medical Record Limitations to Obtaining History: Clinical Condition, Dementia - Past Medical History [employer]: Yes: Seizure Cardiovascular: Yes: Hyperlipdemia Gastrointestinal: Yes: Other (Colostomy) Psych: Yes: Anxiety, Bipolar Endocrine: Yes: Hypothyroidism - Advance Directives Advance Directives: Yes: Health Care Proxy - Smoking History Smoking history: Never smoked Have you smoked in the past 12 months: No Aproximately how many cigarettes per day: 0 - Alcohol/Substance Use Hx Alcohol Use: No History - Admission Reason For Visit: SEPSIS; ALTERED MENTAL STATUS - Diagnostics X-ray: Report Reviewed - General Mental Status: Able to Follow Commands, Confused, Lethargic Attention: Distractible, Moderate Impairment Ability to Follow Directions: Fair Head/Neck Control: Fair - Hearing Hearing: Normal Hearing Aide: No With Patient: No Speech Evaluation - Communication Primary Language: PERUVIAN Communication: Yes: Simple Responses - Speech Production Able to Make Needs Known: Yes: Mildly Impaired Intelligibility: Yes: WNL - Speech Characteristics Voice Loudness: Normal Voice Pitch: Yes: Normal Voice Phonatory-based Quality: Yes: Normal Nasal Resonance: Normal - Language/Auditory Comprehension Follows: Yes: 1 Stage Simple Commands Observation: Able to respond to yes/no queries: Yes, Comprehends Conversational Speech: Yes - Language/Verbal Expression Aphasia: Yes: Paraphrasic Errors, Sound Errors Able to Respond to Simple Queries: Yes: Mildly Impaired, Moderately Impaired - Memory/Perception debone processing supervisor Memory: Yes: Severely Impaired Short Term Memory: Yes: Severely Impaired - Swallow Evaluation/Bedside Assessment Current Nutritional Intake: NPO Oral Secretions: Yes: WFL Facial Symmetry at Rest: Symmetrical Facial Symmetry on Retraction: Symmetrical Against Resistance Opening: Normal Against Resistance Closing: Normal Pucker Lips: Normal Smile: Normal Lingual Movement: Normal, Symmetric Lingual Speed of Movement: Normal Lingual Movement Strgth Against Opposition: Normal Lingual Movement Characteristics: Normal Velopharyngeal Movement: Normal Laryngeal Elevation: WFL Laryngeal Movement: Able to Palpate Rate of Intake: WFL Bolus Size: WFL Labial Seal: WFL Oral Prep Time: WFL A-P Transit: WFL Pocketing: None Timing of Swallow: Delayed (Very delayed swallow onset, 7+ seconds with repeated cues to swallow. Once triggered, swallow is brisk.) Coughing/Throat Clear: Yes (nectar/prostat, brief) Recommendations - Speech Evaluation, Impression/Plan Impression: On hi anirudh o2. Arousable and verbal. Confused. Highly distractible, repeatedly falling asleep. Very delayed swallow onset, 7+ seconds with repeated cues to swallow. Once triggered, swallow is brisk. Suspect risk BEFORE swallow is initiated. Seen by me in Feb 2017 with suspected aspiration. - Dysphagia Impressions/Plan Swallowing Skills: Impaired (adversely affected by lethargy and impaired attention/high distractibility.) Dysphagia Impressions: Mild Impairment, Moderate Impairment *Silent aspiration: cannot be R/O at bedside Recommendations: Modified Barium Swallow - Recommendations Diet Consistency: NPO (until better able to attend. Once more alert, MBS, possibly puree/honey thick. TBD.) Medication Administration: Crushed with applesauce (tell pt to swallow repeatedly. Palpate larynx for reflex, before next 1/2 tsp.)
[2017-04-30] MEDS: POLYETHYLENE GLYCOL 3350 119 GM BTL PO SCH (10:58)
[2017-04-30] MEDS: DIVALPROEX SODIUM 125 MG SPRINKLE CAPS (FP) PO SCH ×2 (11:11→22:37)
--- NOTE | 2017-04-30 12:21 | PN ---
Physical Exam: SUBJECTIVE: Patient slept well and levo was turned off this AM as pressures were normalizing. Some episodes of sinus bradycardia noted in the AM. Some abnormal runs of tachycardia and bradycardia the previous afternoon but no mention of chest discomfort. OBJECTIVE: Vital Signs Period Temp Pulse Resp BP Sys/Messer Pulse Ox Last 24 Hr 97.6 F-98.9 F 63-93 16-24 76-135/49-65 96-100 GENERAL: The patient is awake, alert, but oriented to only name. HEAD: Normal with no signs of trauma. EYES: PERRL, extraocular movements intact, sclera anicteric, conjunctiva clear. No ptosis. ENT: Ears normal, nares patent, oropharynx clear without exudates, moist mucous membranes. NECK: Trachea midline, full range of motion, supple. LUNGS: Breath sounds equal, clear to auscultation bilaterally, no wheezes, no crackles, no accessory muscle use. HEART: Regular rate and rhythm, S1, S2 without murmur, rub or gallop. ABDOMEN: Soft, nontender, nondistended, normoactive bowel sounds, no guarding, no rebound, no hepatosplenomegaly, no masses. G tube in appropriate location with ewtry port non-erythematous or swollen. EXTREMITIES: 2+ pulses, warm, well-perfused, 3+ pitting edema bilaterally. NEUROLOGICAL: No obvious focal sign. PSYCH: Normal mood, normal affect. SKIN: Warm, dry, normal turgor, no rashes or lesions noted Laboratory Results - last 24 hr 04/29/17 04/29/17 04/29/17 06:20 06:20 20:00 WBC RBC Hgb Hct MCV MCH MCHC RDW Plt Count MPV Neutrophils % Neutrophils % (Manual) 49.5 Band Neutrophils % 17.2 Lymphocytes % Lymphocytes % (Manual) 4.0 L Monocytes % Monocytes % (Manual) 7 Eosinophils % Eosinophils % (Manual) 0.0 D Basophils % Basophils % (Manual) 0.0 Myelocytes % (Man) 2 D Metamyelocytes 20 H D Hypochromia 0 Platelet Estimate Decreased Polychromasia 0 Poikilocytosis 0 Anisocytosis 2+ Microcytosis 0 Macrocytosis 1+ Sodium Potassium Chloride Carbon Dioxide Anion Gap BUN Creatinine Creat Clearance w eGFR Random Glucose Calcium Phosphorus Magnesium Total Bilirubin AST ALT Alkaline Phosphatase Creatine Kinase Index 2.3 CK-MB (CK-2) 76.459 H Troponin I 0.13 H Total Protein Albumin 04/30/17 04/30/17 04/30/17 01:00 06:00 06:00 WBC 16.6 H RBC 2.42 L Hgb 9.2 L Hct 28.2 L MCV 116.6 H MCH 38.2 H MCHC 32.7 RDW 14.9 Plt Count 74 L MPV 10.6 Neutrophils % 85.0 H D Neutrophils % (Manual) Band Neutrophils % Lymphocytes % 7.5 L D Lymphocytes % (Manual) Monocytes % 7.3 Monocytes % (Manual) Eosinophils % 0.0 D Eosinophils % (Manual) Basophils % 0.2 Basophils % (Manual) Myelocytes % (Man) Metamyelocytes Hypochromia Platelet Estimate Polychromasia Poikilocytosis Anisocytosis Microcytosis Macrocytosis Sodium 145 Potassium 3.3 L Chloride 117 H Carbon Dioxide 19 L Anion Gap 9 BUN 39 H D Creatinine 1.6 H Creat Clearance w eGFR 31.68 Random Glucose 111 H D Calcium 7.5 L Phosphorus 3.6 D Magnesium 2.0 D Total Bilirubin 0.3 AST 73 H D ALT 48 Alkaline Phosphatase 70 Creatine Kinase Index CK-MB (CK-2) Troponin I 0.12 H Total Protein 4.7 L Albumin 1.5 L 04/30/17 07:30 WBC RBC Hgb Hct MCV MCH MCHC RDW Plt Count MPV Neutrophils % Neutrophils % (Manual) Band Neutrophils % Lymphocytes % Lymphocytes % (Manual) Monocytes % Monocytes % (Manual) Eosinophils % Eosinophils % (Manual) Basophils % Basophils % (Manual) Myelocytes % (Man) Metamyelocytes Hypochromia Platelet Estimate Polychromasia Poikilocytosis Anisocytosis Microcytosis Macrocytosis Sodium Potassium Chloride Carbon Dioxide Anion Gap BUN Creatinine Creat Clearance w eGFR Random Glucose Calcium Phosphorus Magnesium Total Bilirubin AST ALT Alkaline Phosphatase Creatine Kinase Index CK-MB (CK-2) Troponin I 0.09 H Total Protein Albumin Active Medications Generic Name Dose Route Start Last Admin Trade Name Freq PRN Reason Stop Dose Admin Al Hydroxide/Mg Hydroxide 30 ml 04/29/17 15:19 Mylanta Oral Suspension - PO Q8H PRN DYSPEPSIA Amino Acids 30 ml 04/29/17 17:30 04/30/17 10:05 Prosource No Carb Liquid Pkt PO Not Given BIDWM ROLAN Bisacodyl 10 mg 04/29/17 15:19 Dulcolax Suppository - RC DAILY PRN CONSTIPATION Chlorhexidine Gluconate 1 applic 04/28/17 22:00 04/29/17 22:32 Hibiclens For Decolonization - TP 1 applic HS ROLAN Administration Cinacalcet 30 mg 04/29/17 22:00 04/30/17 09:24 Sensipar - PO 30 mg BID ROLAN Administration Divalproex Sodium 125 mg 04/29/17 22:00 04/30/17 11:11 Depakote Sprinkle Caps - PO 125 mg BID ROLAN Administration Docusate Sodium 200 mg 04/29/17 22:45 04/29/17 23:06 Colace Liquid - PO 200 mg HS ROLAN Administration Heparin Sodium (Porcine) 5,000 unit 04/28/17 22:00 04/30/17 05:59 Heparin - SQ 5,000 unit TID ROLAN Administration Hydrocortisone Sodium Succinate 50 mg 04/29/17 03:00 04/30/17 09:23 Solu-Cortef - IVPB 50 mg Q6H-IV ROLAN Administration Norepinephrine Bitartrate 8, 500 mls @ 18.75 mls/hr 04/28/17 17:15 04/30/17 08:00 000 mcg/ Dextrose IV 0 mcg/min TITR ROLAN 0 mls/hr Protocol Titration 5 MCG/MIN Sodium Chloride 1,000 mls @ 100 mls/hr 04/28/17 17:45 04/29/17 17:26 Normal Saline - IV 100 mls/hr ASDIR ROLAN Administration Vasopressin 50 units/ Sodium 100 mls @ 4.8 mls/hr 04/28/17 23:30 04/30/17 02: 25 Chloride IVPB 2 units/hr ASDIR ROLAN 4 mls/hr Protocol Administration 2.4 UNITS/HR Piperacillin Sod/Tazobactam 100 mls @ 200 mls/hr 04/29/17 12:15 04/30/17 10: 51 Sod 3.375 gm/ Dextrose IVPB 200 mls/hr Q8H-IV ROLAN Administration Protocol Levothyroxine Sodium 225 mcg 04/29/17 10:00 04/30/17 09:24 Synthroid - PO 225 mcg DAILY ROLAN Administration [place] Carbonate 300 mg 04/29/17 22:00 04/29/17 23:10 Eskalith - PO 300 mg HS ROLNA Administration Mupirocin 1 applic 04/28/17 22:00 04/30/17 09:25 Bactroban Ointment (For Decolonization) - NS 05/03/17 21:59 1 applic BID ROLNA Administration Pantoprazole Sodium 40 mg 04/30/17 10:00 04/30/17 09:24 Protonix - PO 40 mg DAILY ROLAN Administration Polyethylene Glycol 17 gm 04/30/17 10:00 04/30/17 10:58 Miralax (For Daily Use) - PO Not Given DAILY ROLAN Topiramate 100 mg 04/29/17 22:00 04/30/17 09:24 Topamax - PO 100 mg BID ROLAN Administration ASSESSMENT/PLAN: 71 year old female with PMH of hypothyroid, bipolar, seizure, found unresponsive at [facility] and admitted to our ICU for septic shock currently off pressors but still on steroids Neuro: #AMS: Unsure of baseline mental status but patient is still moderately disoriented. Possibly secondary to septic shock vs. worsening dementia. - CTM mental status - Speech and swallow evaluation #Seizure: History of seizure disorder - continue Sensipar, Depakote, Topamax #Bipolar Disorderd: Patient has history of bipolar disorder - continue [place] - Seroquel held 2/2 lethargy CV: #Septic Shock: 2/2 GN bacteremia likely seeded from GN UTI - Monitor off pressors - NS @100 ml//hr - stress dose steroids tapered down to BID ID: - ID (Dr. Couch) recs appreciated: IV Zosyn Day 2 - 04/28/17BCx and UCx (+) for NLF GNB F/U speciation - f/u repeat blood cultures - f/u CT abd/ pelvis by medicine team Renal: # ORAL: likely 2/2 low flow state in the setting of sepsis - Cr downtrending - monitor UOP Endo: # hypothyroidism -continue Synthroid FEN: - Fluids: NS @ 100 ml/hr - will replete K - Speech and swallow eval with MBS Prophy: - DVT ppx with Heparin - PPI Dispo: -ICU needs minimal but high risk to go back on presser so will monitor for one more day Visit type - Emergency Visit Emergency Visit: No - New Patient This patient is new to me today: No - Critical Care Critical Care patient: Yes Total Critical Care Time (in minutes): 35 Critical Care Statement: The care of this patient involved high complexity decision making to prevent further life threatening deterioration of the patient 's condition and/or to evaluate & treat vital organ system(s) failure or risk of failure. - Discharge Referral Referred to [facility] Med P.C.: No
--- NOTE | 2017-04-30 12:42 | EKG ---
Test Reason : Blood Pressure : / mmHG Vent. Rate : 050 BPM Atrial Rate : 050 BPM P-R Int : 126 ms QRS Dur : 082 ms QT Int : 452 ms P-R-T Axes : -05 -38 045 degrees QTc Int : 412 ms SINUS BRADYCARDIA LEFT AXIS DEVIATION ABNORMAL ECG WHEN COMPARED WITH ECG OF 28-APR-2017 13:47, VENT. RATE HAS DECREASED BY 62 BPM Confirmed by LISA GALLARDO MD ([id number]) on 04/30/2017 12:42:01 PM Referred By: Confirmed By:LISA GALLARDO MD
--- NOTE | 2017-04-30 13:05 | PN ---
Teaching Attending Note Name of Resident: Daniela Cates ATTENDING PHYSICIAN STATEMENT I saw and evaluated the patient. I reviewed the resident's note and discussed the case with the resident. I agree with the resident's findings and plan as documented. SUBJECTIVE: Pt seen and examined in the ICU. Pressors tapered off this AM. Remains on high flow O2 with 40L/min, 40% FiO2 saturating well. OBJECTIVE: Last Vital Signs Temp Pulse Resp BP Pulse Ox 98.2 F 65 18 135/60 98 04/30/17 10:00 04/30/17 10:34 04/30/17 10:00 04/30/17 10:00 04/30/17 10:34 Intake & Output 04/27/17 04/28/17 04/29/17 04/30/17 23:59 23:59 23:59 23:59 Intake Total 153 2650 1349 Output Total 20 750 350 Balance 133 1900 999 Weight 101 kg 102.104 kg 101.741 kg Gen: less tachypneic Heart: RRR Lung: decreased breath sounds at the bases Abd: soft, obese, +ostomy pink Ext: no edema CBC, BMP 04/30/17 06:00 04/30/17 06:00 Active Medications Al Hydroxide/Mg Hydroxide (Mylanta Oral Suspension -) 30 ml PO Q8H PRN PRN Reason: DYSPEPSIA Amino Acids (Prosource No Carb Liquid Pkt) 30 ml PO BIDWM [facility] Last Admin: 04/30/17 10:05 Dose: Not Given Bisacodyl (Dulcolax Suppository -) 10 mg RC DAILY PRN PRN Reason: CONSTIPATION Chlorhexidine Gluconate (Hibiclens For Decolonization -) 1 applic TP HS [facility] Last Admin: 04/29/17 22:32 Dose: 1 applic Cinacalcet (Sensipar -) 30 mg PO BID [facility] Last Admin: 04/30/17 09:24 Dose: 30 mg Divalproex Sodium (Depakote Sprinkle Caps -) 125 mg PO BID [facility] Last Admin: 04/30/17 11:11 Dose: 125 mg Docusate Sodium (Colace Liquid -) 200 mg PO HS [facility] Last Admin: 04/29/17 23:06 Dose: 200 mg Heparin Sodium (Porcine) (Heparin -) 5,000 unit SQ TID [facility] Last Admin: 04/30/17 05:59 Dose: 5,000 unit Hydrocortisone Sodium Succinate (Solu-Cortef -) 50 mg IVPB Q6H-IV ROLAN Last Admin: 04/30/17 09:23 Dose: 50 mg Norepinephrine Bitartrate 8, (000 mcg/ Dextrose) 500 mls @ 18.75 mls/hr IV TITR ROLAN; 5 MCG/MIN PRN Reason: Protocol Last Titration: 04/30/17 08:00 Dose: 0 mcg/min, 0 mls/hr Sodium Chloride (Normal Saline -) 1,000 mls @ 100 mls/hr IV ASDIR ROLAN Last Admin: 04/29/17 17:26 Dose: 100 mls/hr Vasopressin 50 units/ Sodium (Chloride) 100 mls @ 4.8 mls/hr IVPB ASDIR ROLAN; 2.4 UNITS/HR PRN Reason: Protocol Last Admin: 04/30/17 02:25 Dose: 2 units/hr, 4 mls/hr Piperacillin Sod/Tazobactam (Sod 3.375 gm/ Dextrose) 100 mls @ 200 mls/hr IVPB Q8H-IV ROALN PRN Reason: Protocol Last Admin: 04/30/17 10:51 Dose: 200 mls/hr Levothyroxine Sodium (Synthroid -) 225 mcg PO DAILY ROLAN Last Admin: 04/30/17 09:24 Dose: 225 mcg [place] Carbonate (Eskalith -) 300 mg PO HS ROLAN Last Admin: 04/29/17 23:10 Dose: 300 mg Mupirocin (Bactroban Ointment (For Decolonization) -) 1 applic NS BID ROLAN Stop: 05/03/17 21:59 Last Admin: 04/30/17 09:25 Dose: 1 applic Pantoprazole Sodium (Protonix -) 40 mg PO DAILY ROLAN Last Admin: 04/30/17 09:24 Dose: 40 mg Polyethylene Glycol (Miralax (For Daily Use) -) 17 gm PO DAILY ROLAN Last Admin: 04/30/17 10:58 Dose: Not Given Topiramate (Topamax -) 100 mg PO BID ROLAN Last Admin: 04/30/17 09:24 Dose: 100 mg ASSESSMENT AND PLAN: Acute Hypoxic Respiratory Failure UTI Gram Negative Bacteremia Septic Shock Acute Kidney Injury Lactic Acidosis resolving Seizure Disorder Hypothyroidism Hyperlipidemia s/p colostomy - continue antibiotics - f/u cultures - pressors tapered off, maintain MAP >65 - IVF to keep CVP 8-12 - taper stress dose steroids - monitor urine output, creatinine - replete lytes - taper flow rate, FiO2 to keep SpO2 >90% - aspiration precautions - DVT prophylaxis - continue ICU monitoring critical care time spent in reviewing chart, evaluating patient and formulating plan 35 min
--- NOTE | 2017-04-30 14:37 | PN ---
Physical Exam: SUBJECTIVE: Patient seen and examined. Pt is arousable but becomes agitated. Pt reports diffuse tenderness in abdomen. No fever, chills. No events overnight. OBJECTIVE: Vital Signs Period Temp Pulse Resp BP Sys/Messer Pulse Ox Last 24 Hr 97.6 F-98.9 F 63-93 16-24 76-135/49-65 96-100 GENERAL: The patient is lethargic but arousable, NAD. LUNGS: Breath sounds equal, clear to anterior auscultation bilaterally, no wheezes, no crackles, no accessory muscle use. HEART: Regular rate and rhythm, S1, S2 without murmur, rub or gallop. ABDOMEN: Diffuse tenderness to palpation, soft, nondistended, (+) bowel sounds x 4, no guarding. EXTREMITIES: 2+ pulses patricia, warm, well-perfused, 1+ pitting edema patricia. SKIN: Warm, dry, normal turgor, no rashes or lesions noted Laboratory Results - last 24 hr 04/29/17 04/30/17 04/30/17 20:00 01:00 06:00 WBC 16.6 H RBC 2.42 L Hgb 9.2 L Hct 28.2 L MCV 116.6 H MCH 38.2 H MCHC 32.7 RDW 14.9 Plt Count 74 L MPV 10.6 Neutrophils % 85.0 H D Lymphocytes % 7.5 L D Monocytes % 7.3 Eosinophils % 0.0 D Basophils % 0.2 Sodium Potassium Chloride Carbon Dioxide Anion Gap BUN Creatinine Creat Clearance w eGFR Random Glucose Calcium Phosphorus Magnesium Total Bilirubin AST ALT Alkaline Phosphatase Troponin I 0.13 H 0.12 H Total Protein Albumin 04/30/17 04/30/17 06:00 07:30 WBC RBC Hgb Hct MCV MCH MCHC RDW Plt Count MPV Neutrophils % Lymphocytes % Monocytes % Eosinophils % Basophils % Sodium 145 Potassium 3.3 L Chloride 117 H Carbon Dioxide 19 L Anion Gap 9 BUN 39 H D Creatinine 1.6 H Creat Clearance w eGFR 31.68 Random Glucose 111 H D Calcium 7.5 L Phosphorus 3.6 D Magnesium 2.0 D Total Bilirubin 0.3 AST 73 H D ALT 48 Alkaline Phosphatase 70 Troponin I 0.09 H Total Protein 4.7 L Albumin 1.5 L Active Medications Generic Name Dose Route Start Last Admin Trade Name Freq PRN Reason Stop Dose Admin Al Hydroxide/Mg Hydroxide 30 ml 04/29/17 15:19 Mylanta Oral Suspension - PO Q8H PRN DYSPEPSIA Amino Acids 30 ml 04/29/17 17:30 04/30/17 10:05 Prosource No Carb Liquid Pkt PO Not Given BIDWM ROLAN Bisacodyl 10 mg 04/29/17 15:19 Dulcolax Suppository - RC DAILY PRN CONSTIPATION Chlorhexidine Gluconate 1 applic 04/28/17 22:00 04/29/17 22:32 Hibiclens For Decolonization - TP 1 applic HS ROLAN Administration Cinacalcet 30 mg 04/29/17 22:00 04/30/17 09:24 Sensipar - PO 30 mg BID ROLAN Administration Divalproex Sodium 125 mg 04/29/17 22:00 04/30/17 11:11 Depakote Sprinkle Caps - PO 125 mg BID ROLAN Administration Docusate Sodium 200 mg 04/29/17 22:45 04/29/17 23:06 Colace Liquid - PO 200 mg HS ROLAN Administration Heparin Sodium (Porcine) 5,000 unit 04/28/17 22:00 04/30/17 05:59 Heparin - SQ 5,000 unit TID ROLAN Administration Hydrocortisone Sodium Succinate 50 mg 04/30/17 22:00 Solu-Cortef - IVPB BID ROLAN Norepinephrine Bitartrate 8, 500 mls @ 18.75 mls/hr 04/28/17 17:15 04/30/17 08:00 000 mcg/ Dextrose IV 0 mcg/min TITR ROLAN 0 mls/hr Protocol Titration 5 MCG/MIN Sodium Chloride 1,000 mls @ 100 mls/hr 04/28/17 17:45 04/29/17 17:26 Normal Saline - IV 100 mls/hr ASDIR ROLAN Administration Vasopressin 50 units/ Sodium 100 mls @ 4.8 mls/hr 04/28/17 23:30 04/30/17 02: 25 Chloride IVPB 2 units/hr ASDIR ROLAN 4 mls/hr Protocol Administration 2.4 UNITS/HR Piperacillin Sod/Tazobactam 100 mls @ 200 mls/hr 04/29/17 12:15 04/30/17 10: 51 Sod 3.375 gm/ Dextrose IVPB 200 mls/hr Q8H-IV ROLAN Administration Protocol Levothyroxine Sodium 225 mcg 04/29/17 10:00 04/30/17 09:24 Synthroid - PO 225 mcg DAILY ROLAN Administration [place] Carbonate 300 mg 04/29/17 22:00 04/29/17 23:10 Eskalith - PO 300 mg HS ROLAN Administration Mupirocin 1 applic 04/28/17 22:00 04/30/17 09:25 Bactroban Ointment (For Decolonization) - NS 05/03/17 21:59 1 applic BID ROLAN Administration Pantoprazole Sodium 40 mg 04/30/17 10:00 04/30/17 09:24 Protonix - PO 40 mg DAILY ROLAN Administration Polyethylene Glycol 17 gm 04/30/17 10:00 04/30/17 10:58 Miralax (For Daily Use) - PO Not Given DAILY ROLAN Topiramate 100 mg 04/29/17 22:00 04/30/17 09:24 Topamax - PO 100 mg BID ROLAN Administration IMAGIN04/30/17 CXR -> Left vascular cath in place. Pt is rotated, so a significant portion of the Left lung is obscured by the cardiomediastinal silhouette. No evidence of pulmonary consolidation in the Right lung or in the visible upper zone of the Left lung. ASSESSMENT/PLAN: 71yo F with PMH of hld, hypothroid, bipolar, anxiety, seizure, presents after being found unresponsive in halfway, admitted to the ICU for septic shock. # septic shock 2/2 UTI - pt off pressors - IVFs - ID (Dr. Couch) recs appreciated: IV Zosyn Day 2 - 04/28/17 blood cultures and urine culture (+) for Non Lactose Fermenting Gnb - f/u repeat blood cultures - stress dose steroids tapered down to BID # ORAL - likely 2/2 hypoperfusion/hypovolemia 2/2 sepsis - Cr trending down, continue to monitor with hydration - monitor UOP - f/u CT Ab/Pel # hypothyroidism - continue Synthroid # seizure - continue Sensipar, Depakote, Topamax # bipolar - continue [place] - Seroquel held 2/2 lethargy # hypokalemia - repleted with KCl IVPB 10meq x 3 runs # FEN - Fluids: NS @ 100 ml/hr - Electrolytes: continue to monitor - Nutrition: npo - maintain npo per Speech Therapy until pt is more alert -> Modified Barium Swallow # Prophylaxis - DVT ppx with Heparin - GI ppx not needed at this time Visit type - Emergency Visit Emergency Visit: Yes ED Registration Date: 04/28/17 Care time: The patient presented to the Emergency Department on the above date and was hospitalized for further evaluation of their emergent condition. - New Patient This patient is new to me today: No - Critical Care Critical Care patient: Yes Total Critical Care Time (in minutes): 45 Critical Care Statement: The care of this patient involved high complexity decision making to prevent further life threatening deterioration of the patient 's condition and/or to evaluate & treat vital organ system(s) failure or risk of failure.
--- NOTE | 2017-04-30 17:58 | PN ---
Teaching Attending Note Name of Resident: Gifty Healy ATTENDING PHYSICIAN STATEMENT Time of evaluation: 9:20 AM I saw and evaluated the patient. I reviewed the resident's note and discussed the case with the resident. I agree with the resident's findings and plan as documented. SUBJECTIVE: Patient seen and examined. awake, responds to name, but does not answer questions, unable to assess for ROS. OBJECTIVE: Vital Signs Period Temp Pulse Resp BP Sys/Messer Pulse Ox Last 24 Hr 97.6 F-99.1 F 63-93 15-24 76-135/49-65 96-100 Intake & Output 04/27/17 04/28/17 04/29/17 04/30/17 23:59 23:59 23:59 23:59 Intake Total 153 2650 1749 Output Total 20 750 1050 Balance 133 1900 699 Weight 222 lb 10.67 oz 225 lb 1.6 oz 224 lb 4.8 oz General: awake in no acute distress but some agitation CVS:[id number] Chest: no rales or wheezing, decreased effort Abdomen: soft, suprapubic/lowr abdominal tenderness, no voluntary or involuntary guarding or rigidity, positive bowel sounds extremities: no pedal edema Home Medication List Medication Instructions Recorded Confirmed Type Amino Acids/Protein Hydrolys 30 ml PO BID 02/08/17 04/28/17 History [Pro-Stat Awc Liquid] Docusate Sodium [Dulcolax Stool 200 mg PO HS 02/08/17 04/28/17 History Softener] Levothyroxine [Synthroid -] 225 mcg PO DAILY 02/08/17 04/28/17 History Mag Hydrox/Al Hydrox/Simeth 30 ml PO Q8H PRN 02/08/17 04/28/17 History [Mylanta Oral Suspension -] Magnesium Hydrox 2400MG/30Ml [Milk 30 ml PO DAILY PRN 02/08/17 04/28/17 History of Magnesia -] Multivitamin with Minerals [Icaps 1 each PO DAILY 02/08/17 04/28/17 History Plus] Pantoprazole Sodium 40 mg PO DAILY 02/08/17 04/28/17 History Polyethylene Glycol 3350 [Miralax 17 gm PO DAILY 02/08/17 04/28/17 History 119 gm Btl -] Quetiapine Fumarate [Seroquel -] 300 mg PO BID 02/08/17 04/28/17 History Topiramate [Topamax] 100 mg PO Q12H 02/08/17 04/28/17 History Cinacalcet HCl [Sensipar] 30 mg PO BID 04/28/17 04/28/17 History Divalproex Sprinkle [Depakote 125 mg PO BID 04/28/17 04/28/17 History Sprinkle Caps -] [place] Carbonate [Eskalith -] 300 mg PO HS 04/28/17 04/28/17 History Bisacodyl Suppository [Dulcolax 1 supp MA DAILY PRN 04/29/17 04/29/17 History Suppository -] Mupirocin Cream [Bactroban 2% 1 applic TP HS 04/29/17 04/29/17 History Cream -] Active Medications Generic Name Dose Route Start Last Admin Trade Name Freq PRN Reason Stop Dose Admin Al Hydroxide/Mg Hydroxide 30 ml 04/29/17 15:19 Mylanta Oral Suspension - PO Q8H PRN DYSPEPSIA Amino Acids 30 ml 04/29/17 17:30 04/30/17 10:05 Prosource No Carb Liquid Pkt PO Not Given BIDWM ROLAN Bisacodyl 10 mg 04/29/17 15:19 Dulcolax Suppository - RC DAILY PRN CONSTIPATION Chlorhexidine Gluconate 1 applic 04/28/17 22:00 04/29/17 22:32 Hibiclens For Decolonization - TP 1 applic HS ROLAN Administration Cinacalcet 30 mg 04/29/17 22:00 04/30/17 09:24 Sensipar - PO 30 mg BID ROLAN Administration Divalproex Sodium 125 mg 04/29/17 22:00 04/30/17 11:11 Depakote Sprinkle Caps - PO 125 mg BID ROLAN Administration Docusate Sodium 200 mg 04/29/17 22:45 04/29/17 23:06 Colace Liquid - PO 200 mg HS ROLAN Administration Heparin Sodium (Porcine) 5,000 unit 04/28/17 22:00 04/30/17 05:59 Heparin - SQ 5,000 unit TID ROLAN Administration Hydrocortisone Sodium Succinate 50 mg 04/30/17 22:00 Solu-Cortef - IVPB BID ROLAN Norepinephrine Bitartrate 8, 500 mls @ 18.75 mls/hr 04/28/17 17:15 04/30/17 08:00 000 mcg/ Dextrose IV 0 mcg/min TITR ROLAN 0 mls/hr Protocol Titration 5 MCG/MIN Sodium Chloride 1,000 mls @ 100 mls/hr 04/28/17 17:45 04/29/17 17:26 Normal Saline - IV 100 mls/hr ASDIR ROLAN Administration Vasopressin 50 units/ Sodium 100 mls @ 4.8 mls/hr 04/28/17 23:30 04/30/17 02: 25 Chloride IVPB 2 units/hr ASDIR ROLAN 4 mls/hr Protocol Administration 2.4 UNITS/HR Piperacillin Sod/Tazobactam 100 mls @ 200 mls/hr 04/29/17 12:15 04/30/17 10: 51 Sod 3.375 gm/ Dextrose IVPB 200 mls/hr Q8H-IV ROLAN Administration Protocol Levothyroxine Sodium 225 mcg 04/29/17 10:00 04/30/17 09:24 Synthroid - PO 225 mcg DAILY ROLAN Administration [place] Carbonate 300 mg 04/29/17 22:00 04/29/17 23:10 Eskalith - PO 300 mg HS ROLAN Administration Mupirocin 1 applic 04/28/17 22:00 04/30/17 09:25 Bactroban Ointment (For Decolonization) - NS 05/03/17 21:59 1 applic BID ROLAN Administration Pantoprazole Sodium 40 mg 04/30/17 10:00 04/30/17 09:24 Protonix - PO 40 mg DAILY ROLAN Administration Polyethylene Glycol 17 gm 04/30/17 10:00 04/30/17 10:58 Miralax (For Daily Use) - PO Not Given DAILY ROLAN Topiramate 100 mg 04/29/17 22:00 04/30/17 09:24 Topamax - PO 100 mg BID ORLAN Administration Laboratory Results - last 24 hr 04/28/17 04/29/17 04/30/17 18:43 20:00 01:00 WBC RBC Hgb Hct MCV MCH MCHC RDW Plt Count MPV Neutrophils % Lymphocytes % Monocytes % Eosinophils % Basophils % Sodium Potassium Chloride Carbon Dioxide Anion Gap BUN Creatinine Creat Clearance w eGFR Random Glucose Calcium Phosphorus Magnesium Total Bilirubin AST ALT Alkaline Phosphatase Troponin I 0.13 H 0.12 H Total Protein Albumin Topiramate 7 04/30/17 04/30/17 04/30/17 06:00 06:00 07:30 WBC 16.6 H RBC 2.42 L Hgb 9.2 L Hct 28.2 L MCV 116.6 H MCH 38.2 H MCHC 32.7 RDW 14.9 Plt Count 74 L MPV 10.6 Neutrophils % 85.0 H D Lymphocytes % 7.5 L D Monocytes % 7.3 Eosinophils % 0.0 D Basophils % 0.2 Sodium 145 Potassium 3.3 L Chloride 117 H Carbon Dioxide 19 L Anion Gap 9 BUN 39 H D Creatinine 1.6 H Creat Clearance w eGFR 31.68 Random Glucose 111 H D Calcium 7.5 L Phosphorus 3.6 D Magnesium 2.0 D Total Bilirubin 0.3 AST 73 H D ALT 48 Alkaline Phosphatase 70 Troponin I 0.09 H Total Protein 4.7 L Albumin 1.5 L Topiramate Microbiology 04/29/17 13:00 Urine - Urine Geiger Urine Culture - Final Contaminated: Please Repeat 04/28/17 15:11 Urine - Urine Geiger Urine Culture - Preliminary Non Lactose Fermenting Gnb Pending Organism 04/28/17 13:41 Blood - Peripheral Venous Blood Culture - Preliminary Non Lactose Fermenting Gnb 04/28/17 13:41 Blood - Peripheral Venous Blood Culture - Preliminary Non Lactose Fermenting Gnb ASSESSMENT AND PLAN: Acute Hypoxic Respiratory Failure UTI Gram Negative Bacteremia Septic Shock Acute Kidney Injury Lactic Acidosis resolving elevated troponin, ?Demand type 2 NSTEMI from septic shock Seizure Disorder Hypothyroidism Hyperlipidemia s/p colostomy - continue antibiotics - f/u cultures - titrate pressors to maintain MAP >65 - IVF to keep CVP 8-12 - continue stress dose steroids - monitor urine output, creatinine - taper flow rate, FiO2 to keep SpO2 >90% - aspiration precautions - Tn trended down, 2d echo noted -Vague abdominal symptoms, ?UTI, given positive blood and urine cultures, will follow up results and monitor closely for clinical improvement. CT A/P if fails to improve. -Speech/swallow eval noted, NPO, check MBS, meds with applesauce for now. - DVT prophylaxis - continue ICU monitoring -Critical care provided in ICU 35 min.
[2017-04-30] MEDS: SODIUM CHLORIDE 1,000 ML IV SCH (18:14)
--- NOTE | 2017-04-30 21:03 | PN ---
Progress Note, Physician History of Present Illness: Awake, confused No acute distress Breathing non-labored Afebrile Off pressors BC, Urine c/s GNR - Current Medication List Current Medications: Active Medications Al Hydroxide/Mg Hydroxide (Mylanta Oral Suspension -) 30 ml PO Q8H PRN PRN Reason: DYSPEPSIA Amino Acids (Prosource No Carb Liquid Pkt) 30 ml PO BIDWM [facility] Last Admin: 04/30/17 18:09 Dose: Not Given Bisacodyl (Dulcolax Suppository -) 10 mg RC DAILY PRN PRN Reason: CONSTIPATION Chlorhexidine Gluconate (Hibiclens For Decolonization -) 1 applic TP HS [facility] Last Admin: 04/29/17 22:32 Dose: 1 applic Cinacalcet (Sensipar -) 30 mg PO BID ROLAN Last Admin: 04/30/17 09:24 Dose: 30 mg Divalproex Sodium (Depakote Sprinkle Caps -) 125 mg PO BID ROLAN Last Admin: 04/30/17 11:11 Dose: 125 mg Docusate Sodium (Colace Liquid -) 200 mg PO HS [facility] Last Admin: 04/29/17 23:06 Dose: 200 mg Heparin Sodium (Porcine) (Heparin -) 5,000 unit SQ TID ROLAN Last Admin: 04/30/17 05:59 Dose: 5,000 unit Hydrocortisone Sodium Succinate (Solu-Cortef -) 50 mg IVPB BID [facility] Norepinephrine Bitartrate 8, (000 mcg/ Dextrose) 500 mls @ 18.75 mls/hr IV TITR ROLAN; 5 MCG/MIN PRN Reason: Protocol Last Titration: 04/30/17 08:00 Dose: 0 mcg/min, 0 mls/hr Sodium Chloride (Normal Saline -) 1,000 mls @ 100 mls/hr IV ASDIR ROLAN Last Admin: 04/30/17 18:14 Dose: 100 mls/hr Vasopressin 50 units/ Sodium (Chloride) 100 mls @ 4.8 mls/hr IVPB ASDIR ROLAN; 2.4 UNITS/HR PRN Reason: Protocol Last Admin: 04/30/17 02:25 Dose: 2 units/hr, 4 mls/hr Piperacillin Sod/Tazobactam (Sod 3.375 gm/ Dextrose) 100 mls @ 200 mls/hr IVPB Q8H-IV ROLAN PRN Reason: Protocol Last Admin: 04/30/17 18:09 Dose: 200 mls/hr Levothyroxine Sodium (Synthroid -) 225 mcg PO DAILY [facility] Last Admin: 04/30/17 09:24 Dose: 225 mcg [place] Carbonate (Eskalith -) 300 mg PO HS [facility] Last Admin: 04/29/17 23:10 Dose: 300 mg Mupirocin (Bactroban Ointment (For Decolonization) -) 1 applic NS BID [facility] Stop: 05/03/17 21:59 Last Admin: 04/30/17 09:25 Dose: 1 applic Pantoprazole Sodium (Protonix -) 40 mg PO DAILY [facility] Last Admin: 04/30/17 09:24 Dose: 40 mg Polyethylene Glycol (Miralax (For Daily Use) -) 17 gm PO DAILY [facility] Last Admin: 04/30/17 10:58 Dose: Not Given Topiramate (Topamax -) 100 mg PO BID [facility] Last Admin: 04/30/17 09:24 Dose: 100 mg - Objective Vital Signs: Vital Signs Temperature 99.4 F 04/30/17 18:00 Pulse Rate 55 L 04/30/17 18:00 Respiratory Rate 17 04/30/17 18:00 Blood Pressure 124/74 04/30/17 18:00 O2 Sat by Pulse Oximetry (%) 97 04/30/17 19:17 Constitutional: Yes: No Distress, Obese Cardiovascular: Yes: Regular Rate and Rhythm, S1, S2 Respiratory: Yes: Diminished Gastrointestinal: Yes: Normal Bowel Sounds, Soft, Abdomen, Obese, Other (+ ostomy) Edema: Yes Labs: CBC, BMP 04/30/17 06:00 04/30/17 06:00 INR, PTT INR 1.38 (0.82-1.09) H 04/29/17 06:20 Assessment/Plan Gram Negative bacteremia/ sepsis UTI/ Sepsis secondary to UTI Leukocytosis- improved Toxic metabolic encephalopathy Renal failure Thromboctopenia Await culture results Continue empiric zosyn
[2017-04-30] MEDS ORDERED: HYDROCORTISONE SOD SUCCINATE 100 MG/2 ML VIAL IVPB SCH (22:00)
[2017-04-30] MEDS ORDERED: PT OWN MED DRAWER 7, Y5N ONE (22:34)
[2017-04-30] MEDS: DOCUSATE NA 100 MG/10 ML UNIT-DOSE CUPS PO SCH (22:36)
[2017-04-30] MEDS: LITHIUM CARBONATE 300 MG CAPSULE (FP) PO SCH (22:38)
[2017-04-30] MEDS: CHLORHEXIDINE GLUCONATE 4% CLEANSER FOR DECOLONIZATION TP SCH (22:47)
[2017-05-01] MEDS: PIPERACILLIN/TAZOB 3.375 GM 3.375 GM in DEXTROSE 5%-WATER - 100 ML IVPB SCH ×2 (01:58→10:29)
[2017-05-01] MEDS: CINACALCET HCL 30 MG TAB (FP) PO SCH ×3 (02:57→21:37)
[2017-05-01] MEDS: VASOPRESSIN 50 UNITS in SODIUM CHLORIDE 97.5 ML IVPB SCH (02:58)
[2017-05-01] MEDS: NOREPINEPHRINE BITARTRATE 8,000 MCG in DEXTROSE 5%-WATER - 492 ML IV SCH ×2 (02:59→21:35)
[2017-05-01 06:48] LABS: HEMATOCRIT 28.9 % (32.4-45.2); HEMOGLOBIN 9.5 GM/dL (10.7-15.3); MCH 38.5 pg (25.7-33.7); MEAN CELL VOLUME 116.7 fl (80-96); PLATELET COUNT 64 K/MM3 (134-434); RBC 2.48 M/mm3 (3.60-5.2); RDW 14.7 % (11.6-15.6); WHITE BLOOD COUNT 13.8 K/mm3 (4.0-10.0)
[2017-05-01 07:05] LABS: ALBUMIN 1.6 g/dl (3.4-5.0); ALK PHOS 75 U/L (45-117); ANION GAP 8 (8-16); BILIRUBIN,TOTAL 0.3 mg/dL (0.2-1.0); BLOOD UREA NITROGEN 37 mg/dL (7-18); CALCIUM 7.9 mg/dL (8.5-10.1); CHLORIDE 123 mmol/L (98-107); CO2 21 mmol/L (21-32); CREATININE 1.4 mg/dL (0.55-1.02); GLUCOSE,RANDOM 82 mg/dL (74-106); MAGNESIUM 1.7 mg/dL (1.8-2.4); PHOSPHOROUS 2.9 mg/dL (2.5-4.9); POTASSIUM 3.2 mmol/L (3.5-5.1); SGOT/AST 37 U/L (15-37); SGPT/ALT 43 U/L (12-78); SODIUM 152 mmol/L (136-145); TOT PROT 4.7 g/dl (6.4-8.2)
--- NOTE | 2017-05-01 09:51 | PN ---
Physical Exam: SUBJECTIVE: Patient on/off levophed overnight. Did not go for perinephric abscess drainage. did well otherwise. OBJECTIVE: Vital Signs Period Temp Pulse Resp BP Sys/Messer Pulse Ox Last 24 Hr 98.2 F-99.4 F 49-71 15- 121-157/60-133 96-98 GENERAL: The patient is awake, alert, but oriented to only name. HEAD: Normal with no signs of trauma. EYES: PERRL, extraocular movements intact, sclera anicteric, conjunctiva clear. No ptosis. ENT: Ears normal, nares patent, oropharynx clear without exudates, moist mucous membranes. NECK: Trachea midline, full range of motion, supple. LUNGS: Breath sounds equal, clear to auscultation bilaterally, no wheezes, no crackles, no accessory muscle use. HEART: Regular rate and rhythm, S1, S2 without murmur, rub or gallop. ABDOMEN: Soft, nontender, nondistended, normoactive bowel sounds, no guarding, no rebound, no hepatosplenomegaly, no masses. G tube in appropriate location with ewtry port non-erythematous or swollen. EXTREMITIES: 2+ pulses, warm, well-perfused, 3+ pitting edema bilaterally. NEUROLOGICAL: No obvious focal sign. PSYCH: Normal mood, normal affect. SKIN: Warm, dry, normal turgor, no rashes or lesions noted Laboratory Results - last 24 hr 04/28/17 05/01/17 05/01/17 18:43 06:20 06:20 WBC 13.8 H RBC 2.48 L Hgb 9.5 L Hct 28.9 L MCV 116.7 H MCH 38.5 H MCHC 33.0 RDW 14.7 Plt Count 64 L MPV 11.0 Sodium 152 H Potassium 3.2 L Chloride 123 H Carbon Dioxide 21 Anion Gap 8 BUN 37 H Creatinine 1.4 H Creat Clearance w eGFR 36.96 Random Glucose 82 D Calcium 7.9 L Phosphorus 2.9 Magnesium 1.7 L Total Bilirubin 0.3 AST 37 D ALT 43 Alkaline Phosphatase 75 Total Protein 4.7 L Albumin 1.6 L Topiramate 7 Active Medications Generic Name Dose Route Start Last Admin Trade Name Freq PRN Reason Stop Dose Admin Al Hydroxide/Mg Hydroxide 30 ml 04/29/17 15:19 Mylanta Oral Suspension - PO Q8H PRN DYSPEPSIA Amino Acids 30 ml 04/29/17 17:30 04/30/17 18:09 Prosource No Carb Liquid Pkt PO Not Given BIDWM ROLAN Bisacodyl 10 mg 04/29/17 15:19 Dulcolax Suppository - RC DAILY PRN CONSTIPATION Chlorhexidine Gluconate 1 applic 04/28/17 22:00 04/30/17 22:47 Hibiclens For Decolonization - TP 1 applic HS ROLAN Administration Cinacalcet 30 mg 04/29/17 22:00 05/01/17 02:57 Sensipar - PO Not Given BID ROLAN Divalproex Sodium 125 mg 04/29/17 22:00 04/30/17 22:37 Depakote Sprinkle Caps - PO 125 mg BID ROLAN Administration Docusate Sodium 200 mg 04/29/17 22:45 04/30/17 22:36 Colace Liquid - PO 200 mg HS ROLAN Administration Heparin Sodium (Porcine) 5,000 unit 04/28/17 22:00 04/30/17 05:59 Heparin - SQ 5,000 unit TID ROLAN Administration Hydrocortisone Sodium Succinate 50 mg 04/30/17 22:00 04/30/17 22:36 Solu-Cortef - IVPB 50 mg BID ROLAN Administration Norepinephrine Bitartrate 8, 500 mls @ 18.75 mls/hr 04/28/17 17:15 05/01/17 02:59 000 mcg/ Dextrose IV Not Given TITR ROLAN Protocol 5 MCG/MIN Sodium Chloride 1,000 mls @ 100 mls/hr 04/28/17 17:45 04/30/17 18:14 Normal Saline - IV 100 mls/hr ASDIR ROLAN Administration Vasopressin 50 units/ Sodium 100 mls @ 4.8 mls/hr 04/28/17 23:30 05/01/17 02: 58 Chloride IVPB Not Given ASDIR ROLAN Protocol 2.4 UNITS/HR Piperacillin Sod/Tazobactam 100 mls @ 200 mls/hr 04/29/17 12:15 05/01/17 01: 58 Sod 3.375 gm/ Dextrose IVPB 200 mls/hr Q8H-IV ROLAN Administration Protocol Levothyroxine Sodium 225 mcg 04/29/17 10:00 04/30/17 09:24 Synthroid - PO 225 mcg DAILY ROLAN Administration [place] Carbonate 300 mg 04/29/17 22:00 04/30/17 22:38 Eskalith - PO 300 mg HS ROLAN Administration Mupirocin 1 applic 04/28/17 22:00 05/01/17 00:00 Bactroban Ointment (For Decolonization) - NS 05/03/17 21:59 1 applic BID ROLAN Administration Pantoprazole Sodium 40 mg 04/30/17 10:00 04/30/17 09:24 Protonix - PO 40 mg DAILY ROLAN Administration Polyethylene Glycol 17 gm 04/30/17 10:00 04/30/17 10:58 Miralax (For Daily Use) - PO Not Given DAILY ROLAN Topiramate 100 mg 04/29/17 22:00 04/30/17 22:36 Topamax - PO 100 mg BID ROLAN Administration ASSESSMENT/PLAN: 71 year old female with PMH of hypothyroid, bipolar, seizure, found unresponsive at [place] and admitted to our ICU for septic shock currently off pressers but still on steroids spaced out yesterday with abdominal CT demonstrating Right sided hydronephrosis 2/2 obstructive calculus. Neuro: #AMS: Unsure of baseline mental status but patient is still moderately disoriented. Possibly secondary to septic shock vs. worsening dementia. - CTM mental status - Speech and swallow evaluation recommending barium swallow once MS improves #Seizure: History of seizure disorder - continue Sensipar, Depakote, Topamax #Bipolar Disorder: Patient has history of bipolar disorder - continue [place] - Seroquel held 2/2 lethargy CV: #Septic Shock: 2/2 GN bacteremia likely seeded from GN UTI - Monitor off pressers - DC NS because pressures uptrending. - stress dose steroids tapered down to BID ID: - ID (Dr. Couch) recs appreciated: IV Zosyn Day 3 - 04/28/17BCx and UCx (+) for E. Coli with different sensitivities but both sensitive to Levaquin and Ceftriaxone. Additionally, the blood borne E. Coli is insensitive to Zosyn. - will put in percutaneous nephrostomy by IR today after platelet transfusion Renal: # ORAL: likely 2/2 low flow state in the setting of sepsis - Cr downtrending - monitor UOP Endo: # hypothyroidism -continue Synthroid FEN: - Fluids DC'd - will replete K - Speech and swallow eval with MBS once lethargy improves but will attempt soft diet for now. Prophy: - DVT ppx with Heparin - PPI Dispo: -Should be monitored briefly after percutaneous nephrostomy placed then can be de-escalated to Med Surg (4W/ 4S) Visit type - Emergency Visit Emergency Visit: No - New Patient This patient is new to me today: No - Critical Care Critical Care patient: Yes Total Critical Care Time (in minutes): 35 Critical Care Statement: The care of this patient involved high complexity decision making to prevent further life threatening deterioration of the patient 's condition and/or to evaluate & treat vital organ system(s) failure or risk of failure. - Discharge Referral Referred to [facility] Med P.C.: No
[2017-05-01] MEDS ORDERED: POTASSIUM CHLORIDE TABS 20 MEQ TABLET.ER (FP) PO ONE (10:00)
[2017-05-01] MEDS ORDERED: DEXTROSE 5%-WATER - 1,000 ML IV SCH (10:00)
[2017-05-01] MEDS ORDERED: MAGNESIUM SULF 50% (8.12 MEQ/2 ML-1 GM VIAL) IVPB ONE (10:01)
[2017-05-01] MEDS: HYDROCORTISONE SOD SUCCINATE 100 MG/2 ML VIAL IVPB SCH ×2 (10:56→21:37)
[2017-05-01] MEDS: LEVOTHYROXINE NA 75 MCG TABLET (FP) PO SCH (10:58)
[2017-05-01] MEDS: PANTOPRAZOLE 40 MG TABLET (FP) PO SCH (10:58)
[2017-05-01] MEDS: KCL 10 MEQ IVPB 10 MEQ/100 ML INFUS.BAG IVPB SCH ×2 (10:59→11:35)
[2017-05-01] MEDS ORDERED: PT OWN MED DRAWER 7, Y5N ONE (11:31)
[2017-05-01] MEDS: DIVALPROEX SODIUM 125 MG SPRINKLE CAPS (FP) PO SCH ×2 (11:35→21:37)
[2017-05-01] MEDS: AMINO ACIDS/PROTEIN HYDROLYS 30 ML LIQUID.PKT PO SCH ×2 (11:39→17:01)
--- NOTE | 2017-05-01 12:45 | PN ---
Teaching Attending Note Name of Resident: Daniela Cates ATTENDING PHYSICIAN STATEMENT I saw and evaluated the patient. I reviewed the resident's note and discussed the case with the resident. I agree with the resident's findings and plan as documented. SUBJECTIVE: Patient seen and examined in the ICU. Currently off pressors. Awake and alert. Denies CP or SOB. CT: Right 1.5 cm stone and hydronephrosis. OBJECTIVE: Intake & Output 04/28/17 04/29/17 04/30/17 05/01/17 23:59 23:59 23:59 23:59 Intake Total 153 2650 2549 1350 Output Total 20 750 1050 900 Balance 133 1900 1499 450 Weight 222 lb 10.67 oz 225 lb 1.6 oz 224 lb 4.8 oz 227 lb 4.745 oz Last Vital Signs Temp Pulse Resp BP Pulse Ox 98.3 F 51 L 18 122/99 97 05/01/17 10:00 05/01/17 10:00 05/01/17 10:00 05/01/17 10:00 05/01/17 09:40 Active Medications Al Hydroxide/Mg Hydroxide (Mylanta Oral Suspension -) 30 ml PO Q8H PRN PRN Reason: DYSPEPSIA Amino Acids (Prosource No Carb Liquid Pkt) 30 ml PO BIDWM [facility] Last Admin: 05/01/17 11:39 Dose: 30 ml Bisacodyl (Dulcolax Suppository -) 10 mg RC DAILY PRN PRN Reason: CONSTIPATION Chlorhexidine Gluconate (Hibiclens For Decolonization -) 1 applic TP HS [facility] Last Admin: 04/30/17 22:47 Dose: 1 applic Cinacalcet (Sensipar -) 30 mg PO BID [facility] Last Admin: 05/01/17 11:07 Dose: 30 mg Divalproex Sodium (Depakote Sprinkle Caps -) 125 mg PO BID [facility] Last Admin: 05/01/17 11:35 Dose: 125 mg Docusate Sodium (Colace Liquid -) 200 mg PO HS [facility] Last Admin: 04/30/17 22:36 Dose: 200 mg Heparin Sodium (Porcine) (Heparin -) 5,000 unit SQ TID [facility] Last Admin: 04/30/17 05:59 Dose: 5,000 unit Hydrocortisone Sodium Succinate (Solu-Cortef -) 50 mg IVPB BID [facility] Last Admin: 05/01/17 10:56 Dose: 50 mg Norepinephrine Bitartrate 8, (000 mcg/ Dextrose) 500 mls @ 18.75 mls/hr IV TITR ROLAN; 5 MCG/MIN PRN Reason: Protocol Last Admin: 05/01/17 02:59 Dose: Not Given Vasopressin 50 units/ Sodium (Chloride) 100 mls @ 4.8 mls/hr IVPB ASDIR ROLAN; 2.4 UNITS/HR PRN Reason: Protocol Last Admin: 05/01/17 02:58 Dose: Not Given Piperacillin Sod/Tazobactam (Sod 3.375 gm/ Dextrose) 100 mls @ 200 mls/hr IVPB Q8H-IV ROLAN PRN Reason: Protocol Last Admin: 05/01/17 10:29 Dose: 200 mls/hr Dextrose (D5w -) 1,000 mls @ 50 mls/hr IV .[id number] ROLAN Potassium Chloride (Potassium Chloride 10 Meq Premix Ivpb -) 10 meq in 100 mls @ 100 mls/hr IVPB Q60M ROLAN Stop: 05/01/17 13:14 Last Admin: 05/01/17 11:35 Dose: 100 mls/hr Levothyroxine Sodium (Synthroid -) 225 mcg PO DAILY [facility] Last Admin: 05/01/17 10:58 Dose: 225 mcg [place] Carbonate (Eskalith -) 300 mg PO HS [facility] Last Admin: 04/30/17 22:38 Dose: 300 mg Mupirocin (Bactroban Ointment (For Decolonization) -) 1 applic NS BID [facility] Stop: 05/03/17 21:59 Last Admin: 05/01/17 00:00 Dose: 1 applic Pantoprazole Sodium (Protonix -) 40 mg PO DAILY [facility] Last Admin: 05/01/17 10:58 Dose: 40 mg Polyethylene Glycol (Miralax (For Daily Use) -) 17 gm PO DAILY [facility] Last Admin: 04/30/17 10:58 Dose: Not Given Topiramate (Topamax -) 100 mg PO BID [facility] Last Admin: 04/30/17 22:36 Dose: 100 mg Gen: Awake and alert, NAD Heart: RRR Lung: decreased breath sounds at the bases Abd: soft, obese, +ostomy pink Ext: no edema Laboratory Results - last 24 hr 04/28/17 04/28/17 04/28/17 13:55 14:35 18:43 WBC RBC Hgb Hct MCV MCH MCHC RDW Plt Count MPV VBG pH 7.40 POC VBG pCO2 25.0 L D POC VBG pO2 133.0 H D Mixed VBG HCO3 15.1 L Sodium Potassium Chloride Carbon Dioxide Anion Gap BUN Creatinine Creat Clearance w eGFR Random Glucose Lactic Acid 7.2 H* Calcium Phosphorus Magnesium Total Bilirubin AST ALT Alkaline Phosphatase Total Protein Albumin Topiramate 7 05/01/17 05/01/17 06:20 06:20 WBC 13.8 H RBC 2.48 L Hgb 9.5 L Hct 28.9 L MCV 116.7 H MCH 38.5 H MCHC 33.0 RDW 14.7 Plt Count 64 L MPV 11.0 VBG pH POC VBG pCO2 POC VBG pO2 Mixed VBG HCO3 Sodium 152 H Potassium 3.2 L Chloride 123 H Carbon Dioxide 21 Anion Gap 8 BUN 37 H Creatinine 1.4 H Creat Clearance w eGFR 36.96 Random Glucose 82 D Lactic Acid Calcium 7.9 L Phosphorus 2.9 Magnesium 1.7 L Total Bilirubin 0.3 AST 37 D ALT 43 Alkaline Phosphatase 75 Total Protein 4.7 L Albumin 1.6 L Topiramate ASSESSMENT AND PLAN: Acute Hypoxic Respiratory Failure UTI Gram Negative Bacteremia Septic Shock Acute Kidney Injury Lactic Acidosis resolving Seizure Disorder Hypothyroidism Hyperlipidemia s/p colostomy Right Hydronephrosis / 1.5 cm stone - continue antibiotics - IR for Nephrostomy placement - IVF to keep CVP 8-12 - taper stress dose steroids - monitor urine output, creatinine - FiO2 to keep SpO2 >90% - Aspiration precautions - DVT prophylaxis - 4S/4W monitoring Dr Overton Critical care time spent in reviewing chart, evaluating patient and formulating plan 35 min
--- NOTE | 2017-05-01 12:55 | PN ---
Teaching Attending Note Name of Resident: Gifty Healy ATTENDING PHYSICIAN STATEMENT Time of evaluation: 9:10 Am I saw and evaluated the patient. I reviewed the resident's note and discussed the case with the resident. I agree with the resident's findings and plan as documented. SUBJECTIVE: Patient seen and examined, more awake and conversant today. denies any pain today, asking if can eat. oriented to self. Further ROS limited. OBJECTIVE: Vital Signs Period Temp Pulse Resp BP Sys/Messer Pulse Ox Last 24 Hr 98.3 F-99.4 F 49-69 15-22 122-157/62-133 96-98 Intake & Output 04/28/17 04/29/17 04/30/17 05/01/17 23:59 23:59 23:59 23:59 Intake Total 153 2650 2549 1350 Output Total 20 750 1050 900 Balance 133 1900 1499 450 Weight 222 lb 10.67 oz 225 lb 1.6 oz 224 lb 4.8 oz 227 lb 4.745 oz General: lying in bed, more awake, oriented to self, in no acute distress CVS:S1S2 50s, regular Chest: decreased effort anteriorly, no rales or wheezing anteriorly, limited exam Abdomen: soft, obese, no tenderness today, no voluntary or involuntary guarding or rigidity Extremities: no edema neuro more awake, conversant, asking for food, Home Medication List Medication Instructions Recorded Confirmed Type Amino Acids/Protein Hydrolys 30 ml PO BID 02/08/17 04/28/17 History [Pro-Stat Awc Liquid] Docusate Sodium [Dulcolax Stool 200 mg PO HS 02/08/17 04/28/17 History Softener] Levothyroxine [Synthroid -] 225 mcg PO DAILY 02/08/17 04/28/17 History Mag Hydrox/Al Hydrox/Simeth 30 ml PO Q8H PRN 02/08/17 04/28/17 History [Mylanta Oral Suspension -] Magnesium Hydrox 2400MG/30Ml [Milk 30 ml PO DAILY PRN 02/08/17 04/28/17 History of Magnesia -] Multivitamin with Minerals [Icaps 1 each PO DAILY 02/08/17 04/28/17 History Plus] Pantoprazole Sodium 40 mg PO DAILY 02/08/17 04/28/17 History Polyethylene Glycol 3350 [Miralax 17 gm PO DAILY 02/08/17 04/28/17 History 119 gm Btl -] Quetiapine Fumarate [Seroquel -] 300 mg PO BID 02/08/17 04/28/17 History Topiramate [Topamax] 100 mg PO Q12H 02/08/17 04/28/17 History Cinacalcet HCl [Sensipar] 30 mg PO BID 04/28/17 04/28/17 History Divalproex Sprinkle [Depakote 125 mg PO BID 04/28/17 04/28/17 History Sprinkle Caps -] [place] Carbonate [Eskalith -] 300 mg PO HS 04/28/17 04/28/17 History Bisacodyl Suppository [Dulcolax 1 supp AL DAILY PRN 04/29/17 04/29/17 History Suppository -] Mupirocin Cream [Bactroban 2% 1 applic TP HS 04/29/17 04/29/17 History Cream -] Active Medications Generic Name Dose Route Start Last Admin Trade Name Jjq PRN Reason Stop Dose Admin Al Hydroxide/Mg Hydroxide 30 ml 04/29/17 15:19 Mylanta Oral Suspension - PO Q8H PRN DYSPEPSIA Amino Acids 30 ml 04/29/17 17:30 05/01/17 11:39 Prosource No Carb Liquid Pkt PO 30 ml BIDWM ROLAN Administration Bisacodyl 10 mg 04/29/17 15:19 Dulcolax Suppository - RC DAILY PRN CONSTIPATION Chlorhexidine Gluconate 1 applic 04/28/17 22:00 04/30/17 22:47 Hibiclens For Decolonization - TP 1 applic HS ROLAN Administration Cinacalcet 30 mg 04/29/17 22:00 05/01/17 11:07 Sensipar - PO 30 mg BID ROLAN Administration Divalproex Sodium 125 mg 04/29/17 22:00 05/01/17 11:35 Depakote Sprinkle Caps - PO 125 mg BID ROLAN Administration Docusate Sodium 200 mg 04/29/17 22:45 04/30/17 22:36 Colace Liquid - PO 200 mg HS ROLAN Administration Heparin Sodium (Porcine) 5,000 unit 04/28/17 22:00 04/30/17 05:59 Heparin - SQ 5,000 unit TID ROLAN Administration Hydrocortisone Sodium Succinate 50 mg 04/30/17 22:00 05/01/17 10:56 Solu-Cortef - IVPB 50 mg BID ROLAN Administration Norepinephrine Bitartrate 8, 500 mls @ 18.75 mls/hr 04/28/17 17:15 05/01/17 02:59 000 mcg/ Dextrose IV Not Given TITR ROLAN Protocol 5 MCG/MIN Vasopressin 50 units/ Sodium 100 mls @ 4.8 mls/hr 04/28/17 23:30 05/01/17 02: 58 Chloride IVPB Not Given ASDIR ROLAN Protocol 2.4 UNITS/HR Piperacillin Sod/Tazobactam 100 mls @ 200 mls/hr 04/29/17 12:15 05/01/17 10: 29 Sod 3.375 gm/ Dextrose IVPB 200 mls/hr Q8H-IV ROLAN Administration Protocol Dextrose 1,000 mls @ 50 mls/hr 05/01/17 10:00 D5w - IV .[id number] ROLAN Potassium Chloride 10 meq in 100 mls @ 100 mls/hr 05/01/17 10:15 05/01/17 11: 35 Potassium Chloride 10 Meq Premix Ivpb - IVPB 05/01/17 13:14 100 mls/hr Q60M ROLAN Administration Levothyroxine Sodium 225 mcg 04/29/17 10:00 05/01/17 10:58 Synthroid - PO 225 mcg DAILY ROLAN Administration [place] Carbonate 300 mg 04/29/17 22:00 04/30/17 22:38 Eskalith - PO 300 mg HS ROLAN Administration Mupirocin 1 applic 04/28/17 22:00 05/01/17 00:00 Bactroban Ointment (For Decolonization) - NS 05/03/17 21:59 1 applic BID ROLAN Administration Pantoprazole Sodium 40 mg 04/30/17 10:00 05/01/17 10:58 Protonix - PO 40 mg DAILY ROLAN Administration Polyethylene Glycol 17 gm 04/30/17 10:00 04/30/17 10:58 Miralax (For Daily Use) - PO Not Given DAILY ROLAN Topiramate 100 mg 04/29/17 22:00 04/30/17 22:36 Topamax - PO 100 mg BID ROLAN Administration Laboratory Results - last 24 hr 04/28/17 04/28/17 04/28/17 13:55 14:35 18:43 WBC RBC Hgb Hct MCV MCH MCHC RDW Plt Count MPV VBG pH 7.40 POC VBG pCO2 25.0 L D POC VBG pO2 133.0 H D Mixed VBG HCO3 15.1 L Sodium Potassium Chloride Carbon Dioxide Anion Gap BUN Creatinine Creat Clearance w eGFR Random Glucose Lactic Acid 7.2 H* Calcium Phosphorus Magnesium Total Bilirubin AST ALT Alkaline Phosphatase Total Protein Albumin Topiramate 7 05/01/17 05/01/17 06:20 06:20 WBC 13.8 H RBC 2.48 L Hgb 9.5 L Hct 28.9 L MCV 116.7 H MCH 38.5 H MCHC 33.0 RDW 14.7 Plt Count 64 L MPV 11.0 VBG pH POC VBG pCO2 POC VBG pO2 Mixed VBG HCO3 Sodium 152 H Potassium 3.2 L Chloride 123 H Carbon Dioxide 21 Anion Gap 8 BUN 37 H Creatinine 1.4 H Creat Clearance w eGFR 36.96 Random Glucose 82 D Lactic Acid Calcium 7.9 L Phosphorus 2.9 Magnesium 1.7 L Total Bilirubin 0.3 AST 37 D ALT 43 Alkaline Phosphatase 75 Total Protein 4.7 L Albumin 1.6 L Topiramate Home Medication List Medication Instructions Recorded Confirmed Type Amino Acids/Protein Hydrolys 30 ml PO BID 02/08/17 04/28/17 History [Pro-Stat Awc Liquid] Docusate Sodium [Dulcolax Stool 200 mg PO HS 02/08/17 04/28/17 History Softener] Levothyroxine [Synthroid -] 225 mcg PO DAILY 02/08/17 04/28/17 History Mag Hydrox/Al Hydrox/Simeth 30 ml PO Q8H PRN 02/08/17 04/28/17 History [Mylanta Oral Suspension -] Magnesium Hydrox 2400MG/30Ml [Milk 30 ml PO DAILY PRN 02/08/17 04/28/17 History of Magnesia -] Multivitamin with Minerals [Icaps 1 each PO DAILY 02/08/17 04/28/17 History Plus] Pantoprazole Sodium 40 mg PO DAILY 02/08/17 04/28/17 History Polyethylene Glycol 3350 [Miralax 17 gm PO DAILY 02/08/17 04/28/17 History 119 gm Btl -] Quetiapine Fumarate [Seroquel -] 300 mg PO BID 02/08/17 04/28/17 History Topiramate [Topamax] 100 mg PO Q12H 02/08/17 04/28/17 History Cinacalcet HCl [Sensipar] 30 mg PO BID 04/28/17 04/28/17 History Divalproex Sprinkle [Depakote 125 mg PO BID 04/28/17 04/28/17 History Sprinkle Caps -] [place] Carbonate [Eskalith -] 300 mg PO HS 04/28/17 04/28/17 History Bisacodyl Suppository [Dulcolax 1 supp AL DAILY PRN 04/29/17 04/29/17 History Suppository -] Mupirocin Cream [Bactroban 2% 1 applic TP HS 04/29/17 04/29/17 History Cream -] Microbiology 04/28/17 15:11 Urine - Urine Geiger Urine Culture - Preliminary Escherichia Coli Group D Strep Or Entero Coccus 04/28/17 13:41 Blood - Peripheral Venous Blood Culture - Final Escherichia Coli 04/28/17 13:41 Blood - Peripheral Venous Blood Culture - Final Escherichia Coli 04/29/17 13:00 Urine - Urine Geiger Urine Culture - Final Contaminated: Please Repeat CT A/P reviewed: 1.5 cm stone in renal pelvis, with moderate right hydronephrosis ASSESSMENT AND PLAN: Acute Hypoxic Respiratory Failure Complicated UTI E. coli Bacteremia Septic Shock Obstructive nephrolithiasis with moderate right Hydronephrosis Acute Kidney Injury Lactic Acidosis resolving elevated troponin, ?Demand type 2 NSTEMI from septic shock Thrombocytopenia Hypernatremia, supsect iatrogenic Seizure Disorder Hypothyroidism Hyperlipidemia s/p colostomy PLan: -Discussed with Dr. Beckett and Dr. Guerrero, plan for IR guided nephrostomy tube now. Transfuse 2 units of platelets as discsused with radiology. - NPO, will follow up. -Zosyn day 3, continue for now, follow up urine cultures. - Off pressors x 24 hours, doing well. - taper stress dose steroids to off. - monitor urine output, creatinine - taper flow rate, FiO2 to keep SpO2 >90% - aspiration precautions - Tn trended down, 2d echo noted -Speech/swallow eval noted, more awake now. Bed side eval, place on pureed dysphagia diet if does ok. Start diet post procedure if no concerns. Change IVF to D5W@ at 50 for now. - DVT prophylaxis - continue ICU monitoring -Critical care provided in ICU 35 min. Care co-ordinated with ICU, urology, radiology.
--- NOTE | 2017-05-01 12:59 | PN ---
Progress Note, ALIGNER BARREL AND RECEIVER - Note Progress Note: MBS ordered but deferred per nursing. Down in IR for Nephrostomy placement. Reported to be more alert. When sufficiently alert, consider puree and honey thick liquid. Chin tuck, tell pt to swallow quickly.Palpate larynx for reflex with each bite.
[2017-05-01] MEDS: POLYETHYLENE GLYCOL 3350 119 GM BTL PO SCH (16:38)
[2017-05-01] MEDS: CEFTRIAXONE 2 GM in DEXTROSE 5%-WATER - 100 ML IVPB SCH (16:39)
--- NOTE | 2017-05-01 16:40 | PN ---
Progress Note, Physician History of Present Illness: More awake and alert No acute distress Breathing non-labored Found to have obstructing nephrolith Afebrile BC, Urine c/s E coli Leukocytosis improved Plt low - Current Medication List Current Medications: Active Medications Al Hydroxide/Mg Hydroxide (Mylanta Oral Suspension -) 30 ml PO Q8H PRN PRN Reason: DYSPEPSIA Amino Acids (Prosource No Carb Liquid Pkt) 30 ml PO BIDWM PENDING SALE TO [facility] Last Admin: 05/01/17 11:39 Dose: 30 ml Bisacodyl (Dulcolax Suppository -) 10 mg RC DAILY PRN PRN Reason: CONSTIPATION Chlorhexidine Gluconate (Hibiclens For Decolonization -) 1 applic TP HS PENDING SALE TO [facility] Last Admin: 04/30/17 22:47 Dose: 1 applic Cinacalcet (Sensipar -) 30 mg PO BID PENDING SALE TO [facility] Last Admin: 05/01/17 11:07 Dose: 30 mg Divalproex Sodium (Depakote Sprinkle Caps -) 125 mg PO BID PENDING SALE TO [facility] Last Admin: 05/01/17 11:35 Dose: 125 mg Docusate Sodium (Colace Liquid -) 200 mg PO HS PENDING SALE TO [facility] Last Admin: 04/30/17 22:36 Dose: 200 mg Heparin Sodium (Porcine) (Heparin -) 5,000 unit SQ TID PENDING SALE TO [facility] Last Admin: 04/30/17 05:59 Dose: 5,000 unit Hydrocortisone Sodium Succinate (Solu-Cortef -) 50 mg IVPB BID PENDING SALE TO [facility] Last Admin: 05/01/17 10:56 Dose: 50 mg Norepinephrine Bitartrate 8, (000 mcg/ Dextrose) 500 mls @ 18.75 mls/hr IV TITR ROLAN; 5 MCG/MIN PRN Reason: Protocol Last Admin: 05/01/17 02:59 Dose: Not Given Vasopressin 50 units/ Sodium (Chloride) 100 mls @ 4.8 mls/hr IVPB ASDIR ROLAN; 2.4 UNITS/HR PRN Reason: Protocol Last Admin: 05/01/17 02:58 Dose: Not Given Dextrose (D5w -) 1,000 mls @ 50 mls/hr IV .[id number] PENDING SALE TO [facility] Ceftriaxone Sodium 2 gm/ (Dextrose) 100 mls @ 200 mls/hr IVPB DAILY PENDING SALE TO [facility] Levothyroxine Sodium (Synthroid -) 225 mcg PO DAILY PENDING SALE TO [facility] Last Admin: 05/01/17 10:58 Dose: 225 mcg [place] Carbonate (Eskalith -) 300 mg PO HS PENDING SALE TO [facility] Last Admin: 04/30/17 22:38 Dose: 300 mg Mupirocin (Bactroban Ointment (For Decolonization) -) 1 applic NS BID PENDING SALE TO [facility] Stop: 05/03/17 21:59 Last Admin: 05/01/17 00:00 Dose: 1 applic Pantoprazole Sodium (Protonix -) 40 mg PO DAILY PENDING SALE TO [facility] Last Admin: 05/01/17 10:58 Dose: 40 mg Polyethylene Glycol (Miralax (For Daily Use) -) 17 gm PO DAILY PENDING SALE TO [facility] Last Admin: 04/30/17 10:58 Dose: Not Given Topiramate (Topamax -) 100 mg PO BID PENDING SALE TO [facility] Last Admin: 04/30/17 22:36 Dose: 100 mg - Objective Vital Signs: Vital Signs Temperature 96.7 F L 05/01/17 15:00 Pulse Rate 96 H 05/01/17 15:04 Respiratory Rate 25 H 05/01/17 15:04 Blood Pressure 132/77 05/01/17 15:04 O2 Sat by Pulse Oximetry (%) 98 05/01/17 15:04 Constitutional: Yes: No Distress Eyes: Yes: Conjunctiva Clear Cardiovascular: Yes: Regular Rate and Rhythm, S1, S2 Respiratory: Yes: Diminished Gastrointestinal: Yes: Normal Bowel Sounds, Soft, Abdomen, Obese, Other (+ostomy ) Edema: Yes Labs: CBC, BMP 05/01/17 06:20 05/01/17 06:20 INR, PTT INR 1.38 (0.82-1.09) H 04/29/17 06:20 Assessment/Plan Gram Negative bacteremia/ sepsis E coli UTI/ Sepsis secondary to UTI Leukocytosis- improved Toxic metabolic encephalopathy improved Renal failure Thromboctopenia Undergoing percutaneous nephrostomy Substitute ceftriaxone based on susceptibilites
--- NOTE | 2017-05-01 19:21 | PN ---
Physical Exam: SUBJECTIVE: Patient seen and examined. Pt is more awake and conversant today, though her responses do not address the question asked. Pt is alert, oriented to self only. Pt reports diffuse tenderness in abdomen. No fever, chills. OBJECTIVE: Vital Signs Period Temp Pulse Resp BP Sys/Messer Pulse Ox Last 24 Hr 96.7 F-99.3 F 43-96 13-26 117-160/53-133 92-100 GENERAL: Pt is more awake today, oriented to self, NAD. LUNGS: Breath sounds equal, clear to anterior auscultation bilaterally, no wheezes, no crackles, no accessory muscle use. HEART: Regular rhythm, +S1/S2, without murmur. HR 50-60 overnight. ABDOMEN: Diffuse tenderness to palpation, soft, nondistended, no guarding. EXTREMITIES: 2+ pulses patricia, warm, well-perfused, no edema. SKIN: Warm, dry, normal turgor, no rashes or lesions noted Laboratory Results - last 24 hr 04/28/17 04/28/17 05/01/17 13:55 14:35 06:20 WBC 13.8 H RBC 2.48 L Hgb 9.5 L Hct 28.9 L MCV 116.7 H MCH 38.5 H MCHC 33.0 RDW 14.7 Plt Count 64 L MPV 11.0 VBG pH 7.40 POC VBG pCO2 25.0 L D POC VBG pO2 133.0 H D Mixed VBG HCO3 15.1 L Sodium Potassium Chloride Carbon Dioxide Anion Gap BUN Creatinine Creat Clearance w eGFR Random Glucose Lactic Acid 7.2 H* Calcium Phosphorus Magnesium Total Bilirubin AST ALT Alkaline Phosphatase Total Protein Albumin 05/01/17 06:20 WBC RBC Hgb Hct MCV MCH MCHC RDW Plt Count MPV VBG pH POC VBG pCO2 POC VBG pO2 Mixed VBG HCO3 Sodium 152 H Potassium 3.2 L Chloride 123 H Carbon Dioxide 21 Anion Gap 8 BUN 37 H Creatinine 1.4 H Creat Clearance w eGFR 36.96 Random Glucose 82 D Lactic Acid Calcium 7.9 L Phosphorus 2.9 Magnesium 1.7 L Total Bilirubin 0.3 AST 37 D ALT 43 Alkaline Phosphatase 75 Total Protein 4.7 L Albumin 1.6 L Active Medications Generic Name Dose Route Start Last Admin Trade Name Freq PRN Reason Stop Dose Admin Al Hydroxide/Mg Hydroxide 30 ml 04/29/17 15:19 Mylanta Oral Suspension - PO Q8H PRN DYSPEPSIA Amino Acids 30 ml 04/29/17 17:30 05/01/17 17:01 Prosource No Carb Liquid Pkt PO 30 ml BIDWM ROLAN Administration Bisacodyl 10 mg 04/29/17 15:19 Dulcolax Suppository - RC DAILY PRN CONSTIPATION Chlorhexidine Gluconate 1 applic 04/28/17 22:00 04/30/17 22:47 Hibiclens For Decolonization - TP 1 applic HS ROLAN Administration Cinacalcet 30 mg 04/29/17 22:00 05/01/17 11:07 Sensipar - PO 30 mg BID ROLAN Administration Divalproex Sodium 125 mg 04/29/17 22:00 05/01/17 11:35 Depakote Sprinkle Caps - PO 125 mg BID ROLAN Administration Docusate Sodium 200 mg 04/29/17 22:45 04/30/17 22:36 Colace Liquid - PO 200 mg HS ROLAN Administration Hydrocortisone Sodium Succinate 50 mg 04/30/17 22:00 05/01/17 10:56 Solu-Cortef - IVPB 50 mg BID ROLAN Administration Norepinephrine Bitartrate 8, 500 mls @ 18.75 mls/hr 04/28/17 17:15 05/01/17 02:59 000 mcg/ Dextrose IV Not Given TITR ROLAN Protocol 5 MCG/MIN Vasopressin 50 units/ Sodium 100 mls @ 4.8 mls/hr 04/28/17 23:30 05/01/17 02: 58 Chloride IVPB Not Given ASDIR ROLAN Protocol 2.4 UNITS/HR Dextrose 1,000 mls @ 50 mls/hr 05/01/17 10:00 D5w - IV .[id number] ROLAN Ceftriaxone Sodium 2 gm/ 100 mls @ 200 mls/hr 05/01/17 14:15 05/01/17 16:39 Dextrose IVPB Not Given DAILY ROLAN Levothyroxine Sodium 225 mcg 04/29/17 10:00 05/01/17 10:58 Synthroid - PO 225 mcg DAILY ROLAN Administration [place] Carbonate 300 mg 04/29/17 22:00 04/30/17 22:38 Eskalith - PO 300 mg HS ROLAN Administration Mupirocin 1 applic 04/28/17 22:00 05/01/17 00:00 Bactroban Ointment (For Decolonization) - NS 05/03/17 21:59 1 applic BID ROLAN Administration Pantoprazole Sodium 40 mg 04/30/17 10:00 05/01/17 10:58 Protonix - PO 40 mg DAILY ROLAN Administration Polyethylene Glycol 17 gm 04/30/17 10:00 05/01/17 16:38 Miralax (For Daily Use) - PO Not Given DAILY ROLAN Topiramate 100 mg 04/29/17 22:00 04/30/17 22:36 Topamax - PO 100 mg BID ROLAN Administration IMAGIN05/01/17 Ab/Pel CT -> Right nephrolithiasis with 1.5cm obstructing calculus within the renal pelvis with a moderate degree of associated hydronephrosis. ASSESSMENT/PLAN: 71yo F with PMH of hld, hypothroid, bipolar, anxiety, seizure, presents [facility] being [facility] unresponsive in [facility], admitted to the ICU for septic shock. # septic shock 2/2 UTI - pt off pressors - IVFs - ID (Dr. Couch) recs appreciated: IV Zosyn Day 3, then switched to IV Ceftriaxone in light of susceptibilities of E. coli found in blood and urine cultures - stress dose steroids tapered down to BID - percutaneous nephrostomy attempted by IR (Dr. Guerrero) - unsuccessful - pt to go for cystoscopy and ureteral stent with Urology (Dr. Thomas ) # ORAL - likely 2/2 hypoperfusion/hypovolemia 2/2 sepsis - Cr trending down, continue to monitor with hydration - monitor UOP # hypothyroidism - continue Synthroid # seizure - continue Sensipar, Depakote, Topamax # bipolar - per PCP (Dr. Beltran) pt has not been taking her [place] for 1 month -> D/Bipin - Seroquel held 2/2 lethargy # hypokalemia - repleted with KCl IVPB 10meq x 3 runs # FEN - Fluids: D5 @ 50 ml/hr - Electrolytes: continue to monitor - Nutrition: npo - maintain npo per Speech Therapy until pt is more alert -> Modified Barium Swallow # Prophylaxis - DVT ppx with Heparin - GI ppx not needed at this time Visit type - Emergency Visit Emergency Visit: Yes ED Registration Date: 04/28/17 Care time: The patient presented to the Emergency Department on the above date and was hospitalized for further evaluation of their emergent condition. - New Patient This patient is new to me today: No - Critical Care Critical Care patient: Yes Total Critical Care Time (in minutes): 60 Critical Care Statement: The care of this patient involved high complexity decision making to prevent further life threatening deterioration of the patient 's condition and/or to evaluate & treat vital organ system(s) failure or risk of failure.
[2017-05-01] MEDS: DOCUSATE NA 100 MG/10 ML UNIT-DOSE CUPS PO SCH (21:36)
[2017-05-01] MEDS: CHLORHEXIDINE GLUCONATE 4% CLEANSER FOR DECOLONIZATION TP SCH (21:37)
[2017-05-01] MEDS: TOPIRAMATE 100 MG TABLET PO SCH (21:37)
[2017-05-01] MEDS: MUPIROCIN 2% TOPICAL OINTMENT FOR DECOLONIZATION NS SCH ×2 (21:39)
--- NOTE | 2017-05-01 23:20 | CON.GU ---
Consult Consult Specialty:: Referred by:: Medicine Reason for Consultation:: urosepsis - History of Present Illness Chief Complaint: urosepsis History of Present Illness: 71 year old female with bipolar disorder and dementia who presents with urosepsis and lethargy on 04/28/17 and severe leukocytosis. She was on pressors originally. She was noted to have diffuse abdominal pain and a CT scan was ordered on 05/01/17. She was found to have a renal pelvis stone in the right with hydronephrosis. I was called in the middle of the day and a nephrostomy tube was recommended. At 6:30 pm I was informed that the interventional radiologist was unable to place the tube and the patient was back in the ICU. I informed the OR at that time that a emergent ureteral stent needed to be placed. I was informed by the head nurse in the OR that a perforated viscus was of primary importance and that a second OR team would not be called in. 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 Cardio/Vascular: Yes: Hyperlipdemia Gastrointestinal: Yes: Other (Colostomy) Renal/: Yes: UTI Psych: Yes: Anxiety, Bipolar Endocrine: Yes: Hypothyroidism - Alcohol/Substance Use Hx Alcohol Use: No - Smoking History Smoking history: Never smoked Have you smoked in the past 12 months: No Aproximately how many cigarettes per day: 0 - Social History Usual Living Arrangement: [facility] Home Medications - Allergies Allergies/Adverse Reactions: Allergies Allergy/AdvReac Type Severity Reaction Status Date / Time chocolate flavor Allergy Verified 02/08/17 14:47 - Home Medications Home Medications: Ambulatory Orders Amino Acids/Protein Hydrolys [Pro-Stat Awc Liquid] 30 ml PO BID 02/08/17 Docusate Sodium [Dulcolax Stool Softener] 200 mg PO HS 02/08/17 Levothyroxine [Synthroid -] 225 mcg PO DAILY 02/08/17 Mag Hydrox/Al Hydrox/Simeth [Mylanta Oral Suspension -] 30 ml PO Q8H PRN Magnesium Hydrox 2400MG/30Ml [Milk of Magnesia -] 30 ml PO DAILY PRN 02/08/17 Multivitamin with Minerals [Icaps Plus] 1 each PO DAILY 02/08/17 Pantoprazole Sodium 40 mg PO DAILY 02/08/17 Polyethylene Glycol 3350 [Miralax 119 gm Btl -] 17 gm PO DAILY 02/08/17 Quetiapine Fumarate [Seroquel -] 300 mg PO BID 02/08/17 Topiramate [Topamax] 100 mg PO Q12H 02/08/17 Nystatin/Triamcinolone Top Cr [Mycolog II Cream -] 1 applic TP BID #0 applic 11/24 Cinacalcet HCl [Sensipar] 30 mg PO BID 04/28/17 Divalproex Sprinkle [Depakote Sprinkle Caps -] 125 mg PO BID 04/28/17 [place] Carbonate [Eskalith -] 300 mg PO HS 04/28/17 Bisacodyl Suppository [Dulcolax Suppository -] 1 supp NM DAILY PRN 04/29/17 Mupirocin Cream [Bactroban 2% Cream -] 1 applic TP HS 04/29/17 Review of Systems - Review of Systems Gastrointestinal: reports: Abdominal Pain Physical Exam- Vital Signs: Vital Signs Temperature 97.8 F 05/01/17 19:00 Pulse Rate 45 L 05/01/17 21:35 Respiratory Rate 21 05/01/17 21:00 Blood Pressure 101/84 05/01/17 21:35 O2 Sat by Pulse Oximetry (%) 100 05/01/17 20:14 Gastrointestinal: Yes: Soft Renal/: No: Bladder Distention, CVA Tenderness - Left, CVA Tenderness - Right Labs: CBC, BMP 05/01/17 06:20 05/01/17 06:20 Imaging - Results Cat Scan: Report Reviewed Problem List - Problems (1) Septic shock Assessment/Plan: plan for emergent stent placement. The OR department cannot provide a room at this time but I will perform the procedure tonight once staffing and a room are made available. Code(s): A41.9 - SEPSIS, UNSPECIFIED ORGANISM; R65.21 - SEVERE SEPSIS WITH SEPTIC SHOCK (2) UTI (urinary tract infection) Code(s): N39.0 - URINARY TRACT INFECTION, SITE NOT SPECIFIED Qualifiers: Urinary tract infection type: site unspecified Hematuria presence: with hematuria Qualified Code(s): N39.0 - Urinary tract infection, site not specified
[2017-05-02] MEDS ORDERED: PROMETHAZINE HCL 25 MG/1 ML VIAL IVPUSH PRN (00:26)
[2017-05-02] MEDS ORDERED: ONDANSETRON 4 MG/2 ML VIAL IVPUSH PRN (00:26)
[2017-05-02] MEDS ORDERED: LACTATED RINGERS SOLUTION 1,000 ML IV SCH (00:30)
[2017-05-02] MEDS ORDERED: PROPOFOL 20 ML ONE ×2 (00:34→00:46)
--- NOTE | 2017-05-02 01:19 | OP ---
Operative Note - Note: Operative Date: 05/02/17 Pre-Operative Diagnosis: UTI, renal pelvis stone, hydronephrosis. sepsis Operation: right RPG and ureteral stent placement Findings: hydronephrosis., stone. pyonephrosis Post-Operative Diagnosis: Same as Pre-op Surgeon: Fco Thomas Anesthesiologist/SWITCHBOARD OPERATOR SUPERVISOR: Davide Pina Anesthesia: General Estimated Blood Loss (mls): 0 Operative Report Dictated: Yes
--- NOTE | 2017-05-02 01:34 | PN ---
Progress Note (short form) - Note Progress Note: Pt went to OR for right urethral stent placement d/t urethral stone c/b hydronephrosis and UTI and sepsis. LMA and Propofol for sedtion. Pt returned to ICU VS 129/81, HR 100, O2 sat 97% on NC O2 2L, RR 16, awake in NAD with no c/ o pain. UOP moderately bloody. Plan: -Cont IVF -Monitor UOP -Cont antibiotics -repeat UOP as per urology -Pain management prn -Cont NC O2 support Kimi Hayden, [facility] Problem List - Problems (1) Septic shock Code(s): A41.9 - SEPSIS, UNSPECIFIED ORGANISM; R65.21 - SEVERE SEPSIS WITH SEPTIC SHOCK (2) Change in mental status Code(s): R41.82 - ALTERED MENTAL STATUS, UNSPECIFIED Qualifiers: Altered mental status type: delirium Qualified Code(s): R41.0 - Disorientation, unspecified (3) Hypercalcemia Code(s): E83.52 - HYPERCALCEMIA (4) Metabolic encephalopathy Code(s): G93.41 - METABOLIC ENCEPHALOPATHY (5) Sepsis Code(s): A41.9 - SEPSIS, UNSPECIFIED ORGANISM (6) UTI (urinary tract infection) Code(s): N39.0 - URINARY TRACT INFECTION, SITE NOT SPECIFIED Qualifiers: Urinary tract infection type: site unspecified Hematuria presence: with hematuria Qualified Code(s): N39.0 - Urinary tract infection, site not specified
[2017-05-02] MEDS: VASOPRESSIN 50 UNITS in SODIUM CHLORIDE 97.5 ML IVPB SCH (03:43)
--- NOTE | 2017-05-02 08:48 | PN ---
Progress Note, Physician Chief Complaint: ID Ceftriaxone continues NAD - Current Medication List Current Medications: Active Medications Al Hydroxide/Mg Hydroxide (Mylanta Oral Suspension -) 30 ml PO Q8H PRN PRN Reason: DYSPEPSIA Amino Acids (Prosource No Carb Liquid Pkt) 30 ml PO BIDWM [facility] Last Admin: 05/01/17 17:01 Dose: 30 ml Bisacodyl (Dulcolax Suppository -) 10 mg RC DAILY PRN PRN Reason: CONSTIPATION Chlorhexidine Gluconate (Hibiclens For Decolonization -) 1 applic TP HS [facility] Last Admin: 05/01/17 21:37 Dose: 1 applic Cinacalcet (Sensipar -) 30 mg PO BID [facility] Last Admin: 05/01/17 21:37 Dose: Not Given Divalproex Sodium (Depakote Sprinkle Caps -) 125 mg PO BID [facility] Last Admin: 05/01/17 21:37 Dose: Not Given Docusate Sodium (Colace Liquid -) 200 mg PO HS [facility] Last Admin: 05/01/17 21:36 Dose: Not Given Hydrocortisone Sodium Succinate (Solu-Cortef -) 50 mg IVPB BID [facility] Last Admin: 05/01/17 21:37 Dose: 50 mg Norepinephrine Bitartrate 8, (000 mcg/ Dextrose) 500 mls @ 18.75 mls/hr IV TITR ROLAN; 5 MCG/MIN PRN Reason: Protocol Last Admin: 05/01/17 21:35 Dose: Not Given Vasopressin 50 units/ Sodium (Chloride) 100 mls @ 4.8 mls/hr IVPB ASDIR ROLAN; 2.4 UNITS/HR PRN Reason: Protocol Last Admin: 05/02/17 03:43 Dose: Not Given Dextrose (D5w -) 1,000 mls @ 50 mls/hr IV .[id number] ROLAN Ceftriaxone Sodium 2 gm/ (Dextrose) 100 mls @ 200 mls/hr IVPB DAILY [facility] Last Admin: 05/01/17 16:39 Dose: Not Given Lactated Ringer's (Lactated Ringers Solution) 1,000 mls @ 125 mls/hr IV ASDIR ROLAN Levothyroxine Sodium (Synthroid -) 225 mcg PO DAILY [facility] Last Admin: 05/01/17 10:58 Dose: 225 mcg Mupirocin (Bactroban Ointment (For Decolonization) -) 1 applic NS BID [facility] Stop: 05/03/17 21:59 Last Admin: 05/01/17 21:39 Dose: 1 applic Pantoprazole Sodium (Protonix -) 40 mg PO DAILY [facility] Last Admin: 05/01/17 10:58 Dose: 40 mg Polyethylene Glycol (Miralax (For Daily Use) -) 17 gm PO DAILY [facility] Last Admin: 05/01/17 16:38 Dose: Not Given Topiramate (Topamax -) 100 mg PO BID [facility] Last Admin: 05/01/17 21:37 Dose: Not Given - Objective Vital Signs: Vital Signs Temperature 98.2 F 05/02/17 06:00 Pulse Rate 46 L 05/02/17 08:36 Respiratory Rate 17 05/02/17 08:36 Blood Pressure 104/77 05/02/17 08:36 O2 Sat by Pulse Oximetry (%) 96 05/02/17 06:34 Constitutional: Yes: Obese Cardiovascular: Yes: S1, S2 Respiratory: Yes: WNL, Regular, CTA Bilaterally Gastrointestinal: Yes: Soft. No: Tenderness Extremities: No: Cyanosis Labs: CBC, BMP 05/01/17 06:20 05/01/17 06:20 INR, PTT INR 1.38 (0.82-1.09) H 04/29/17 06:20 Assessment/Plan Microbiology 04/29/17 13:00 Urine - Urine Geiger Urine Culture - Final Contaminated: Please Repeat 04/28/17 13:41 Blood - Peripheral Venous Blood Culture - Final Escherichia Coli 04/28/17 13:41 Blood - Peripheral Venous Blood Culture - Final Escherichia Coli 04/28/17 15:11 Urine - Urine Geiger Urine Culture - Preliminary Escherichia Coli Group D Strep Or Entero Coccus Laboratory Tests 05/01/17 05/01/17 06:20 06:20 WBC 13.8 H Hgb 9.5 L Hct 28.9 L Plt Count 64 L BUN 37 H Creatinine 1.4 H Creat Clearance w eGFR 36.96 Assessment Hydronephrosis with stent placement E Coli bacteremia Also Enterococcus Plan Continue Ceftriaxone Give dose of Vanco 1.5 gr for enterococcal coverage Bradford VAZQUEZ
[2017-05-02] MEDS ORDERED: VANCOMYCIN 1,500 MG in DEXTROSE 5%-WATER - 500 ML IVPB ONE (09:10)
--- NOTE | 2017-05-02 09:27 | PN ---
Physical Exam: SUBJECTIVE: Patient seen and examined. Pt presents with non-productive cough today. Pt alert and conversant today, oriented to self and place (hospital). Pt had a retrograde pyelogram and ureteral stent placed last night by Dr. Thomas. No fever, chills. OBJECTIVE: Vital Signs Period Temp Pulse Resp BP Sys/Messer Pulse Ox Last 24 Hr 96.7 F-98.4 F 43-156 13-26 101-163/52-100 92-100 GENERAL: Pt is awake and conversant today, AAOx2, NAD. LUNGS: Breath sounds equal, clear to anterior auscultation bilaterally, no wheezes, no crackles, no accessory muscle use. +nonproductive cough. HEART: Regular rhythm, slight persistent bradycardia, +S1/S2, without murmur. ABDOMEN: Diffuse tenderness to palpation, soft, nondistended, no guarding. + colostomy, pink/viable/healthy. EXTREMITIES: Warm, well-perfused, 1+ edema. SKIN: Warm, dry, normal turgor, no rashes or lesions noted Laboratory Results - last 24 hr 04/28/17 05/02/17 05/02/17 18:16 09:06 09:06 WBC 12.7 H RBC 2.88 L Hgb 10.7 D Hct 34.1 D MCV 118.4 H MCH 37.2 H MCHC 31.4 L RDW 15.3 Plt Count 91 L D MPV 10.0 Total Counted 100 Neutrophils % No Result Required. Neutrophils % (Manual) 73.0 D Band Neutrophils % 11.0 Lymphocytes % No Result Required. Lymphocytes % (Manual) 9.0 D Monocytes % (Manual) 5 Metamyelocytes 2 D Platelet Estimate Decreased Anisocytosis 1+ Macrocytosis 2+ Sodium 153 H Potassium 3.6 Chloride 124 H Carbon Dioxide 17 L Anion Gap 12 BUN 34 H Creatinine 1.2 H Creat Clearance w eGFR 44.16 Random Glucose 104 D Calcium 8.8 Total Bilirubin 0.3 AST 24 D ALT 50 Alkaline Phosphatase 79 Total Protein 5.7 L D Albumin 2.0 L D M.pneumoniae IgM Titer <770 Active Medications Current Medications Generic Name Dose Route Start Last Admin Trade Name Freq PRN Reason Stop Dose Admin Al Hydroxide/Mg Hydroxide 30 ml 04/29/17 15:19 Mylanta Oral Suspension - PO Q8H PRN DYSPEPSIA Amino Acids 30 ml 04/29/17 17:30 05/02/17 10:50 Prosource No Carb Liquid Pkt PO 30 ml BIDWM ROLAN Administration Bisacodyl 10 mg 04/29/17 15:19 Dulcolax Suppository - RC DAILY PRN CONSTIPATION Chlorhexidine Gluconate 1 applic 04/28/17 22:00 05/01/17 21:37 Hibiclens For Decolonization - TP 1 applic HS ROLAN Administration Cinacalcet 30 mg 04/29/17 22:00 05/02/17 10:49 Sensipar - PO 30 mg BID R[facility] Administration Divalproex Sodium 125 mg 04/29/17 22:00 05/02/17 11:03 Depakote Sprinkle Caps - PO 125 mg BID R[facility] Administration Docusate Sodium 200 mg 04/29/17 22:45 05/01/17 21:36 Colace Liquid - PO Not Given HS ROLAN Hydrocortisone Sodium Succinate 25 mg 05/02/17 11:00 05/02/17 11:04 Solu-Cortef - IVPB 05/03/17 22:01 25 mg BID [facility] Administration Ceftriaxone Sodium 2 gm/ 100 mls @ 200 mls/hr 05/01/17 14:15 05/02/17 10:50 Dextrose IVPB 200 mls/hr DAILY [facility] Administration Dextrose 1,000 mls @ 100 mls/hr 05/02/17 11:34 D5w - IV ASDIR ROLAN Levothyroxine Sodium 225 mcg 04/29/17 10:00 05/02/17 10:49 Synthroid - PO 225 mcg DAILY [facility] Administration Mupirocin 1 applic 04/28/17 22:00 05/02/17 11:04 Bactroban Ointment (For Decolonization) - NS 05/03/17 21:59 1 applic BID [facility] Administration Pantoprazole Sodium 40 mg 04/30/17 10:00 05/02/17 10:49 Protonix - PO 40 mg DAILY [facility] Administration Polyethylene Glycol 17 gm 04/30/17 10:00 05/02/17 11:04 Miralax (For Daily Use) - PO 17 gm DAILY [facility] Administration Quetiapine Fumarate 300 mg 05/02/17 22:00 Seroquel - PO BID ROLAN Topiramate 100 mg 04/29/17 22:00 05/02/17 10:50 Topamax - PO 100 mg BID R[facility] Administration ASSESSMENT/PLAN: 71yo F with PMH of hld, hypothroid, bipolar, anxiety, seizure, presents after being found unresponsive in long term, admitted to the ICU for septic shock. # septic shock 2/2 UTI, s/p retrograde pyelogram and ureteral stent placement on the early learning teacher of 05/02/[address] Thomas - pt off pressors - leukocytosis trending down - IVFs - Day 2 of IV Ceftriaxone - ID (Dr. Felder) recs appreciated: 1,500 mg Vancomycin given once - stress dose steroids tapered down to 25 BID # ORAL - likely 2/2 hypoperfusion/hypovolemia 2/2 sepsis - Cr trending down, continue to monitor with hydration - monitor UOP # hypothyroidism - continue Synthroid # seizure - continue Sensipar, Depakote, Topamax # bipolar - Seroquel resumed as pt is more alert and conversant today # hypernatremia - IVF increased # FEN - Fluids: D5 @ 100 ml/hr - Electrolytes: continue to monitor - Nutrition: dysphagia puree with honey thick liquids # Prophylaxis - DVT ppx with Heparin - GI ppx not needed at this time Visit type - Emergency Visit Emergency Visit: Yes ED Registration Date: 04/28/17 Care time: The patient presented to the Emergency Department on the above date and was hospitalized for further evaluation of their emergent condition. - New Patient This patient is new to me today: No - Critical Care Critical Care patient: Yes Total Critical Care Time (in minutes): 45 Critical Care Statement: The care of this patient involved high complexity decision making to prevent further life threatening deterioration of the patient 's condition and/or to evaluate & treat vital organ system(s) failure or risk of failure.
--- NOTE | 2017-05-02 10:03 | PN ---
Progress Note (short form) - Note Progress Note: PULMONARY/CCM Pt seen and examined in the ICU. s/p ureteral stent placement. Remains off pressors. Denies specific complaints. Last Vital Signs Temp Pulse Resp BP Pulse Ox 98.2 F 46 L 17 104/77 96 05/02/17 06:00 05/02/17 08:36 05/02/17 08:36 05/02/17 08:36 05/02/17 06:34 Intake & Output 04/29/17 04/30/17 05/01/17 05/02/17 23:59 23:59 23:59 23:59 Intake Total 2650 2549 1350 564.8 Output Total 750 1050 2000 75 Balance 1900 1499 -650 489.8 Weight 102.104 kg 101.741 kg 103.1 kg 103.9 kg Gen: more alert, awake Heart: RRR Lung: decreased breath sounds at the bases Abd: soft, nontender Ext: + edema CBC, BMP 05/01/17 06:20 05/01/17 06:20 Active Medications Al Hydroxide/Mg Hydroxide (Mylanta Oral Suspension -) 30 ml PO Q8H PRN PRN Reason: DYSPEPSIA Amino Acids (Prosource No Carb Liquid Pkt) 30 ml PO BIDWM [facility] Last Admin: 05/01/17 17:01 Dose: 30 ml Bisacodyl (Dulcolax Suppository -) 10 mg RC DAILY PRN PRN Reason: CONSTIPATION Chlorhexidine Gluconate (Hibiclens For Decolonization -) 1 applic TP [facility] Last Admin: 05/01/17 21:37 Dose: 1 applic Cinacalcet (Sensipar -) 30 mg PO BID [facility] Last Admin: 05/01/17 21:37 Dose: Not Given Divalproex Sodium (Depakote Sprinkle Caps -) 125 mg PO BID [facility] Last Admin: 05/01/17 21:37 Dose: Not Given Docusate Sodium (Colace Liquid -) 200 mg PO [facility] Last Admin: 05/01/17 21:36 Dose: Not Given Hydrocortisone Sodium Succinate (Solu-Cortef -) 50 mg IVPB BID [facility] Last Admin: 05/01/17 21:37 Dose: 50 mg Norepinephrine Bitartrate 8, (000 mcg/ Dextrose) 500 mls @ 18.75 mls/hr IV TITR ROLAN; 5 MCG/MIN PRN Reason: Protocol Last Admin: 05/01/17 21:35 Dose: Not Given Vasopressin 50 units/ Sodium (Chloride) 100 mls @ 4.8 mls/hr IVPB ASDIR ROLAN; 2.4 UNITS/HR PRN Reason: Protocol Last Admin: 05/02/17 03:43 Dose: Not Given Dextrose (D5w -) 1,000 mls @ 50 mls/hr IV .[id number] ROLAN Ceftriaxone Sodium 2 gm/ (Dextrose) 100 mls @ 200 mls/hr IVPB DAILY [facility] Last Admin: 05/01/17 16:39 Dose: Not Given Lactated Ringer's (Lactated Ringers Solution) 1,000 mls @ 125 mls/hr IV ASDIR ROLAN Vancomycin HCl 1,500 mg/ (Dextrose) 500 mls @ 250 mls/hr IVPB ONCE ONE PRN Reason: Protocol Stop: 05/02/17 11:09 Levothyroxine Sodium (Synthroid -) 225 mcg PO DAILY [facility] Last Admin: 05/01/17 10:58 Dose: 225 mcg Mupirocin (Bactroban Ointment (For Decolonization) -) 1 applic NS BID [facility] Stop: 05/03/17 21:59 Last Admin: 05/01/17 21:39 Dose: 1 applic Pantoprazole Sodium (Protonix -) 40 mg PO DAILY [facility] Last Admin: 05/01/17 10:58 Dose: 40 mg Polyethylene Glycol (Miralax (For Daily Use) -) 17 gm PO DAILY [facility] Last Admin: 05/01/17 16:38 Dose: Not Given Topiramate (Topamax -) 100 mg PO BID [facility] Last Admin: 05/01/17 21:37 Dose: Not Given A/P Acute Hypoxic Respiratory Failure UTI Renal Stone/Hydronephrosis s/p ureteral stent placement Gram Negative Bacteremia Septic Shock improving Acute Kidney Injury Lactic Acidosis resolving Seizure Disorder Hypothyroidism Hyperlipidemia s/p colostomy - continue antibiotics - pressors tapered off, maintain MAP >65 - IVF to keep CVP 8-12 - taper stress dose steroids - monitor urine output, creatinine - replete lytes - taper FiO2 to keep SpO2 >90% - PO as tolerated - aspiration precautions - d/c central line if pressors no longer needed - DVT prophylaxis - can monitor on floor critical care time spent in reviewing chart, evaluating patient and formulating plan 35 min
--- NOTE | 2017-05-02 10:34 | PN ---
Progress Note (short form) - Note Progress Note: Anesthesia post op note POD#1 S/P right RPG and ureteral stent placement under general anesthesia. VSS. No apparent post anesthesia complications. Signed off.
[2017-05-02 10:35] LABS: HEMATOCRIT 34.1 % (32.4-45.2); HEMOGLOBIN 10.7 GM/dL (10.7-15.3); MCH 37.2 pg (25.7-33.7); MCHC 31.4 g/dl (32.0-36.0); MEAN CELL VOLUME 118.4 fl (80-96); PLATELET COUNT 91 K/MM3 (134-434); RBC 2.88 M/mm3 (3.60-5.2); RDW 15.3 % (11.6-15.6); WHITE BLOOD COUNT 12.7 K/mm3 (4.0-10.0)
[2017-05-02] MEDS ORDERED: PT OWN MED DRAWER 7, Y5N ONE ×3 (10:47→20:47)
[2017-05-02] MEDS: PANTOPRAZOLE 40 MG TABLET (FP) PO SCH (10:49)
[2017-05-02] MEDS: LEVOTHYROXINE NA 75 MCG TABLET (FP) PO SCH (10:49)
[2017-05-02] MEDS: CINACALCET HCL 30 MG TAB (FP) PO SCH ×2 (10:49→21:54)
[2017-05-02] MEDS: AMINO ACIDS/PROTEIN HYDROLYS 30 ML LIQUID.PKT PO SCH ×2 (10:50→18:45)
[2017-05-02] MEDS: CEFTRIAXONE 2 GM in DEXTROSE 5%-WATER - 100 ML IVPB SCH (10:50)
[2017-05-02] MEDS: TOPIRAMATE 100 MG TABLET PO SCH (10:50)
[2017-05-02] MEDS: DIVALPROEX SODIUM 125 MG SPRINKLE CAPS (FP) PO SCH ×2 (11:03→21:32)
[2017-05-02] MEDS: POLYETHYLENE GLYCOL 3350 119 GM BTL PO SCH (11:04)
[2017-05-02] MEDS: MUPIROCIN 2% TOPICAL OINTMENT FOR DECOLONIZATION NS SCH ×2 (11:04→21:59)
[2017-05-02] MEDS: HYDROCORTISONE SOD SUCCINATE 100 MG/2 ML VIAL IVPB SCH ×3 (11:04→23:00)
[2017-05-02 11:07] LABS: ALK PHOS 79 U/L (45-117); ANION GAP 12 (8-16); BILIRUBIN,TOTAL 0.3 mg/dL (0.2-1.0); BLOOD UREA NITROGEN 34 mg/dL (7-18); CALCIUM 8.8 mg/dL (8.5-10.1); CHLORIDE 124 mmol/L (98-107); CO2 17 mmol/L (21-32); CREATININE 1.2 mg/dL (0.55-1.02); GLUCOSE,RANDOM 104 mg/dL (74-106); POTASSIUM 3.6 mmol/L (3.5-5.1); SGOT/AST 24 U/L (15-37); SGPT/ALT 50 U/L (12-78); SODIUM 153 mmol/L (136-145); TOT PROT 5.7 g/dl (6.4-8.2)
[2017-05-02 12:57] LABS: ANISOCYTOSIS 1+; MACROCYTOSIS 2+; PLATELET ESTIMATE DECREASED
--- NOTE | 2017-05-02 16:27 | PN ---
Teaching Attending Note Name of Resident: Gifty Healy ATTENDING PHYSICIAN STATEMENT Time of evaluation: 9:30 AM I saw and evaluated the patient. I reviewed the resident's note and discussed the case with the resident. I agree with the resident's findings and plan as documented. SUBJECTIVE: patient seen and examined, awake, no complaints, asking for water. Denies any pain. OBJECTIVE: Vital Signs Period Temp Pulse Resp BP Sys/Messer Pulse Ox Last 24 Hr 97.5 F-98.4 F 43-156 16-21 101-165/52-96 96-100 Intake & Output 04/29/17 04/30/17 05/01/17 05/02/17 23:59 23:59 23:59 23:59 Intake Total 2650 2549 1350 564.8 Output Total 750 1050 2000 75 Balance 1900 1499 -650 489.8 Weight 225 lb 1.6 oz 224 lb 4.8 oz 227 lb 4.745 oz 229 lb 0.964 oz General: sitting in bed in no acute distress CVS:S1S2 regular Chest: no rales or wheezing, limited by full lack of co-operation Abdomen: refuses full exam, no distension noted Extremities: no edema Home Medication List Medication Instructions Recorded Confirmed Type Amino Acids/Protein Hydrolys 30 ml PO BID 02/08/17 04/28/17 History [Pro-Stat Awc Liquid] Docusate Sodium [Dulcolax Stool 200 mg PO HS 02/08/17 04/28/17 History Softener] Levothyroxine [Synthroid -] 225 mcg PO DAILY 02/08/17 04/28/17 History Mag Hydrox/Al Hydrox/Simeth 30 ml PO Q8H PRN 02/08/17 04/28/17 History [Mylanta Oral Suspension -] Magnesium Hydrox 2400MG/30Ml [Milk 30 ml PO DAILY PRN 02/08/17 04/28/17 History of Magnesia -] Multivitamin with Minerals [Icaps 1 each PO DAILY 02/08/17 04/28/17 History Plus] Pantoprazole Sodium 40 mg PO DAILY 02/08/17 04/28/17 History Polyethylene Glycol 3350 [Miralax 17 gm PO DAILY 02/08/17 04/28/17 History 119 gm Btl -] Quetiapine Fumarate [Seroquel -] 300 mg PO BID 02/08/17 04/28/17 History Topiramate [Topamax] 100 mg PO Q12H 02/08/17 04/28/17 History Cinacalcet HCl [Sensipar] 30 mg PO BID 04/28/17 04/28/17 History Divalproex Sprinkle [Depakote 125 mg PO BID 04/28/17 04/28/17 History Sprinkle Caps -] [place] Carbonate [Eskalith -] 300 mg PO HS 04/28/17 04/28/17 History Bisacodyl Suppository [Dulcolax 1 supp [place] DAILY PRN 04/29/17 04/29/17 History Suppository -] Mupirocin Cream [Bactroban 2% 1 applic TP HS 04/29/17 04/29/17 History Cream -] Active Medications Generic Name Dose Route Start Last Admin Trade Name Freq PRN Reason Stop Dose Admin Al Hydroxide/Mg Hydroxide 30 ml 04/29/17 15:19 Mylanta Oral Suspension - PO Q8H PRN DYSPEPSIA Amino Acids 30 ml 04/29/17 17:30 05/02/17 10:50 Prosource No Carb Liquid Pkt PO 30 ml BIDWM ROLAN Administration Bisacodyl 10 mg 04/29/17 15:19 Dulcolax Suppository - RC DAILY PRN CONSTIPATION Chlorhexidine Gluconate 1 applic 04/28/17 22:00 05/01/17 21:37 Hibiclens For Decolonization - TP 1 applic HS R[facility]AN Administration Cinacalcet 30 mg 04/29/17 22:00 05/02/17 10:49 Sensipar - PO 30 mg BID [facility] Administration Divalproex Sodium 125 mg 04/29/17 22:00 05/02/17 11:03 Depakote Sprinkle Caps - PO 125 mg BID [facility] Administration Docusate Sodium 200 mg 04/29/17 22:45 05/01/17 21:36 Colace Liquid - PO Not Given HS [facility]AN Hydrocortisone Sodium Succinate 25 mg 05/02/17 11:00 05/02/17 11:04 Solu-Cortef - IVPB 05/03/17 22:01 25 mg BID [facility] Administration Ceftriaxone Sodium 2 gm/ 100 mls @ 200 mls/hr 05/01/17 14:15 05/02/17 10:50 Dextrose IVPB 200 mls/hr DAILY [facility] Administration Dextrose 1,000 mls @ 100 mls/hr 05/02/17 11:34 D5w - IV ASDIR ROLAN Levothyroxine Sodium 225 mcg 04/29/17 10:00 05/02/17 10:49 Synthroid - PO 225 mcg DAILY [facility] Administration Mupirocin 1 applic 04/28/17 22:00 05/02/17 11:04 Bactroban Ointment (For Decolonization) - NS 05/03/17 21:59 1 applic BID [facility] Administration Pantoprazole Sodium 40 mg 04/30/17 10:00 05/02/17 10:49 Protonix - PO 40 mg DAILY [facility] Administration Polyethylene Glycol 17 gm 04/30/17 10:00 05/02/17 11:04 Miralax (For Daily Use) - PO 17 gm DAILY [facility] Administration Quetiapine Fumarate 300 mg 05/02/17 22:00 Seroquel - PO BID R[facility] Topiramate 100 mg 04/29/17 22:00 05/02/17 10:50 Topamax - PO 100 mg BID [facility] Administration Laboratory Results - last 24 hr 04/28/17 05/02/17 05/02/17 18:16 09:06 09:06 WBC 12.7 H RBC 2.88 L Hgb 10.7 D Hct 34.1 D MCV 118.4 H MCH 37.2 H MCHC 31.4 L RDW 15.3 Plt Count 91 L D MPV 10.0 Total Counted 100 Neutrophils % No Result Required. Neutrophils % (Manual) 73.0 D Band Neutrophils % 11.0 Lymphocytes % No Result Required. Lymphocytes % (Manual) 9.0 D Monocytes % (Manual) 5 Metamyelocytes 2 D Platelet Estimate Decreased Anisocytosis 1+ Macrocytosis 2+ Sodium 153 H Potassium 3.6 Chloride 124 H Carbon Dioxide 17 L Anion Gap 12 BUN 34 H Creatinine 1.2 H Creat Clearance w eGFR 44.16 Random Glucose 104 D Calcium 8.8 Total Bilirubin 0.3 AST 24 D ALT 50 Alkaline Phosphatase 79 Total Protein 5.7 L D Albumin 2.0 L D M.pneumoniae IgM Titer <770 Microbiology 04/28/17 15:11 Urine - Urine Geiger Urine Culture - Final Escherichia Coli Vr Ec Faecalis 05/01/17 14:45 Nephrostomy Tube Drainage Gram Stain - Final 04/28/17 13:41 Blood - Peripheral Venous Blood Culture - Final Escherichia Coli 04/28/17 13:41 Blood - Peripheral Venous Blood Culture - Final Escherichia Coli 04/29/17 13:00 Urine - Urine Geiger Urine Culture - Final Contaminated: Please Repeat ASSESSMENT AND PLAN: Acute Hypoxic Respiratory Failure Complicated UTI E. coli Bacteremia Septic Shock Obstructive nephrolithiasis with moderate right Hydronephrosis Acute Kidney Injury Lactic Acidosis resolving elevated troponin, ?Demand type 2 NSTEMI from septic shock Thrombocytopenia Hypernatremia, suspect iatrogenic Seizure Disorder Hypothyroidism Hyperlipidemia s/p colostomy PLan: -s/p Reterograde pyelogram with stent placement 05/01, doing well now. Failure IR guided nephrostomy. - resume pureed diet with aspiration precuations. Hypernatremia, asking for water, bedside swallow eval for thin liquids, if no concerns will encourage PO free water for now. Increase D5w to 100 ml/hr. Repeat Na later today. -Urine cultures noted, ID input appreciated, Zosyn changed to ceftriaxone today after 3 days. s/p vancomycin x 1 for e. faecalis, final cultures sensitive to penicillin. - Off pressors x 48hours, doing well. - taper stress dose steroids to off. - monitor urine output, creatinine - taper flow rate, FiO2 to keep SpO2 >90% - aspiration precautions - Tn trended down, 2d echo noted -Platelets improved post 2 units on 05/01 (given pre procedural) -Recently taken off lithium, D/c for now. resume home psych meds as more awake and appropriate. - DVT prophylaxis with caution, SCDs -Critical care provided in ICU 35 min.
--- NOTE | 2017-05-02 19:12 | HOSP ---
Subjective - Review of Symptoms Events since last encounter: Left IJ central venous catheter removal Procedure Note (17:30): Pt was placed in Trendelenberg position. Line was pulled on exhalation. Pt was placed in Reverse Trendelenberg and pressure was held for 15 minutes. Dressing applied. Procedure was uneventful. Physical Examination Vital Signs: Vital Signs Temperature 98 F 05/02/17 11:02 Pulse Rate 58 L 05/02/17 17:00 Respiratory Rate 20 05/02/17 18:38 Blood Pressure 135/65 05/02/17 17:00 O2 Sat by Pulse Oximetry (%) 96 05/02/17 18:38 Labs: CBC, BMP 05/02/17 09:06 05/02/17 09:06 Visit type - Emergency Visit Emergency Visit: Yes ED Registration Date: 04/28/17 Care time: The patient presented to the Emergency Department on the above date and was hospitalized for further evaluation of their emergent condition. - New Patient This patient is new to me today: No - Critical Care Critical Care patient: Yes Total Critical Care Time (in minutes): 20
[2017-05-02] MEDS: DOCUSATE NA 100 MG/10 ML UNIT-DOSE CUPS PO SCH (21:54)
[2017-05-02] MEDS: QUEtiapine FUMARATE 100 MG TABLET (FP) PO SCH (21:55)
[2017-05-02] MEDS: CHLORHEXIDINE GLUCONATE 4% CLEANSER FOR DECOLONIZATION TP SCH (21:59)
[2017-05-02] MEDS: TOPIRAMATE 25 MG TABLET (FP) PO SCH (22:00)
[2017-05-03] MEDS ORDERED: BISACODYL 10 MG SUPP.RECT RC PRN (00:05)
[2017-05-03] MEDS ORDERED: MAG HYDROX/AL HYDROX/SIMETH 30 ML UNIT-DOSE CUP PO PRN (00:05)
[2017-05-03] MEDS ORDERED: LEVOTHYROXINE NA 125 MCG TABLET (FP) ONE (05:15)
[2017-05-03] MEDS ORDERED: LEVOTHYROXINE NA 100 MCG TABLET (FP) ONE (05:15)
[2017-05-03] MEDS: DEXTROSE 5%-WATER - 1,000 ML IV SCH ×4 (05:37→16:40)
[2017-05-03] MEDS: LEVOTHYROXINE 125 MCG, LEVOTHYROXINE 100 MCG PO SCH (06:00)
[2017-05-03] MEDS: AMINO ACIDS/PROTEIN HYDROLYS 30 ML LIQUID.PKT PO SCH ×2 (08:38→16:40)
[2017-05-03 08:55] LABS: HEMATOCRIT 30.3 % (32.4-45.2); HEMOGLOBIN 9.6 GM/dL (10.7-15.3); MCH 36.8 pg (25.7-33.7); MCHC 31.5 g/dl (32.0-36.0); MEAN CELL VOLUME 116.7 fl (80-96); PLATELET COUNT 90 K/MM3 (134-434); RDW 14.9 % (11.6-15.6); WHITE BLOOD COUNT 11.1 K/mm3 (4.0-10.0)
[2017-05-03 09:17] LABS: ALBUMIN 1.8 g/dl (3.4-5.0); ALK PHOS 59 U/L (45-117); ANION GAP 9 (8-16); BILIRUBIN,TOTAL 0.2 mg/dL (0.2-1.0); BLOOD UREA NITROGEN 33 mg/dL (7-18); CALCIUM 7.7 mg/dL (8.5-10.1); CHLORIDE 123 mmol/L (98-107); CO2 18 mmol/L (21-32); GLUCOSE,RANDOM 100 mg/dL (74-106); MAGNESIUM 1.7 mg/dL (1.8-2.4); PHOSPHOROUS 3.2 mg/dL (2.5-4.9); POTASSIUM 3.4 mmol/L (3.5-5.1); SGOT/AST 14 U/L (15-37); SGPT/ALT 32 U/L (12-78); SODIUM 150 mmol/L (136-145); TOT PROT 4.8 g/dl (6.4-8.2)
[2017-05-03] MEDS ORDERED: LEVOTHYROXINE NA 75 MCG TABLET (FP) PO SCH (10:00)
[2017-05-03] MEDS: CEFTRIAXONE 2 GM in DEXTROSE 5%-WATER - 100 ML IVPB SCH (11:02)
[2017-05-03] MEDS ORDERED: PT OWN MED DRAWER 7, Y5N ONE ×2 (11:02→21:48)
[2017-05-03] MEDS: HYDROCORTISONE SOD SUCCINATE 100 MG/2 ML VIAL IVPUSH SCH ×2 (11:03→22:03)
[2017-05-03] MEDS: TOPIRAMATE 25 MG TABLET (FP) PO SCH ×2 (11:03→22:03)
[2017-05-03] MEDS: DIVALPROEX SODIUM 125 MG SPRINKLE CAPS (FP) PO SCH ×2 (11:04→22:02)
[2017-05-03] MEDS: POLYETHYLENE GLYCOL 3350 119 GM BTL PO SCH (11:04)
[2017-05-03] MEDS: PANTOPRAZOLE 40 MG TABLET (FP) PO SCH (11:04)
[2017-05-03] MEDS: QUEtiapine FUMARATE 100 MG TABLET (FP) PO SCH ×2 (11:05→22:03)
[2017-05-03] MEDS: CINACALCET HCL 30 MG TAB (FP) PO SCH ×2 (11:05→22:02)
[2017-05-03 11:19] LABS: ANISOCYTOSIS 2+; MACROCYTOSIS 2+; PLATELET ESTIMATE DECREASED
--- NOTE | 2017-05-03 11:51 | PN ---
Teaching Attending Note Name of Resident: . ATTENDING PHYSICIAN STATEMENT SUBJECTIVE: Patient seen and examined. Oriented to self, denies pain but further ROS limited , keeps nodding her head with no meaningful responses. OBJECTIVE: Vital Signs Period Temp Pulse Resp BP Sys/Messer Pulse Ox Last 24 Hr 97.8 F-98 F 58-82 18-20 127-156/55-65 94-96 Intake & Output 04/30/17 05/01/17 05/02/17 05/03/17 23:59 23:59 23:59 23:59 Intake Total 2549 1350 564.8 800 Output Total 1050 2000 75 480 Balance 1499 -650 489.8 320 Weight 224 lb 4.8 oz 227 lb 4.745 oz 229 lb 0.964 oz 229 lb 5 oz General: sitting in bed in no acute distress CVS:S1S2 regular Chest: limited by habitus, no rales or wheezing Abdomen: soft, no wincing or distress on abdominal palpation or CVA check noted today, no voluntary or involuntary guarding or rigidity, positive bowel sounds, colostomy bag in place extremities: b/l feet edema Home Medication List Medication Instructions Recorded Confirmed Type Amino Acids/Protein Hydrolys 30 ml PO BID 02/08/17 04/28/17 History [Pro-Stat Awc Liquid] Docusate Sodium [Dulcolax Stool 200 mg PO HS 02/08/17 04/28/17 History Softener] Levothyroxine [Synthroid -] 225 mcg PO DAILY 02/08/17 04/28/17 History Mag Hydrox/Al Hydrox/Simeth 30 ml PO Q8H PRN 02/08/17 04/28/17 History [Mylanta Oral Suspension -] Magnesium Hydrox 2400MG/30Ml [Milk 30 ml PO DAILY PRN 02/08/17 04/28/17 History of Magnesia -] Multivitamin with Minerals [Icaps 1 each PO DAILY 02/08/17 04/28/17 History Plus] Pantoprazole Sodium 40 mg PO DAILY 02/08/17 04/28/17 History Polyethylene Glycol 3350 [Miralax 17 gm PO DAILY 02/08/17 04/28/17 History 119 gm Btl -] Quetiapine Fumarate [Seroquel -] 300 mg PO BID 02/08/17 04/28/17 History Topiramate [Topamax] 100 mg PO Q12H 10/01/17 12/19/17 History Cinacalcet HCl [Sensipar] 30 mg PO BID 04/28/17 04/28/17 History Divalproex Sprinkle [Depakote 125 mg PO BID 04/28/17 04/28/17 History Sprinkle Caps -] [place] Carbonate [Eskalith -] 300 mg PO HS 04/28/17 04/28/17 History Bisacodyl Suppository [Dulcolax 1 supp [place] DAILY PRN 04/29/17 04/29/17 History Suppository -] Mupirocin Cream [Bactroban 2% 1 applic TP HS 04/29/17 04/29/17 History Cream -] Active Medications Generic Name Dose Route Start Last Admin Trade Name Freq PRN Reason Stop Dose Admin Al Hydroxide/Mg Hydroxide 30 ml 05/03/17 00:05 Mylanta Oral Suspension - PO Q8H PRN DYSPEPSIA Amino Acids 30 ml 05/03/17 08:00 05/03/17 08:38 Prosource No Carb Liquid Pkt PO 30 ml BIDWM ROLAN Administration Bisacodyl 10 mg 05/03/17 00:05 Dulcolax Suppository - RC DAILY PRN CONSTIPATION Cinacalcet 30 mg 05/03/17 10:00 05/03/17 11:05 Sensipar - PO 30 mg BID ROLAN Administration Divalproex Sodium 125 mg 05/03/17 10:00 05/03/17 11:04 Depakote Sprinkle Caps - PO 125 mg BID ROLAN Administration Docusate Sodium 200 mg 05/03/17 22:00 Colace Liquid - PO HS ROLAN Hydrocortisone Sodium Succinate 25 mg 05/03/17 10:00 05/03/17 11:03 Solu-Cortef - IVPUSH 05/03/17 22:01 25 mg BID ROLAN Administration Dextrose 1,000 mls @ 100 mls/hr 05/02/17 11:34 05/03/17 05:37 D5w - IV 100 mls/hr ASDIR ROLAN Administration Ceftriaxone Sodium 2 gm/ 100 mls @ 200 mls/hr 05/03/17 10:00 05/03/17 11:02 Dextrose IVPB 200 mls/hr DAILY ROLAN Administration Levothyroxine Sodium 125 mcg/ 225 mcg 05/03/17 07:00 12/24/17 06:00 Levothyroxine Sodium 100 mcg PO 225 mcg DAILY@0700 ROLAN Administration Pantoprazole Sodium 40 mg 05/03/17 10:00 05/03/17 11:04 Protonix - PO 40 mg DAILY ROLAN Administration Polyethylene Glycol 17 gm 05/03/17 10:00 05/03/17 11:04 Miralax (For Daily Use) - PO 17 grams DAILY ROLAN Administration Quetiapine Fumarate 300 mg 05/02/17 22:00 05/03/17 11:05 Seroquel - PO 300 mg BID ROLAN Administration Topiramate 100 mg 05/02/17 21:57 05/03/17 11:03 Topamax - PO 100 mg BID ROLAN Administration Laboratory Results - last 24 hr 05/02/17 05/03/17 05/03/17 09:06 08:00 08:00 WBC 11.1 H RBC 2.60 L Hgb 9.6 L D Hct 30.3 L MCV 116.7 H MCH 36.8 H MCHC 31.5 L RDW 14.9 Plt Count 90 L MPV 10.0 Total Counted 100 Neutrophils % No Result Required. Neutrophils % (Manual) 73.0 D 61.4 Band Neutrophils % 11.0 2.0 Lymphocytes % No Result Required. Lymphocytes % (Manual) 9.0 D 21.8 D Monocytes % (Manual) 5 10 D Eosinophils % (Manual) 1.0 D Basophils % (Manual) 0.0 Myelocytes % (Man) 0 D Metamyelocytes 2 D 0 D Hypochromia 0 Platelet Estimate Decreased Decreased Polychromasia 0 Poikilocytosis 0 Anisocytosis 1+ 2+ Microcytosis 0 Macrocytosis 2+ 2+ Sodium 150 H Potassium 3.4 L Chloride 123 H Carbon Dioxide 18 L Anion Gap 9 BUN 33 H Creatinine 1.0 Creat Clearance w eGFR 54.50 Random Glucose 100 Calcium 7.7 L Phosphorus 3.2 Magnesium 1.7 L Total Bilirubin 0.2 D AST 14 L D ALT 32 D Alkaline Phosphatase 59 D Total Protein 4.8 L Albumin 1.8 L Microbiology 04/28/17 15:11 Urine - Urine Geiger Urine Culture - Final Escherichia Coli Vr Ec Faecalis 05/01/17 14:45 Nephrostomy Tube Drainage Gram Stain - Final 04/28/17 13:41 Blood - Peripheral Venous Blood Culture - Final Escherichia Coli 04/28/17 13:41 Blood - Peripheral Venous Blood Culture - Final Escherichia Coli 04/29/17 13:00 Urine - Urine Geiger Urine Culture - Final Contaminated: Please Repeat ASSESSMENT AND PLAN: 71 yof with bipolar disorder, seizure disorder, frequent UTIs, colostomy bag, admitted with unresponsives, found with E. coli UTI with septic shock requring 2 pressors, never intubated, obstructive uropathy s/p right ureteral stent placement on 05/01/2017. Acute Hypoxic Respiratory Failure Complicated UTI E. coli Bacteremia Septic Shock Obstructive nephrolithiasis with moderate right Hydronephrosis s/p ureteral stent placement 05/01/2017 Acute Kidney Injury Lactic Acidosis resolving elevated troponin, ?Demand type 2 NSTEMI from septic shock Thrombocytopenia,suspect from sepsis Hypernatremia, suspect iatrogenic compounded by lack for free water intake Seizure Disorder Hypothyroidism Hyperlipidemia s/p colostomy PLan: -s/p Reterograde pyelogram with stent placement 05/01, doing well now. Failed IR guided nephrostomy prior. Hypernatremia, suspect iatrogenic compounded by lack of free water intake. Asked RN to do bedside swallow eval for thin liquids. If ok, encourage oral free water intake. Decrease D5w to 75 ml/hr, repeat Na later today. -Urine cultures noted, ID input appreciated, Zosyn changed to ceftriaxone today after 3 days. Ceftriaxone day 2 (antibiotic day 5) s/p vancomycin x 1 for e. faecalis, final cultures sensitive to penicillin. - Off pressors x 72hours, doing well, central line d/debbie 05/02. - taper stress dose steroids to off, change to 25 mg daily today, then off. - monitor urine output, creatinine - taper flow rate, FiO2 to keep SpO2 >90% - aspiration precautions - Tn trended down, 2d echo noted -Platelets improved post 2 units on 05/01 (given pre procedural) -Recently taken off lithium, D/c for now. resumed home psych meds as more awake and appropriate. - DVT prophylaxis with caution, SCDs -PT eval for dispo planning. Anticipate in 48-72 hours if no events as electrolyte improve and tolerating PO well.
--- NOTE | 2017-05-03 16:46 | OP ---
DATE OF OPERATION: 05/02/2017 PREOPERATIVE DIAGNOSES: Right obstructing renal pelvis stone, hydronephrosis, sepsis, urinary tract infection. POSTOPERATIVE DIAGNOSES: Right obstructing renal pelvis stone, hydronephrosis, sepsis, urinary tract infection. PROCEDURE: Cystoscopy, right retrograde pyelogram, right ureteral stent placement. ANESTHESIA: General endotracheal. SURGEON: Fco Thomas MD ESTIMATED BLOOD LOSS: Minimal. PREOPERATIVE INDICATIONS: The patient is a 71-year-old female who was admitted on April 28 with sepsis that had been unresponsive. She has been on antibiotics. Her markedly elevated white count has been coming down, from 21 down to 13. On May 01, she underwent a CT scan for diffuse abdominal pain, which revealed an obstructing 1.5-cm stone in the renal pelvis with hydronephrosis. It was immediately recommended that she undergo nephrostomy tube placement. The nephrostomy tube was not able to be placed by Interventional Radiology. The patient is brought to the OR urgently for a ureteral stent placement. OPERATION: The patient was brought to the OR, placed on the table in the supine position, given general anesthesia. Patient is already on IV antibiotics. Timeout was performed. The groin area was prepped and draped sterilely. Cystoscopy was performed and there was a blood clot seen in the bladder. The right ureteral orifice was visualized. No tumors or stones were seen within the bladder. A wire was passed up into the right kidney under fluoroscopic guidance. An open-ended catheter was used and retrograde pyelogram was performed, which revealed hydronephrosis and the stone was visualized at the renal pelvis. Initially, there was difficulty passing the wire around the stone, but a glidewire was used to get around the stone. The open-ended catheter was then placed into the collecting system and the collecting system was opacified. A 6 x 24 double-J ureteral stent was placed under fluoroscopic guidance; one loop seen in the renal pelvis beyond the obstructing stone and one loop in the bladder. At that point, purulent discharge and debris was seen emerging from the stent. No further bleeding was seen in the bladder. Geiger was placed. The patient was woken up. Guy [id number]
[2017-05-03] MEDS: DOCUSATE NA 100 MG/10 ML UNIT-DOSE CUPS PO SCH (22:02)
[2017-05-04] MEDS: DEXTROSE 5%-WATER - 1,000 ML IV SCH ×2 (00:36→06:25)
[2017-05-04] MEDS ORDERED: LEVOTHYROXINE NA 100 MCG TABLET (FP) ONE (05:30)
[2017-05-04] MEDS ORDERED: LEVOTHYROXINE NA 125 MCG TABLET (FP) ONE (05:30)
[2017-05-04] MEDS: LEVOTHYROXINE 125 MCG, LEVOTHYROXINE 100 MCG PO SCH (06:07)
[2017-05-04] MEDS: AMINO ACIDS/PROTEIN HYDROLYS 30 ML LIQUID.PKT PO SCH ×2 (08:23→17:40)
--- NOTE | 2017-05-04 08:36 | PN ---
Physical Exam: SUBJECTIVE: Patient seen and examined by me at bedside. No overnight events noted. Patient resting comfortably and in no acute distress. Patient responds "I don't know" to every question. OBJECTIVE: Vital Signs Period Temp Pulse Resp BP Sys/Messer Pulse Ox Last 24 Hr 97.7 F-98.3 F 82-84 16-19 126-145/68-87 95-98 GENERAL: The patient is awake, alert, and fully oriented, in no acute distress. LUNGS: Breath sounds equal, clear to auscultation bilaterally, no wheezes, no crackles, no accessory muscle use. HEART: Regular rate and rhythm without murmur, rub or gallop. ABDOMEN: Soft, nontender, nondistended, normoactive bowel sounds, no guarding, no rebound. Colostomy back in LLQ with fecal contents EXTREMITIES: Trace edema bilaterally Laboratory Results - last 24 hr 05/03/17 05/03/17 05/03/17 08:00 08:00 23:20 WBC 11.1 H RBC 2.60 L Hgb 9.6 L D Hct 30.3 L MCV 116.7 H MCH 36.8 H MCHC 31.5 L RDW 14.9 Plt Count 90 L MPV 10.0 Neutrophils % No Result Required. Neutrophils % (Manual) 61.4 Band Neutrophils % 2.0 Lymphocytes % No Result Required. Lymphocytes % (Manual) 21.8 D Monocytes % (Manual) 10 D Eosinophils % (Manual) 1.0 D Basophils % (Manual) 0.0 Myelocytes % (Man) 0 D Metamyelocytes 0 D Hypochromia 0 Platelet Estimate Decreased Polychromasia 0 Poikilocytosis 0 Anisocytosis 2+ Microcytosis 0 Macrocytosis 2+ Sodium 150 H 147 H Potassium 3.4 L Chloride 123 H Carbon Dioxide 18 L Anion Gap 9 BUN 33 H Creatinine 1.0 Creat Clearance w eGFR 54.50 Random Glucose 100 Calcium 7.7 L Phosphorus 3.2 Magnesium 1.7 L Total Bilirubin 0.2 D AST 14 L D ALT 32 D Alkaline Phosphatase 59 D Total Protein 4.8 L Albumin 1.8 L Active Medications Generic Name Dose Route Start Last Admin Trade Name Freq PRN Reason Stop Dose Admin Al Hydroxide/Mg Hydroxide 30 ml 05/03/17 00:05 Mylanta Oral Suspension - PO Q8H PRN DYSPEPSIA Amino Acids 30 ml 05/03/17 08:00 05/04/17 08:23 Prosource No Carb Liquid Pkt PO 30 ml BIDWM ROLAN Administration Bisacodyl 10 mg 05/03/17 00:05 Dulcolax Suppository - RC DAILY PRN CONSTIPATION Cinacalcet 30 mg 05/03/17 10:00 05/03/17 22:02 Sensipar - PO 30 mg BID ROLAN Administration Divalproex Sodium 125 mg 05/03/17 10:00 05/03/17 22:02 Depakote Sprinkle Caps - PO 125 mg BID ROLAN Administration Docusate Sodium 200 mg 05/03/17 22:00 05/03/17 22:02 Colace Liquid - PO 200 mg HS ROLAN Administration Ceftriaxone Sodium 2 gm/ 100 mls @ 200 mls/hr 05/03/17 10:00 05/03/17 11:02 Dextrose IVPB 200 mls/hr DAILY ROLAN Administration Dextrose 1,000 mls @ 50 mls/hr 05/04/17 00:17 05/04/17 06:25 D5w - IV 50 mls/hr ASDIR ROLAN Administration Levothyroxine Sodium 125 mcg/ 225 mcg 05/03/17 07:00 05/04/17 06:07 Levothyroxine Sodium 100 mcg PO 225 mcg DAILY@0700 ROLAN Administration Pantoprazole Sodium 40 mg 05/03/17 10:00 05/03/17 11:04 Protonix - PO 40 mg DAILY ROLAN Administration Polyethylene Glycol 17 gm 05/03/17 10:00 05/03/17 11:04 Miralax (For Daily Use) - PO 17 grams DAILY ROLAN Administration Quetiapine Fumarate 300 mg 05/02/17 22:00 05/03/17 22:03 Seroquel - PO 300 mg BID ROLAN Administration Topiramate 100 mg 05/02/17 21:57 05/03/17 22:03 Topamax - PO 100 mg BID ROLAN Administration ASSESSMENT/PLAN: Patient is a 71 year old female who was sent over from [place] after being found unresponsive. Patient was found to have Septic Shock with UTI and admitted for further monitoring and management. Septic Shock with Acute Hypoxic Respiratory Failure-Improved -Likely secondary to UTI with Ecoli and VRE positive with Ecoli Bacteremia -Patient off pressors and is now out of the ICU requiring BIPAP and pressors -Patient Afebrile over 24 hours -Patient on Ceftriaxone 1gm daily day #4 with a total of 8 days of IV abx given (previously on Zosyn and Vancomycin) -ID on board and recommendations Appreciated Obstructive Nephrolithiasis w/ Moderate Right Hydronephrosis -S/P retrograde pyelogram & ureter stent placement (05/02/17) after failed attempt of nephrostomy tube placement -Will need to follow up with Urology after discharge for removal Acute Kidney Injury- Improved -Secondary to Obstructive Uropathy -Creatinine 0.9 today -Contineu IV fluids -Avoid nephrotoxic medications -Continue to monitor BMP HypoKalemia -3.1 today -Potassium chloride 40meq PO given -Repeat Potassium levels -Continue to monitor HyperNatremia- Improving -Iatrogenic from lack of free water intake -Trended down today to 146 today -Continue PO water intake -Continue D5 @50mls/hr -Continue to monitor BMP Elevated Troponins- Improved -Down trended -Likely secondary to septic shock -No cardiac workup indicated at this time Thrombocytopenia- Improving -Likely secondary to sepsis -S/P 1 units of platelets on admission -Today 114 with no signs of bleeding -Continue to monitor CBC Seizure Disorder -Continue Depakote 125mg BID -Continue Topamax 100mg BID Bipolar disorder/Depression -Continue Seroquel 300mg BID Hypothyroidism -Low TSH likely due to acute illness. T2 however wnl -Will continue Synthroid 225mcg every morning -Will need outpatient monitoring and repeat thyroid levels in 6 weeks F/E/N -Continue IV D5@50mls/hr -Hypokalemia. Replete and repeat -Dysphagia puree diet Prophylaxis -High risk. SCD's for DVT. Due to low platelets will hold off on AC -Protonix 40mg daily for GI Disposition -Will need to continue to monitor electrolytes. Patient will need rehab and return to nursing facility Visit type - Emergency Visit Emergency Visit: Yes ED Registration Date: 04/28/17 Care time: The patient presented to the Emergency Department on the above date and was hospitalized for further evaluation of their emergent condition. - New Patient This patient is new to me today: Yes Date on this admission: 05/04/17 - Critical Care Critical Care patient: No
[2017-05-04 10:45] LABS: ADD RBC MORPHOLOGY YES; HEMATOCRIT 31.6 % (32.4-45.2); HEMOGLOBIN 10.1 GM/dL (10.7-15.3); MCHC 31.9 g/dl (32.0-36.0); MEAN PLT VOLUME 8.9 fl (7.5-11.1); PLATELET COUNT 114 K/MM3 (134-434); RBC 2.72 M/mm3 (3.60-5.2); WHITE BLOOD COUNT 12.3 K/mm3 (4.0-10.0)
--- NOTE | 2017-05-04 10:52 | PN ---
Teaching Attending Note Name of Resident: Yi Cervantes ATTENDING PHYSICIAN STATEMENT I saw and evaluated the patient. I reviewed the resident's note and discussed the case with the resident. I agree with the resident's findings and plan as documented. SUBJECTIVE:resting comfortable. responds all questions with " I dont know". OBJECTIVE: Last Vital Signs Temp Pulse Resp BP Pulse Ox 97.7 F 84 16 130/87 98 05/04/17 06:00 05/04/17 10:50 05/04/17 06:00 05/04/17 06:00 05/04/17 10:50 General NAD CV S1 S2 + Lungs CTA anteriorly Abdomen soft NT/ND + colostomy LLQ with fecal material and air Extremities no pedal edema ASSESSMENT AND PLAN: 71 yo F with bipolar disorder, seizure disorder, frequent UTIs, colostomy bag, admitted with unresponsives, found with E. coli UTI with septic shock requring 2 pressors, never intubated, obstructive uropathy s/p right ureteral stent placement on 05/01/2017. 1. Acute Hypoxic Respiratory Failure-due to septic shock. was on bipap. now tolerating NC. titrate as tolerated. check pre and post 2. Septic shock due to Ecoli and VRE UTI and Ecoli bacteremia- off pressors and stress steroids. afebrile. lactic acidosis resolved. s/p R stent placement. repeat Bcx. was on vanco and zosyn now switched to Ceftriaxone day 4. total 8 days abx therapy. maintain gonzalez. ID on board 3. Acute Kidney Injury- due to obstructive uropathy with R sided hydronephrosis. s/p ureter stent placement. improving. failed attempt of nephrostomy tube placement. urology on board 4. Elevated tropnonin- due to septic shock. no cardiac workup indicated at this time 5. Thrombocytopenia -suspect from sepsis. s/p 1 unit platelets this admission. trending up. no signs of bleeding 6. Hypernatremia, suspect iatrogenic compounded by lack for free water intake- improving. trending up. awaitign todays labs. will adjust fluids pending results 8. Hypokalemia- awating labs 9. Seizure Disorder 10. Hypothyroidism- low TSH likely due to acute illness. T4 WNL. repeat TSH in 6 weeks 11. Hyperlipidemia 12. s/p colostomy-unclear why. pt poor historian 13. DVT ppx- scd 14. will need placement when medically optimized. PT assessment
[2017-05-04] MEDS: CEFTRIAXONE 2 GM in DEXTROSE 5%-WATER - 100 ML IVPB SCH (10:53)
[2017-05-04] MEDS: TOPIRAMATE 25 MG TABLET (FP) PO SCH ×2 (10:53→22:17)
[2017-05-04] MEDS: PANTOPRAZOLE 40 MG TABLET (FP) PO SCH (10:53)
[2017-05-04] MEDS: DIVALPROEX SODIUM 125 MG SPRINKLE CAPS (FP) PO SCH ×2 (10:53→22:17)
[2017-05-04] MEDS: POLYETHYLENE GLYCOL 3350 119 GM BTL PO SCH (10:54)
[2017-05-04] MEDS: CINACALCET HCL 30 MG TAB (FP) PO SCH ×2 (10:54→22:19)
[2017-05-04] MEDS: QUEtiapine FUMARATE 100 MG TABLET (FP) PO SCH ×2 (10:55→22:18)
[2017-05-04 11:14] LABS: ANION GAP 11 (8-16); BLOOD UREA NITROGEN 25 mg/dL (7-18); CHLORIDE 115 mmol/L (98-107); CO2 20 mmol/L (21-32); CREATININE 0.9 mg/dL (0.55-1.02); GLUCOSE,RANDOM 98 mg/dL (74-106); POTASSIUM 3.1 mmol/L (3.5-5.1); SODIUM 146 mmol/L (136-145)
[2017-05-04 11:35] LABS: ANISOCYTOSIS 2+; MACROCYTOSIS 1+; PLATELET ESTIMATE DECREASED
[2017-05-04 11:40] LABS: MAGNESIUM 1.4 mg/dL (1.8-2.4)
[2017-05-04] MEDS ORDERED: POTASSIUM CHLORIDE TABS 20 MEQ TABLET.ER (FP) PO ONE (12:00)
[2017-05-04 21:28] LABS: ANION GAP 8 (8-16); BLOOD UREA NITROGEN 23 mg/dL (7-18); CALCIUM 7.6 mg/dL (8.5-10.1); CHLORIDE 115 mmol/L (98-107); CO2 21 mmol/L (21-32); CREATININE 0.8 mg/dL (0.55-1.02); GLUCOSE,RANDOM 106 mg/dL (74-106); POTASSIUM 3.4 mmol/L (3.5-5.1); SODIUM 144 mmol/L (136-145)
[2017-05-04] MEDS: DOCUSATE NA 100 MG/10 ML UNIT-DOSE CUPS PO SCH (22:19)
[2017-05-05] MEDS: DEXTROSE 5%-WATER - 1,000 ML IV SCH ×2 (02:20→17:21)
[2017-05-05] MEDS: LEVOTHYROXINE 125 MCG, LEVOTHYROXINE 100 MCG PO SCH (06:34)
[2017-05-05] MEDS: AMINO ACIDS/PROTEIN HYDROLYS 30 ML LIQUID.PKT PO SCH ×2 (08:13→17:21)
[2017-05-05 08:27] LABS: HEMOGLOBIN 9.6 GM/dL (10.7-15.3); MCH 37.1 pg (25.7-33.7); MEAN CELL VOLUME 116.1 fl (80-96); MEAN PLT VOLUME 9.1 fl (7.5-11.1); PLATELET COUNT 122 K/MM3 (134-434); RBC 2.58 M/mm3 (3.60-5.2); RDW 14.5 % (11.6-15.6); WHITE BLOOD COUNT 14.8 K/mm3 (4.0-10.0)
[2017-05-05 08:49] LABS: ANION GAP 9 (8-16); BLOOD UREA NITROGEN 21 mg/dL (7-18); CALCIUM 7.4 mg/dL (8.5-10.1); CHLORIDE 118 mmol/L (98-107); CO2 20 mmol/L (21-32); GLUCOSE,RANDOM 69 mg/dL (74-106); POTASSIUM 3.4 mmol/L (3.5-5.1); SODIUM 147 mmol/L (136-145)
[2017-05-05 08:52] LABS: CREATININE 0.7 mg/dL (0.55-1.02)
[2017-05-05 09:25] LABS: MAGNESIUM 1.5 mg/dL (1.8-2.4)
[2017-05-05] MEDS ORDERED: PT OWN MED DRAWER 7, Y5N ONE (10:05)
[2017-05-05] MEDS: POLYETHYLENE GLYCOL 3350 119 GM BTL PO SCH (10:11)
[2017-05-05] MEDS: DIVALPROEX SODIUM 125 MG SPRINKLE CAPS (FP) PO SCH ×2 (10:11→21:42)
[2017-05-05] MEDS: PANTOPRAZOLE 40 MG TABLET (FP) PO SCH (10:12)
[2017-05-05] MEDS: CEFTRIAXONE 2 GM in DEXTROSE 5%-WATER - 100 ML IVPB SCH (10:12)
[2017-05-05] MEDS: QUEtiapine FUMARATE 100 MG TABLET (FP) PO SCH ×2 (10:13→21:42)
[2017-05-05] MEDS: CINACALCET HCL 30 MG TAB (FP) PO SCH ×2 (10:13→21:42)
[2017-05-05] MEDS: TOPIRAMATE 25 MG TABLET (FP) PO SCH ×2 (10:14→21:42)
--- NOTE | 2017-05-05 12:48 | PN ---
Progress Note (short form) - Note Progress Note: PULMONARY APPEARS COMFORTABLE ON NASAL O2 CHART REVIEWED VSS/AFEBRILE SPO2 98% 4 L/M PALE/ANICTERIC DIMINISHED BIBASILAR BREATH SOUNDS S1S2 OSTOMY LESS EDEMA LOWER EXT LABS/MEDS/MICRO/NOTES/IMAGES REVIEWED Acute Hypoxic Respiratory Failure resolving UTI/ECOLI bacteremia Renal Stone/Hydronephrosis s/p ureteral stent placement Septic Shock improved Acute Kidney Injury Lactic Acidosis resolving Seizure Disorder Hypothyroidism Hyperlipidemia s/p colostomy - antibiotics - maintain MAP >65 - stress dose steroids d/debbie - monitor urine output, creatinine - replete lytes as needed - taper FiO2 to keep SpO2 >90% - PO as tolerated - aspiration precautions - DVT prophylaxis Velma WARNER MD
--- NOTE | 2017-05-05 13:49 | PN ---
Progress Note, [facility] RESIDENT - Note Progress Note: Selected Entries 05/04/17 05/04/17 05/04/17 06:00 10:00 13:19 Breakfast 25% Lunch 75% Supper Temperature 97.7 F 97.4 F L 05/04/17 05/04/17 05/04/17 14:25 18:00 22:00 Breakfast 25% 25% Lunch 75% 75% Supper 75% 75% Temperature 97.9 F 97.9 F 05/05/17 05/05/17 06:00 08:30 Breakfast Lunch Supper Temperature 98.8 F 98 F Laboratory Tests 05/03/17 05/04/17 05/05/17 08:00 10:31 07:00 WBC 11.1 H 12.3 H 14.8 H Pureed diet/thin liquid ordered. Drinks rapidly through a straw with occasional brief cough.Voice is euphonic. Swallow is fairly brisk. I suspect pt could tolerate chopped food. Pt was on puree/nectar at [facility]. Suggest downgrade to puree/nectar MBS to r/o aspiration and provide most liberal diet pt can tolerate.
--- NOTE | 2017-05-05 15:17 | PN ---
Teaching Attending Note Name of Resident: Gifty Healy ATTENDING PHYSICIAN STATEMENT I saw and evaluated the patient. I reviewed the resident's note and discussed the case with the resident. I agree with the resident's findings and plan as documented. SUBJECTIVE:currently asymptomatic. denies CP, SOB, fever, chills, N/V/C/D OBJECTIVE: Last Vital Signs Temp Pulse Resp BP Pulse Ox 98 F 77 22 126/69 98 05/05/17 08:30 05/05/17 08:30 05/05/17 08:30 05/05/17 08:30 05/04/17 21:00 General NAD CV S1 S2 + Lungs CTA anteriorly Abdomen soft NT/ND + colostomy LLQ with fecal material and air Extremities no pedal edema ASSESSMENT AND PLAN: 71 yo F with bipolar disorder, seizure disorder, frequent UTIs, colostomy bag, admitted with unresponsives, found with E. coli UTI with septic shock requring 2 pressors, never intubated, obstructive uropathy s/p right ureteral stent placement on 05/01/2017. 1. Acute Hypoxic Respiratory Failure-due to septic shock. was on bipap. now tolerating NC. titrate as tolerated. check pre and post 2. Septic shock due to Ecoli and VRE UTI and Ecoli bacteremia- off pressors and stress steroids. leukocytosis trending up. afebrile. will monitor for now. s/p R stent placement. repeat Bcx. was on vanco and zosyn now switched to Ceftriaxone day 5. total 9 days abx therapy. maintain gonzalez. ID on board 3. Acute Kidney Injury- due to obstructive uropathy with R sided hydronephrosis. s/p ureter stent placement. improving. failed attempt of nephrostomy tube placement. urology on board 4. Elevated tropnonin- due to septic shock. no cardiac workup indicated at this time 5. Thrombocytopenia -suspect from sepsis. s/p 1 unit platelets this admission. trending up. no signs of bleeding 6. Hypernatremia, suspect iatrogenic compounded by lack for free water intake- improving. trending up. awaitign todays labs. will adjust fluids pending results 8. Hypokalemia- kcl po, Mg IV 9. Seizure Disorder 10. Hypothyroidism- low TSH likely due to acute illness. T4 WNL. repeat TSH in 6 weeks 11. Hyperlipidemia 12. s/p colostomy-unclear why. pt poor historian 13. DVT ppx- scd 14. will need placement when medically optimized. PT assessment
--- NOTE | 2017-05-05 15:18 | PN ---
Physical Exam: SUBJECTIVE: Patient seen and examined. Pt resting comfortably. Pt alert, but responds "I don't know" to all questions. No fever, chills. No events overnight. OBJECTIVE: Vital Signs Period Temp Pulse Resp BP Sys/Messer Pulse Ox Last 24 Hr 97.9 F-98.8 F 77-99 18-22 102-128/65-87 98 GENERAL: Pt is awake and conversant today, AAOx2, NAD. LUNGS: Breath sounds equal, clear to anterior auscultation bilaterally, no wheezes, no crackles, no accessory muscle use. HEART: Regular rate and rhythm, +S1/S2, without murmur. ABDOMEN: Diffuse tenderness to palpation, soft, nondistended, no guarding. + colostomy in LLQ, pink/viable/healthy. EXTREMITIES: Warm, well-perfused, no edema. SKIN: Warm, dry, normal turgor, no rashes or lesions noted Laboratory Results - last 24 hr 05/04/17 05/05/17 05/05/17 20:00 07:00 07:00 WBC 14.8 H RBC 2.58 L Hgb 9.6 L Hct 30.0 L MCV 116.1 H MCH 37.1 H MCHC 32.0 RDW 14.5 Plt Count 122 L MPV 9.1 Sodium 144 147 H Potassium 3.4 L 3.4 L Chloride 115 H 118 H Carbon Dioxide 21 20 L Anion Gap 8 9 BUN 23 H 21 H Creatinine 0.8 0.7 Random Glucose 106 69 L D Calcium 7.6 L 7.4 L Magnesium 1.5 L 05/05/17 09:00 WBC RBC Hgb Hct MCV MCH MCHC RDW Plt Count MPV Sodium Potassium Chloride Carbon Dioxide Anion Gap BUN Creatinine Random Glucose Calcium Magnesium Cancelled Active Medications Generic Name Dose Route Start Last Admin Trade Name Freq PRN Reason Stop Dose Admin Al Hydroxide/Mg Hydroxide 30 ml 05/03/17 00:05 Mylanta Oral Suspension - PO Q8H PRN DYSPEPSIA Amino Acids 30 ml 05/03/17 08:00 05/05/17 08:13 Prosource No Carb Liquid Pkt PO 30 ml BIDWM ROLAN Administration Bisacodyl 10 mg 05/03/17 00:05 Dulcolax Suppository - RC DAILY PRN CONSTIPATION Cinacalcet 30 mg 05/03/17 10:00 05/05/17 10:13 Sensipar - PO 30 mg BID ROLAN Administration Divalproex Sodium 125 mg 05/03/17 10:00 05/05/17 10:11 Depakote Sprinkle Caps - PO 125 mg BID ROLAN Administration Docusate Sodium 200 mg 05/03/17 22:00 05/04/17 22:19 Colace Liquid - PO 200 mg HS ROLAN Administration Ceftriaxone Sodium 2 gm/ 100 mls @ 200 mls/hr 05/03/17 10:00 05/05/17 10:12 Dextrose IVPB 200 mls/hr DAILY ROLAN Administration Levothyroxine Sodium 125 mcg/ 225 mcg 05/03/17 07:00 05/05/17 06:34 Levothyroxine Sodium 100 mcg PO 225 mcg DAILY@0700 ROLAN Administration Pantoprazole Sodium 40 mg 05/03/17 10:00 05/05/17 10:12 Protonix - PO 40 mg DAILY ROLAN Administration Polyethylene Glycol 17 gm 05/03/17 10:00 05/05/17 10:11 Miralax (For Daily Use) - PO 17 grams DAILY ROLAN Administration Quetiapine Fumarate 300 mg 05/02/17 22:00 05/05/17 10:13 Seroquel - PO 300 mg BID ROLAN Administration Topiramate 100 mg 05/02/17 21:57 05/05/17 10:14 Topamax - PO 100 mg BID ROLAN Administration ASSESSMENT/PLAN: 71yo F with PMH of bipolar, anxiety, seizure, hypothyroid, hld, colostomy, presents after being [facility] unresponsive in [facility], admitted to the ICU for septic shock, requiring 2 pressors, never intubated. # septic shock 2/2 E. Coli and VRE (+) UTI and E. coli bacteremia, s/p retrograde pyelogram and ureteral stent placement on the feather edger of with Dr. Thomas - monitor leukocytosis - IVFs - Day 5 of IV Ceftriaxone (Day 8 of total antibiotics) - ID (Dr. Felder) recs appreciated: 1,500 mg Vancomycin given once - stress dose steroids D/Bipin - repeat blood culture 05/04/17, (-) x 24 hrs # ORAL - likely 2/2 obstructive uropathy with Right-sided hydronephrosis, s/p ureteral stent placement, improving - Cr trending down, continue to monitor with hydration - monitor UOP # thrombocytopenia - improving, s/p 1U platelets this admission - hold Heparin # hypothyroidism - continue Synthroid # seizure - continue Sensipar, Depakote, Topamax # bipolar - Seroquel resumed as pt is more alert and conversant today # hypernatremia - Free water deficit 2.3L - pt taking po now - continue to monitor # hypokalemia - repleted with KCl liquid 40meq # FEN - Fluids: po - Electrolytes: continue to monitor - Nutrition: dysphagia puree with nectar thick liquids, f/u MBS with Speech Therapist # Prophylaxis - DVT ppx with Heparin - GI ppx not needed at this time Visit type - Emergency Visit Emergency Visit: Yes ED Registration Date: 04/28/17 Care time: The patient presented to the Emergency Department on the above date and was hospitalized for further evaluation of their emergent condition. - New Patient This patient is new to me today: No - Critical Care Critical Care patient: No
[2017-05-05] MEDS ORDERED: POTASSIUM CHLORIDE ORAL LIQUID 20 MEQ/15 ML PO ONE ×2 (15:30→17:30)
[2017-05-05] MEDS ORDERED: MAGNESIUM OXIDE 400 MG TABLET (FP) PO ONE (15:45)
[2017-05-05] MEDS ORDERED: MAGNESIUM SULF 50% (8.12 MEQ/2 ML-1 GM VIAL) IVPB ONE ×2 (16:00→17:30)
[2017-05-05] MEDS: DOCUSATE NA 100 MG/10 ML UNIT-DOSE CUPS PO SCH (21:41)
[2017-05-06] MEDS: DEXTROSE 5%-WATER - 1,000 ML IV SCH ×2 (02:45→06:05)
[2017-05-06] MEDS ORDERED: LEVOTHYROXINE NA 100 MCG TABLET (FP) ONE (05:41)
[2017-05-06] MEDS ORDERED: LEVOTHYROXINE NA 125 MCG TABLET (FP) ONE (05:41)
[2017-05-06] MEDS: LEVOTHYROXINE 125 MCG, LEVOTHYROXINE 100 MCG PO SCH (06:02)
[2017-05-06 09:03] LABS: HEMATOCRIT 27.4 % (32.4-45.2); HEMOGLOBIN 8.7 GM/dL (10.7-15.3); MCHC 31.9 g/dl (32.0-36.0); MEAN CELL VOLUME 116.1 fl (80-96); MEAN PLT VOLUME 9.8 fl (7.5-11.1); PLATELET COUNT 47 K/MM3 (134-434); RBC 2.36 M/mm3 (3.60-5.2); RDW 14.9 % (11.6-15.6); WHITE BLOOD COUNT 14.6 K/mm3 (4.0-10.0)
[2017-05-06 09:17] LABS: ANION GAP 10 (8-16); BLOOD UREA NITROGEN 16 mg/dL (7-18); CALCIUM 7.7 mg/dL (8.5-10.1); CHLORIDE 118 mmol/L (98-107); CO2 21 mmol/L (21-32); GLUCOSE,RANDOM 73 mg/dL (74-106); MAGNESIUM 1.9 mg/dL (1.8-2.4); POTASSIUM 3.7 mmol/L (3.5-5.1); SODIUM 149 mmol/L (136-145)
[2017-05-06 09:19] LABS: CREATININE 0.7 mg/dL (0.55-1.02); PHOSPHOROUS 2.8 mg/dL (2.5-4.9)
[2017-05-06] MEDS ORDERED: PT OWN MED DRAWER 7, Y5N ONE ×2 (10:30→21:32)
[2017-05-06] MEDS: AMINO ACIDS/PROTEIN HYDROLYS 30 ML LIQUID.PKT PO SCH ×2 (10:39→17:44)
[2017-05-06] MEDS: TOPIRAMATE 25 MG TABLET (FP) PO SCH ×2 (10:40→21:39)
[2017-05-06] MEDS: DIVALPROEX SODIUM 125 MG SPRINKLE CAPS (FP) PO SCH ×2 (10:40→21:40)
[2017-05-06] MEDS: CEFTRIAXONE 2 GM in DEXTROSE 5%-WATER - 100 ML IVPB SCH (10:40)
[2017-05-06] MEDS: CINACALCET HCL 30 MG TAB (FP) PO SCH ×2 (10:40→21:40)
[2017-05-06] MEDS: PANTOPRAZOLE 40 MG TABLET (FP) PO SCH (10:40)
[2017-05-06] MEDS: QUEtiapine FUMARATE 100 MG TABLET (FP) PO SCH ×2 (10:41→21:40)
[2017-05-06] MEDS: POLYETHYLENE GLYCOL 3350 119 GM BTL PO SCH (10:44)
--- NOTE | 2017-05-06 13:42 | PN ---
Progress Note (short form) - Note Progress Note: PULMONARY APPEARS COMFORTABLE ON NASAL O2 CHART REVIEWED AWAKE/ALERT/ VSS/TMAX 99.4 SPO2 98% 4 L/M PALE/ANICTERIC DIMINISHED BIBASILAR BREATH SOUNDS S1S2 OSTOMY LESS EDEMA LOWER EXT LABS/MEDS/MICRO/NOTES/IMAGES REVIEWED Acute Hypoxic Respiratory Failure resolving UTI/ECOLI bacteremia Renal Stone/Hydronephrosis s/p ureteral stent placement Septic Shock improved Acute Kidney Injury Lactic Acidosis resolving Seizure Disorder Hypothyroidism Hyperlipidemia s/p colostomy - antibiotics - stress dose steroids d/debbie - monitor urine output, creatinine - replete lytes as needed - taper FiO2 to keep SpO2 >90% - PO as tolerated - aspiration precautions - DVT prophylaxis - will need SNF rehab Velma WARNER MD
--- NOTE | 2017-05-06 14:34 | PN ---
Teaching Attending Note Name of Resident: Gifty Healy ATTENDING PHYSICIAN STATEMENT I saw and evaluated the patient. I reviewed the resident's note and discussed the case with the resident. I agree with the resident's findings and plan as documented. SUBJECTIVE:asymptomatic. denies CP, SOB, fever, chills OBJECTIVE: Last Vital Signs Temp Pulse Resp BP Pulse Ox 99.4 F 75 20 104/54 97 05/06/17 10:00 05/06/17 10:00 05/06/17 10:00 05/06/17 10:00 05/06/17 09:00 General NAD CV S1 S2 + Lungs CTA anteriorly Abdomen soft NT/ND + colostomy LLQ with fecal material Extremities no pedal edema ASSESSMENT AND PLAN: 71 yo F with bipolar disorder, seizure disorder, frequent UTIs, colostomy bag, admitted with unresponsives, found with E. coli UTI with septic shock requring 2 pressors, never intubated, obstructive uropathy s/p right ureteral stent placement on 05/01/2017. 1. Acute Hypoxic Respiratory Failure-due to septic shock. was on bipap. now tolerating NC. titrate as tolerated. check pre and post 2. Septic shock due to Ecoli and VRE UTI and Ecoli bacteremia- off pressors and stress steroids. leukocytosis stable. afebrile. s/p R stent placement. repeat Bcx negative. was on vanco and zosyn now switched to Ceftriaxone day 6. total 10 days abx therapy. maintain gonzalez. ID on board 3. Acute Kidney Injury- due to obstructive uropathy with R sided hydronephrosis. s/p ureter stent placement. resolved 4. Elevated tropnonin- due to septic shock. no cardiac workup indicated at this time 5. Thrombocytopenia -suspect from sepsis. s/p 1 unit platelets this admission. sudden drop in platelet count. repeat 6. acute anemia- no signs of bleeding. repeat labs. check iron studies 7. Hypernatremia, suspect iatrogenic compounded by lack for free water intake- starting to trend back up. start d5w. trend labs. 8. Hypokalemia- kcl in IVF 9. Seizure Disorder 10. Hypothyroidism- low TSH likely due to acute illness. T4 WNL. repeat TSH in 6 weeks 11. Hyperlipidemia 12. s/p colostomy-unclear why. pt poor historian 13. DVT ppx- scd 14. will need placement when medically optimized. PT assessment
[2017-05-06 16:00] LABS: HEMATOCRIT 24.8 % (32.4-45.2); HEMOGLOBIN 8.1 GM/dL (10.7-15.3); MCH 37.6 pg (25.7-33.7); MCHC 32.7 g/dl (32.0-36.0); MEAN CELL VOLUME 114.9 fl (80-96); MEAN PLT VOLUME 9.2 fl (7.5-11.1); PLATELET COUNT 152 K/MM3 (134-434); RBC 2.16 M/mm3 (3.60-5.2); RDW 14.7 % (11.6-15.6); WHITE BLOOD COUNT 12.6 K/mm3 (4.0-10.0)
[2017-05-06] MEDS: DEXTROSE 5%-WATER - 1,000 ML with POTASSIUM CHLORIDE 20 MEQ IV SCH (17:43)
--- NOTE | 2017-05-06 18:21 | PN ---
Physical Exam: SUBJECTIVE: Patient seen and examined. Pt seems more oriented today, but still confused. No fever, chills. OBJECTIVE: Vital Signs Period Temp Pulse Resp BP Sys/Messer Pulse Ox Last 24 Hr 97.7 F-99.6 F 75-97 20-20 104-126/54-63 97-98 GENERAL: Pt is awake and conversant today, AAOx2, NAD. LUNGS: Breath sounds equal, clear to anterior auscultation bilaterally, no wheezes, no crackles, no accessory muscle use. HEART: Regular rate and rhythm, +S1/S2, without murmur. ABDOMEN: Diffuse tenderness to palpation, soft, nondistended, no guarding. + colostomy in LLQ, pink/viable/healthy. EXTREMITIES: Warm, well-perfused, 1+ patricia LE edema. SKIN: Warm, dry, normal turgor, no rashes or lesions noted Laboratory Results - last 24 hr 05/06/17 05/06/17 05/06/17 06:00 06:00 15:00 WBC 14.6 H 12.6 H RBC 2.36 L 2.16 L Hgb 8.7 L 8.1 L Hct 27.4 L 24.8 L MCV 116.1 H 114.9 H MCH 37.0 H 37.6 H MCHC 31.9 L 32.7 RDW 14.9 14.7 Plt Count 47 L D 152 D MPV 9.8 9.2 Sodium 149 H Potassium 3.7 Chloride 118 H Carbon Dioxide 21 Anion Gap 10 BUN 16 D Creatinine 0.7 Random Glucose 73 L Calcium 7.7 L Phosphorus 2.8 Magnesium 1.9 D Ferritin 05/06/17 15:00 WBC RBC Hgb Hct MCV MCH MCHC RDW Plt Count MPV Sodium Potassium Chloride Carbon Dioxide Anion Gap BUN Creatinine Random Glucose Calcium Phosphorus Magnesium Ferritin 482.160 H Active Medications Generic Name Dose Route Start Last Admin Trade Name Freq PRN Reason Stop Dose Admin Al Hydroxide/Mg Hydroxide 30 ml 05/03/17 00:05 Mylanta Oral Suspension - PO Q8H PRN DYSPEPSIA Amino Acids 30 ml 05/03/17 08:00 05/06/17 17:44 Prosource No Carb Liquid Pkt PO 30 ml BIDWM ROLAN Administration Bisacodyl 10 mg 05/03/17 00:05 Dulcolax Suppository - RC DAILY PRN CONSTIPATION Cinacalcet 30 mg 05/03/17 10:00 05/06/17 10:40 Sensipar - PO 30 mg BID ROLAN Administration Divalproex Sodium 125 mg 05/03/17 10:00 05/06/17 10:40 Depakote Sprinkle Caps - PO 125 mg BID ROLAN Administration Docusate Sodium 200 mg 05/03/17 22:00 05/05/17 21:41 Colace Liquid - PO 200 mg HS ROLAN Administration Ceftriaxone Sodium 2 gm/ 100 mls @ 200 mls/hr 05/03/17 10:00 05/06/17 10:40 Dextrose IVPB 200 mls/hr DAILY ROLAN Administration Potassium Chloride 20 meq/ 1,010 mls @ 100 mls/hr 05/06/17 14:30 05/06/17 17: 43 Dextrose IV 100 mls/hr Q10H ROLAN Administration Levothyroxine Sodium 125 mcg/ 225 mcg 05/03/17 07:00 05/06/17 06:02 Levothyroxine Sodium 100 mcg PO 225 mcg DAILY@0700 ROLAN Administration Pantoprazole Sodium 40 mg 05/03/17 10:00 05/06/17 10:40 Protonix - PO 40 mg DAILY ROLAN Administration Pneumococcal 13-Valent Conj Vacc 0.5 ml 05/06/17 09:29 Prevnar 13 Syringe - IM 05/06/17 09:30 .ONCE ONE Polyethylene Glycol 17 gm 05/03/17 10:00 05/06/17 10:44 Miralax (For Daily Use) - PO 17 grams DAILY ROLAN Administration Quetiapine Fumarate 300 mg 05/02/17 22:00 05/06/17 10:41 Seroquel - PO 300 mg BID ROLAN Administration Topiramate 100 mg 05/02/17 21:57 05/06/17 10:40 Topamax - PO 100 mg BID ROLAN Administration ASSESSMENT/PLAN: 71yo F with PMH of bipolar, anxiety, seizure, hypothyroid, hld, colostomy, [facility], admitted to the ICU for septic shock, requiring 2 pressors, never intubated. # septic shock 2/2 E. Coli and VRE (+) UTI and E. coli bacteremia, s/p retrograde pyelogram and ureteral stent placement on the food operations manager of with Dr. Rechtschaffen - leukocytosis stable - IVFs - Day 6 of IV Ceftriaxone (Day 10 of total antibiotics) - repeat blood culture 05/04/17, (-) x 48 hrs - maintain gonzalez # ORAL - likely 2/2 obstructive uropathy with Right-sided hydronephrosis, s/p ureteral stent placement, improving - Cr trending down, continue to monitor with hydration - monitor UOP # thrombocytopenia - resolved - improving, s/p 1U platelets this admission - hold Heparin # anemia - no overt signs of bleeding - f/u iron studies - monitor hgb # seizure - continue Sensipar, Depakote, Topamax # hypothyroidism - continue Synthroid - repeat TSH in 6 weeks # bipolar - Seroquel resumed as pt is more alert and conversant today # hypernatremia - Free water deficit 3.0 L - pt taking po now - resume IVFs - continue to monitor # FEN - Fluids: D5 @ 100 ml/hr - Electrolytes: continue to monitor - Nutrition: dysphagia puree with nectar thick liquids, f/u MBS with Speech Therapist # Prophylaxis - DVT ppx with patricia SCDs - GI ppx not needed at this time Visit type - Emergency Visit Emergency Visit: Yes ED Registration Date: 04/28/17 Care time: The patient presented to the Emergency Department on the above date and was hospitalized for further evaluation of their emergent condition. - New Patient This patient is new to me today: No - Critical Care Critical Care patient: No
[2017-05-06] MEDS ORDERED: PNEUMOC 13-VAL CONJ-DIP CRM/PF 0.5 ML DISP.SYRIN IM ONE (19:30)
[2017-05-06] MEDS: DOCUSATE NA 100 MG/10 ML UNIT-DOSE CUPS PO SCH (21:39)
[2017-05-07] MEDS: DEXTROSE 5%-WATER - 1,000 ML with POTASSIUM CHLORIDE 20 MEQ IV SCH ×3 (00:30→18:36)
[2017-05-07] MEDS ORDERED: LEVOTHYROXINE NA 100 MCG TABLET (FP) ONE (05:00)
[2017-05-07] MEDS ORDERED: LEVOTHYROXINE NA 125 MCG TABLET (FP) ONE (05:01)
[2017-05-07] MEDS ORDERED: PNEUMOC 13-VAL CONJ-DIP CRM/PF 0.5 ML DISP.SYRIN IM ONE (06:00)
[2017-05-07] MEDS: LEVOTHYROXINE 125 MCG, LEVOTHYROXINE 100 MCG PO SCH (06:09)
[2017-05-07] MEDS ORDERED: PT OWN MED DRAWER 7, Y5N ONE (08:54)
[2017-05-07] MEDS: AMINO ACIDS/PROTEIN HYDROLYS 30 ML LIQUID.PKT PO SCH ×2 (08:57→18:16)
[2017-05-07] MEDS: PANTOPRAZOLE 40 MG TABLET (FP) PO SCH (09:23)
[2017-05-07] MEDS: TOPIRAMATE 25 MG TABLET (FP) PO SCH ×2 (09:23→22:11)
[2017-05-07] MEDS: DIVALPROEX SODIUM 125 MG SPRINKLE CAPS (FP) PO SCH ×2 (09:24→22:11)
[2017-05-07] MEDS: QUEtiapine FUMARATE 100 MG TABLET (FP) PO SCH ×2 (09:24→22:12)
[2017-05-07] MEDS: CEFTRIAXONE 2 GM in DEXTROSE 5%-WATER - 100 ML IVPB SCH (09:24)
[2017-05-07] MEDS: CINACALCET HCL 30 MG TAB (FP) PO SCH ×2 (09:24→22:12)
[2017-05-07 09:25] LABS: HEMATOCRIT 25.4 % (32.4-45.2); HEMOGLOBIN 8.2 GM/dL (10.7-15.3); MCH 37.2 pg (25.7-33.7); MCHC 32.3 g/dl (32.0-36.0); MEAN CELL VOLUME 115.3 fl (80-96); MEAN PLT VOLUME 8.8 fl (7.5-11.1); PLATELET COUNT 161 K/MM3 (134-434); RDW 14.5 % (11.6-15.6); WHITE BLOOD COUNT 14.3 K/mm3 (4.0-10.0)
[2017-05-07] MEDS: POLYETHYLENE GLYCOL 3350 119 GM BTL PO SCH (09:25)
[2017-05-07 09:45] LABS: ANION GAP 7 (8-16); BLOOD UREA NITROGEN 12 mg/dL (7-18); CALCIUM 7.1 mg/dL (8.5-10.1); CHLORIDE 119 mmol/L (98-107); CO2 25 mmol/L (21-32); CREATININE 0.7 mg/dL (0.55-1.02); GLUCOSE,RANDOM 87 mg/dL (74-106); POTASSIUM 3.4 mmol/L (3.5-5.1); SODIUM 151 mmol/L (136-145)
--- NOTE | 2017-05-07 11:36 | PN ---
Progress Note, EMBOSSING UNIT OPERATOR - Note Progress Note: Selected Entries 05/06/17 05/06/17 05/06/17 06:00 10:00 13:12 Breakfast 50% Lunch 50% Supper Temperature 99.6 F 99.4 F 05/06/17 05/06/17 05/06/17 15:00 19:00 23:00 Breakfast Lunch Supper 25% Temperature 98.5 F 99.2 F 05/07/17 05:53 Breakfast Lunch Supper Temperature 99.2 F Laboratory Tests 05/06/17 05/07/17 06:00 08:30 WBC 14.6 H 14.3 H
--- NOTE | 2017-05-07 14:31 | PN ---
Teaching Attending Note Name of Resident: Gifty Healy ATTENDING PHYSICIAN STATEMENT I saw and evaluated the patient. I reviewed the resident's note and discussed the case with the resident. I agree with the resident's findings and plan as documented. SUBJECTIVE:asymptomatic. OBJECTIVE: Last Vital Signs Temp Pulse Resp BP Pulse Ox 98.3 F 73 20 124/50 97 05/07/17 09:00 05/07/17 09:00 05/07/17 09:00 05/07/17 09:00 05/06/17 20:32 General NAD CV S1 S2 + Lungs CTA anteriorly Abdomen soft NT/ND + colostomy LLQ with fecal material Extremities trace pedal edema ASSESSMENT AND PLAN: 71 yo F with bipolar disorder, seizure disorder, frequent UTIs, colostomy bag, admitted with unresponsives, found with E. coli UTI with septic shock requring 2 pressors, never intubated, obstructive uropathy s/p right ureteral stent placement on 05/01/2017. 1. Acute Hypoxic Respiratory Failure-due to septic shock. saturating well on NC. titrate as tolerated. check pre and post 2. Septic shock due to Ecoli and VRE UTI and Ecoli bacteremia- off pressors and stress steroids. leukocytosis stable. afebrile. s/p R stent placement. repeat Bcx negative. was on vanco and zosyn now switched to Ceftriaxone day 7. will speak with ID about transition to po abx. maintain gonzalez. ID on board 3. Acute Kidney Injury- due to obstructive uropathy with R sided hydronephrosis. s/p ureter stent placement. resolved 4. Elevated tropnonin- due to septic shock. no cardiac workup indicated at this time 5. Thrombocytopenia -suspect from sepsis. s/p 1 unit platelets this admission. sudden drop in platelet count. repeat 6. acute anemia- no signs of bleeding. repeat labs. check iron studies 7. Hypernatremia, suspect iatrogenic compounded by lack for free water intake- free water deficit 4L. will increase D5w to 150cc. 8. Hypokalemia- kcl in IVF 9. Seizure Disorder 10. Hypothyroidism- low TSH likely due to acute illness. T4 WNL. repeat TSH in 6 weeks 11. Hyperlipidemia 12. s/p colostomy-unclear why. pt poor historian 13. DVT ppx- scd 14. will need placement when medically optimized.
[2017-05-07 17:17] LABS: ANION GAP 10 (8-16); BLOOD UREA NITROGEN 11 mg/dL (7-18); CALCIUM 7.9 mg/dL (8.5-10.1); CHLORIDE 115 mmol/L (98-107); CO2 25 mmol/L (21-32); CREATININE 0.7 mg/dL (0.55-1.02); GLUCOSE,RANDOM 83 mg/dL (74-106); POTASSIUM 3.5 mmol/L (3.5-5.1); SODIUM 150 mmol/L (136-145)
[2017-05-07] MEDS ORDERED: POTASSIUM CHLORIDE ORAL LIQUID 20 MEQ/15 ML PO ONE (18:20)
[2017-05-07] MEDS: DOCUSATE NA 100 MG/10 ML UNIT-DOSE CUPS PO SCH (22:12)
--- NOTE | 2017-05-07 23:48 | PN ---
Physical Exam: SUBJECTIVE: Patient seen and examined. Pt has blister to Left hand where IV infiltrated. Pt has no complaints. OBJECTIVE: Vital Signs Period Temp Pulse Resp BP Sys/Messer Pulse Ox Last 24 Hr 98.3 F-99.2 F 73-91 20-82 108-140/49-51 97 GENERAL: Pt is awake and conversant today, AAOx2, NAD. LUNGS: Breath sounds equal, clear to anterior auscultation bilaterally, no wheezes, no crackles, no accessory muscle use. HEART: Regular rate and rhythm, +S1/S2, without murmur. ABDOMEN: Diffuse tenderness to palpation, soft, nondistended, no guarding. + colostomy in LLQ, pink/viable/healthy. EXTREMITIES: Warm, well-perfused, 1+ patricia LE edema. SKIN: Warm, dry, normal turgor, no rashes or lesions noted Laboratory Results - last 24 hr 05/07/17 05/07/17 05/07/17 08:30 08:30 15:00 WBC 14.3 H RBC 2.20 L Hgb 8.2 L Hct 25.4 L MCV 115.3 H MCH 37.2 H MCHC 32.3 RDW 14.5 Plt Count 161 MPV 8.8 Sodium 151 H 150 H Potassium 3.4 L 3.5 Chloride 119 H 115 H Carbon Dioxide 25 25 Anion Gap 7 L 10 BUN 12 D 11 Creatinine 0.7 0.7 Random Glucose 87 83 Calcium 7.1 L 7.9 L Active Medications Generic Name Dose Route Start Last Admin Trade Name Freq PRN Reason Stop Dose Admin Al Hydroxide/Mg Hydroxide 30 ml 05/03/17 00:05 Mylanta Oral Suspension - PO Q8H PRN DYSPEPSIA Amino Acids 30 ml 05/03/17 08:00 05/07/17 18:16 Prosource No Carb Liquid Pkt PO 30 ml BIDWM ROLAN Administration Bisacodyl 10 mg 05/03/17 00:05 Dulcolax Suppository - RC DAILY PRN CONSTIPATION Cinacalcet 30 mg 05/03/17 10:00 05/07/17 22:12 Sensipar - PO 30 mg BID ROLAN Administration Divalproex Sodium 125 mg 05/03/17 10:00 05/07/17 22:11 Depakote Sprinkle Caps - PO 125 mg BID ROLAN Administration Docusate Sodium 200 mg 05/03/17 22:00 05/07/17 22:12 Colace Liquid - PO 200 mg HS ROLAN Administration Ceftriaxone Sodium 2 gm/ 100 mls @ 200 mls/hr 05/03/17 10:00 05/07/17 09:24 Dextrose IVPB 200 mls/hr DAILY ROLAN Administration Potassium Chloride 20 meq/ 1,010 mls @ 150 mls/hr 05/07/17 14:30 05/07/17 18: 36 Dextrose IV 150 mls/hr Q10H ROLAN Administration Levothyroxine Sodium 125 mcg/ 225 mcg 05/03/17 07:00 05/07/17 06:09 Levothyroxine Sodium 100 mcg PO 225 mcg DAILY@0700 ROLAN Administration Pantoprazole Sodium 40 mg 05/03/17 10:00 05/07/17 09:23 Protonix - PO 40 mg DAILY ROLAN Administration Polyethylene Glycol 17 gm 05/03/17 10:00 05/07/17 09:25 Miralax (For Daily Use) - PO 17 grams DAILY ROLAN Administration Quetiapine Fumarate 300 mg 05/02/17 22:00 05/07/17 22:12 Seroquel - PO 300 mg BID ROLAN Administration Topiramate 100 mg 05/02/17 21:57 05/07/17 22:11 Topamax - PO 100 mg BID ROLAN Administration ASSESSMENT/PLAN: 71yo F with PMH of bipolar, anxiety, seizure, hypothyroid, hld, colostomy, presents after being found unresponsive in [facility], admitted to the ICU for septic shock, requiring 2 pressors, never intubated. # septic shock 2/2 E. Coli and VRE (+) UTI and E. 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 Thomas - leukocytosis stable - IVFs - Day 7 of IV Ceftriaxone (Day 11 of total antibiotics) - repeat blood culture 05/04/17, (-) x 72 hrs - maintain gonzalez # ORAL - likely 2/2 obstructive uropathy with Right-sided hydronephrosis, s/p ureteral stent placement, improving - Cr trending down, continue to monitor with hydration - monitor UOP # thrombocytopenia - resolved - improving, s/p 1U platelets this admission - hold Heparin # anemia - no overt signs of bleeding - f/u iron studies - monitor hgb # seizure - continue Sensipar, Depakote, Topamax # hypothyroidism - continue Synthroid - repeat TSH in 6 weeks # bipolar - Seroquel resumed as pt is more alert and conversant today # hypernatremia - Free water deficit 3.3 L - encourage po fluids - resume IVFs # FEN - Fluids: D5 @ 100 ml/hr with 20meq KCl/L - Electrolytes: continue to monitor - Nutrition: dysphagia ground/chopped with thin liquids per Speech Therapy/ MBS # Prophylaxis - DVT ppx with patricia SCDs - GI ppx not needed at this time # dispo - pt medically optimized for discharge Visit type - Emergency Visit Emergency Visit: Yes ED Registration Date: 04/28/17 Care time: The patient presented to the Emergency Department on the above date and was hospitalized for further evaluation of their emergent condition. - New Patient This patient is new to me today: No - Critical Care Critical Care patient: No
[2017-05-08] MEDS: DEXTROSE 5%-WATER - 1,000 ML with POTASSIUM CHLORIDE 20 MEQ IV SCH ×2 (04:38→10:42)
[2017-05-08] MEDS ORDERED: LEVOTHYROXINE NA 100 MCG TABLET (FP) ONE (05:37)
[2017-05-08] MEDS ORDERED: LEVOTHYROXINE NA 125 MCG TABLET (FP) ONE (05:37)
[2017-05-08] MEDS: LEVOTHYROXINE 125 MCG, LEVOTHYROXINE 100 MCG PO SCH (06:03)
[2017-05-08 06:08] LABS: SERUM IRON SATURATION 26 % (15-55); TOTAL IRON BINDING CAPACITY 155 ug/dL (250-450); UIBC 115 ug/dL (118-369)
[2017-05-08] MEDS: AMINO ACIDS/PROTEIN HYDROLYS 30 ML LIQUID.PKT PO SCH (08:07)
[2017-05-08 09:01] VITALS: PULSE 85
[2017-05-08 09:01] LABS: HEMATOCRIT 23.9 % (32.4-45.2); HEMOGLOBIN 7.8 GM/dL (10.7-15.3); MCH 37.6 pg (25.7-33.7); MCHC 32.6 g/dl (32.0-36.0); MEAN CELL VOLUME 115.4 fl (80-96); PLATELET COUNT 162 K/MM3 (134-434); RBC 2.07 M/mm3 (3.60-5.2); RDW 14.6 % (11.6-15.6); WHITE BLOOD COUNT 14.7 K/mm3 (4.0-10.0)
[2017-05-08 09:06] LABS: ADD RBC MORPHOLOGY YES
[2017-05-08 09:17] LABS: ANION GAP 10 (8-16); BLOOD UREA NITROGEN 8 mg/dL (7-18); CALCIUM 7.2 mg/dL (8.5-10.1); CHLORIDE 116 mmol/L (98-107); CO2 23 mmol/L (21-32); CREATININE 0.6 mg/dL (0.55-1.02); GLUCOSE,RANDOM 90 mg/dL (74-106); POTASSIUM 3.9 mmol/L (3.5-5.1); SODIUM 149 mmol/L (136-145)
[2017-05-08 09:56] LABS: ANISOCYTOSIS 1+; MACROCYTOSIS 2+
[2017-05-08] MEDS ORDERED: PT OWN MED DRAWER 7, Y5N ONE ×3 (10:04→10:35)
[2017-05-08] MEDS: TOPIRAMATE 25 MG TABLET (FP) PO SCH (10:08)
[2017-05-08] MEDS: CEFTRIAXONE 2 GM in DEXTROSE 5%-WATER - 100 ML IVPB SCH (10:08)
[2017-05-08] MEDS: PANTOPRAZOLE 40 MG TABLET (FP) PO SCH (10:08)
[2017-05-08] MEDS: CINACALCET HCL 30 MG TAB (FP) PO SCH (10:41)
[2017-05-08] MEDS: QUEtiapine FUMARATE 100 MG TABLET (FP) PO SCH (10:41)
[2017-05-08] MEDS: DIVALPROEX SODIUM 125 MG SPRINKLE CAPS (FP) PO SCH (10:41)
[2017-05-08] MEDS: POLYETHYLENE GLYCOL 3350 119 GM BTL PO SCH (10:42)
--- NOTE | 2017-05-08 11:36 | PN ---
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 On chopped and thin liquid. Selected Entries 05/06/17 05/06/17 05/06/17 06:00 10:00 15:00 Supper Temperature 99.6 F 99.4 F 98.5 F 05/06/17 05/07/17 05/07/17 19:00 05:53 09:00 Supper Temperature 99.2 F 99.2 F 98.3 F 05/07/17 05/07/17 05/08/17 14:34 18:00 05:40 Supper 50% Temperature 99.2 F 98.4 F 98.1 F 05/08/17 09:00 Supper Temperature 98.3 F Laboratory Tests 05/07/17 05/08/17 08:30 08:00 WBC 14.3 H 14.7 H Tolerating diet.
--- NOTE | 2017-05-08 14:36 | PN ---
Teaching Attending Note Name of Resident: Gifty Healy ATTENDING PHYSICIAN STATEMENT I saw and evaluated the patient. I reviewed the resident's note and discussed the case with the resident. I agree with the resident's findings and plan as documented. SUBJECTIVE:asymptomatic. OBJECTIVE: Last Vital Signs Temp Pulse Resp BP Pulse Ox 98.3 F 85 20 108/81 92 L 05/08/17 09:00 05/08/17 12:07 05/08/17 09:00 05/08/17 09:00 05/08/17 12:07 General NAD CV S1 S2 + Lungs CTA anteriorly Abdomen soft NT/ND + colostomy LLQ with fecal material Extremities trace pedal edema ASSESSMENT AND PLAN: 71 yo F with bipolar disorder, seizure disorder, frequent UTIs, colostomy bag, admitted with unresponsives, found with E. coli UTI with septic shock requring 2 pressors, never intubated, obstructive uropathy s/p right ureteral stent placement on 05/01/2017. 1. Acute Hypoxic Respiratory Failure-due to septic shock. saturating well on RA 2. Septic shock due to Ecoli and VRE UTI and Ecoli bacteremia- off pressors and stress steroids. leukocytosis stable. afebrile. s/p R stent placement. repeat Bcx negative. was on vanco and zosyn now switched to Ceftriaxone day 8. will transition to levaquin po to complete 4 more days. maintain gonzalez. ID on board 3. Acute Kidney Injury- due to obstructive uropathy with R sided hydronephrosis. s/p ureter stent placement. resolved 4. Elevated tropnonin- due to septic shock. no cardiac workup indicated at this time 5. Thrombocytopenia -suspect from sepsis. s/p 1 unit platelets this admission. sudden drop in platelet count. repeat 6. acute anemia- no signs of bleeding. anemia of chronic disase. hgb stable 7. Hypernatremia, suspect iatrogenic compounded by lack for free water intake- improved. encourage po water intake 8. Hypokalemia- resolved 9. Seizure Disorder 10. Hypothyroidism- low TSH likely due to acute illness. T4 WNL. repeat TSH in 6 weeks 11. Hyperlipidemia 12. s/p colostomy-unclear why. pt poor historian 13. DVT ppx- scd 14. medically optimized for discharge
[2017-05-08 16:36] VITALS: BP 111/57; TEMP 98.4
--- NOTE | 2017-05-08 18:36 | DS ---
Physical Exam: SUBJECTIVE: Patient seen and examined. Pt alert and more oriented today, but remains confused. No fevers, chills. Pt has no complaints. OBJECTIVE: Vital Signs Period Temp Pulse Resp BP Sys/Messer Pulse Ox Last 24 Hr 98.1 F-98.4 F 80-85 12-20 108-116/57-81 92-98 PHYSICAL EXAM GENERAL: Pt is awake and conversant today, AAOx2, NAD. LUNGS: Breath sounds equal, clear to anterior auscultation bilaterally, no wheezes, no crackles, no accessory muscle use. HEART: Regular rate and rhythm, +S1/S2, without murmur. ABDOMEN: Diffuse tenderness to palpation, soft, nondistended, no guarding. + colostomy in LLQ, pink/viable/healthy. EXTREMITIES: Warm, well-perfused, trace barry LE edema. SKIN: Warm, dry, normal turgor, no rashes or lesions noted. Blister resolved to Left hand (where IV infiltrated). LABS Laboratory Results - last 24 hr 05/06/17 05/08/17 05/08/17 15:00 08:00 08:00 WBC 14.7 H RBC 2.07 L Hgb 7.8 L Hct 23.9 L MCV 115.4 H MCH 37.6 H MCHC 32.6 RDW 14.6 Plt Count 162 MPV 9.0 Hypochromia 1+ Platelet Comment No clumping noted Polychromasia 1+ Anisocytosis 1+ Macrocytosis 2+ Sodium 149 H Potassium 3.9 Chloride 116 H Carbon Dioxide 23 Anion Gap 10 BUN 8 D Creatinine 0.6 Random Glucose 90 Calcium 7.2 L Iron 40 TIBC 155 L Iron Saturation 26 HOSPITAL COURSE: Date of Admission:04/28/17 Date of Discharge: 05/08/17 71yo F with PMH of bipolar, anxiety, seizure, hypothyroid, hld, colostomy, [facility], admitted to the ICU for septic shock, requiring 2 pressors, never intubated. 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 Thomas. Pt received IV antibiotics. Pt had hypernatremia thoughout hospitalization: IV fluids given and pt encouraged to drink fluids po. 04/28/17 CXR 1:30pm -> bibasilar atelectasis 04/28/17 CXR 4pm -> small pleural effusions and bibasilar atelectasis and/or consolidation 04/29/17 CXR -> no PTX. Barry atelectatic changes. No evidence of vascular congestive changes. 04/29/17 Echo -> Left ventricle normal in size, function, thickness and EF. Mild MR. 04/30/17 CXR -> Left vascular catheter in place. Pt is rotated so significant portion of Left lung obscured by cardiomediastinal silhouette. No evidence of pulmonary consolidation in Right lung or visible upper zone of Left lung. 05/01/17 Ab/Pel CT -> Right nephrolithiasis with 1.5cm obstructing calculus within renal pelvis with moderate degree of hydronephrosis. Bill pleural effusions. 05/07/17 MBS -> pt's diet can be upgraded to dysphagia chopped with thin liquids. 04/28/17 blood culture (+) for E. coli 04/28/17 urine culture (+) for E. coli and Vr Ec Faecalis 05/01/17 Nephrostomy tube culture (+) for E. coli 05/04/17 repeat blood culture (-) x 96 hrs Pt refused PT today. Pt medically stable for discharge back to SNF. Minutes to complete discharge: 40 Discharge Summary Reason For Visit: SEPSIS; ALTERED MENTAL STATUS Condition: Improved - Instructions Diet, Activity, Other Instructions: You were treated for infection in the blood and urine. You received IV antibiotics for your infections. You were found to have a kidney stone obstructing the flow of urine, so you received a ureteral stent to allow urine to flow past the stone. Maintain proper cleaning of your gonzalez catheter. follow up with urology for removal The sodium level in your blood was found to often be elevated; drink plenty of fluids to stay hydrated. Continue taking your antibiotic, Levaquin, once a day for 4 more days. Continue your other home medications as prescribed. Follow-ups: - get blood work in 1 week (bmp, to check your sodium level) - with your Primary Care Doctor (Dr. Beltran) in 1 week - with the Urologist (Dr. Thomas) in 2 week for your ureteral stent and gonzalez catheter removal. Please return to the hospital immediately if you experience persistent or increased difficulty breathing, abdominal pain, or for any medical emergency. Referrals: Fco Thomas MD [Staff Physician] - Disposition: ALF FACILITY - Home Medications Comprehensive Discharge Medication List: Ambulatory Orders Amino Acids/Protein Hydrolys [Pro-Stat Awc Liquid] 30 ml PO BID 02/08/17 Docusate Sodium [Dulcolax Stool Softener] 200 mg PO HS 02/08/17 Levothyroxine [Synthroid -] 225 mcg PO DAILY 02/08/17 Mag Hydrox/Al Hydrox/Simeth [Mylanta Oral Suspension -] 30 ml PO Q8H PRN Magnesium Hydrox 2400MG/30Ml [Milk of Magnesia -] 30 ml PO DAILY PRN 02/08/17 Multivitamin with Minerals [Icaps Plus] 1 each PO DAILY 02/08/17 Pantoprazole Sodium 40 mg PO DAILY 02/08/17 Polyethylene Glycol 3350 [Miralax 119 gm Btl -] 17 gm PO DAILY 02/08/17 Quetiapine Fumarate [Seroquel -] 300 mg PO BID 02/08/17 Topiramate [Topamax] 100 mg PO Q12H 02/08/17 Nystatin/Triamcinolone Top Cr [Mycolog II -] 1 applic TP BID #0 applic 02/14/17 Cinacalcet HCl [Sensipar] 30 mg PO BID 04/28/17 Divalproex Sprinkle [Depakote Sprinkle -] 125 mg PO BID 04/28/17 Bisacodyl Suppository [Dulcolax Suppository -] 1 supp MT DAILY PRN 04/29/17 Mupirocin Cream [Bactroban 2% Cream -] 1 applic TP HS 04/29/17 Levofloxacin [Levaquin -] 500 mg PO DAILY #4 tablet 05/08/17 Miscellaneous Drug Not In Syst [Outpatient Lab Test] 1 each ASDIR #1 misc This patient is new to me today: No Emergency Visit: Yes ED Registration Date: 04/28/17 Care time: The patient presented to the Emergency Department on the above date and was hospitalized for further evaluation of their emergent condition. Critical Care patient: No - Discharge Referral Referred to [facility] No
[2017-05-09] MEDS ORDERED: CEFTRIAXONE IN IS-OSM DEXTROSE 2 GM/50 ML BAG IVPB SCH (10:00)
--- NOTE | 2017-05-15 11:49 | OP ---
DATE OF OPERATION: 05/02/2017 PREOPERATIVE DIAGNOSIS: Sepsis, right renal calculus, and hydronephrosis. POSTOPERATIVE DIAGNOSIS: Sepsis, right renal calculus, and hydronephrosis. PROCEDURE: Cystoscopy, placement of ureteral stent with retrograde pyelogram on the right. SURGEON: Mona Thomas MD ANESTHESIOLOGIST: Davide Pina MD ESTIMATED BLOOD LOSS: None. SPECIMENS: None. PREOPERATIVE INDICATIONS: The patient is a 71-year-old female who comes in with elevated white count and sepsis. She is going to have hydronephrosis with what appears to be obstructing stone in the ureter. She was unstable during the day on the 01 of May in the afternoon. She went to Interventional Radiology to have a nephrostomy tube placed. They were not successful. It was then alerted to this approximately 6 p.m. on the . The operating room was unable to provide a room immediately. The patient was hemodynamically stable, however, on my examination, and first available OR time was scheduled for stem placement. This occurred approximately at 12:25 in the morning on the 02 of May. DESCRIPTION OF PROCEDURE: The patient was brought to the OR, placed on the table in the supine position, given general anesthesia, and placed in the modified lithotomy position. The groin was prepped and draped sterilely. Cystoscopy was performed. The urethra and bladder were unremarkable. The right ureteral orifice was visualized. A wire was passed up intact other right kidney with fluoroscopic guidance. An open-ended catheter was used for retrograde pyelogram to opacify the system. There was hydronephrosis. A 6 x 24 double-J ureteral stent was placed over the wire with one loop seen in the renal pelvis and one loop in the bladder. Debris and affected urine appeared to be coming from the orifice after the stent was placed. A Geiger catheter was placed, and the patient was woken up. The patient remained hemodynamically stable throughout the case. MONA THOMAS M.D. [id number]
== END 2017-05-08 17:40 | DRG 871 ==
LOC: JER 13:32 → JERBED 17:01 → JICU 22:02 → J6S 05-02 18:35
PROVIDERS: ADMIT Internal Medicine; ATTEND Internal Medicine
PROC: 5A09457 Assistance with Respiratory Ventilation, 24-96 Consecutive Hours, Continuous Positive Airway Pressure (ICD-10-PCS; principal; 2017-04-28)
PROC: 30233R1 Transfusion of Nonautologous Platelets into Peripheral Vein, Percutaneous Approach (ICD-10-PCS; 2017-05-01)
PROC: 0T9330Z Drainage of Right Kidney Pelvis with Drainage Device, Percutaneous Approach (ICD-10-PCS; 2017-05-01)
PROC: 05HN33Z Insertion of Infusion Device into Left Internal Jugular Vein, Percutaneous Approach (ICD-10-PCS; 2017-05-01)
PROC: 0T768DZ Dilation of Right Ureter with Intraluminal Device, Via Natural or Artificial Opening Endoscopic (ICD-10-PCS; 2017-05-02)
PROC: BT1DZZZ Fluoroscopy of Right Kidney, Ureter and Bladder (ICD-10-PCS; 2017-05-02)
DX: A41.51 Sepsis due to Escherichia coli [E. coli] (principal); R65.21 Severe sepsis with septic shock; G93.41 Metabolic encephalopathy; J96.01 Acute respiratory failure with hypoxia; F31.89 Other bipolar disorder; G40.802 Other epilepsy, not intractable, without status epilepticus; N17.9 Acute kidney failure, unspecified; E87.2 Acidosis; N39.0 Urinary tract infection, site not specified; N13.2 Hydronephrosis with renal and ureteral calculous obstruction; E87.0 Hyperosmolality and hypernatremia; J90 Pleural effusion, not elsewhere classified; J98.11 Atelectasis; E03.9 Hypothyroidism, unspecified; E78.5 Hyperlipidemia, unspecified; R00.0 Tachycardia, unspecified; F41.8 Other specified anxiety disorders; E83.52 Hypercalcemia; E83.42 Hypomagnesemia; D69.6 Thrombocytopenia, unspecified; Z93.3 Colostomy status; R00.1 Bradycardia, unspecified; E87.6 Hypokalemia; E86.1 Hypovolemia; D72.828 Other elevated white blood cell count; D64.9 Anemia, unspecified
CPT/HCPCS: 36415; 36430; 36511; 36600; 50432; 71010-TC; 74176-TC; 74230-TC; 76000-TC; 80048; 80053; 80201; 81003; 81015; 82550; 82553; 82728; 82803; 83540; 83550; 83605; 83735; 84100; 84295; 84439; 84443; 84484; 85025; 85027; 85610; 85730; 86738; 86850; 86900; 86901; 87040; 87070; 87075; 87086; 87186; 87205; 90670; 92611-GN; 93005; 93010; 93306-TC; 94660; 94761; 97161-GP; 99285-25; C1729; C1769; G0480; J1644; P9034; P9038; Q9967

== ENCOUNTER 2017-08-07 08:33 | Day surgery (SDC) | payer OTHER ==
[2017-08-06 12:29] VITALS: BMI 39.4
--- NOTE | 2017-08-07 08:40 | HP ---
History & Physical Update - History History: No Change - Physical Physical: No Change - Assessment Assessment: No Change - Plan Plan: No Change
[2017-08-07] MEDS ORDERED: DEXTROSE 5%-0.45% SALINE 1,000 ML IV SCH (08:45)
[2017-08-07] MEDS ORDERED: IBUPROFEN 800 MG/8 ML IJ IVPB SCH (09:00)
[2017-08-07] MEDS ORDERED: DEXAMETHASONE SOD PHOSPHATE 4 MG/1 ML VIAL ONE (09:28)
[2017-08-07] MEDS ORDERED: ceFAZolin SODIUM 1 GM VIAL ONE (09:28)
[2017-08-07] MEDS ORDERED: ceFAZolin SODIUM 1 GM VIAL IVPB ONE (09:30)
[2017-08-07] MEDS ORDERED: ONDANSETRON 4 MG/2 ML VIAL IVPUSH PRN (10:31)
[2017-08-07] MEDS ORDERED: LACTATED RINGERS SOLUTION 1,000 ML IV SCH (10:45)
[2017-08-07 16:03] VITALS: BP 110/58; PULSE 92; TEMP 98
--- NOTE | 2017-08-08 11:06 | OP ---
DATE OF OPERATION: 08/07/2017 PREOPERATIVE DIAGNOSIS: Right renal calculi. POSTOPERATIVE DIAGNOSIS: Right renal calculi. PROCEDURE: Right ureteroscopic laser lithotripsy, stent exchange, retrograde pyelogram. SURGEON: Fco Thomas MD FINDINGS: Stone in the right kidney. PREOPERATIVE INDICATIONS: The patient is a 71-year-old female with a history of stones on the right side, urosepsis, had a stent placed a few months ago, now comes for laser lithotripsy. OPERATION: The patient was brought to the operating room, placed on the table in supine position, given general anesthesia and IV antibiotics, and placed in the modified lithotomy position. The groin was prepped and draped sterilely. Timeout was performed. Cystoscopy was performed. The bladder otherwise appeared to be unremarkable save a stent emerging from the right ureteral orifice. This was removed. A wire was passed up into the right kidney. The ureter was dilated, and a ureteral access sheath was placed without difficulty under fluoroscopic guidance. Ureteroscopy was performed. Stones were seen both in the renal pelvis and the upper pole of the kidney. These stones were broken up using the holmium laser fiber. No stones of large size were seen at the end. No stones were seen along the ureteral length. A 6 x 22 double-J ureteral stent was left in place. Bladder was emptied. The patient was woken up. FCO THOMAS M.D. [id number]
--- NOTE | 2017-08-10 08:53 | PATH ---
Surgical Pathology Report Patient Name: JEANIE BOLTON Med. Rec. #: [id number] /Age/Gender: 1945 (Age: 71) / F Account: [id number] Location: [facility] Taken: 08/07/2017 Received: 08/07/2017 Reported: 08/10/2017 Physicians: Fco Thomas M.D. 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 Electronically Signed Luke Monson M.D. Gross Description Received fresh labeled "old stent" is a green tubular stent consistent with ureteral stent measuring 30 cm in length and 0.1 cm diameter. No sections are taken. For gross examination only TAM/08/07/2017 manuelito/08/07/2017
== END 2017-08-07 14:30 | disposition home or self-care (01) ==
LOC: JASU-SURG 08:33
PROVIDERS: ATTEND Urology
PROC: 0TF38ZZ Fragmentation in Right Kidney Pelvis, Via Natural or Artificial Opening Endoscopic (ICD-10-PCS; principal; 2017-08-07 08:30)
PROC: 0T768DZ Dilation of Right Ureter with Intraluminal Device, Via Natural or Artificial Opening Endoscopic (ICD-10-PCS; 2017-08-07 08:30)
DX: N20.0 Calculus of kidney (principal); D64.9 Anemia, unspecified; E66.01 Morbid (severe) obesity due to excess calories
CPT/HCPCS: 76000-TC-FY; 88300-TC; 94760